=== PATIENT | female | born 1955 | race Caucasian/White ===

== ENCOUNTER 2022-11-06 15:03 | Observation (INO) | payer MEDICARE, BC, SELFPAY ==
[2022-11-06] VITALS (22 sets, daily range): BP systolic 153–180; BP diastolic 61–91; PULSE 51–86; RESP 20–22; TEMP 36.4–37.2; O2SAT 93–96; BMI 56.2
--- NOTE | 2022-11-06 15:33 | CRLHL7_ITS ---
For Patients: As a result of the Cures Act, medical imaging exams and procedure reports are released immediately into your electronic medical record. You may view this report before your referring provider. If you have questions, please contact your health care provider. INDICATION: Shortness of breath. TECHNIQUE: Chest 2 views. COMPARISON: None. FINDINGS: Cardiovascular and mediastinum: Cardiomediastinal silhouette is mildly enlarged Lungs and pleural spaces: Mild bilateral interstitial opacities. No sign of pleural effusion. No pneumothorax. Bones and soft tissues: Unremarkable for age. IMPRESSION: Mild cardiomegaly with interstitial opacities concerning for mild pulmonary edema. Dictated by Hermes Cisneros MD @ 11/06/2022 4:53:30 PM (Electronically Signed)
--- NOTE | 2022-11-06 15:37 | ED_ITS ---
HPI - General Adult General Time Seen by Provider: 15:38 Date Seen: 11/06/22 Chief complaint: Shortness of Breath/Dyspnea Stated complaint: Shortness of breath Time Seen by Provider: 11/06/22 15:09 Source: patient Mode of arrival: ambulatory Limitations: no limitations History of Present Illness HPI narrative: Patient is a 67-year-old female with a history of CHF, hypertension, diabetes presenting to the emergency department for shortness of breath. She states that the past 2 weeks she has been noticing worsening shortness of breath. States she has been taking her medications as directed other than she did miss her Lasix dose this morning but states she took 1 pill at 02:00 today. Patient states usually she is able walk from her bedroom to her bathroom without getting short of breath but states now whenever she does she gets very short of breath. She states it was difficult just walk into triage desk and requested a wheelchair to her room in the department. She was states now whenever she lays flat all within a minute or 2 should because extremity short of breath and needs to sit back up. She states she feels only minimally short of breath at rest. Also notes increased swelling to her lower extremities. Denies fevers, chest pain, headache, vision changes, weakness, numbness, diarrhea, constipation. Related Data Home Medications Medication Instructions Recorded Confirmed allopurinol 100 mg tablet 300 mg PO DAILY 11/06/22 11/06/22 brimonidine 0.2 % eye drops 1 drp ophthalmic (eye-left) Q12H 11/06/22 11/06/22 dorzolamide 2 % eye drops 1 drp ophthalmic (eye-left) BID 11/06/22 11/06/22 fluticasone propionate 50 2 spray intranasal DAILY 11/06/22 11/06/22 mcg/actuation nasal spray,suspension furosemide 40 mg tablet mg PO 11/06/22 latanoprost 0.005 % eye drops 1 drp ophthalmic (eye) QPM 11/06/22 11/06/22 levothyroxine 125 mcg tablet 125 mcg PO DAILY 11/06/22 11/06/22 losartan 100 mg tablet 100 mg PO DAILY 11/06/22 11/06/22 metformin 500 mg tablet,extended 500 mg PO QPM 11/06/22 11/06/22 release 24 hr metolazone 2.5 mg tablet 2.5 mg PO 11/06/22 metoprolol tartrate 100 mg tablet 100 mg PO BID 11/06/22 11/06/22 montelukast 10 mg tablet 10 mg PO QPM 11/06/22 11/06/22 nitroglycerin 0.4 mg sublingual mg sublingual 11/06/22 tablet prednisolone acetate 1 % eye 1 drp ophthalmic (eye-left) BID 11/06/22 11/06/22 drops,suspension simvastatin 40 mg tablet 40 mg PO QPM 11/06/22 11/06/22 timolol maleate 0.5 % eye drops 1 drp ophthalmic (eye-right) QAM 11/06/22 11/06/22 Allergies Allergy/AdvReac Type Severity Reaction Status Date / Time clindamycin Allergy Severe Verified 11/06/22 19:48 NSAIDS (Non-Steroidal Allergy Severe Anaphylaxis Verified 11/06/22 19:47 Anti-Inflamma penicillin V Allergy Severe Hypertensio Verified 11/06/22 19:47 n Review of Systems Status of ROS: Reports: 10 or more systems reviewed and unremarkable except as noted in History and below PFSH [facility] Social History What is your current living situation?: I presently have a place to live Problems where you live: declined to answer Problems where you live details: na In the past 12 months, utilities in danger of being shut off: no In the past 12 mos, have been you worried that your food would run out before you had money to buy more?: sometimes true In the past 12 mos, the food you bought just didn't last and you didn't have money to buy more?: sometimes true Smoking Status: Never smoker How often do you have a drink containing alcohol: never How often do you have six or more drinks on one occasion: Never AUDIT-C Alcohol total score: 0 Non-prescribed substance use: denies use How often does anyone, including family, friends and others, physically hurt you : never How often does anyone, including family, friends and others, insult or talk down to you: fairly often How often does anyone, including family, friends and others, threaten you with harm: never How often does anyone, including family, friends and others, scream or curse at you: never Exam Narrative: Exam Narrative: Const: Well-nourished, Well-developed, in mild distress Eyes: PERRL, no conjunctival injection, and symmetrical lids ENMT: Atraumatic external nose and ears. Moist mucous membranes. Neck: Symmetric, trachea midline, No thyromegaly. CVS: RRR, No murmurs or gallops. Peripheral pulses 2+ and equal in all extremities RESP: Unlabored respiratory effort. Clear to auscultation bilaterally. GI: Nontender/Nondistended, No rebound or guarding. MSK: +3 bilateral lower extremity edema up to the knees. Extremities w/o deformity, Normal Active ROM Skin: Warm, Dry. No rashes or lesions. Neuro: Normal Muscle tone, No focal neurological deficits. Psych: Awake, Alert, & Oriented x3. Appropriate mood and affect. Const: Vital Signs, click to edit/add: Vital Signs - 24 hr 11/06/22 15:16 11/06/22 15:40 11/06/22 15:45 Temperature 98.9 F Pulse Rate 65 65 Pulse Rate [Pulse Oximeter] 67 Respiratory Rate 20 Blood Pressure Blood Pressure [Ri ght Upper Arm] 163/62 H Pulse Oximetry [address] [facility] 11/06/22 16:04 11/06/22 16:07 11/06/22 16:08 Temperature Pulse Rate 64 76 60 Pulse Rate [Pulse Oximeter] Respiratory Rate Blood Pressure 180/68 H Blood Pressure [Ri ght Upper Arm] Pulse Oximetry [address] [facility] [facility] 11/06/22 16:15 11/06/22 16:30 11/06/22 16:45 Temperature Pulse Rate 77 65 60 Pulse Rate [Pulse Oximeter] Respiratory Rate Blood Pressure Blood Pressure [Ri ght Upper Arm] Pulse Oximetry [address] [facility] [facility] 11/06/22 17:00 11/06/22 17:02 11/06/22 17:03 Temperature Pulse Rate 54 L 58 L 67 Pulse Rate [Pulse Oximeter] Respiratory Rate Blood Pressure 153/61 H Blood Pressure [Ri ght Upper Arm] Pulse Oximetry 96 95 96 Oxygen Delivery Ma thod 11/06/22 17:20 11/06/22 17:36 11/06/22 17:45 Temperature Pulse Rate 65 61 75 Pulse Rate [Pulse Oximeter] Respiratory Rate Blood Pressure Blood Pressure [Ri ght Upper Arm] Pulse Oximetry 96 95 96 Oxygen Delivery Me thod 11/06/22 18:00 11/06/22 18:15 Temperature Pulse Rate 58 L 58 L Pulse Rate [Pulse Oximeter] Respiratory Rate Blood Pressure Blood Pressure [Ri ght Upper Arm] Pulse Oximetry 94 95 Oxygen Delivery Me thod Course Vital Signs Vital signs: Initial Vital Signs Temperature 98.9 F 11/06/22 15:16 Temperature Source Temporal Artery Scan 11/06/22 15:16 Pulse Rate 67 11/06/22 15:16 Respiratory Rate 20 11/06/22 15:16 Blood Pressure 163/62 H 11/06/22 15:16 Blood Pressure Mean 95 11/06/22 15:16 Pulse Oximetry 94 11/06/22 15:16 Oxygen Delivery Method Room Air 11/06/22 15:16 Vital Signs Temperature 98.9 F 11/06/22 15:16 Pulse Rate 67 11/06/22 15:16 Respiratory Rate 20 11/06/22 15:16 Blood Pressure 163/62 H 11/06/22 15:16 Pulse Oximetry 94 11/06/22 15:16 Oxygen Delivery Method Room Air 11/06/22 15:16 Temperature 97.5 F L 11/06/22 19:28 Pulse Rate 86 11/06/22 19:37 Respiratory Rate 20 11/06/22 19:52 Blood Pressure 176/91 H 11/06/22 19:37 Pulse Oximetry 96 11/06/22 19:52 Oxygen Delivery Method Room Air 11/06/22 19:52 Medical Decision Making MDM Narrative Medical decision making narrative: Patient is a 67-year-old female presents for shortness breath. She believes her CHF is causing her symptoms. States she has had worsening shortness of breath the past 2 weeks and now she cannot walk more than a few steps without getting short of breath. She has posterior primary care provider and tape since symptoms are continuing to get worse she came to the emergency department ins tead. States she has been taking her medication as directed. She does have lower extremity edema and larger not hear any rales or crackles her lungs there is concern for CHF at this time. CBC, CMP, BNP, urinalysis, chest x-ray, EKG, troponins were ordered. Patient's lab work returned showing a BNP of 2410. Initial troponin was within normal limits. Urinalysis shows no clear signs of UTI. COVID/flu/RSV negative. The sodium was slightly low at 133 potassium is slightly elevated at 5.2. This is likely to be the cause of her shortness of breath. We did do chest x-ray did show some mild pulmonary edema. With all this she most likely is having heart failure causing her symptoms. Dose of Lasix was ordered. Her blood sugar was 475 but is not showing signs of HHS at this time. 12 units of insulin were given. She does have a white count of 15.87. I am unsure why her white cause this side. Could be secondary to elevated blood sugar or stress reaction but infection cannot be clearly rule out this time. Chest x-ray and urinalysis showed no clear signs of infection. At speaking to her again she does states she has got a cortisone shot her left knee yesterday and this could be the cause of her elevated white count. Either way the patient will be admitted to the hospitalist service for CHF exacerbation. She is agreeable to this plan Lab Data Labs: Lab Results 11/06/22 11/06/22 11/06/22 Range/Units 15:25 15:35 15:43 WBC 15.87 H (4.50-11.00) K/uL RBC 3.94 L (4.00-5.20) m/uL Hgb 11.3 L (12.0-16.0) gm/dL Hct 35.9 (33.0-51.0) % MCV 91 (80-100) fL MCH 29 (26-34) pg MCHC 32 (32-36) gm/dL RDW Coeff of Tad 15.2 (11.5-15.5) % Plt Count 254 (140-440) K/uL Neut % (Auto) 89.0 H (42.0-72.0) % Lymph % (Auto) 4.6 L (20-44) % Rankin % (Auto) 5.9 (0.0-11.0) % Eos % (Auto) 0.0 (0.0-7.0) % Baso % (Auto) 0.1 (0.0-3.0) % Neut # (Auto) 14.10 H (1.7-7.0) K/uL Lymph # (Auto) 0.70 L (0.90-2.90) K/uL Rankin # (Auto) 0.90 (0.00-0.90) K/UL Eos # (Auto) 0.00 (0.00-0.50) K/uL Baso # (Auto) 0.00 (0.00-0.30) K/uL Abs Immat Gran (auto) 0.10 (0.00-0.30) K/uL Imm/Tot Granulo (auto) 0.4 % Sodium 133 L (135-149) mmol/L Potassium 5.2 H (3.6-5.1) mmol/L Chloride 102 (96-114) mmol/L Carbon Dioxide 26 (20-32) mmol/L BUN 62 H (7-30) mg/dL Creatinine 1.5 (0.5-1.5) mg/dL Estimated GFR 38 ml/min Glucose 475 H* (60-115) mg/dL Calcium 8.8 (8.4-10.6) mg/dL Total Bilirubin 0.5 (0.1-1.5) mg/dL AST 25 (12-35) U/L ALT 24 (4-35) U/L Alkaline Phosphatase 131 (40-150) U/L Troponin I 0.02 (0.01-0.04) ng/mL NT-Pro-B Natriuret Pep 2410 pg/mL Total Protein 6.9 (6.0-8.3) g/dL Albumin 3.8 (3.3-5.0) g/dL Urine Color (Yellow) Urine Appearance (Clear) Urine pH (5.0-8.5) Ur Specific [place] (1.000-1.030) Urine Protein (Negative) Urine Glucose (UA) (Negative) Urine Ketones (Negative) Urine Blood (Negative) Urine Nitrite (Negative) Urine Bilirubin (Negative) Urine Urobilinogen (0.2-1.0) Ur Leukocyte Esterase (Negative) Urine RBC (0-2) Urine WBC (0-5) Ur Squamous Epith Cells (None-Few) Urine Bacteria (None) SARS-CoV-2 (PCR) Negative SARS-CoV-2 (Negative) Influenza Type A (PCR) Negative PCR FLU A (Negative) Influenza Type B (PCR) Negative PCR FLU B (Negative) RSV (PCR) Negative PCR RSV (Negative) POC Troponin I 0.01 (0.01-0.04) ng/ml 11/06/22 Range/Units 16:00 WBC (4.50-11.00) K/uL RBC (4.00-5.20) m/uL Hgb (12.0-16.0) gm/dL Hct (33.0-51.0) % MCV (80-100) fL MCH (26-34) pg MCHC (32-36) gm/dL RDW Coeff of Tad (11.5-15.5) % Plt Count (140-440) K/uL Neut % (Auto) (42.0-72.0) % Lymph % (Auto) (20-44) % Rankin % (Auto) (0.0-11.0) % Eos % (Auto) (0.0-7.0) % Baso % (Auto) (0.0-3.0) % Neut # (Auto) (1.7-7.0) K/uL Lymph # (Auto) (0.90-2.90) K/uL Rankin # (Auto) (0.00-0.90) K/UL Eos # (Auto) (0.00-0.50) K/uL Baso # (Auto) (0.00-0.30) K/uL Abs Immat Gran (auto) (0.00-0.30) K/uL Imm/Tot Granulo (auto) % Sodium (135-149) mmol/L Potassium (3.6-5.1) mmol/L Chloride (96-114) mmol/L Carbon Dioxide (20-32) mmol/L BUN (7-30) mg/dL Creatinine (0.5-1.5) mg/dL Estimated GFR ml/min Glucose (60-115) mg/dL Calcium (8.4-10.6) mg/dL Total Bilirubin (0.1-1.5) mg/dL AST (12-35) U/L ALT (4-35) U/L Alkaline Phosphatase (40-150) U/L Troponin I (0.01-0.04) ng/mL NT-Pro-B Natriuret Pep pg/mL Total Protein (6.0-8.3) g/dL Albumin (3.3-5.0) g/dL Urine Color Yellow (Yellow) Urine Appearance Clear (Clear) Urine pH 5.0 (5.0-8.5) Ur Specific [place] 1.020 (1.000-1.030) Urine Protein 3+ A (Negative) Urine Glucose (UA) 2+ A (Negative) Urine Ketones Negative (Negative) Urine Blood Trace-intact A (Negative) Urine Nitrite Negative (Negative) Urine Bilirubin Negative (Negative) Urine Urobilinogen 0.2 (0.2-1.0) Ur Leukocyte Esterase Negative (Negative) Urine RBC 0-2 (0-2) Urine WBC 2-5 (0-5) Ur Squamous Epith Cells Few (None-Few) Urine Bacteria Moderate A (None) SARS-CoV-2 (PCR) (Negative) Influenza Type A (PCR) (Negative) Influenza Type B (PCR) (Negative) RSV (PCR) (Negative) POC Troponin I (0.01-0.04) ng/ml Discharge Plan Discharge Clinical Impression: Pulmonary edema with congestive heart failure Patient Disposition: Admitted As Observation Condition: Stable
[2022-11-06 15:42] LABS: Basophils Percent Auto 0.1 % (0.0-3.0); Hematocrit 35.9 % (33.0-51.0); Hemoglobin* 11.3 gm/dL (12.0-16.0); Immature Granulocytes Pct Auto 0.4 %; Lymphocytes Percent Auto 4.6 % (20-44); Mean Corpuscular HGB Conc 32 gm/dL (32-36); Mean Corpuscular Hemoglobin 29 pg (26-34); Mean Corpuscular Volume 91 fL (80-100); Monocytes Percent Auto 5.9 % (0.0-11.0); Platelet Count* 254 K/uL (140-440); RDW Coefficient of Variation % 15.2 % (11.5-15.5); Red Blood Count 3.94 m/uL (4.00-5.20); Slide Review Reflex No; White Blood Count* 15.87 K/uL (4.50-11.00)
[2022-11-06 15:43] LABS: Troponin, Point-of-Care* 0.01 ng/ml (0.01-0.04)
[2022-11-06 15:57] LABS: Albumin* 3.8 g/dL (3.3-5.0); Chloride* 102 mmol/L (96-114)
[2022-11-06 15:58] LABS: Potassium* 5.2 mmol/L (3.6-5.1); Sodium* 133 mmol/L (135-149)
[2022-11-06 16:00] LABS: Creatinine* 1.5 mg/dL (0.5-1.5); Estimated Glomerular Filt Rate 38 ml/min
[2022-11-06 16:01] LABS: Alanine Aminotransferase* 24 U/L (4-35); Alkaline Phosphatase* 131 U/L (40-150); Aspartate Amino Transferase* 25 U/L (12-35); Bilirubin Total* 0.5 mg/dL (0.1-1.5); Blood Urea Nitrogen* 62 mg/dL (7-30); Calcium* 8.8 mg/dL (8.4-10.6); Carbon Dioxide* 26 mmol/L (20-32); Total Protein* 6.9 g/dL (6.0-8.3)
[2022-11-06 16:09] LABS: Glucose* 475 mg/dL (60-115)
[2022-11-06 16:13] LABS: NT Pro B Type NatriureticPept* 2410 pg/mL; Troponin I* 0.02 ng/mL (0.01-0.04)
[2022-11-06 16:19] LABS: Appearance Urine Clear (Clear); Bilirubin Urine Negative (Negative); Blood Urine Trace-intact (Negative); Color Urine Yellow (Yellow); Glucose Urine 2+ (Negative); Ketones Urine Negative (Negative); Leukocyte Esterase Urine Negative (Negative); Nitrite Urine Negative (Negative); Protein Urine 3+ (Negative); Urobilinogen Urine 0.2 (0.2-1.0)
[2022-11-06 16:24] LABS: PCR FLU A Negative PCR FLU A (Negative); PCR FLU B Negative PCR FLU B (Negative); PCR RSV Negative PCR RSV (Negative)
[2022-11-06 16:27] LABS: RBC Urine 0-2 (0-2); Squamous Epithelial Cell Urine Few (None-Few)
[2022-11-06 16:28] LABS: Bacteria Urine Moderate
[2022-11-06] MEDS: FUROSEMIDE 10 MG/ML inj 40 MG IVP (16:31)
[2022-11-06 16:35] LABS: SARS PCR* Negative SARS-CoV-2 (Negative)
[2022-11-06] MEDS: ENOXAPARIN 40 MG/0.4 ML INJ SUBCUT (21:06)
[2022-11-06] MEDS: SODIUM CHLORIDE 0.9 % (FLUSH) 10 ML SYRINGE 5 ML IVF (21:06)
--- NOTE | 2022-11-06 22:03 | P.IMHP_ITS ---
Hospitalist- H&P: HPI History of Present Illness Time Seen by Provider: 20:00 Date Seen: 11/06/22 Chief complaint: Shortness of breath Narrative: Caity Ojeda is a 67 year old woman presents with a 2 week history of increasing dyspnea with exertion, increasing paroxysmal nocturnal dyspnea, increasing bilateral lower extremity edema. Patient describes paroxysmal nocturnal dyspnea for the better part of the last 2 years. She sleeps in a recliner chair subsequently. Last couple of weeks the paroxysmal nocturnal dyspnea has become worse. She is having to sleep almost in the sitting upright position. Additionally she is normally able to walk relatively easily from 1 room to the next in the house. Over the last couple of days even that has become more difficult with her having to stop after a few steps to catch her breath. Has not had syncope or near-syncope. Does have a chronic left chest wall discomfort. Notes that the bilateral lower extremity edema which is chronic for her has become increasingly worse over the last couple of weeks with blisters. Acknowledges that she has been sleeping almost sitting straight up during this time frame. Denies fevers, rigors, diaphoresis. Denies cough. Denies nausea or vomiting. Has chronic intermittent upset stomach. Recently stopped taking her metformin due to diarrhea in association with the same. Review of Systems Status of ROS: Reports: 10 or more systems reviewed and unremarkable except as noted in History and below Narrative: Tries to take her medicines as prescribed. Tries to adhere to low-sodium diet blood sugars have been much more difficult to control lately. Blood sugars 300- 400. Once again, she stopped her metformin recently due to gastrointestinal upset and diarrhea. 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 Has received multiple treatments for the same. States has diabetic retinopathy. Quit her Flonase because she thinks a Flonase contributed to this problem. 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 (ICD-10) Poorly controlled type 2 diabetes mellitus ?E11.65 - Type 2 diabetes mellitus with hyperglycemia (ICD-10) History of sciatica ?Z86.69 - Personal history of other diseases of the nervous system and sense organs (ICD-10) Primary hypothyroidism ?E03.9 - Hypothyroidism, unspecified (ICD-10) Asthma ?J45.909 - Unspecified asthma, uncomplicated (ICD-10) Vitamin D deficiency ?E55.9 - Vitamin D deficiency, unspecified (ICD-10) Rectocele ?N81.6 - Rectocele (ICD-10) Essential hypertension ?I10 - Essential (primary) hypertension (ICD-10) Obstructive sleep apnea ?G47.33 - Obstructive sleep apnea (adult) (pediatric) (ICD-10) Chronic diastolic heart failure ?I50.32 - Chronic diastolic (congestive) heart failure (ICD-10) Morbid obesity with BMI of 50.0-59.9, adult ?E66.01 - Morbid (severe) obesity due to excess calories (ICD-10) ?Z68.43 - Body mass index [BMI] 50.0-59.9, adult (ICD-10) History of nephrolithiasis ?Z87.442 - Personal history of urinary calculi (ICD-10) Lumbar back pain with radiculopathy affecting left lower extremity ?M54.16 - Radiculopathy, lumbar region (ICD-10) Hypertriglyceridemia ?E78.1 - Pure hyperglyceridemia (ICD-10) Osteoarthritis of knees, bilateral ?M17.0 - Bilateral primary osteoarthritis of knee (ICD-10) Chronic kidney disease ?N18.9 - Chronic kidney disease, unspecified (ICD-10) Venous insufficiency of both lower extremities ?I87.2 - Venous insufficiency (chronic) (peripheral) (ICD-10) Diabetic nephropathy associated with type 2 diabetes mellitus ?E11.21 - Type 2 diabetes mellitus with diabetic nephropathy (ICD-10) Surgical History (Updated 11/06/22 @ 22:10 by Iain Soriano MD) Status post total abdominal hysterectomy ?Z90.710 - Acquired absence of both cervix and uterus (ICD-10) Status post thyroidectomy ?E89.0 - Postprocedural hypothyroidism (ICD-10) History of esophagogastroduodenoscopy ?Z98.890 - Other specified postprocedural states (ICD-10) Status post cholecystectomy ?Z90.49 - Acquired absence of other specified parts of digestive tract (ICD- 10) History of intraocular lens implant ?Z96.1 - Presence of intraocular lens (ICD-10) Cataract extraction status ?Z98.49 - Cataract extraction status, unspecified eye (ICD-10) Status post appendectomy ?Z90.49 - Acquired absence of other specified parts of digestive tract (ICD- 10) Status post colonoscopy with polypectomy ?Z98.890 - Other specified postprocedural states (ICD-10) Family History (Updated 11/06/22 @ 22:10 by Iain Soriano MD) Other Diabetes High blood pressure High cholesterol Social History (Updated 11/06/22 @ 22:13 by Iain Soriano MD) Narrative: . Lives alone. Three supportive children. 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 Designates son, Nathan, [phone], secondary contact for power of nursery laborer for health should that be required. Requests that we attempt resuscitation in the event of cardiopulmonary demise, stressing that she does not want to be kept alive as a vegetable should that come to pass. What is your current living situation?: I presently have a place to live Problems where you live: declined to answer Problems where you live details: na In the past 12 months, utilities in danger of being shut off: no In the past 12 mos, have been you worried that your food would run out before you had money to buy more?: sometimes true In the past 12 mos, the food you bought just didn't last and you didn't have money to buy more?: sometimes true Smoking Status: Never smoker How often do you have a drink containing alcohol: never How often do you have six or more drinks on one occasion: Never AUDIT-C Alcohol total score: 0 Non-prescribed substance use: denies use How often does anyone, including family, friends and others, physically hurt you : never How often does anyone, including family, friends and others, insult or talk down to you: fairly often How often does anyone, including family, friends and others, threaten you with harm: never How often does anyone, including family, friends and others, scream or curse at you: never Meds Home Medications and Allergies Home Medications Medication Instructions Recorded Confirmed Type allopurinol 100 mg tablet 300 mg PO DAILY 11/06/22 11/06/22 History brimonidine 0.2 % eye drops 1 drp ophthalmic (eye-left) Q12H 11/06/22 11/06/22 History dorzolamide 2 % eye drops 1 drp ophthalmic (eye-left) BID 11/06/22 11/06/22 History fluticasone propionate 50 2 spray intranasal DAILY 11/06/22 11/06/22 History mcg/actuation nasal spray,suspension furosemide 40 mg tablet mg PO 11/06/22 History latanoprost 0.005 % eye drops 1 drp ophthalmic (eye) QPM 11/06/22 11/06/22 History levothyroxine 125 mcg tablet 125 mcg PO DAILY 11/06/22 11/06/22 History losartan 100 mg tablet 100 mg PO DAILY 11/06/22 11/06/22 History metformin 500 mg tablet,extended 500 mg PO QPM 11/06/22 11/06/22 History release 24 hr metolazone 2.5 mg tablet 2.5 mg PO 11/06/22 History metoprolol tartrate 100 mg tablet 100 mg PO BID 11/06/22 11/06/22 History montelukast 10 mg tablet 10 mg PO QPM 11/06/22 11/06/22 History nitroglycerin 0.4 mg sublingual mg sublingual 11/06/22 History tablet prednisolone acetate 1 % eye 1 drp ophthalmic (eye-left) BID 11/06/22 11/06/22 History drops,suspension simvastatin 40 mg tablet 40 mg PO QPM 11/06/22 11/06/22 History timolol maleate 0.5 % eye drops 1 drp ophthalmic (eye-right) QAM 11/06/22 11/06/22 History Allergies Allergy/AdvReac Type Severity Reaction Status Date / Time clindamycin Allergy Severe Verified 11/06/22 19:48 NSAIDS (Non-Steroidal Allergy Severe Anaphylaxis Verified 11/06/22 19:47 Anti-Inflamma penicillin V Allergy Severe Hypertensio Verified 11/06/22 19:47 n Exam Narrative: Exam Narrative: When I 1st examined her she is in the emergency department sitting upright in a chair with her feet on the floor. She appears comfortable. No acute distress. Vision and hearing are seemingly grossly normal at this juncture. Alert and oriented to self, place, time, situation. Articulate, friendly, cooperative. Somewhat anxious. Mood and affect are con gruent. Morbidly obese. Normal tympanic membranes bilaterally. Midline nasal septum. Mallampati class 4 airway. No icterus or conjunctival injection. Neck is supple. Full neck. In the sitting upright position she has jugular venous distension and hepatojugular reflux all the way up to just below the angle of the jaw. No carotid bruits. Lungs for the most part clear to auscultation. No wheezing, rhonchi, and only fine end inspiratory rales bibasilarly. Chest wall excursions are full. Does have chronic tenderness to percussion over her spine but not the CVA bilaterally. Pitting edema presacrally. Heart tones with regular rhythm, normal S1-S2, distant tones, without obvious murmur, gallop, or rub. Morbid abdominal obesity. Abdomen with active bowel sounds, soft, nontender. Pitting edema pedally, pretibially, up into her thighs, and as specified above in the presacral area as well. Blistering of skin and motta and caps. No obvious infection. Transfers independently with standby assist. No focal motor neurologic deficits. No tremor, asterixis, or rub. Broad-based stance. Const: Vital Signs, click to edit/add: Vital Signs - 24 hr 11/06/22 15:16 11/06/22 15:40 11/06/22 15:45 Temperature 98.9 F Pulse Rate 65 65 Pulse Rate [Pulse Oximeter] 67 Pulse Rate [Right Brachial] Respiratory Rate 20 Blood Pressure Blood Pressure [Le ft Arm] Blood Pressure [Ri ght Upper Arm] 163/62 H Pulse Oximetry 94 95 94 Oxygen Delivery Vt thod Room Air 11/06/22 16:04 11/06/22 16:07 11/06/22 16:08 Temperature Pulse Rate 64 76 60 Pulse Rate [Pulse Oximeter] Pulse Rate [Right Brachial] Respiratory Rate Blood Pressure 180/68 H Blood Pressure [Le ft Arm] Blood Pressure [Ri ght Upper Arm] Pulse Oximetry 93 93 94 Oxygen Delivery Me thod 11/06/22 16:15 11/06/22 16:30 11/06/22 16:45 Temperature Pulse Rate 77 65 60 Pulse Rate [Pulse Oximeter] Pulse Rate [Right Brachial] Respiratory Rate Blood Pressure Blood Pressure [Le ft Arm] Blood Pressure [Ri ght Upper Arm] Pulse Oximetry 93 94 95 Oxygen Delivery Vt thod 11/06/22 17:00 11/06/22 17:02 11/06/22 17:03 Temperature Pulse Rate 54 L 58 L 67 Pulse Rate [Pulse Oximeter] Pulse Rate [Right Brachial] Respiratory Rate Blood Pressure 153/61 H Blood Pressure [Le ft Arm] Blood Pressure [Ri ght Upper Arm] Pulse Oximetry 96 95 96 Oxygen Delivery Vt thod 11/06/22 17:20 11/06/22 17:36 11/06/22 17:45 Temperature Pulse Rate 65 61 75 Pulse Rate [Pulse Oximeter] Pulse Rate [Right Brachial] Respiratory Rate Blood Pressure Blood Pressure [Le ft Arm] Blood Pressure [Ri ght Upper Arm] Pulse Oximetry 96 95 96 [facility] 18:00 11/06/22 18:15 11/06/22 19:28 Temperature 97.5 F L Pulse Rate 58 L 58 L Pulse Rate [Pulse Oximeter] Pulse Rate [Right Brachial] 86 Respiratory Rate 20 Blood Pressure Blood Pressure [Le ft Arm] Blood Pressure [Ri ght Upper Arm] Pulse Oximetry 94 95 95 [facility] 11/06/22 19:37 11/06/22 19:52 11/06/22 21:21 Temperature Pulse Rate 74 Pulse Rate [Pulse Oximeter] Pulse Rate [Right Brachial] 86 Respiratory Rate 20 20 Blood Pressure Blood Pressure [Le ft Arm] 176/91 H Blood Pressure [Ri ght Upper Arm] Pulse Oximetry 96 96 [facility] Room Air Hospitalist - H&P: Result Labs Labs: Short CBC 11/06/22 Range/Units 15:25 WBC 15.87 H (4.50-11.00) K/uL Hgb 11.3 L (12.0-16.0) gm/dL Hct 35.9 (33.0-51.0) % Plt Count 254 (140-440) K/uL BMP 11/06/22 15:25 Sodium 133 L Potassium 5.2 H Chloride 102 Carbon Dioxide 26 BUN 62 H Creatinine 1.5 Glucose 475 H* Calcium 8.8 Cardiac Enzymes 11/06/22 Range/Units 15:25 Troponin I 0.02 (0.01-0.04) ng/mL Liver Function 11/06/22 Range/Units 15:25 Total Bilirubin 0.5 (0.1-1.5) mg/dL AST 25 (12-35) U/L ALT 24 (4-35) U/L Alkaline Phosphatase 131 (40-150) U/L Albumin 3.8 (3.3-5.0) g/dL Urine 11/06/22 Range/Units 16:00 Urine Color Yellow (Yellow) Urine Appearance Clear (Clear) Urine pH 5.0 (5.0-8.5) Ur Specific [place] 1.020 (1.000-1.030) Urine Protein 3+ A (Negative) Urine Glucose (UA) 2+ A (Negative) ECG Attestation: I personally reviewed and interpreted this ECG as follows: ECG interpretation date: 11/06/22 ECG interpretation time: 20:00 Prior ECG tracings: not available for review Interpretation: Sinus rhythm. Sinus arrhythmia. Low-voltage criteria. Imaging Chest x-ray: Attestation: I have reviewed the pertinent imaging results. Radiologist's impression: IMPRESSION: Mild cardiomegaly with interstitial opacities concerning for mild pulmonary edema. Assessment and Plan Assessment and plan (1) Acute on chronic diastolic heart failure: Status: Acute (2) Severe left ventricular hypertrophy: Problem comment: Per last transthoracic echocardiogram 03/10/2021. Status: Acute (3) Chronic diastolic heart failure: Problem comment: Last transthoracic echocardiogram 03/10/2021: Normal LV size, severely increased wall thickness, normal global systolic function, EF 62%. Right ventricle mildly enlarged with normal function. Grade 2 pattern LV diastolic filling. Pulmonary pressure by tricuspid velocity mildly elevated at 19 mmHg plus right atrial pressure. Inferior vena cava dilated with respiratory variation greater than 50%. 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 Alfonzo Wheatley. Avoid nonsteroidal anti-inflammatory medications. Attempt to optimize diabetes mellitus. Would benefit from SGLT2i, cannot afford. Would benefit from GLP1 agonist, cannot afford. Would benefit from weight loss, but seemingly unable to achieve. Status: Acute (6) Poorly controlled type 2 diabetes mellitus: Status: Acute (7) Venous insufficiency of both lower extremities: Status: Acute (8) Morbid obesity with BMI of 50.0-59.9, adult: Problem comment: Could potentially benefit from assessment for possible surgical intervention, given multiple complications in association with the same. Status: Acute (9) Obstructive sleep apnea: Status: Acute Plan 1. Reviewed impression with patient. Answered her questions. 2. Recommended admission to the hospital. She is agreeable. 3. Was administered furosemide 40 mg IV in the emergency department. Having fair urine output from the same. Starting tomorrow morning will increase to 60 mg IV every morning. 4. Monitor electrolytes, renal function, and other labs closely. 5. Daily weight. 6. Sliding scale insulin plus decrease dose of her 70/30 insulin for now. 7. Transthoracic echocardiogram. 8. Foot pumps bilaterally. 9. Continue to have conversations with her in regard to her goals for care and her means to achieve these goals. It seems that she does not care for herself optimally, at least in the past, because she is not able to afford certain interventions. For now she would like us to work on helping her breathe more easily. 10. Consider compression wraps. 11. Continue with other supportive intervention efforts. 12. Physical therapy, occupational therapy, director of social work consult and support. Might the patient benefit from additional in-home services if possible? 13. Patient agreeable to above stated plans and recommendations.
[2022-11-07 03:00] VITALS: BP 157/72; PULSE 55; RESP 20; TEMP 36.4; O2SAT 95
--- NOTE | 2022-11-07 05:56 | PC.NURSE ---
END OF SHIFT NOTE: PT PLEASANT AND COOPERATIVE. PT DENIES CP AND N/V. C/O FEELING SOB WITH ACTIVITY.?AMBULATES INDEPENDENTLY WITH CANE. VSS ON RA; AFEBRILE. PT RATES BLE PAIN 0-6/10 WITH ACTIVITY AND TENDER TO THE TOUCH. ERYTHEMA, SCABS, AND BLISTERING TO SHINS. ULCERS TO BLE ON TOES AND PLANTAR OF LEFT FOOT. 2AM BG CHECK 206. CALL LIGHT WITHIN PT?S REACH.
[2022-11-07] MEDS: LEVOTHYROXINE 125 MCG TABLET PO (06:55)
[2022-11-07] MEDS: FUROSEMIDE 10 MG/ML inj 60 MG IVP (06:55)
[2022-11-07] MEDS: SODIUM CHLORIDE 0.9 % (FLUSH) 10 ML SYRINGE 5 ML IVF ×2 (06:56→08:39)
[2022-11-07 07:04] VITALS: PULSE 48
[2022-11-07 07:04] LABS: Hematocrit 38.8 % (33.0-51.0); Hemoglobin* 12.2 gm/dL (12.0-16.0); Mean Corpuscular HGB Conc 31 gm/dL (32-36); Mean Corpuscular Hemoglobin 29 pg (26-34); Mean Corpuscular Volume 92 fL (80-100); Platelet Count* 268 K/uL (140-440); Red Blood Count 4.24 m/uL (4.00-5.20); White Blood Count* 14.48 K/uL (4.50-11.00)
[2022-11-07 07:20] LABS: Slide Review Reflex No
[2022-11-07 07:45] VITALS: BP 176/78; PULSE 52; RESP 18; RESP 20; TEMP 36.6; O2SAT 94
[2022-11-07] MEDS: ACETAMINOPHEN 325 MG TABLET 650 MG PO ×3 (08:40→17:53)
[2022-11-07] MEDS: METOPROLOL TARTRATE 100 MG TABLET PO (08:40)
[2022-11-07] MEDS: LOSARTAN POTASSIUM 50 MG TABLET 100 MG PO (08:40)
[2022-11-07] MEDS: allopurinoL 100 MG TABLET 300 MG PO (08:40)
[2022-11-07] MEDS: INSULIN PROT/ASP (NOVOLOG 70/30) 100 UNIT/ML 60 UNIT SUBCUT (08:42)
[2022-11-07] MEDS: BRIMONIDINE TARTRATE 0.2% OPHTH 1 DROP EYE-LEFT ×2 (08:51→20:22)
[2022-11-07] MEDS: metOLazone 2.5 MG TABLET PO (08:51)
[2022-11-07] MEDS: prednisoLONE acetate 1 % DROPS 1 DROP EYE-LEFT (08:51)
[2022-11-07] MEDS: timoloL maleate 0.5 % 1 DROP EYE-RIGHT (08:52)
[2022-11-07] MEDS: DORZOLAMIDE HCL 2 % OPHTH DROP 1 DROP EYE-LEFT (08:52)
[2022-11-07 08:56] LABS: Chloride* 103 mmol/L (96-114); Potassium* 4.7 mmol/L (3.6-5.1); Sodium* 137 mmol/L (135-149)
[2022-11-07 08:59] LABS: Blood Urea Nitrogen* 59 mg/dL (7-30); Calcium* 9.3 mg/dL (8.4-10.6); Carbon Dioxide* 29 mmol/L (20-32); Glucose* 261 mg/dL (60-115)
[2022-11-07 09:16] LABS: Creatinine* 1.4 mg/dL (0.5-1.5); Est. Creatinine Clearance* 34.61; Estimated Glomerular Filt Rate 41 ml/min
--- NOTE | 2022-11-07 09:48 | NUTR.NU ---
RDN with MD consult for heart failure. RDN with nutrition screen for diabetic diet and 2 gram sodium diet. Diabetic diet education provided. Discussed basics of carbohydrate counting including sources of carbohydrates, serving sizes, and label reading. Discussed using the plate method for carbohydrate-controlled, balanced meals that include ? plate non-starchy vegetables, ? plate protein, and 3-4 servings of carbohydrates per meal (fruit, whole grains, legumes, milk, yogurt) and 1-2 per snack. Handouts provided to support discussion. Nutrition education provided on a low sodium diet related to congestive heart failure. Verbal and written information provided. Recommend limiting sodium to 2,000 mg per day. Discussed foods recommended and to avoid. Handouts provided from [facility] on heart failure nutrition therapy, sodium content of foods, heart healthy label reading tips, sodium-free flavoring tips and heart healthy cooking and shopping tips. Patient questions were answered. Patient verbalized understanding and notes she has been trying to follow these diets at home. RDN's contact information was provided and patient was encouraged to call with questions. RDN will follow-up PRN.
[2022-11-07 11:45] VITALS: BP 165/78; PULSE 49; RESP 18; TEMP 36.4; O2SAT 93
--- NOTE | 2022-11-07 12:41 | PM.DS1 ---
DS: Providers Provider Date Seen: 11/07/22 Date of admission: 11/06/22 18:53 Primary care physician: Kaila Valdez MD Admitting Clinician: Iain Soriano MD Attending Physician on discharge: Iain Soriano MD Date of Discharge: 11/07/22 DS: Diagnosis Discharge Diagnosis (1) Pulmonary edema with congestive heart failure: Status: Acute (2) Bradycardia: Status: Acute Problem details: Asymptomatic but pulses in the upper 40s lower 50s. Stop metoprolol tartrate 100 b.i.d. start metoprolol succinate 50 mg 2 in the morning and 1 in the evening (3) Obstructive sleep apnea: Status: Acute (4) Poorly controlled type 2 diabetes mellitus: Status: Acute Problem details: Poorly tolerates metformin. On NovoLog 70 30. Likely needs some increase in dosing. SGLT2 inhibitor would be helpful but patient cannot afford it. (5) Diabetic nephropathy associated with type 2 diabetes mellitus: Status: Acute Problem details: Proteinuria, nearly nephrotomy 06/28/2022 when last saw institute scientist, Dr. Alfonzo Wheatley. Avoid nonsteroidal anti-inflammatory medications. Attempt to optimize diabetes mellitus. Would benefit from SGLT2i, cannot afford. Would benefit from GLP1 agonist, cannot afford. Would benefit from weight loss, but seemingly unable to achieve. (6) Morbid obesity with BMI of 50.0-59.9, adult: Status: Acute Problem details: Could potentially benefit from assessment for possible surgical intervention, given multiple complications in association with the same. (7) Venous insufficiency of both lower extremities: Status: Acute Problem details: Discussed elevation and compression. (8) Diabetic foot ulcer: Status: Acute Problem details: Left foot has small 2nd and 3rd toe ulcers and plantar 1st MTP ulcer. Not currently infected. At risk for infection. Patient does not wear socks and shoes are not clean. DS: Summary Hospital Course Hospital Course: 67-year-old female admitted to the hospital with progressive dyspnea and orthopnea over the past 2 weeks. Also noting increased edema. In the emergency room she was thought to be in heart failure exacerbation. Started on intravenous furosemide. Dyspnea improved back to baseline over the 1st day in the hospital. She has significant lower extremity lymphedema. Left foot has small ulcers over the 2nd 3rd toes and a plantar 1st MTP ulcer as well. He is not currently appear to be infected. Patient has some difficulty managing leg compression and elevation and foot care due to obesity and is unable to wear compression hose or socks. Blood sugars have been moderately elevated in the hospital. We discussed diabetes care. She poorly tolerates metformin due to diarrhea. She would benefit from an SGLT2 inhibitor but she tells me she cannot afford this. Revisit blood sugar control in the clinic Status at Discharge Overall status at discharge: patient is back to baseline Time Spent with Patient Time attestation: Total time spent providing and/or coordinating discharge services: 45 minutes Time spent: Greater than 30 minutes Exam Narrative: Exam Narrative: She is alert and appears in no distress. Breathing is unlabored on room air. Oropharynx with small airway. Respirations are clear to auscultation without wheezing rales or rhonchi. Cardiovascular: S1, S2, regular rate and rhythm. Abdomen is soft without tenderness or mass. Extremities with mod edema starting about [address] her legs bilaterally. Mild edema below that and in her feet. Small ulcers on the left 2nd and 3rd toes on the dorsum. 1.5 cm ulcer with granulation tissue on the plantar surface of the 1st MTP. Good capillary refill but diminished pedal pulses Const: Vital Signs, click to edit/add: Vital Signs - 24 hr 11/06/22 15:16 11/06/22 15:40 11/06/22 15:45 Temperature 98.9 F Pulse Rate 65 65 Pulse Rate [Pulse Oximeter] 67 Pulse Rate [Right Brachial] Respiratory Rate 20 Blood Pressure Blood Pressure [Le ft Arm] Blood Pressure [Ri ght Upper Arm] 163/62 H Pulse Oximetry 94 95 94 Oxygen Delivery Me thod Room Air 11/06/22 16:04 11/06/22 16:07 11/06/22 16:08 Temperature Pulse Rate 64 76 60 Pulse Rate [Pulse Oximeter] Pulse Rate [Right Brachial] Respiratory Rate Blood Pressure 180/68 H Blood Pressure [Le ft Arm] Blood Pressure [Ri ght Upper Arm] Pulse Oximetry 93 93 94 Oxygen Delivery Me thod 11/06/22 16:15 11/06/22 16:30 11/06/22 16:45 Temperature Pulse Rate 77 65 60 Pulse Rate [Pulse Oximeter] Pulse Rate [Right Brachial] Respiratory Rate Blood Pressure Blood Pressure [Le ft Arm] Blood Pressure [Ri ght Upper Arm] Pulse Oximetry 93 94 95 [facility] 17:00 11/06/22 17:02 11/06/22 17:03 Temperature Pulse Rate 54 L 58 L 67 Pulse Rate [Pulse Oximeter] Pulse Rate [Right Brachial] Respiratory Rate Blood Pressure 153/61 H Blood Pressure [Le ft Arm] Blood Pressure [Ri ght Upper Arm] Pulse Oximetry 96 95 96 [facility] 11/06/22 17:20 11/06/22 17:36 11/06/22 17:45 Temperature Pulse Rate 65 61 75 Pulse Rate [Pulse Oximeter] Pulse Rate [Right Brachial] Respiratory Rate Blood Pressure Blood Pressure [Le ft Arm] Blood Pressure [Ri ght Upper Arm] Pulse Oximetry 96 95 96 [facility] 11/06/22 18:00 11/06/22 18:15 11/06/22 19:28 Temperature 97.5 F L Pulse Rate 58 L 58 L Pulse Rate [Pulse Oximeter] Pulse Rate [Right Brachial] 86 Respiratory Rate 20 Blood Pressure Blood Pressure [Le ft Arm] Blood Pressure [Ri ght Upper Arm] Pulse Oximetry 94 95 95 Oxygen Delivery [facility] Room Air 11/06/22 19:37 11/06/22 19:52 11/06/22 21:21 Temperature Pulse Rate 74 Pulse Rate [Pulse Oximeter] Pulse Rate [Right Brachial] 86 Respiratory Rate 20 20 Blood Pressure Blood Pressure [Le ft Arm] 176/91 H Blood Pressure [Ri ght Upper Arm] Pulse Oximetry 96 96 Oxygen Delivery [facility] Room Air Room Air 11/06/22 23:00 11/06/22 23:00 11/06/22 23:00 Temperature Pulse Rate 69 Pulse Rate [Pulse Oximeter] Pulse Rate [Right Brachial] 51 L Respiratory Rate 22 22 Blood Pressure Blood Pressure [Le ft Arm] Blood Pressure [Ri ght Upper Arm] Pulse Oximetry 94 [facility] 11/06/22 23:00 11/07/22 03:00 11/07/22 07:04 Temperature 97.7 F 97.5 F L Pulse Rate 48 L Pulse Rate [Pulse Oximeter] 51 L 55 L Pulse Rate [Right Brachial] Respiratory Rate 22 20 Blood Pressure Blood Pressure [Le ft Arm] 154/64 H 157/72 H Blood Pressure [Ri ght Upper Arm] Pulse Oximetry 94 95 Oxygen Delivery [facility] Room Air Room Air 11/07/22 07:45 11/07/22 07:45 11/07/22 07:45 Temperature 97.9 F Pulse Rate Pulse Rate [Pulse Oximeter] 52 L 52 L Pulse Rate [Right Brachial] Respiratory Rate 20 18 18 Blood Pressure Blood Pressure [Le ft Arm] 176/78 H Blood Pressure [Ri ght Upper Arm] Pulse Oximetry 94 94 Oxygen Delivery Me thod Room Air Room Air 11/07/22 11:45 Temperature 97.5 F L Pulse Rate Pulse Rate [Pulse Oximeter] 49 L Pulse Rate [Right Brachial] Respiratory Rate 18 Blood Pressure Blood Pressure [Le ft Arm] 165/78 H Blood Pressure [Ri ght Upper Arm] Pulse Oximetry 93 Oxygen Delivery Me thod Room Air Documenting provider has reviewed patient's vital signs: yes DS: Data Data Completed and Pending Labs on day of discharge: Labs from last 24 hours 11/07/22 11/06/22 11/06/22 06:54 16:00 15:43 WBC 14.48 H RBC 4.24 Hgb 12.2 Hct 38.8 MCV 92 MCH 29 MCHC 31 L RDW Coeff of Tad Plt Count 268 Neut % (Auto) Lymph % (Auto) Gonzales % (Auto) Eos % (Auto) Baso % (Auto) Neut # (Auto) Lymph # (Auto) Gonzales # (Auto) Eos # (Auto) Baso # (Auto) Abs Immat Gran (auto) Imm/Tot Granulo (auto) Sodium 137 Potassium 4.7 Chloride 103 Carbon Dioxide 29 BUN 59 H Creatinine 1.4 Estimated Creat Clear 34.61 Estimated GFR 41 Glucose 261 H Calcium 9.3 Total Bilirubin AST ALT Alkaline Phosphatase Troponin I NT-Pro-B Natriuret Pep Total Protein Albumin Urine Color Yellow Urine Appearance Clear Urine pH 5.0 Ur Specific [place] 1.020 Urine Protein 3+ A Urine Glucose (UA) 2+ A Urine Ketones Negative Urine Blood Trace-intact A Urine Nitrite Negative Urine Bilirubin Negative Urine Urobilinogen 0.2 Ur Leukocyte Esterase Negative Urine RBC 0-2 Urine WBC 2-5 Ur Squamous Epith Cells Few Urine Bacteria Moderate A SARS-CoV-2 (PCR) Influenza Type A (PCR) Influenza Type B (PCR) RSV (PCR) Lab Acknowledgement Test Added POC Troponin I 0.01 11/06/22 11/06/22 15:35 15:25 WBC 15.87 H RBC 3.94 L Hgb 11.3 L Hct 35.9 MCV 91 MCH 29 MCHC 32 RDW Coeff of Tad 15.2 Plt Count 254 Neut % (Auto) 89.0 H Lymph % (Auto) 4.6 L Gonzales % (Auto) 5.9 Eos % (Auto) 0.0 Baso % (Auto) 0.1 Neut # (Auto) 14.10 H Lymph # (Auto) 0.70 L Gonzales # (Auto) 0.90 Eos # (Auto) 0.00 Baso # (Auto) 0.00 Abs Immat Gran (auto) 0.10 Imm/Tot Granulo (auto) 0.4 Sodium 133 L Potassium 5.2 H Chloride 102 Carbon Dioxide 26 BUN 62 H Creatinine 1.5 Estimated Creat Clear Estimated GFR 38 Glucose 475 H* Calcium 8.8 Total Bilirubin 0.5 AST 25 ALT 24 Alkaline Phosphatase 131 Troponin I 0.02 NT-Pro-B Natriuret Pep 2410 Total Protein 6.9 Albumin 3.8 Urine Color Urine Appearance Urine pH Ur Specific [place] Urine Protein Urine Glucose (UA) Urine Ketones Urine Blood Urine Nitrite Urine Bilirubin Urine Urobilinogen Ur Leukocyte Esterase Urine RBC Urine WBC Ur Squamous Epith Cells Urine Bacteria SARS-CoV-2 (PCR) Negative SARS-CoV-2 Influenza Type A (PCR) Negative PCR FLU A Influenza Type B (PCR) Negative PCR FLU B RSV (PCR) Negative PCR RSV Lab Acknowledgement POC Troponin I Preliminary micro results at discharge 11/06/22 Unknown Urine Culture - Preliminary Urine,Clean Catch Culture in Progress Imaging Chest x-ray: Attestation: I have reviewed the pertinent imaging results. (Mild pulmonary edema) Radiologist's impression: INDICATION: Shortness of breath. TECHNIQUE: Chest 2 views. COMPARISON: None. FINDINGS: Cardiovascular and mediastinum: Cardiomediastinal silhouette is mildly enlarged Lungs and pleural spaces: Mild bilateral interstitial opacities. No sign of pleural effusion. No pneumothorax. Bones and soft tissues: Unremarkable for age. IMPRESSION: Mild cardiomegaly with interstitial opacities concerning for mild pulmonary edema. Discharge Plan Discharge Disposition: Home, Self-Care Date of Admission: 11/06/22 18:53 Attending Provider on Discharge: Jose Rebolledo Primary Care Provider: Kaila Valdez Condition: Stable Anticipated Discharge Date/Time: 11/07/22 17:00 Discharge Medications: New metoprolol succinate 50 mg capsule,sprinkle,ER 24hr 50 mg PO BID Qty: 90 0RF Rx Instructions: Take 2 tablets in the morning and 1 tablet at bedtime Continued latanoprost 0.005 % drops 1 drp ophthalmic (eye) QPM metolazone 2.5 mg tablet 2.5 mg PO .WEEKLY allopurinol 100 mg tablet 300 mg PO DAILY simvastatin 40 mg tablet 40 mg PO HS prednisolone acetate 1 % drops,suspension 1 drp ophthalmic (eye-left) BID levothyroxine 125 mcg tablet 125 mcg PO DAILY brimonidine 0.2 % drops 1 drp ophthalmic (eye-left) Q12H nitroglycerin 0.4 mg tablet, sublingual 0.4 mg sublingual Q5M PRN montelukast 10 mg tablet 10 mg PO HS timolol maleate 0.5 % drops 1 drp ophthalmic (eye-right) QAM losartan 100 mg tablet 100 mg PO DAILY fluticasone propionate 50 mcg/actuation spray,suspension 2 spray INTRANASAL DAILY metformin 500 mg tablet extended release 24 hr 500 mg PO QPM dorzolamide 2 % drops 1 drp ophthalmic (eye-left) BID albuterol sulfate 90 mcg/actuation HFA aerosol inhaler 1 - 2 puff INHALATION Q4H PRN ascorbic acid (vitamin C) 500 mg tablet 500 mg PO DAILY vitamin B complex [B Complex-Vitamin B12] Tablet 1 tab PO DAILY cholecalciferol (vitamin D3) 50 mcg (2,000 unit) tablet 150 mcg PO DAILY Humulin 70/30 U-100 Insulin 100 unit/mL (70-30) suspension 66 unit subcut QAM Humulin 70/30 U-100 Insulin 100 unit/mL (70-30) suspension 53 unit subcut HS loratadine [Allerclear] 10 mg tablet 10 mg PO DAILY magnesium 250 mg tablet 250 mg PO DAILY multivitamin [Daily Multi-Vitamin] Tablet 1 tab PO DAILY tramadol 50 mg tablet 50 mg PO Q6H PRN (Reason: pain) Changed furosemide 40 mg tablet 80 mg PO BID Qty: 120 0RF Discontinued metoprolol tartrate 100 mg tablet 100 mg PO BID furosemide 40 mg tablet 40 mg PO DAILY PRN Rx Instructions: WEIGHT GAIN Discharge Orders: Discharge Order (Routine); Ordered 11/07/22 Ordered By: Jose Rebolledo Additional Instructions: I have increased your furosemide dose from 80 mg in the morning and 40 mg in the evening to 80 mg twice a day. See your doctor next week to recheck the effectiveness of this. I have decreased your metoprolol to 50 mg tablets, 2 tablets in the morning and 1 in the evening. See your doctor next week to recheck this. I recommend you see Dr. Miranda for your feet. I recommend you wear support hose and elevate your legs to help with your edema Activity Level: Activity as Tolerated Discharge Diet: Heart Healthy (2 gm sodium, low fat) Follow Up Appointments: SHA MARQUEZ DO [Referring] - Kaila Valdez MD [Primary Care Provider] - (Follow-up next week. Get basic metabolic panel checked next week) Forms: [employer] Info Instructions
[2022-11-07] MEDS: FUROSEMIDE 40 MG TABLET 80 MG PO (12:54)
--- NOTE | 2022-11-07 13:26 | PC.SOCIAL ---
Addendum entered by GENET Lisa 11/07/22 14:59: [facility] care is not able to accept anymore patient's on the [facility]. A referral was made to [employer] @ fax#[phone], and an email referral was sent to the admissions advisor for Home [facility] [place]. Original Note: Spoke with Nancy Gonsalez, pt.'s alternative care [facility] social worker masters @ [phone], who states pt. had [facility] in the past and lost her home care as she switched providers. Nancy and daughter Alanna would like pt. to have skilled nurse again for medication management, diabetes monitoring, and her sores on her feet. Pt. is now homebound as she cares for her grandchild 3 days a week in the [facility]. Nancy states her [facility] will pay for the home care. [facility] has no openings until the middle of November and will not see pt. again due to non-compliance and firing one of their caregivers that came to see pt. Called and faxed a referral to [facility] out of [place] at and phone# [phone].
--- NOTE | 2022-11-07 14:41 | PC.NURSE ---
end of shift. pt has been pleasant, foot pain. po Tylenol was given. toes has dressing on and ulcer on the foot. md did look at it. she is up ab darius. going home after echo. tele is chrissy
[2022-11-07 15:00] VITALS: BP 160/68; PULSE 50; RESP 18; TEMP 36.4; O2SAT 95
--- NOTE | 2022-11-07 15:03 | PC.SOCIAL ---
Pt. was not happy with [employer] meals she has had in the past.A list of area home meal delivery options was given.
[2022-11-07] MEDS: SIMVASTATIN 40 MG TABLET PO (17:54)
[2022-11-07] MEDS: INSULIN PROT/ASP (NOVOLOG 70/30) 100 UNIT/ML 40 UNIT SUBCUT (18:25)
[2022-11-07 20:14] LABS: Albumin* 3.7 g/dL (3.3-5.0); Chloride* 99 mmol/L (96-114); Sodium* 134 mmol/L (135-149)
[2022-11-07 20:17] LABS: Blood Urea Nitrogen* 68 mg/dL (7-30); Carbon Dioxide* 29 mmol/L (20-32); Creatinine* 1.9 mg/dL (0.5-1.5); Estimated Glomerular Filt Rate 28 ml/min
[2022-11-07 20:18] LABS: Calcium* 8.8 mg/dL (8.4-10.6); Glucose* 332 mg/dL (60-115); Phosphorus* 5.2 mg/dL (2.5-4.5)
--- NOTE | 2022-11-07 22:55 | PC.NURSE ---
Discharge Summary: Patient pleasant and cooperative. Afebrile. Denies pain. Up independently in room. Tolerating regular diet with no nausea. Patient discharged home at 2039 with all personal belongings. Discharge instructions including diagnosis, medications and follow up appointment discussed with patient and voiced understanding. SL removed with tip intact.
--- NOTE | 2022-11-08 11:13 | PC.SOCIAL ---
[facility] does not accept pt.'s on waiver services. Also contacted [facility], [facility], [facility], [facility], [facility], and [facility]. Either they do not have the staff to serve the [place] area or they do not take clients on the [facility]. Updated pt.'s [facility] worker Nancy Gonsalez and updated pt. that no home care was found for detention for pt.
== END 2022-11-07 20:40 | disposition home or self-care (01) ==
LOC: ED 17:41 → MEDSURG 21:09
PROVIDERS: Admitting Provider Internal Medicine; Emergency Provider Student in an Organized Health Care Education/Training Program; PCP Family Medicine; Visit Provider Family Medicine
DX: I50.33 Acute on chronic diastolic (congestive) heart failure (principal); R00.1 Bradycardia, unspecified; G47.33 Obstructive sleep apnea (adult) (pediatric); E11.65 Type 2 diabetes mellitus with hyperglycemia; Z79.84 Long term (current) use of oral hypoglycemic drugs; E11.21 Type 2 diabetes mellitus with diabetic nephropathy; N18.9 Chronic kidney disease, unspecified; E11.621 Type 2 diabetes mellitus with foot ulcer; L97.509 Non-pressure chronic ulcer of other part of unspecified foot with unspecified severity; E66.01 Morbid (severe) obesity due to excess calories; Z68.43 Body mass index [BMI] 50.0-59.9, adult; I87.2 Venous insufficiency (chronic) (peripheral)
CPT/HCPCS: 36415; 71046; 80048; 80053; 80069; 81001; 82962; 83880; 84484; 85025; 85027; 87086; 87631; 93005; 93306; 96372; 96374; 96376; 97116; 97163; 97165; 97535; 99283; 99285; G0378; A9270; J1650; J1940

== ENCOUNTER 2022-11-19 08:03 | Outpatient (CLI) | payer MEDICARE, BC, SELFPAY | END 2022-11-19 08:04 | disposition home or self-care (01) | LOC: WOUND 08:04 | PROVIDERS: PCP Family Medicine; Visit Provider Nurse Practitioner Family | DX: E11.621 Type 2 diabetes mellitus with foot ulcer (principal); L97.525 Non-pressure chronic ulcer of other part of left foot with muscle involvement without evidence of necrosis; I87.2 Venous insufficiency (chronic) (peripheral); I89.0 Lymphedema, not elsewhere classified; Z79.4 Long term (current) use of insulin; Z79.84 Long term (current) use of oral hypoglycemic drugs | CPT/HCPCS: 11043; 87070; 87186; 99213 ==

== ENCOUNTER 2022-11-21 13:59 | Outpatient (CLI) | payer MEDICARE, BC, SELFPAY | END 2022-11-21 14:00 | disposition home or self-care (01) | LOC: WOUND 14:00 | PROVIDERS: PCP Family Medicine; Visit Provider Surgery | DX: E11.621 Type 2 diabetes mellitus with foot ulcer (principal); L97.522 Non-pressure chronic ulcer of other part of left foot with fat layer exposed; I87.312 Chronic venous hypertension (idiopathic) with ulcer of left lower extremity; L97.222 Non-pressure chronic ulcer of left calf with fat layer exposed; Z79.4 Long term (current) use of insulin | CPT/HCPCS: 29581 ==

== ENCOUNTER 2022-11-27 14:31 | Outpatient (CLI) | payer MEDICARE, BC, SELFPAY ==
[2022-11-27 17:22] LABS: Basophils Absolute Auto 0.06 K/uL (0.00-0.30); Basophils Percent Auto 0.6 % (0.0-3.0); Eosinophils Absolute Auto 0.18 K/uL (0.00-0.50); Eosinophils Percent Auto 1.7 % (0.0-7.0); Hematocrit 40.5 % (33.0-51.0); Hemoglobin* 12.5 gm/dL (12.0-16.0); Immature Granulocytes Abs Auto 0.05 K/uL (0.00-0.30); Immature Granulocytes Pct Auto 0.5 %; Lymphocytes Percent Auto 11.2 % (20-44); Mean Corpuscular HGB Conc 31 gm/dL (32-36); Mean Corpuscular Hemoglobin 29 pg (26-34); Mean Corpuscular Volume 93 fL (80-100); Monocytes Percent Auto 6.6 % (0.0-11.0); Neutrophils Percent Auto 79.4 % (42.0-72.0); Platelet Count* 264 K/uL (140-440); RDW Coefficient of Variation % 14.7 % (11.5-15.5); Red Blood Count 4.36 m/uL (4.00-5.20); White Blood Count* 10.78 K/uL (4.50-11.00)
[2022-11-27 17:25] LABS: Slide Review Reflex No
[2022-11-27 17:37] LABS: Chloride* 97 mmol/L (96-114); Potassium* 4.4 mmol/L (3.6-5.1); Sodium* 138 mmol/L (135-149)
[2022-11-27 17:39] LABS: Anion Gap 10 mEq/L (7-15); Carbon Dioxide* 31 mmol/L (20-32); Creatinine* 1.8 mg/dL (0.5-1.5); Estimated Glomerular Filt Rate 30 ml/min
[2022-11-27 17:39] LABS: Total Protein Urine 124 mg/dL
[2022-11-27 17:40] LABS: Blood Urea Nitrogen* 84 mg/dL (7-30); Calcium* 9.5 mg/dL (8.4-10.6); Glucose* 251 mg/dL (60-115); Phosphorus* 4.5 mg/dL (2.5-4.5)
[2022-11-27 17:41] LABS: Creatinine Urine 90.4 mg/dL
[2022-11-27 18:24] LABS: Ferritin* 65.2 ng/mL (11.1-264.0)
[2022-11-27 20:36] LABS: Microalbumin Creatinine Ratio 660 mg/g (0-30); Microalbumin Urine 60 mg/dL
== END 2022-11-27 14:32 | disposition home or self-care (01) ==
LOC: WOUND 14:32
PROVIDERS: PCP Family Medicine; Visit Provider Nurse Practitioner Family
DX: E11.621 Type 2 diabetes mellitus with foot ulcer (principal); I87.312 Chronic venous hypertension (idiopathic) with ulcer of left lower extremity; L97.525 Non-pressure chronic ulcer of other part of left foot with muscle involvement without evidence of necrosis; I87.2 Venous insufficiency (chronic) (peripheral); I89.0 Lymphedema, not elsewhere classified; Z79.4 Long term (current) use of insulin; Z79.84 Long term (current) use of oral hypoglycemic drugs; E66.01 Morbid (severe) obesity due to excess calories; Z68.43 Body mass index [BMI] 50.0-59.9, adult; Z13.89 Encounter for screening for other disorder
CPT/HCPCS: 11043; 36415; 80048; 80069; 82043; 82570; 82728; 84156; 85025; 99212

== ENCOUNTER 2022-12-02 10:55 | Emergency (ER) | payer MEDICARE, BC, SELFPAY | END 2022-12-02 11:20 | disposition left against medical advice (07) | PROVIDERS: Emergency Provider Family Medicine; PCP Family Medicine | DX: Z53.21 Procedure and treatment not carried out due to patient leaving prior to being seen by health care provider (principal) ==

== ENCOUNTER 2022-12-03 13:47 | Outpatient (CLI) | payer MEDICARE, BC, SELFPAY | END 2022-12-03 13:48 | disposition home or self-care (01) | LOC: WOUND 13:48 | PROVIDERS: PCP Family Medicine; Visit Provider Nurse Practitioner Family | DX: E11.621 Type 2 diabetes mellitus with foot ulcer (principal); L97.525 Non-pressure chronic ulcer of other part of left foot with muscle involvement without evidence of necrosis; I89.0 Lymphedema, not elsewhere classified; Z79.4 Long term (current) use of insulin; Z79.84 Long term (current) use of oral hypoglycemic drugs | CPT/HCPCS: 11042 ==

== ENCOUNTER 2022-12-05 10:30 | Outpatient (RCR) | payer MEDICARE, BC, SELFPAY ==
[2022-11-29 11:41] VITALS: BP 146/50; PULSE 61; RESP 16; TEMP 36.5; O2SAT 91
[2022-11-29] MEDS: 0.9 % SODIUM CHLORIDE 250 ml IV (12:18)
[2022-11-29] MEDS: SODIUM CHLORIDE 0.9 % (FLUSH) 10 ML SYRINGE IVF (12:19)
[2022-11-30 10:03] VITALS: BP 137/74; PULSE 60; RESP 16; TEMP 36.3; O2SAT 93
[2022-11-30] MEDS: cefTRIAXone 1 GM in 0.9 % SODIUM CHLORIDE Mini-bag 100 ML IVPB (10:41)
--- NOTE | 2022-11-30 10:55 | ONC.NURNOTE ---
Rn Med Surg received a call from Denisse/jose hylton stating that one of our patients was at the front end wheel loader operator and crying. Denisse talked with patient offering her a wheelchair ride to ER, patient asked to come to [facility] and was pushed into our dept. in the XL wheelchair, which was the only one available. Patient then stated that when she went to sit in the chair, she misjudged the distance to the seat, and fell hard into the seat of the chair, and her back was samuel. This is where her pain was coming from. I then roomed the patient and she was able to transfer into the infusion chair. Rn Med Surg then reported the incident to her RN.
[2022-12-01] MEDS: cefTRIAXone 1 GM in 0.9 % SODIUM CHLORIDE Mini-bag 100 ML IVPB (11:35)
[2022-12-01 11:40] VITALS: BP 128/72; PULSE 72; RESP 18; TEMP 36.4; O2SAT 92
--- NOTE | 2022-12-01 14:08 | PC.NURSE ---
pt admit @1140. IV infused w/o difficulty. infusion complete @ 1219. Pt denies s/e of infusion. IV to rt FA flushed with NS and rewrapped.
[2022-12-02 11:00] VITALS: BP 145/62; PULSE 59; RESP 20; TEMP 36.6; O2SAT 97
[2022-12-02] MEDS: cefTRIAXone 1 GM in 0.9 % SODIUM CHLORIDE Mini-bag 100 ML IVPB (11:12)
[2022-12-02] MEDS: SODIUM CHLORIDE 0.9 % (FLUSH) 10 ML SYRINGE IVF (11:13)
[2022-12-03] MEDS: cefTRIAXone 1 GM in 0.9 % SODIUM CHLORIDE Mini-bag 100 ML IVPB (10:29)
[2022-12-03] MEDS: SODIUM CHLORIDE 0.9 % (FLUSH) 10 ML SYRINGE IVF ×2 (10:29→11:06)
[2022-12-03] MEDS: 0.9 % SODIUM CHLORIDE 250 ml IV (10:29)
[2022-12-03 10:30] VITALS: BP 115/66; PULSE 57; RESP 20; TEMP 36.5; O2SAT 96
[2022-12-04 10:35] VITALS: BP 134/50; PULSE 56; RESP 20; TEMP 36.6; O2SAT 94
[2022-12-04] MEDS: SODIUM CHLORIDE 0.9 % (FLUSH) 10 ML SYRINGE IVF (10:40)
[2022-12-04] MEDS: 0.9 % SODIUM CHLORIDE 250 ml IV (10:43)
[2022-12-04] MEDS: cefTRIAXone 1 GM in 0.9 % SODIUM CHLORIDE Mini-bag 100 ML IVPB (10:45)
--- NOTE | 2022-12-04 12:14 | PC.NURSE ---
pt d/c'ed to home via w/c post infusion completed @ 11:42 am.
[2022-12-05 10:33] VITALS: BP 151/58; PULSE 60; RESP 16; TEMP 36.4; O2SAT 94
[2022-12-05] MEDS: SODIUM CHLORIDE 0.9 % (FLUSH) 10 ML SYRINGE IVF (12:30)
[2022-12-05] MEDS: cefTRIAXone 1 GM in 0.9 % SODIUM CHLORIDE Mini-bag 100 ML IVPB (12:36)
== END 2023-05-28 23:59 | disposition home or self-care (01) ==
LOC: CCIC 10:30
PROVIDERS: PCP Family Medicine; Referring Provider Family Medicine; Visit Provider Nurse Practitioner Family
DX: E11.621 Type 2 diabetes mellitus with foot ulcer (principal); L97.529 Non-pressure chronic ulcer of other part of left foot with unspecified severity
CPT/HCPCS: 11042; 96365; 99211; 99212; J0696; J7050

== ENCOUNTER 2022-12-05 11:10 | Outpatient (CLI) | payer MEDICARE, BC, SELFPAY | END 2022-12-05 11:11 | disposition home or self-care (01) | LOC: WOUND 11:11 | PROVIDERS: PCP Family Medicine; Visit Provider Nurse Practitioner Family | DX: E11.621 Type 2 diabetes mellitus with foot ulcer (principal); L97.525 Non-pressure chronic ulcer of other part of left foot with muscle involvement without evidence of necrosis; Z79.4 Long term (current) use of insulin; Z79.84 Long term (current) use of oral hypoglycemic drugs | CPT/HCPCS: 99212 ==

== ENCOUNTER 2022-12-07 17:39 | Emergency (ER) | payer MEDICARE, BC, SELFPAY ==
[2022-12-07 17:50] VITALS: BP 152/97; PULSE 63; RESP 18; TEMP 36.5; O2SAT 93; BMI 52.9
--- NOTE | 2022-12-07 18:28 | CRLHL7_ITS ---
For Patients: As a result of the Century Cures Act, medical imaging exams and procedure reports are released immediately into your electronic medical record. You may view this report before your referring provider. If you have questions, please contact your health care provider. Indication: Orthopnea Technique: Two views of the chest Comparison: Chest radiograph on November 06, 2022 and prior Findings: Slightly decreased appearance of mild interstitial prominence. No focal pulmonary consolidation. No pleural effusion or pneumothorax. Stable cardiomegaly. Normal mediastinal contour. No acute fracture. Cholecystectomy clips. Visualized upper abdomen is otherwise unremarkable. Impression: 1. Slightly decreased appearance of mild pulmonary edema compared to November 06, 2022. No focal pulmonary consolidation. 2. Stable cardiomegaly. Dictated by Osmin Albert MD @ 12/07/2022 7:09:58 PM (Electronically Signed)
--- NOTE | 2022-12-07 18:30 | ED.SOB ---
HPI - SOB/Dyspnea General Chief Complaint: Shortness of Breath/Dyspnea Stated Complaint: Short of breath Time Seen by Provider: 12/07/22 18:04 History of Present Illness HPI Narrative: This 67-year-old female comes in reporting shortness of breath over the past 2 or 3 days. She states that she feels okay when sitting upright or standing but gets short of breath with exertion and with laying flat. She states that she slept upright in a chair last night because of this. She does have a history of asthma and states that she did use albuterol during the day and it seemed to help a bit. She has an oximeter at home and measured readings at 88-90% on room air at rest. She arrives here with normal vital signs and oximetry at 93%. She states that she has head readings in the mid 90s also during this time. She states that she has an occasional cough. She has an infection in her foot and has been getting infusions of antibiotic treatments recently. She does wear compression stockings and has a history of fluid overload. She is taking Lasix 80 mg daily and states that she is not urinating very often despite this medication. She also states that she is restricting fluid and salt. She does not have significant swelling of her hands or feet currently. She is able to speak in complete sentences and is not using accessory muscles for breathing. Related Data Home Medications Medication Instructions Recorded Confirmed allopurinol 100 mg tablet 300 mg PO DAILY 11/06/22 11/29/22 brimonidine 0.2 % eye drops 1 drp ophthalmic (eye-left) Q12H 11/06/22 11/29/22 dorzolamide 2 % eye drops 1 drp ophthalmic (eye-left) BID 11/06/22 11/29/22 fluticasone propionate 50 2 spray intranasal DAILY 11/06/22 11/29/22 mcg/actuation nasal spray,suspension latanoprost 0.005 % eye drops 1 drp ophthalmic (eye) QPM 11/06/22 11/29/22 levothyroxine 125 mcg tablet 125 mcg PO DAILY 11/06/22 11/29/22 losartan 100 mg tablet 100 mg PO DAILY 11/06/22 11/29/22 metolazone 2.5 mg tablet 2.5 mg PO .WEEKLY 11/06/22 11/29/22 montelukast 10 mg tablet 10 mg PO HS 11/06/22 11/29/22 nitroglycerin 0.4 mg sublingual 0.4 mg sublingual Q5M PRN 11/06/22 11/29/22 tablet prednisolone acetate 1 % eye 1 drp ophthalmic (eye-left) BID 11/06/22 11/29/22 drops,suspension timolol maleate 0.5 % eye drops 1 drp ophthalmic (eye-right) QAM 11/06/22 11/29/22 albuterol sulfate 90 mcg/actuation 1 - 2 puff inhalation Q4H PRN 11/07/22 11/29/22 aerosol inhaler ascorbic acid (vitamin C) 500 mg 500 mg PO BID 11/07/22 11/29/22 tablet insulin human U-100 NPH-regulr 56 unit subcut HS 11/07/22 11/29/22 70-30 mix 100 unit/mL subcutaneous susp (Humulin 70/30 U-100 Insulin) insulin human U-100 NPH-regulr 68 unit subcut QA 11/07/22 11/29/22 70-30 mix 100 unit/mL subcutaneous susp (Humulin 70/30 U-100 Insulin) loratadine 10 mg tablet 10 mg PO DAILY 11/07/22 11/29/22 (Allerclear) magnesium 250 mg tablet 250 mg PO DAILY 11/07/22 11/29/22 multivitamin (Daily Multi-Vitamin 1 tab PO DAILY 11/07/22 11/29/22 tablet) tramadol 50 mg tablet 50 mg PO Q6H PRN pain 11/07/22 11/29/22 vitamin B complex (B 1 tab PO DAILY 11/07/22 11/29/22 Complex-Vitamin B12 tablet) amlodipine 10 mg tablet 10 mg PO DAILY 11/29/22 11/29/22 calcium carbonate 600 mg-vitamin 1 tab PO DAILY 11/29/22 11/29/22 D3 5 mcg (200 unit) tablet (Calcium 600 + D(3)) cholecalciferol (vitamin D3) 125 5,000 unit PO DAILY 11/29/22 11/29/22 mcg (5,000 unit) tablet (Vitamin D3) elderberry fruit 200 mg capsule PO DAILY 11/29/22 rosuvastatin 10 mg tablet 10 mg PO QPM 11/29/22 11/29/22 acetaminophen 650 mg tablet 650 mg PO QID PRN 12/05/22 12/05/22 Previous Rx's Medication Instructions Recorded furosemide 40 mg tablet 80 mg (2 x 40 mg) PO BID #120 tabs 11/07/22 metoprolol succinate 50 mg capsule 50 mg PO BID #90 ea 11/07/22 sprinkle, ext. release 24 hr Allergies Allergy/AdvReac Type Severity Reaction Status Date / Time clindamycin Allergy Severe Verified 12/05/22 12:15 NSAIDS (Non-Steroidal Allergy Severe Anaphylaxis Verified 12/05/22 12:15 Anti-Inflamma penicillin V Allergy Severe Hypertensio Verified 12/05/22 12:15 n aspirin AdvReac nausea and Verified 12/05/22 12:15 vomiting Review of Systems Status of ROS: Reports: 10 or more systems reviewed and unremarkable except as noted in History and below Narrative: Constitutional: No fevers, no weight gain or loss. Eyes: No discharge. No vision changes. HENT: No congestion, no sore throat, no ear pain. Cardiovascular: No chest pain, no palpitations. Respiratory: No wheezes. Occasional cough. Shortness of breath with exertion. Orthopnea. Gastrointestinal: No abdominal pain, no vomiting, no diarrhea. Genitourinary: No dysuria, no hematuria. Musculoskeletal: Normal range of motion. Chronic wound in the left foot. Skin: No rashes, no pruritis. Neurological: No dizziness, weakness, sensory change, speech change. Endo/Heme/Allergies: No bruising or bleeding. No polydipsia. Pysch: no suicidality, no anxiety, no insomnia. All other systems reviewed and are negative. 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) Poorly controlled type 2 diabetes mellitus ?E11.65 - Type 2 diabetes mellitus with hyperglycemia (ICD-10) History of sciatica ?Z86.69 - Personal history of other diseases of the nervous system and sense organs (ICD-10) Primary hypothyroidism ?E03.9 - Hypothyroidism, unspecified (ICD-10) Asthma ?J45.909 - Unspecified asthma, uncomplicated (ICD-10) Vitamin D deficiency ?E55.9 - Vitamin D deficiency, unspecified (ICD-10) Rectocele ?N81.6 - Rectocele (ICD-10) Essential hypertension ?I10 - Essential (primary) hypertension (ICD-10) Obstructive sleep apnea ?G47.33 - Obstructive sleep apnea (adult) (pediatric) (ICD-10) Chronic diastolic heart failure ?I50.32 - Chronic diastolic (congestive) heart failure (ICD-10) Morbid obesity with BMI of 50.0-59.9, adult ?E66.01 - Morbid (severe) obesity due to excess calories (ICD-10) ?Z68.43 - Body mass index [BMI] 50.0-59.9, adult (ICD-10) History of nephrolithiasis ?Z87.442 - Personal history of urinary calculi (ICD-10) Lumbar back pain with radiculopathy affecting left lower extremity ?M54.16 - Radiculopathy, lumbar region (ICD-10) Hypertriglyceridemia ?E78.1 - Pure hyperglyceridemia (ICD-10) Osteoarthritis of knees, bilateral ?M17.0 - Bilateral primary osteoarthritis of knee (ICD-10) Chronic kidney disease ?N18.9 - Chronic kidney disease, unspecified (ICD-10) Venous insufficiency of both lower extremities ?I87.2 - Venous insufficiency (chronic) (peripheral) (ICD-10) Diabetic nephropathy associated with type 2 diabetes mellitus ?E11.21 - Type 2 diabetes mellitus with diabetic nephropathy (ICD-10) Surgical History (Updated 11/06/22 @ 22:10 by Iain Soriano MD) Status post total abdominal hysterectomy ?Z90.710 - Acquired absence of both cervix and uterus (ICD-10) Status post thyroidectomy ?E89.0 - Postprocedural hypothyroidism (ICD-10) History of esophagogastroduodenoscopy ?Z98.890 - Other specified postprocedural states (ICD-10) Status post cholecystectomy ?Z90.49 - Acquired absence of other specified parts of digestive tract (ICD-10) History of intraocular lens implant ?Z96.1 - Presence of intraocular lens (ICD-10) Cataract extraction status ?Z98.49 - Cataract extraction status, unspecified eye (ICD-10) Status post appendectomy ?Z90.49 - Acquired absence of other specified parts of digestive tract (ICD-10) Status post colonoscopy with polypectomy ?Z98.890 - Other specified postprocedural states (ICD-10) Family History (Updated 11/06/22 @ 22:10 by Iain Soriano MD) Other Diabetes High blood pressure High cholesterol Social History (Updated 11/06/22 @ 22:13 by Iain Soriano MD) Narrative: . Lives alone. Three supportive children. Designates daughterAlanna, , primary contact for power of attorney at law for health should that be required. Designates son, Nathan, [phone], secondary contact for power of attorney at law for health should that be required. Requests that we attempt resuscitation in the event of cardiopulmonary demise, stressing that she does not want to be kept alive as a vegetable should that come to pass. What is your current living situation?: I presently have a place to live Problems where you live: declined to answer Problems where you live details: na In the past 12 months, utilities in danger of being shut off: no In the past 12 mos, have been you worried that your food would run out before you had money to buy more?: sometimes true In the past 12 mos, the food you bought just didn't last and you didn't have money to buy more?: sometimes true Smoking Status: Never smoker How often do you have a drink containing alcohol: never How often do you have six or more drinks on one occasion: Never AUDIT-C Alcohol total score: 0 Non-prescribed substance use: denies use How often does anyone, including family, friends and others, physically hurt you: never How often does anyone, including family, friends and others, insult or talk down to you: fairly often How often does anyone, including family, friends and others, threaten you with harm: never How often does anyone, including family, friends and others, scream or curse at you: never Exam Narrative: Exam Narrative: Constitutional: Well-developed, well-nourished, no acute distress. Morbidly obese. HEENT: Normocephalic, atraumatic. Neck: Normal range of motion. Nontender. Supple. Heart: Regular. No murmurs. Normal rate. Intact distal pulses. Lungs: Clear to auscultation. No chest discomfort. No wheezes, rhonchi, or rales. Abdomen: Normal bowel sounds. Nontender. No rebound tenderness. Genitalia: Deferred. Back: No midline tenderness. Normal range of motion. Extremities: Normal range of motion. N her left foot is in a walking shoe. She is wearing compression stockings and shows no sign of edema in her feet. Skin: Intact. No rash. Warm. No erythema or pallor. Neurologic: No altered sensation. No weakness. Alert and oriented. Psychiatric: No suicidality. No anxiety or depression. No insomnia. Nursing notes and vitals signs are reviewed. Const: Vital Signs, click to edit/add: Vital Signs - 24 hr 12/07/22 17:50 12/07/22 19:18 Temperature 97.7 F Pulse Rate [Pulse Oximeter] 63 84 Respiratory Rate 18 16 Blood Pressure [Le ft Upper Arm] 152/97 H 148/88 H Pulse Oximetry 93 93 Oxygen Delivery Me thod Room Air Room Air Course Vital Signs Vital signs: Initial Vital Signs Temperature 97.7 F 12/07/22 17:50 Temperature Source Temporal Artery Scan 12/07/22 17:50 Pulse Rate 63 12/07/22 17:50 Respiratory Rate 18 12/07/22 17:50 Blood Pressure 152/97 H 12/07/22 17:50 Blood Pressure Mean 115 H 12/07/22 17:50 Blood Pressure Position Sitting 12/07/22 17:50 Pulse Oximetry 93 12/07/22 17:50 Oxygen Delivery Method Room Air 12/07/22 17:50 Vital Signs Temperature 97.7 F 12/07/22 17:50 Pulse Rate 63 12/07/22 17:50 Respiratory Rate 18 12/07/22 17:50 Blood Pressure 152/97 H 12/07/22 17:50 Pulse Oximetry 93 12/07/22 17:50 Oxygen Delivery Method Room Air 12/07/22 17:50 Temperature 97.7 F 12/07/22 17:50 Pulse Rate 84 12/07/22 19:18 Respiratory Rate 16 12/07/22 19:18 Blood Pressure 148/88 H 12/07/22 19:18 Pulse Oximetry 93 12/07/22 19:18 Oxygen Delivery Method Room Air 12/07/22 19:18 MDM - SOB/Dyspnea MDM Narrative Medical decision making narrative: This patient comes in reporting feeling of shortness of breath when she lays down. She states that it is more prominent when she is laying on her right side and it happens within several minutes. She can lay on her left side for a few hours but then needs to get up. She does have numerous conditions in her past medical history. This includes some venous insufficiency. She also has diabetes and is morbidly obese. She is on 4 different antihypertensive medications. Throughout her stay here she has maintained normal vital signs with oximetry around 93% on room air. Chest x-ray shows no acute findings. Lab results also are essentially reassuring. She does have an elevated BUN at around 60. This is greater than 20-1 ratio when compared with her creatinine. She states that she has been restricting fluids and sodium. Her BNP returns at 1:00 p.m.. She does not have obvious pedal edema or fluid in her hands and upper extremities. 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 She is reassured with these findings and feels okay to return home. She does have arrangements for follow-up appointment with her primary physician after the weekend. I stated that it would be okay for her to take extra Lasix tablets over these few days. But seeing that her BUN is elevated she also could be taking more oral liquids. At the time of discharge the patient appears safe for outpatient management. The treatment plan is reviewed along with written and verbal return precautions. Reasons to return and the importance of close followup were also reviewed. Lab Data Labs: Lab Results 12/07/22 Range/Units 18:56 WBC 12.44 H (4.50-11.00) K/uL RBC 4.35 (4.00-5.20) m/uL Hgb 12.5 (12.0-16.0) gm/dL Hct 40.7 (33.0-51.0) % MCV 94 (80-100) fL MCH 29 (26-34) pg MCHC 31 L (32-36) gm/dL RDW Coeff of Tad 15.2 (11.5-15.5) % Plt Count 257 (140-440) K/uL Neut % (Auto) 80.4 H (42.0-72.0) % Lymph % (Auto) 9.4 L (20-44) % [place] % (Auto) 7.6 (0.0-11.0) % Eos % (Auto) 1.7 (0.0-7.0) % Baso % (Auto) 0.6 (0.0-3.0) % Neut # (Auto) 10.00 H (1.7-7.0) K/uL Lymph # (Auto) 1.20 (0.90-2.90) K/uL [place] # (Auto) 0.90 (0.00-0.90) K/UL Eos # (Auto) 0.20 (0.00-0.50) K/uL Baso # (Auto) 0.10 (0.00-0.30) K/uL Abs Immat Gran (auto) 0.00 (0.00-0.30) K/uL Imm/Tot Granulo (auto) 0.3 % Sodium 139 (135-149) mmol/L Potassium 4.7 (3.6-5.1) mmol/L Chloride 102 (96-114) mmol/L Carbon Dioxide 31 (20-32) mmol/L Anion Gap 6 L (7-15) mEq/L BUN 61 H (7-30) mg/dL Creatinine 1.5 (0.5-1.5) mg/dL Estimated Creat Clear 32.30 Estimated GFR 38 ml/min Glucose 152 H (60-115) mg/dL Calcium 9.7 (8.4-10.6) mg/dL NT-Pro-B Natriuret Pep 1300 pg/mL POC Troponin I 0.01 (0.01-0.04) ng/ml ECG Data Attestation: I personally reviewed and interpreted this ECG as follows: Interpretation: Normal sinus rhythm with occasional premature ventricular complexes. Rate is 66 beats per minute. There are no specific ST or T-wave abnormalities. Discharge Plan Discharge Clinical Impression: Orthopnea Patient Disposition: Home w/ Parent or Adult Condition: Unchanged Additional Instructions: Continue current plans. Okay to take an extra Lasix tablet for better diuresis. Follow up with MD next week as scheduled. Return if worsening. Prescriptions: No Action latanoprost 0.005 % drops 1 drp ophthalmic (eye) QPM metolazone 2.5 mg tablet 2.5 mg PO .WEEKLY allopurinol 100 mg tablet 300 mg PO DAILY prednisolone acetate 1 % drops,suspension 1 drp ophthalmic (eye-left) BID levothyroxine 125 mcg tablet 125 mcg PO DAILY brimonidine 0.2 % drops 1 drp ophthalmic (eye-left) Q12H nitroglycerin 0.4 mg tablet, sublingual 0.4 mg sublingual Q5M PRN montelukast 10 mg tablet 10 mg PO HS timolol maleate 0.5 % drops 1 drp ophthalmic (eye-right) QAM losartan 100 mg tablet 100 mg PO DAILY fluticasone propionate 50 mcg/actuation spray,suspension 2 spray INTRANASAL DAILY dorzolamide 2 % drops 1 drp ophthalmic (eye-left) BID albuterol sulfate 90 mcg/actuation HFA aerosol inhaler 1 - 2 puff INHALATION Q4H PRN ascorbic acid (vitamin C) 500 mg tablet 500 mg PO BID vitamin B complex [B Complex-Vitamin B12] Tablet 1 tab PO DAILY Humulin 70/30 U-100 Insulin 100 unit/mL (70-30) suspension 68 unit subcut QAM Humulin 70/30 U-100 Insulin 100 unit/mL (70-30) suspension 56 unit subcut HS loratadine [Allerclear] 10 mg tablet 10 mg PO DAILY magnesium 250 mg tablet 250 mg PO DAILY multivitamin [Daily Multi-Vitamin] Tablet 1 tab PO DAILY tramadol 50 mg tablet 50 mg PO Q6H PRN (Reason: pain) metoprolol succinate 50 mg capsule,sprinkle,ER 24hr 50 mg PO BID Qty: 90 0RF Rx Instructions: Take 2 tablets in the morning and 1 tablet at bedtime furosemide 40 mg tablet 80 mg PO BID Qty: 120 0RF cholecalciferol (vitamin D3) [Vitamin D3] 125 mcg (5,000 unit) tablet 5,000 unit PO DAILY calcium carbonate-vitamin D3 [Calcium 600 + D(3)] 600 mg-5 mcg (200 unit) tablet 1 tab PO DAILY elderberry fruit 200 mg capsule PO DAILY Rx Instructions: 1 tab orally; amlodipine 10 mg tablet 10 mg PO DAILY rosuvastatin 10 mg tablet 10 mg PO QPM acetaminophen 650 mg tablet 650 mg PO QID PRN Follow Up/Referrals: Kaila Valdez MD [Staff Physician] - Stand Alone Forms: [email or web address] Info Instructions
[2022-12-07 19:02] LABS: Basophils Percent Auto 0.6 % (0.0-3.0); Eosinophils Percent Auto 1.7 % (0.0-7.0); Hematocrit 40.7 % (33.0-51.0); Hemoglobin* 12.5 gm/dL (12.0-16.0); Immature Granulocytes Pct Auto 0.3 %; Lymphocytes Percent Auto 9.4 % (20-44); Mean Corpuscular HGB Conc 31 gm/dL (32-36); Mean Corpuscular Hemoglobin 29 pg (26-34); Mean Corpuscular Volume 94 fL (80-100); Monocytes Percent Auto 7.6 % (0.0-11.0); Neutrophils Percent Auto 80.4 % (42.0-72.0); Platelet Count* 257 K/uL (140-440); RDW Coefficient of Variation % 15.2 % (11.5-15.5); Red Blood Count 4.35 m/uL (4.00-5.20); White Blood Count* 12.44 K/uL (4.50-11.00)
[2022-12-07 19:07] LABS: Slide Review Reflex No
[2022-12-07 19:14] LABS: Chloride* 102 mmol/L (96-114); Potassium* 4.7 mmol/L (3.6-5.1); Sodium* 139 mmol/L (135-149)
[2022-12-07 19:17] LABS: Creatinine* 1.5 mg/dL (0.5-1.5); Estimated Glomerular Filt Rate 38 ml/min
[2022-12-07 19:18] VITALS: BP 148/88; PULSE 84; RESP 16; O2SAT 93
[2022-12-07 19:18] LABS: Anion Gap 6 mEq/L (7-15); Blood Urea Nitrogen* 61 mg/dL (7-30); Calcium* 9.7 mg/dL (8.4-10.6); Carbon Dioxide* 31 mmol/L (20-32); Glucose* 152 mg/dL (60-115)
[2022-12-07 19:19] LABS: Troponin, Point-of-Care* 0.01 ng/ml (0.01-0.04)
[2022-12-07 19:36] LABS: NT Pro B Type NatriureticPept* 1300 pg/mL
== END 2022-12-07 21:06 | disposition home or self-care (01) ==
PROVIDERS: Emergency Provider Emergency Medicine Emergency Medical Services; PCP Family Medicine
DX: R06.01 Orthopnea (principal)
CPT/HCPCS: 36415; 71046; 80048; 83880; 84484; 85025; 93005; 99284

== ENCOUNTER 2022-12-11 08:04 | Outpatient (CLI) | payer MEDICARE, BC, SELFPAY ==
--- NOTE | 2022-12-11 11:00 | CRLHL7_ITS ---
For Patients: As a result of the Century Cures Act, medical imaging exams and procedure reports are released immediately into your electronic medical record. You may view this report before your referring provider. If you have questions, please contact your health care provider. HISTORY: Nonhealing diabetic foot ulcer involving the great toe. TECHNIQUE: Noncontrast MRI of the left forefoot. COMPARISON: No prior. FINDINGS: There is a soft tissue ulcer along the plantar medial aspect of the midfoot, plantar to the first MTP joint region. There is infiltration of the underlying subcutaneous tissues without a fluid collection. Minor reactive bone marrow edema involving the sesamoid bones. There is no effacement of fatty marrow within the sesamoid bones to suggest osteomyelitis. No osteomyelitis of the first metatarsal bone nor phalanges of the great toe. No septic arthritis of the first MTP joint space. No other areas of potential osteomyelitis within the forefoot. There is extensive soft tissue edema. Atrophy of the foot musculature compatible with chronic denervation changes. A focus of susceptibility artifact within the plantar soft tissues may relate to a tiny metallic foreign body. IMPRESSION: 1. Ulcer along the plantar aspect of the first MTP joint space region. Infiltration of the underlying soft tissues without fluid collection. 2. No osteomyelitis or septic arthritis. 3. Soft tissue edema. 4. Atrophy of foot musculature compatible with chronic denervation changes. Dictated by Jon Colvin MD @ 12/12/2022 10:16:21 AM (Electronically Signed)
== END 2022-12-11 08:05 | disposition home or self-care (01) ==
PROVIDERS: PCP Family Medicine; Visit Provider Nurse Practitioner Family
DX: E11.621 Type 2 diabetes mellitus with foot ulcer (principal); I89.0 Lymphedema, not elsewhere classified; Z79.4 Long term (current) use of insulin
CPT/HCPCS: 73718; 99212

== ENCOUNTER 2022-12-21 12:58 | Observation (INO) | payer MEDICARE, BC, SELFPAY ==
[2022-12-21] VITALS (9 sets, daily range): BP systolic 135–175; BP diastolic 63–71; PULSE 53–74; RESP 16–20; TEMP 36.2–36.8; O2SAT 89–98; BMI 55.6; BMI 55.3
--- NOTE | 2022-12-21 15:14 | ED.GENADULT ---
HPI - General Adult General Chief complaint: Skin/Abscess/Foreign Body Stated complaint: Cellutlitis on L leg and toe Time Seen by Provider: 12/21/22 13:59 History of Present Illness HPI narrative: 67-year-old female with a complex presentation. She has type 2 diabetes, with erratic blood sugars in generally poor control, chronic venous is efficiency her lower extremities, chronic low back pain with recent exacerbation triggered when she was sating into a wheelchair couple of weeks ago, heart failure, morbid obesity, chronic kidney disease, chronic diabetic foot ulcers with ongoing foot infection. She reports that she has been having trouble with infections in her left foot for perhaps 5 or 6 months. She thinks it probably started in June but was not actually diagnosed until August. It sounds like she has been off and on antibiotics over that course. Most recently she was on a 7 day course of IV infusion antibiotics from November 29 until the . It sounds like the redness and swelling of her foot did get better on those antibiotics. She does not qualify for home visiting nursing care so she goes to the clinic twice a week (Tuesdays and Fridays) for dressing changes on her feet. It sounds like her infections had been getting better. Her most recent dressing change was Saturday and apparently her foot looks good then. She went to the [facility] clinic today for another dressing change. Her nurse noted that there was a new marked increase in redness and erythema of the foot and redness extending up her leg. Her nurse in her back here to the ER with concern that she has a new/recurrent or worsening infection. Patient notices that she has had some body aches and poor appetite and generalized malaise for the past couple of days. No other fever. No chest pain or shortness of breath. No cough. No abdominal pain. She has also been having a lot of low back pain lately. Because of her recent injury that occurred several weeks ago when she was sitting down into a wheelchair her back pain has been worse than normal. She actually went to the ER at [facility] last week and had an MRI of her back. Unclear with the findings were but it sounds like it was nonsurgical. She was prescribed Robaxin. She has been taking 500 mg p.r.n. and is somewhat helpful. Most recent dose of Robaxin was at about 1:00 a.m. today when she was at the latter clinic. She isn't have any new pain or numbness down her legs. MRI left foot 12/11 IMPRESSION: 1. Ulcer along the plantar aspect of the first MTP joint space region. Infiltration of the underlying soft tissues without fluid collection. 2. No osteomyelitis or septic arthritis. 3. Soft tissue edema. 4. Atrophy of foot musculature compatible with chronic denervation change Culture from her foot ulcer from 11/19 grew E coli and Alcaligenes species Related Data Home Medications Medication Instructions Recorded Confirmed allopurinol 100 mg tablet 300 mg PO DAILY 11/06/22 12/21/22 brimonidine 0.2 % eye drops 1 drp ophthalmic (eye-left) BID 11/06/22 12/21/22 dorzolamide 2 % eye drops 1 drp ophthalmic (eye-left) BID 11/06/22 12/21/22 latanoprost 0.005 % eye drops 1 drp ophthalmic (eye) QPM 11/06/22 12/21/22 levothyroxine 125 mcg tablet 125 mcg PO DAILY 11/06/22 12/21/22 losartan 100 mg tablet 100 mg PO DAILY 11/06/22 12/21/22 metolazone 2.5 mg tablet 2.5 mg PO .WEEKLY 11/06/22 12/21/22 montelukast 10 mg tablet 10 mg PO HS 11/06/22 12/21/22 nitroglycerin 0.4 mg sublingual 0.4 mg sublingual Q5M PRN 11/06/22 12/21/22 tablet prednisolone acetate 1 % eye 1 drp ophthalmic (eye-left) BID 11/06/22 12/21/22 drops,suspension timolol maleate 0.5 % eye drops 1 drp ophthalmic (eye-right) QAM 11/06/22 12/21/22 albuterol sulfate 90 mcg/actuation 1 - 2 puff inhalation Q4H PRN 11/07/22 12/21/22 aerosol inhaler ascorbic acid (vitamin C) 500 mg 500 mg PO BID 11/07/22 12/21/22 tablet insulin human U-100 NPH-regulr 53 unit subcut QPM 11/07/22 12/21/22 70-30 mix 100 unit/mL subcutaneous susp (Humulin 70/30 U-100 Insulin) loratadine 10 mg tablet 10 mg PO HS 11/07/22 12/21/22 (Allerclear) magnesium 250 mg tablet 500 mg PO DAILY 11/07/22 12/21/22 multivitamin (Daily Multi-Vitamin 1 tab PO DAILY 11/07/22 12/21/22 tablet) tramadol 50 mg tablet 50 mg PO Q6H PRN pain 11/07/22 12/21/22 vitamin B complex (B 1 tab PO DAILY 11/07/22 12/21/22 Complex-Vitamin B12 tablet) amlodipine 10 mg tablet 10 mg PO HS 11/29/22 12/21/22 calcium carbonate 600 mg-vitamin 1 tab PO DAILY 11/29/22 12/21/22 D3 5 mcg (200 unit) tablet (Calcium 600 + D(3)) cholecalciferol (vitamin D3) 125 5,000 unit PO DAILY 11/29/22 12/21/22 mcg (5,000 unit) tablet (Vitamin D3) rosuvastatin 10 mg tablet 10 mg PO HS 11/29/22 12/21/22 acetaminophen 650 mg tablet 650 mg PO QID 12/05/22 12/21/22 hydrocortisone 1 % topical ointment 1 applic topical TID PRN 12/21/22 12/21/22 insulin human U-100 NPH-regulr 53 unit subcut QPM 12/21/22 12/21/22 70-30 mix 100 unit/mL subcutaneous susp (Novolin 70/30 U-100 Insulin) insulin human U-100 NPH-regulr 68 unit subcut QAM 12/21/22 12/21/22 70-30 mix 100 unit/mL subcutaneous susp (Novolin 70/30 U-100 Insulin) methocarbamol 500 mg tablet 500 mg PO Q6H PRN muscle spasm 12/21/22 12/21/22 metoprolol tartrate 50 mg tablet 50 mg PO HS 12/21/22 12/21/22 metoprolol tartrate 50 mg tablet 100 mg PO QAM 12/21/22 12/21/22 potassium 99 mg tablet 99 mg PO DAILY 12/21/22 12/21/22 triamcinolone acetonide 0.1 % 1 applic topical TID PRN 12/21/22 12/21/22 topical cream vit C 226 mg-vit E 90 mg-copper 1 cap PO DAILY 12/21/22 12/21/22 0.8 mg-zinc oxide-lutein 5 mg capsule (PreserVision Lutein) vitamin E 268 mg (400 unit) capsule 268 mg PO DAILY 12/21/22 12/21/22 zinc sulfate 66 mg tablet (Zinc-15) 66 mg PO DAILY 12/21/22 12/21/22 Previous Rx's Medication Instructions Recorded furosemide 40 mg tablet 80 mg (2 x 40 mg) PO BID #120 tabs 11/07/22 Allergies Allergy/AdvReac Type Severity Reaction Status Date / Time clindamycin Allergy Severe Verified 12/21/22 15:33 hydromorphone Allergy Severe Stopped Verified 12/21/22 15:33 Breathing morphine Allergy Severe Stopped Verified 12/21/22 15:33 Breathing NSAIDS (Non-Steroidal Allergy Severe Anaphylaxis Verified 12/21/22 15:33 Anti-Inflamma penicillin V Allergy Severe Hypertensio Verified 12/21/22 15:33 n aspirin AdvReac nausea and Verified 12/21/22 15:33 vomiting PFSH PFSH Medical History Diabetic foot ulcer ?E11.621 - Type 2 diabetes mellitus with foot ulcer (ICD-10) ?L97.509 - Non-pressure chronic ulcer of other part of unspecified foot with unspecified severity (ICD-10) History of fracture of left ankle ?Z87.81 - Personal history of (healed) traumatic fracture (ICD-10) Severe left ventricular hypertrophy ?I51.7 - Cardiomegaly (ICD-10) intermediate card tender current use of insulin ?Z79.4 - prison (current) use of insulin (ICD-10) Poorly controlled type 2 diabetes mellitus ?E11.65 - Type 2 diabetes mellitus with hyperglycemia (ICD-10) History of sciatica ?Z86.69 - Personal history of other diseases of the nervous system and sense organs (ICD-10) Primary hypothyroidism ?E03.9 - Hypothyroidism, unspecified (ICD-10) Asthma ?J45.909 - Unspecified asthma, uncomplicated (ICD-10) Vitamin D deficiency ?E55.9 - Vitamin D deficiency, unspecified (ICD-10) Rectocele ?N81.6 - Rectocele (ICD-10) Essential hypertension ?I10 - Essential (primary) hypertension (ICD-10) Obstructive sleep apnea ?G47.33 - Obstructive sleep apnea (adult) (pediatric) (ICD-10) Chronic diastolic heart failure ?I50.32 - Chronic diastolic (congestive) heart failure (ICD-10) Morbid obesity with BMI of 50.0-59.9, adult ?E66.01 - Morbid (severe) obesity due to excess calories (ICD-10) ?Z68.43 - Body mass index [BMI] 50.0-59.9, adult (ICD-10) History of nephrolithiasis ?Z87.442 - Personal history of urinary calculi (ICD-10) Lumbar back pain with radiculopathy affecting left lower extremity ?M54.16 - Radiculopathy, lumbar region (ICD-10) Hypertriglyceridemia ?E78.1 - Pure hyperglyceridemia (ICD-10) Osteoarthritis of knees, bilateral ?M17.0 - Bilateral primary osteoarthritis of knee (ICD-10) Chronic kidney disease ?N18.9 - Chronic kidney disease, unspecified (ICD-10) Venous insufficiency of both lower extremities ?I87.2 - Venous insufficiency (chronic) (peripheral) (ICD-10) Diabetic nephropathy associated with type 2 diabetes mellitus ?E11.21 - Type 2 diabetes mellitus with diabetic nephropathy (ICD-10) Surgical History Status post total abdominal hysterectomy ?Z90.710 - Acquired absence of both cervix and uterus (ICD-10) Status post thyroidectomy ?E89.0 - Postprocedural hypothyroidism (ICD-10) History of esophagogastroduodenoscopy ?Z98.890 - Other specified postprocedural states (ICD-10) Status post cholecystectomy ?Z90.49 - Acquired absence of other specified parts of digestive tract (ICD-10) History of intraocular lens implant ?Z96.1 - Presence of intraocular lens (ICD-10) Cataract extraction status ?Z98.49 - Cataract extraction status, unspecified eye (ICD-10) Status post appendectomy ?Z90.49 - Acquired absence of other specified parts of digestive tract (ICD-10) Status post colonoscopy with polypectomy ?Z98.890 - Other specified postprocedural states (ICD-10) Family History (Updated 11/06/22 @ 22:10 by Iain Soriano MD) Other Diabetes High blood pressure High cholesterol Social History (Updated 12/21/22 @ 19:34 by Jose Rebolledo MD) Narrative: . Lives alone. Three supportive children. Designates daughter, Alanna, , primary contact for power of commercial attorney for health should that be required. Designates son, Nathan, [phone], secondary contact for power of commercial attorney for health should that be required. Requests that we attempt resuscitation in the event of cardiopulmonary demise, stressing that she does not want to be kept alive as a vegetable should that come to pass. She reports worsening mobility problems. It is difficult due to her back pain and radicular symptoms going down her right leg for her to get up and walk around. To a lesser extent her left foot also bothers her with weight-bearing. She does walk with a walker. What is your current living situation?: I presently have a place to live Problems where you live: declined to answer Problems where you live details: na In the past 12 months, utilities in danger of being shut off: no In the past 12 mos, have been you worried that your food would run out before you had money to buy more?: sometimes true In the past 12 mos, the food you bought just didn't last and you didn't have money to buy more?: sometimes true Smoking Status: Never smoker How often do you have a drink containing alcohol: never How often do you have six or more drinks on one occasion: Never AUDIT-C Alcohol total score: 0 Non-prescribed substance use: denies use How often does anyone, including family, friends and others, physically hurt you: never How often does anyone, including family, friends and others, insult or talk down to you: fairly often How often does anyone, including family, friends and others, threaten you with harm: never How often does anyone, including family, friends and others, scream or curse at you: never Exam Narrative: Exam Narrative: Constitutional: Appears well-developed. Alert. Conversant. Non toxic. Heavyset. Uncomfortable and laying on her left side as a position of comfort for her low back. HENT: Head: Atraumatic. Nose: Nose normal. Mouth/Throat: Oral mucosa is clear and moist. no trismus. Pharynx normal. Tonsils symmetric. No tonsillar enlargement, erythema, or exudate. Eyes: Conjunctivae normal. EOM normal. Pupils equal, round, and reactive to light. No scleral icterus. Neck: Normal range of motion. Neck supple. No tracheal deviation present. Cardiovascular: Tachycardic, 105, regular rhythm. No gallop. No friction rub. No murmur heard. Symmetric radial artery pulses Pulmonary/Chest: Effort normal. No stridor. No respiratory distress. No wheezes. No rales. No rhonchi . No tenderness. Abdominal: Soft. Bowel sounds normal. No distension. No mass. No tenderness. No rebound. No guarding. Musculoskeletal: RUE: Normal range of motion. No tenderness. No deformity LUE: Normal range of motion. No tenderness. No deformity RLE: Normal range of motion. 2+ edema. No tenderness. No deformity LLE: Normal range of motion. Tube edema. She has an Amadou wrap around her foot and distal half of her lower leg. Remove this for exam. It has been applying some compression and there is significantly less edema under where the Amadou wrap was than proximal. She has what appear to be chronic but healing scabs on the dorsum of her left foot 3rd digit and 4th digit. These do not appear to be infected. She has a ulcer on the plantar aspect of her 1st MTP joint on the sole of the left foot. This is just less than 1 cm in diameter. The wound edges white. There is no purulent drainage. There is surrounding erythema affecting the 1st MTP joint as well as the medial half of her foot and extending proximally about prison up her left medial motta to the the knee. Concerning for infection. No definite fluctuance or crepitus or gas in the soft tissue. Neurological: Alert and oriented to person, place, and time. Normal strength. CN II-VII intact. No sensory deficit. GCS eye subscore is 4. GCS verbal subscore is 5. GCS motor subscore is 6. Normal coordination Skin: Skin is warm and dry. No rash noted. No pallor. Normal capillary refill. Psychiatric: Normal mood. Normal affect. Const: Vital Signs, click to edit/add: Vital Signs - 24 hr 12/21/22 13:28 12/21/22 15:30 12/21/22 16:38 Temperature 97.1 F L 98.2 F Pulse Rate [Right Pulse Oximeter] 60 65 Respiratory Rate 16 16 Blood Pressure [Ri ght Upper Arm] 146/71 H 135/68 Pulse Oximetry 95 98 95 Oxygen Delivery Me thod Room Air Room Air 12/21/22 18:04 Temperature 98.2 F Pulse Rate [Right Pulse Oximeter] 74 Respiratory Rate 16 Blood Pressure [Ri ght Upper Arm] 138/69 Pulse Oximetry 95 Oxygen Delivery Me thod Room Air Course Vital Signs Vital signs: Initial Vital Signs Temperature 97.1 F L 12/21/22 13:28 Temperature Source Temporal Artery Scan 12/21/22 13:28 Pulse Rate 60 12/21/22 13:28 Pulse Rhythm Regular 12/21/22 13:28 Respiratory Rate 16 12/21/22 13:28 Blood Pressure 146/71 H 12/21/22 13:28 Blood Pressure Mean 96 12/21/22 13:28 Pulse Oximetry 95 12/21/22 13:28 Oxygen Delivery Method Room Air 12/21/22 13:28 Vital Signs Temperature 97.1 F L 12/21/22 13:28 Pulse Rate 60 12/21/22 13:28 Respiratory Rate 16 12/21/22 13:28 Blood Pressure 146/71 H 12/21/22 13:28 Pulse Oximetry 95 12/21/22 13:28 Oxygen Delivery Method Room Air 12/21/22 13:28 Temperature 98.2 F 12/21/22 18:28 Pulse Rate 74 12/21/22 18:28 Respiratory Rate 16 12/21/22 18:28 Blood Pressure 138/69 12/21/22 18:28 Pulse Oximetry 95 12/21/22 18:04 Oxygen Delivery Method Room Air 12/21/22 18:04 Medical Decision Making MDM Narrative Medical decision making narrative: This is a pleasant 67-year-old female with a complex presentation. She has a known history of diabetes with relatively poor control and labile sugars recently. Here in the ER her sugar presentation was actually low at 59. It was supplemented orally and came up to about 100 on recheck. Laboratory workup does not show any evidence for DKA are nonketotic hyperosmolar syndrome. At this point glycemic control is adequate. She also has chronic nonhealing ulcer on the sole of her foot. It sounds like she has some pre-existing neuropathy which may be contributing. She also may have some vascular disease. At this point no sign of any acute foot ischemia. She does have palpable pulses and brisk distal cap refill. This is a chronic ulcer which is not been healing and intermittently infected for the past few months. Cultures from last month grew E coli and Alcaligenes. Recent MRI did not show any osteomyelitis or fluid collection. She has signs of recurrent infection that probably began yesterday and is worse today. With this she has tachycardia, but is not febrile. She has leukocytosis. At this point she is hemodynamically stable. No evidence for septic shock. Given her medical complexity and the recurrence of these infections I do think she needs to be admitted for IV antibiotics pending further evaluation. Discussed with our hospitalist, Dr. Rebolledo who came to the ER to evaluate her and graciously agrees to admit. Lab Data Labs: Lab Results 12/21/22 12/21/22 Range/Units 14:57 15:15 WBC 15.46 H (4.50-11.00) K/uL RBC 4.63 (4.00-5.20) m/uL Hgb 13.3 (12.0-16.0) gm/dL Hct 42.9 (33.0-51.0) % MCV 93 (80-100) fL MCH 29 (26-34) pg MCHC 31 L (32-36) gm/dL RDW Coeff of Tad 15.3 (11.5-15.5) % Plt Count 280 (140-440) K/uL Neut % (Auto) 81.4 H (42.0-72.0) % Lymph % (Auto) 8.9 L (20-44) % Ralls % (Auto) 6.7 (0.0-11.0) % Eos % (Auto) 1.2 (0.0-7.0) % Baso % (Auto) 0.4 (0.0-3.0) % Neut # (Auto) 12.60 H (1.7-7.0) K/uL Lymph # (Auto) 1.40 (0.90-2.90) K/uL Ralls # (Auto) 1.00 H (0.00-0.90) K/UL Eos # (Auto) 0.20 (0.00-0.50) K/uL Baso # (Auto) 0.10 (0.00-0.30) K/uL Abs Immat Gran (auto) 0.20 (0.00-0.30) K/uL Imm/Tot Granulo (auto) 1.4 % Sodium 140 (135-149) mmol/L Potassium 4.3 (3.6-5.1) mmol/L Chloride 103 (96-114) mmol/L Carbon Dioxide 31 (20-32) mmol/L Anion Gap 6 L (7-15) mEq/L BUN 61 H (7-30) mg/dL Creatinine 1.3 (0.5-1.5) mg/dL Estimated Creat Clear 35.77 Estimated GFR 45 ml/min Glucose 109 (60-115) mg/dL Lactate 1.6 (0.5-1.9) mmol/L Calcium 9.5 (8.4-10.6) mg/dL Urine Color Yellow (Yellow) Urine Appearance Clear (Clear) Urine pH 5.5 (5.0-8.5) Ur Specific Valders 1.020 (1.000-1.030) Urine Protein 3+ A (Negative) Urine Glucose (UA) Negative (Negative) Urine Ketones Negative (Negative) Urine Blood Negative (Negative) Urine Nitrite Negative (Negative) Urine Bilirubin Negative (Negative) Urine Urobilinogen 0.2 (0.2-1.0) Ur Leukocyte Esterase Negative (Negative) Urine RBC 0-2 (0-2) Urine WBC 0-2 (0-5) Ur Squamous Epith Cells Few (None-Few) Urine Bacteria Few A (None) Discharge Plan Discharge Clinical Impression: Cellulitis of left lower leg, Diabetic foot ulcer Patient Disposition: Admitted As Observation
[2022-12-21 15:24] LABS: Lactate* 1.6 mmol/L (0.5-1.9)
[2022-12-21 15:29] LABS: Appearance Urine Clear (Clear); Bilirubin Urine Negative (Negative); Blood Urine Negative (Negative); Color Urine Yellow (Yellow); Glucose Urine Negative (Negative); Ketones Urine Negative (Negative); Leukocyte Esterase Urine Negative (Negative); Nitrite Urine Negative (Negative); Protein Urine 3+ (Negative); Urobilinogen Urine 0.2 (0.2-1.0); pH Urine 5.5 (5.0-8.5)
[2022-12-21] MEDS: ONDANSETRON 2 MG/ML inj 4 MG IVP (15:29)
--- NOTE | 2022-12-21 15:29 | ED.NURSE ---
pt. took own dose of 500mg methocarbamol. ok'd with .
[2022-12-21 15:31] LABS: Basophils Percent Auto 0.4 % (0.0-3.0); Eosinophils Percent Auto 1.2 % (0.0-7.0); Hematocrit 42.9 % (33.0-51.0); Hemoglobin* 13.3 gm/dL (12.0-16.0); Immature Granulocytes Pct Auto 1.4 %; Lymphocytes Percent Auto 8.9 % (20-44); Mean Corpuscular HGB Conc 31 gm/dL (32-36); Mean Corpuscular Hemoglobin 29 pg (26-34); Mean Corpuscular Volume 93 fL (80-100); Monocytes Percent Auto 6.7 % (0.0-11.0); Neutrophils Percent Auto 81.4 % (42.0-72.0); Platelet Count* 280 K/uL (140-440); RDW Coefficient of Variation % 15.3 % (11.5-15.5); Red Blood Count 4.63 m/uL (4.00-5.20); White Blood Count* 15.46 K/uL (4.50-11.00)
[2022-12-21 15:32] LABS: Slide Review Reflex No
[2022-12-21 15:39] LABS: Chloride* 103 mmol/L (96-114); Potassium* 4.3 mmol/L (3.6-5.1); Sodium* 140 mmol/L (135-149)
[2022-12-21 15:41] LABS: Creatinine* 1.3 mg/dL (0.5-1.5); Est. Creatinine Clearance* 35.77; Estimated Glomerular Filt Rate 45 ml/min
[2022-12-21 15:42] LABS: Anion Gap 6 mEq/L (7-15); Blood Urea Nitrogen* 61 mg/dL (7-30); Calcium* 9.5 mg/dL (8.4-10.6); Carbon Dioxide* 31 mmol/L (20-32); Glucose* 109 mg/dL (60-115)
[2022-12-21 15:45] LABS: Bacteria Urine Few; RBC Urine 0-2 (0-2); Squamous Epithelial Cell Urine Few (None-Few); WBC Urine 0-2 (0-5)
--- NOTE | 2022-12-21 18:32 | ED.NURSE ---
area on left lower leg, placed 4x4's and wrapped lightly with coban. pt. tolerated well.
--- NOTE | 2022-12-21 19:21 | P.IMHP_ITS ---
Hospitalist- H&P: HPI History of Present Illness Date Seen: 12/21/22 Chief complaint: Cellutlitis on L leg and toe Narrative: Caity Ojeda is a 67 year old female with diabetes, heart failure, sciatica, obesity who presents with increasing left foot pain associated with a chronic ulcer on the plantar surface of her left 1st MTP joint. This ulcer has been under treatment [facility] the [facility]. She received 7 days of intravenous ceftriaxone in the last week of November for a suspected infection. She seemed to be doing fairly well after that. She was seen in clinic today when there was concern about increasing redness in that foot and leg. She notes that the foot is hurting more recently. She was referred to the emergency department. She is not aware of having a fever. December 11 she had a MRI of that foot showing no fluid collection and no oste omyelitis. She was hospitalized here a month and half ago with a heart failure exacerbation. Heart failure with preserved ejection fraction. She reports that is much better than it was when she was here a month and half ago. She reports she is having some control problems with her diabetes. Attempts to modify her diabetic regimen and from insulin alone are difficult. She does not tolerate metformin due to diarrhea and she cannot afford GLP 1 agonists and SGLT 2 antagonists. She was supposed to see Dr. Miranda this week but the appointment was canceled. The problem that is bothering her the most right now is her low back. She had an MRI of her spine on December 14 showing at the L3-4 level right foraminal disc extrusion causing mild mass effect on the right L3 dorsal root ganglion. At L4-5 a small left paracentral disc extrusion results in mild mass effect on the left L5 nerve root. There is mild central canal stenosis at this level. Other levels of degenerative change without high-grade foraminal or central canal stenosis. Her back pain is quite disabling for her now She reports no other symptoms of illness. She had a cough last week that has largely resolved. She has not been short of breath. No cold symptoms. No chest pain. No abdominal pain, nausea, vomiting. She has had diarrhea associated with metformin but it went away when her metformin was stopped. No urinary problems. 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 (ICD-10) Poorly controlled type 2 diabetes mellitus ?E11.65 - Type 2 diabetes mellitus with hyperglycemia (ICD-10) History of sciatica ?Z86.69 - Personal history of other diseases of the nervous system and sense organs (ICD-10) Primary hypothyroidism ?E03.9 - Hypothyroidism, unspecified (ICD-10) Asthma ?J45.909 - Unspecified asthma, uncomplicated (ICD-10) Vitamin D deficiency ?E55.9 - Vitamin D deficiency, unspecified (ICD-10) Rectocele ?N81.6 - Rectocele (ICD-10) Essential hypertension ?I10 - Essential (primary) hypertension (ICD-10) Obstructive sleep apnea ?G47.33 - Obstructive sleep apnea (adult) (pediatric) (ICD-10) Chronic diastolic heart failure ?I50.32 - Chronic diastolic (congestive) heart failure (ICD-10) Morbid obesity with BMI of 50.0-59.9, adult ?E66.01 - Morbid (severe) obesity due to excess calories (ICD-10) ?Z68.43 - Body mass index [BMI] 50.0-59.9, adult (ICD-10) History of nephrolithiasis ?Z87.442 - Personal history of urinary calculi (ICD-10) Lumbar back pain with radiculopathy affecting left lower extremity ?M54.16 - Radiculopathy, lumbar region (ICD-10) Hypertriglyceridemia ?E78.1 - Pure hyperglyceridemia (ICD-10) Osteoarthritis of knees, bilateral ?M17.0 - Bilateral primary osteoarthritis of knee (ICD-10) Chronic kidney disease ?N18.9 - Chronic kidney disease, unspecified (ICD-10) Venous insufficiency of both lower extremities ?I87.2 - Venous insufficiency (chronic) (peripheral) (ICD-10) Diabetic nephropathy associated with type 2 diabetes mellitus ?E11.21 - Type 2 diabetes mellitus with diabetic nephropathy (ICD-10) Surgical History Status post total abdominal hysterectomy ?Z90.710 - Acquired absence of both cervix and uterus (ICD-10) Status post thyroidectomy ?E89.0 - Postprocedural hypothyroidism (ICD-10) History of esophagogastroduodenoscopy ?Z98.890 - Other specified postprocedural states (ICD-10) Status post cholecystectomy ?Z90.49 - Acquired absence of other specified parts of digestive tract (ICD- 10) History of intraocular lens implant ?Z96.1 - Presence of intraocular lens (ICD-10) Cataract extraction status ?Z98.49 - Cataract extraction status, unspecified eye (ICD-10) Status post appendectomy ?Z90.49 - Acquired absence of other specified parts of digestive tract (ICD- 10) Status post colonoscopy with polypectomy ?Z98.890 - Other specified postprocedural states (ICD-10) Family History (Updated 11/06/22 @ 22:10 by Iain Soriano MD) Other Diabetes High blood pressure High cholesterol Social History (Updated 12/21/22 @ 19:34 by Jose Rebolledo MD) Narrative: . Lives alone. Three supportive children. Designates daughter, Alanna, , primary contact for power of commercial litigation attorney for health should that be required. Designates son, Nathan, [phone], secondary contact for power of commercial litigation attorney for health should that be required. Requests that we attempt resuscitation in the event of cardiopulmonary demise, stressing that she does not want to be kept alive as a vegetable should that come to pass. She reports worsening mobility problems. It is difficult due to her back pain and radicular symptoms going down her right leg for her to get up and walk around. To a lesser extent her left foot also bothers her with weight-bearing. She does walk with a walker. What is your current living situation?: I presently have a place to live Problems where you live: declined to answer Problems where you live details: na In the past 12 months, utilities in danger of being shut off: no In the past 12 mos, have been you worried that your food would run out before you had money to buy more?: sometimes true In the past 12 mos, the food you bought just didn't last and you didn't have money to buy more?: sometimes true Smoking Status: Never smoker How often do you have a drink containing alcohol: never How often do you have six or more drinks on one occasion: Never AUDIT-C Alcohol total score: 0 Non-prescribed substance use: denies use How often does anyone, including family, friends and others, physically hurt you : never How often does anyone, including family, friends and others, insult or talk down to you: fairly often How often does anyone, including family, friends and others, threaten you with harm: never How often does anyone, including family, friends and others, scream or curse at you: never Meds Home Medications and Allergies Home Medications Medication Instructions Recorded Confirmed Type allopurinol 100 mg tablet 300 mg PO DAILY 11/06/22 12/21/22 History brimonidine 0.2 % eye drops 1 drp ophthalmic (eye-left) BID 11/06/22 12/21/22 History dorzolamide 2 % eye drops 1 drp ophthalmic (eye-left) BID 11/06/22 12/21/22 History latanoprost 0.005 % eye drops 1 drp ophthalmic (eye) QPM 11/06/22 12/21/22 History levothyroxine 125 mcg tablet 125 mcg PO DAILY 11/06/22 12/21/22 History losartan 100 mg tablet 100 mg PO DAILY 11/06/22 12/21/22 History metolazone 2.5 mg tablet 2.5 mg PO .WEEKLY 11/06/22 12/21/22 History montelukast 10 mg tablet 10 mg PO HS 11/06/22 12/21/22 History nitroglycerin 0.4 mg sublingual 0.4 mg sublingual Q5M PRN 11/06/22 12/21/22 History tablet prednisolone acetate 1 % eye 1 drp ophthalmic (eye-left) BID 11/06/22 12/21/22 History drops,suspension timolol maleate 0.5 % eye drops 1 drp ophthalmic (eye-right) QAM 11/06/22 12/21/22 History albuterol sulfate 90 mcg/actuation 1 - 2 puff inhalation Q4H PRN 11/07/22 12/21/22 History aerosol inhaler ascorbic acid (vitamin C) 500 mg 500 mg PO BID 11/07/22 12/21/22 History tablet insulin human U-100 NPH-regulr 53 unit subcut QPM 11/07/22 12/21/22 History 70-30 mix 100 unit/mL subcutaneous susp (Humulin 70/30 U-100 Insulin) loratadine 10 mg tablet 10 mg PO HS 11/07/22 12/21/22 History (Allerclear) magnesium 250 mg tablet 500 mg PO DAILY 11/07/22 12/21/22 History multivitamin (Daily Multi-Vitamin 1 tab PO DAILY 11/07/22 12/21/22 History tablet) tramadol 50 mg tablet 50 mg PO Q6H PRN pain 11/07/22 12/21/22 History vitamin B complex (B 1 tab PO DAILY 11/07/22 12/21/22 History Complex-Vitamin B12 tablet) amlodipine 10 mg tablet 10 mg PO HS 11/29/22 12/21/22 History calcium carbonate 600 mg-vitamin 1 tab PO DAILY 11/29/22 12/21/22 History D3 5 mcg (200 unit) tablet (Calcium 600 + D(3)) cholecalciferol (vitamin D3) 125 5,000 unit PO DAILY 11/29/22 12/21/22 History mcg (5,000 unit) tablet (Vitamin D3) rosuvastatin 10 mg tablet 10 mg PO HS 11/29/22 12/21/22 History acetaminophen 650 mg tablet 650 mg PO QID 12/05/22 12/21/22 History hydrocortisone 1 % topical ointment 1 applic topical TID PRN 12/21/22 12/21/22 History insulin human U-100 NPH-regulr 53 unit subcut QPM 12/21/22 12/21/22 History 70-30 mix 100 unit/mL subcutaneous susp (Novolin 70/30 U-100 Insulin) insulin human U-100 NPH-regulr 68 unit subcut QAM 12/21/22 12/21/22 History 70-30 mix 100 unit/mL subcutaneous susp (Novolin 70/30 U-100 Insulin) methocarbamol 500 mg tablet 500 mg PO Q6H PRN muscle spasm 12/21/22 12/21/22 History metoprolol tartrate 50 mg tablet 50 mg PO HS 12/21/22 12/21/22 History metoprolol tartrate 50 mg tablet 100 mg PO QAM 12/21/22 12/21/22 History potassium 99 mg tablet 99 mg PO DAILY 12/21/22 12/21/22 History triamcinolone acetonide 0.1 % 1 applic topical TID PRN 12/21/22 12/21/22 History topical cream vit C 226 mg-vit E 90 mg-copper 1 cap PO DAILY 12/21/22 12/21/22 History 0.8 mg-zinc oxide-lutein 5 mg capsule (PreserVision Lutein) vitamin E 268 mg (400 unit) capsule 268 mg PO DAILY 12/21/22 12/21/22 History zinc sulfate 66 mg tablet (Zinc-15) 66 mg PO DAILY 12/21/22 12/21/22 History Allergies Allergy/AdvReac Type Severity Reaction Status Date / Time clindamycin Allergy Severe Verified 12/21/22 15:33 hydromorphone Allergy Severe Stopped Verified 12/21/22 15:33 Breathing morphine Allergy Severe Stopped Verified 12/21/22 15:33 Breathing NSAIDS (Non-Steroidal Allergy Severe Anaphylaxis Verified 12/21/22 15:33 Anti-Inflamma penicillin V Allergy Severe Hypertensio Verified 12/21/22 15:33 n aspirin AdvReac nausea and Verified 12/21/22 15:33 vomiting Exam Narrative: Exam Narrative: She is alert and appears in no distress. She gives her own history with excellent detail of past medical history and recent events. Head is without trauma. Oropharynx is normal. Neck is supple without mass or adenopathy. Respirations are clear to auscultation. No wheezing rales or rhonchi. Cardiovascular: S1, S2, regular rate and rhythm. Abdomen: Bowel sounds active. Abdomen is soft without tenderness or mass. External genitalia normal. No obvious groin rash or cellulitis under her pannus. Right lower extremity is notable for mild skin changes and mild edema. She has intact pedal pulses and diminished but present sensation to soft touch. Left lower extremity is warm to touch. She has mild edema above the wrap on her ankle. Intact pedal pu lses and intact sensation though diminished sensation to soft touch. Mild erythema over her foot on the medial side extending from the ulcer on the plantar surface of her 1st MTP. There is is purulent fluid coming from the ulcer. Palpation here is not tender and there is no obvious fluctuance. Mild venous stasis skin changes without marked erythema or or open wounds on her calf. Const: Vital Signs, click to edit/add: Vital Signs - 24 hr 12/21/22 13:28 12/21/22 15:30 12/21/22 16:38 Temperature 97.1 F L 98.2 F Pulse Rate [Right Pulse Oximeter] 60 65 Respiratory Rate 16 16 Blood Pressure [Ri ght Upper Arm] 146/71 H 135/68 Pulse Oximetry 95 98 95 Oxygen Delivery Me thod Room Air Room Air 12/21/22 18:04 12/21/22 18:28 Temperature 98.2 F 98.2 F Pulse Rate [Right Pulse Oximeter] 74 74 Respiratory Rate 16 16 Blood Pressure [Ri ght Upper Arm] 138/69 138/69 Pulse Oximetry 95 Oxygen Delivery Me thod Room Air Documenting provider has reviewed patient's vital signs: yes Hospitalist - H&P: Result Labs Labs: Short CBC 12/21/22 Range/Units 15:15 WBC 15.46 H (4.50-11.00) K/uL Hgb 13.3 (12.0-16.0) gm/dL Hct 42.9 (33.0-51.0) % Plt Count 280 (140-440) K/uL BMP 12/21/22 15:15 Sodium 140 Potassium 4.3 Chloride 103 Carbon Dioxide 31 BUN 61 H Creatinine 1.3 Glucose 109 Calcium 9.5 Urine 12/21/22 Range/Units 14:57 Urine Color Yellow (Yellow) Urine Appearance Clear (Clear) Urine pH 5.5 (5.0-8.5) Ur Specific [place] 1.020 (1.000-1.030) Urine Protein 3+ A (Negative) Urine Glucose (UA) Negative (Negative) Assessment and Plan Assessment and plan (1) Diabetic foot ulcer: Problem comment: Left foot has small 2nd and 3rd toe ulcers and plantar 1st MTP ulcer. Not currently infected. At risk for infection. Patient does not wear socks and shoes are not clean. Status: Acute (2) Venous insufficiency of both lower extremities: Problem comment: Discussed elevation and compression. Status: Acute (3) Diabetic nephropathy associated with type 2 diabetes mellitus: Problem comment: Proteinuria, nearly nephrotomy 06/28/2022 when last saw hand umbrella tipper, Dr. Alfonzo Wheatley. Avoid nonsteroidal anti-inflammatory medications. Attempt to optimize diabetes mellitus. Would benefit from SGLT2i, cannot afford. Would benefit from GLP1 agonist, cannot afford. Would benefit from weight loss, but seemingly unable to achieve. Status: Acute (4) Chronic diastolic heart failure: Problem comment: Last transthoracic echocardiogram 03/10/2021: Normal LV size, severely increased wall thickness, normal global systolic function, EF 62%. Right ventricle mildly enlarged with normal function. Grade 2 pattern LV diastolic filling. Pulmonary pressure by tricuspid velocity mildly elevated at 19 mmHg plus right atrial pressure. Inferior vena cava dilated with respiratory variation greater than 50%. Reduce furosemide to 80 mg once a day at this time and follow electrolytes. Her volume status appears to be about right or mildly dry at this time. Status: Acute (5) Poorly controlled type 2 diabetes mellitus: Problem comment: Poorly tolerates metformin. On NovoLog 70 30. Likely needs some increase in dosing. SGLT2 inhibitor would be helpful but patient cannot afford it. Status: Acute (6) Obstructive sleep apnea: Status: Acute Plan 67-year-old female with infection in her left foot associated with a draining ulcer on the plantar surface of the 1st MTP. MRI obtained 10 days ago showed no fluid collection. Will initiate empiric antibiotics with vancomycin and imipenem. Culture the wound. Further treatment based on her clinical course. Unclear whether she needs surgical debridement at this point. Continue to monitor and manage her other chronic medical problems. Total time spent today is 85 minutes, 50 minutes in coordination of care and discussing with patient other providers ongoing evaluation management of diabetic foot ulcer.
[2022-12-21] MEDS: TRAMADOL HCL 50 MG TABLET PO (20:19)
[2022-12-21] MEDS: ASCORBIC ACID 500 MG TABLET PO (20:55)
[2022-12-21] MEDS: AMLODIPINE 10 MG TABLET PO (20:55)
[2022-12-21] MEDS: ENOXAPARIN 40 MG/0.4 ML INJ SUBCUT (20:55)
[2022-12-21] MEDS: ACETAMINOPHEN 325 MG TABLET 650 MG PO (20:55)
[2022-12-21] MEDS: METOPROLOL TARTRATE 50 MG TABLET PO (20:56)
[2022-12-21] MEDS: MONTELUKAST 10 MG TABLET PO (20:56)
[2022-12-21] MEDS: ROSUVASTATIN CALCIUM 10 MG TABLET PO (20:56)
[2022-12-21] MEDS: BRIMONIDINE TARTRATE 0.2% OPHTH 1 DROP EYE-LEFT (21:01)
[2022-12-21] MEDS: DORZOLAMIDE HCL 2 % OPHTH DROP 1 DROP EYE-LEFT (21:01)
[2022-12-21] MEDS: LORATADINE 10 MG TABLET PO (21:01)
[2022-12-21] MEDS: prednisoLONE acetate 1 % DROPS 1 DROP EYE-LEFT (21:01)
[2022-12-21] MEDS: INSULIN PROT/ASP (NOVOLOG 70/30) 100 UNIT/ML 56 UNIT SUBCUT (21:46)
[2022-12-22 03:00] VITALS: RESP 20
[2022-12-22] MEDS: TRAMADOL HCL 50 MG TABLET PO ×2 (03:00→20:24)
[2022-12-22 03:50] LABS: SARS PCR* Negative SARS-CoV-2 (Negative)
--- NOTE | 2022-12-22 05:52 | PC.NURSE ---
Patient admitted to unit at 1845 with diagnosis of left foot cellulitus. Pain reported to low back and left great toe, states it is a throbbing pain. PRN tramadol effective for pain management, utilizing an ice pack to low back and legs. Wound to bottom of left foot cleansed and covered with gauze. Transfers independently, up ad darius in room. Lung sounds clear.
[2022-12-22 07:42] LABS: Basophils Percent Auto 0.6 % (0.0-3.0); Eosinophils Percent Auto 1.8 % (0.0-7.0); Hemoglobin* 13.5 gm/dL (12.0-16.0); Immature Granulocytes Pct Auto 1.3 %; Lymphocytes Percent Auto 9.7 % (20-44); Mean Corpuscular HGB Conc 30 gm/dL (32-36); Mean Corpuscular Hemoglobin 28 pg (26-34); Mean Corpuscular Volume 95 fL (80-100); Monocytes Percent Auto 8.4 % (0.0-11.0); Neutrophils Percent Auto 78.2 % (42.0-72.0); Platelet Count* 248 K/uL (140-440); RDW Coefficient of Variation % 15.4 % (11.5-15.5); Red Blood Count 4.76 m/uL (4.00-5.20); White Blood Count* 13.47 K/uL (4.50-11.00)
[2022-12-22 07:45] LABS: Slide Review Reflex No
[2022-12-22 07:55] VITALS: BP 166/70; PULSE 71; RESP 18; TEMP 36.6; O2SAT 93
[2022-12-22 07:57] LABS: Chloride* 103 mmol/L (96-114)
[2022-12-22 07:58] LABS: Potassium* 4.6 mmol/L (3.6-5.1); Sodium* 139 mmol/L (135-149)
[2022-12-22 08:00] LABS: Creatinine* 1.3 mg/dL (0.5-1.5); Est. Creatinine Clearance* 37.27; Estimated Glomerular Filt Rate 45 ml/min
[2022-12-22 08:01] LABS: Anion Gap 7 mEq/L (7-15); Blood Urea Nitrogen* 57 mg/dL (7-30); Carbon Dioxide* 29 mmol/L (20-32); Glucose* 83 mg/dL (60-115)
[2022-12-22 08:02] LABS: Calcium* 9.1 mg/dL (8.4-10.6)
[2022-12-22 08:04] LABS: C Reactive Protein* 1.3 mg/dL (0.5-1.0)
[2022-12-22] MEDS: DORZOLAMIDE HCL 2 % OPHTH DROP 1 DROP EYE-LEFT ×2 (08:49→20:26)
[2022-12-22] MEDS: prednisoLONE acetate 1 % DROPS 1 DROP EYE-LEFT ×2 (08:49→20:26)
[2022-12-22] MEDS: BRIMONIDINE TARTRATE 0.2% OPHTH 1 DROP EYE-LEFT ×2 (08:49→20:26)
[2022-12-22] MEDS: ASCORBIC ACID 500 MG TABLET PO ×2 (08:50→20:24)
[2022-12-22] MEDS: LOSARTAN POTASSIUM 50 MG TABLET 100 MG PO (08:50)
[2022-12-22] MEDS: FUROSEMIDE 40 MG TABLET 80 MG PO (08:50)
[2022-12-22] MEDS: METOPROLOL TARTRATE 50 MG TABLET 100 MG PO (08:50)
[2022-12-22] MEDS: allopurinoL 100 MG TABLET 300 MG PO (08:51)
[2022-12-22] MEDS: LEVOTHYROXINE 125 MCG TABLET PO (08:51)
[2022-12-22] MEDS: ACETAMINOPHEN 325 MG TABLET 650 MG PO ×4 (08:51→20:25)
[2022-12-22] MEDS: MULTIVITAMIN/MINERALS 1 TABLET 1 TAB PO (08:51)
[2022-12-22] MEDS: SODIUM CHLORIDE 0.9 % (FLUSH) 10 ML SYRINGE 5 ML IVF ×2 (08:52→20:27)
[2022-12-22] MEDS: INSULIN PROT/ASP (NOVOLOG 70/30) 100 UNIT/ML 68 UNIT SUBCUT (08:53)
[2022-12-22 12:18] VITALS: BP 148/70; PULSE 67; RESP 18; TEMP 36.8; O2SAT 93
[2022-12-22] MEDS: VITAMIN E 400 UNIT CAPSULE PO (13:58)
[2022-12-22] MEDS: OCUVITE TABLET 1 TAB PO (13:58)
[2022-12-22] MEDS: MAGNESIUM OXIDE 400 MG TABLET 500 MG PO (13:58)
[2022-12-22] MEDS: LIDOCAINE 5% PATCH 1 PATCH TRANSDERMA (14:00)
[2022-12-22 16:16] VITALS: BP 151/80; PULSE 70; RESP 18; TEMP 36.9; O2SAT 91
--- NOTE | 2022-12-22 17:12 | P.IMPN_ITS ---
Progress Note: A&P Assessment and plan (1) Cellulitis of left lower leg: Problem details: Fairly unremarkable at this time, but will continue IV antibiotics for persistent leukocytosis and diabetic foot ulcer possibly infected Status: Acute (2) Diabetic foot ulcer: Problem details: Left foot has small 2nd and 3rd toe ulcers and right plantar 1st MTP ulcer. Unclear if right plantar ulcer is infected as it had drainage yesterday. Continue IV antibiotics and consider MRI Saturday. Status: Acute (3) Sciatica of right side: Problem details: Continue PT and OT. Start lidocaine patch. Consider TENS unit. Encouraged patient to keep appointment on January [address] Gibson as she may benefit from SI joint injection. Status: Acute (4) Morbid obesity with BMI of 50.0-59.9, adult: Problem details: Could potentially benefit from assessment for possible surgical intervention, given multiple complications in association with the same. Status: Chronic (5) Venous insufficiency of both lower extremities: Problem details: Discussed elevation and compression. Status: Acute (6) Diabetic nephropathy associated with type 2 diabetes mellitus: Problem details: Proteinuria, nearly nephrotomy 06/28/2022 when last saw composer teaching artist, Dr. Alfonzo Wheatley. Avoid nonsteroidal anti-inflammatory medications. Attempt to optimize diabetes mellitus. Would benefit from SGLT2i, cannot afford. Would benefit from GLP1 agonist, cannot afford. Would benefit from weight loss, but seemingly unable to achieve. Status: Chronic (7) Poorly controlled type 2 diabetes mellitus: Problem details: Poorly tolerates metformin. On NovoLog 70 30. Fair control for inpatient. Continue current regimen. SGLT2 inhibitor would be helpful but patient cannot afford it. Status: Chronic Subjective Time Seen by Provider: 09:13 Date Seen: 12/22/22 Interval history: Caity complains of right upper leg spasm that goes up into her right buttock and low back. This is been going on for several weeks. She sees Dr. Gibson in the pain clinic and has an appointment with him for this on January 10. She has no pain in her lower legs. Exam Narrative: Exam Narrative: General: No acute distress. Awake, alert, oriented. No pallor. No jaundice. Morbidly obese. Cardiovascular: Regular rate and rhythm. No murmurs, gallops, or rubs. Respiratory: Clear to auscultation bilaterally. No wheezes or crackles. Back: Point tender to palpation over the right SI joint. Abdomen: Bowel sounds present. Soft, nondistended, nontender. Extremities: Straight leg raise is positive bilaterally at 85?. No calor of lower extremities today. Bilateral trace ankle pitting edema. She has a wrap over her right lower extremity which I removed and found no rash or erythema underneath. There is a small ulcer on the plantar surface of her 1st MTP without drainage today. Palpation is non tender and there is no fluctuance. No erythema or induration around this area. Left lower extremity has mild blanchable erythema over the left motta without tenderness or induration. Const: Vital Signs, click to edit/add: Vital Signs - 24 hr 12/21/22 18:04 12/21/22 18:28 12/21/22 19:00 Temperature 98.2 F 98.2 F 97.8 F Pulse Rate [Pulse Oximeter] 63 Pulse Rate [Right Pulse Oximeter] 74 74 Respiratory Rate 16 16 20 Blood Pressure [Ri ght Arm] 175/68 H Blood Pressure [Ri ght Upper Arm] 138/69 138/69 Pulse Oximetry 95 89 Oxygen Delivery Wa thod Room Air Room Air 12/21/22 19:06 12/21/22 19:06 12/21/22 23:00 Temperature 97.8 F 97.8 F Pulse Rate [Pulse Oximeter] 63 53 L Pulse Rate [Right Pulse Oximeter] Respiratory Rate 20 20 18 Blood Pressure [Ri ght Arm] 175/68 H 147/63 H Blood Pressure [Ri ght Upper Arm] Pulse Oximetry 89 89 94 Oxygen Delivery Wa thod Room Air Room Air Room Air 12/21/22 23:30 12/22/22 03:00 12/22/22 07:55 Temperature 97.9 F Pulse Rate [Pulse Oximeter] 71 Pulse Rate [Right Pulse Oximeter] Respiratory Rate 18 20 18 Blood Pressure [Ri ght Arm] 166/70 H Blood Pressure [Ri ght Upper Arm] Pulse Oximetry 93 Oxygen Delivery Wa thod Room Air 12/22/22 12:18 12/22/22 16:16 Temperature 98.3 F 98.5 F Pulse Rate [Pulse Oximeter] 67 70 Pulse Rate [Right Pulse Oximeter] Respiratory Rate 18 18 Blood Pressure [Ri ght Arm] 148/70 H 151/80 H Blood Pressure [Ri ght Upper Arm] Pulse Oximetry 93 91 Oxygen Delivery Wa thod Room Air Room Air Labs Labs: Laboratory Results - last 24 hr 12/21/22 12/22/22 02:45 06:00 WBC 13.47 H RBC 4.76 Hgb 13.5 Hct 45.0 MCV 95 MCH 28 MCHC 30 L RDW Coeff of Tad 15.4 Plt Count 248 Neut % (Auto) 78.2 H Lymph % (Auto) 9.7 L [place] % (Auto) 8.4 Eos % (Auto) 1.8 Baso % (Auto) 0.6 Neut # (Auto) 10.50 H Lymph # (Auto) 1.30 [place] # (Auto) 1.10 H Eos # (Auto) 0.20 Baso # (Auto) 0.10 Abs Immat Gran (auto) 0.20 Imm/Tot Granulo (auto) 1.3 Sodium 139 Potassium 4.6 Chloride 103 Carbon Dioxide 29 Anion Gap 7 BUN 57 H Creatinine 1.3 Estimated Creat Clear 37.27 Estimated GFR 45 Glucose 83 Calcium 9.1 C-Reactive Protein 1.3 H SARS-CoV-2 (PCR) Negative SARS-CoV-2
[2022-12-22 19:00] VITALS: BP 137/77; PULSE 50; RESP 20; TEMP 36.5; O2SAT 92
[2022-12-22] MEDS: AMLODIPINE 10 MG TABLET PO (20:23)
[2022-12-22] MEDS: METOPROLOL TARTRATE 50 MG TABLET PO (20:24)
[2022-12-22] MEDS: ROSUVASTATIN CALCIUM 10 MG TABLET PO (20:25)
[2022-12-22] MEDS: ENOXAPARIN 40 MG/0.4 ML INJ SUBCUT (20:25)
[2022-12-22] MEDS: MONTELUKAST 10 MG TABLET PO (20:25)
[2022-12-22] MEDS: LORATADINE 10 MG TABLET PO (20:25)
[2022-12-22] MEDS: LATANOPROST 0.005% OPHTH 1 DROP EYE-BOTH (20:26)
[2022-12-22] MEDS: INSULIN PROT/ASP (NOVOLOG 70/30) 100 UNIT/ML 20 UNIT SUBCUT (21:20)
[2022-12-22 23:30] VITALS: RESP 18
[2022-12-23 03:00] VITALS: BP 139/72; PULSE 71; RESP 16; TEMP 36.5; O2SAT 93
[2022-12-23] MEDS: TRAMADOL HCL 50 MG TABLET PO ×2 (03:40→11:38)
--- NOTE | 2022-12-23 05:39 | PC.NURSE ---
End of shift [id number] and oriented x 4. Pain reported to low back, pain well managed with prn tramadol, ice and rest. Lidocaine patch removed, patient reports patch is effective in reducing pain level. Up independently in room with 4 prong cane. Denies any shortness of breath or chest pain. Blood glucose at 2100 180, automotive service writer update Dr. Rebolledo of previous night drop in blood glucose and patients report that she chronically is woken around 3am with hypoglycemia. MD adjusted insulin doses, patient updated. No report of feeling symptoms of hypoglycemia.
[2022-12-23 07:00] VITALS: BP 148/57; PULSE 71; RESP 18; TEMP 36.6; O2SAT 95
[2022-12-23 07:17] LABS: Basophils Percent Auto 0.4 % (0.0-3.0); Eosinophils Percent Auto 2.3 % (0.0-7.0); Hemoglobin* 12.7 gm/dL (12.0-16.0); Immature Granulocytes Pct Auto 0.7 %; Lymphocytes Percent Auto 11.7 % (20-44); Mean Corpuscular HGB Conc 30 gm/dL (32-36); Mean Corpuscular Hemoglobin 28 pg (26-34); Mean Corpuscular Volume 94 fL (80-100); Neutrophils Percent Auto 76.9 % (42.0-72.0); Platelet Count* 235 K/uL (140-440); RDW Coefficient of Variation % 15.2 % (11.5-15.5); Red Blood Count 4.49 m/uL (4.00-5.20); White Blood Count* 11.96 K/uL (4.50-11.00)
[2022-12-23 07:20] LABS: Slide Review Reflex No
[2022-12-23 07:43] LABS: Chloride* 104 mmol/L (96-114); Potassium* 4.7 mmol/L (3.6-5.1); Sodium* 138 mmol/L (135-149)
[2022-12-23 07:45] LABS: Creatinine* 1.4 mg/dL (0.5-1.5); Est. Creatinine Clearance* 34.61; Estimated Glomerular Filt Rate 41 ml/min
[2022-12-23 07:46] LABS: Anion Gap 5 mEq/L (7-15); Blood Urea Nitrogen* 55 mg/dL (7-30); Carbon Dioxide* 29 mmol/L (20-32)
[2022-12-23 07:47] LABS: Calcium* 9.2 mg/dL (8.4-10.6); Glucose* 80 mg/dL (60-115)
[2022-12-23 07:49] LABS: C Reactive Protein* 1.7 mg/dL (0.5-1.0)
[2022-12-23] MEDS: allopurinoL 100 MG TABLET 300 MG PO (08:45)
[2022-12-23] MEDS: OCUVITE TABLET 1 TAB PO (08:45)
[2022-12-23] MEDS: FUROSEMIDE 40 MG TABLET 80 MG PO (08:45)
[2022-12-23] MEDS: MULTIVITAMIN/MINERALS 1 TABLET 1 TAB PO (08:45)
[2022-12-23] MEDS: ASCORBIC ACID 500 MG TABLET PO ×2 (08:46→20:31)
[2022-12-23] MEDS: VITAMIN E 400 UNIT CAPSULE PO (08:46)
[2022-12-23] MEDS: LOSARTAN POTASSIUM 50 MG TABLET 100 MG PO (08:46)
[2022-12-23] MEDS: ACETAMINOPHEN 325 MG TABLET 650 MG PO ×4 (08:46→20:32)
[2022-12-23] MEDS: LEVOTHYROXINE 125 MCG TABLET PO (08:46)
[2022-12-23] MEDS: SODIUM CHLORIDE 0.9 % (FLUSH) 10 ML SYRINGE 5 ML IVF ×2 (08:47→20:39)
[2022-12-23] MEDS: DORZOLAMIDE HCL 2 % OPHTH DROP 1 DROP EYE-LEFT ×2 (08:47→20:32)
[2022-12-23] MEDS: prednisoLONE acetate 1 % DROPS 1 DROP EYE-LEFT ×2 (08:47→21:16)
[2022-12-23] MEDS: INSULIN PROT/ASP (NOVOLOG 70/30) 100 UNIT/ML 50 UNIT SUBCUT (08:47)
[2022-12-23] MEDS: timoloL maleate 0.5 % 1 DROP EYE-RIGHT (08:47)
[2022-12-23] MEDS: BRIMONIDINE TARTRATE 0.2% OPHTH 1 DROP EYE-LEFT ×2 (08:47→20:30)
[2022-12-23] MEDS: METOPROLOL TARTRATE 50 MG TABLET 100 MG PO (08:53)
[2022-12-23] MEDS: LIDOCAINE 5% PATCH 1 PATCH TRANSDERMA (08:58)
[2022-12-23] MEDS: MAGNESIUM OXIDE 400 MG TABLET PO (08:58)
[2022-12-23 11:00] VITALS: BP 170/68; PULSE 63; RESP 18; TEMP 36.7; O2SAT 95
--- NOTE | 2022-12-23 14:15 | PC.NURSE ---
End of Shift: Patient pleasant and cooperative. Afebrile. Rating chronic pain in back /, PRN Ultram given x1 and ice/Lidoderm patch to right low back. Up to chair and bathroom with SBA. Tolerating regular diet with no nausea. MD aware of increase in weight, no new orders at this time.
--- NOTE | 2022-12-23 14:32 | P.IMPN_ITS ---
Progress Note: A&P Assessment and plan (1) Cellulitis of left lower leg: Problem details: Fairly unremarkable at this time, but will continue IV antibiotics for persistent leukocytosis and diabetic foot ulcer possibly infected Status: Acute (2) Diabetic foot ulcer: Problem details: Left foot has small 2nd and 3rd toe ulcers and left plantar 1st MTP ulcer. Unclear if left plantar ulcer is infected as it had drainage on admission. Continue IV antibiotics and obtain an MRI tomorrow. Status: Acute (3) Sciatica of right side: Problem details: Improving. Continue PT and OT. Start lidocaine patch. Consider TENS unit. Encouraged patient to keep appointment on January [address] Gibson as she may benefit from SI joint injection. Status: Acute (4) Morbid obesity with BMI of 50.0-59.9, adult: Problem details: Could potentially benefit from assessment for possible surgical intervention, given multiple complications in association with the same. Status: Chronic (5) Venous insufficiency of both lower extremities: Problem details: Discussed elevation and compression. Status: Acute (6) Diabetic nephropathy associated with type 2 diabetes mellitus: Problem details: Proteinuria, nearly nephrotomy 06/28/2022 when last saw plastic dolls mold filler, Dr. Alfonzo Wheatley. Avoid nonsteroidal anti-inflammatory medications. Attempt to optimize diabetes mellitus. Would benefit from SGLT2i, cannot afford. Would benefit from GLP1 agonist, cannot afford. Would benefit from weight loss, but seemingly unable to achieve. Status: Chronic (7) Poorly controlled type 2 diabetes mellitus: Problem details: Poorly tolerates metformin. On NovoLog 70 30. Fair control for inpatient. Continue current regimen. SGLT2 inhibitor would be helpful but patient cannot afford it. Status: Chronic Plan No symptoms of volume overload. Weight may be erroroneous. Follow. Subjective Time Seen by Provider: 11:20 Date Seen: 12/23/22 Interval history: Caity was concerned about weight gain today. She is up 5 lbs. She has been watching salt, but increased her oral fluid intake. She notes less pain in the right low back, but the same amount of spasming. We discussed caring for her 1-year-old grandchild at home. She notes that she is never alone when caring for her 1-year-old grandchild, but there is always another adult in the house in case the child needs to be picked up. Exam Narrative: Exam Narrative: General: No acute distress. Awake, alert, oriented. No pallor. No jaundice. Morbidly obese. Cardiovascular: Regular rate and rhythm. No murmurs, gallops, or rubs. Respiratory: Clear to auscultation bilaterally. No wheezes or crackles. Back: Point tender to palpation over the right SI joint, about 50% less pain than yesterday. Abdomen: Bowel sounds present. Soft, nondistended, nontender. Extremities: Bilateral trace ankle pitting edema, similar to yesterday. There is a small ulcer on the plantar surface of her left 1st MTP without drainage today. Palpation is non tender and there is no fluctuance. No erythema or induration around this area. Left lower extremity has mild blanchable erythema over the left motta without tenderness or induration, essentially unchanged from yesterday. Const: Vital Signs, click to edit/add: Vital Signs - 24 hr 12/22/22 16:16 12/22/22 19:00 12/22/22 23:30 Temperature 98.5 F 97.7 F Pulse Rate [Pulse Oximeter] 70 50 L Respiratory Rate 18 20 18 Blood Pressure [Ri ght Arm] 151/80 H 137/77 Pulse Oximetry 91 92 Oxygen Delivery Me thod Room Air Room Air 12/23/22 03:00 12/23/22 07:00 12/23/22 07:00 Temperature 97.7 F 97.8 F Pulse Rate [Pulse Oximeter] 71 71 71 Respiratory Rate 16 18 18 Blood Pressure [Ri ght Arm] 139/72 148/57 H Pulse Oximetry 93 95 Oxygen Delivery Md thod Room Air Room Air 12/23/22 11:00 Temperature 98.0 F Pulse Rate [Pulse Oximeter] 63 Respiratory Rate 18 Blood Pressure [Ri ght Arm] 170/68 H Pulse Oximetry 95 Oxygen Delivery Md thod Room Air Labs Labs: Laboratory Results - last 24 hr 12/23/22 06:00 WBC 11.96 H RBC 4.49 Hgb 12.7 Hct 42.0 MCV 94 MCH 28 MCHC 30 L RDW Coeff of Tad 15.2 Plt Count 235 Neut % (Auto) 76.9 H Lymph % (Auto) 11.7 L [place] % (Auto) 8.0 Eos % (Auto) 2.3 Baso % (Auto) 0.4 Neut # (Auto) 9.20 H Lymph # (Auto) 1.40 [place] # (Auto) 1.00 H Eos # (Auto) 0.30 Baso # (Auto) 0.00 Abs Immat Gran (auto) 0.10 Imm/Tot Granulo (auto) 0.7 Sodium 138 Potassium 4.7 Chloride 104 Carbon Dioxide 29 Anion Gap 5 L BUN 55 H Creatinine 1.4 Estimated Creat Clear 34.61 Estimated GFR 41 Glucose 80 Calcium 9.2 C-Reactive Protein 1.7 H
[2022-12-23 15:35] VITALS: BP 175/70; PULSE 55; RESP 18; TEMP 36.4; O2SAT 95
[2022-12-23] MEDS: INSULIN PROT/ASP (NOVOLOG 70/30) 100 UNIT/ML 40 UNIT SUBCUT (18:10)
[2022-12-23 19:10] VITALS: BP 176/73; PULSE 55; RESP 18; TEMP 36.6; O2SAT 94
[2022-12-23] MEDS: AMLODIPINE 10 MG TABLET PO (20:31)
[2022-12-23] MEDS: MONTELUKAST 10 MG TABLET PO (20:32)
[2022-12-23] MEDS: ROSUVASTATIN CALCIUM 10 MG TABLET PO (20:32)
[2022-12-23] MEDS: LORATADINE 10 MG TABLET PO (20:33)
[2022-12-23] MEDS: METOPROLOL TARTRATE 50 MG TABLET PO (20:37)
[2022-12-23] MEDS: ENOXAPARIN 40 MG/0.4 ML INJ SUBCUT (20:37)
[2022-12-23] MEDS: LATANOPROST 0.005% OPHTH 1 DROP EYE-BOTH (21:15)
--- NOTE | 2022-12-23 23:21 | PC.NURSE ---
Shift [id number]- Patient up independently. She is eating, drinking and voiding without issue. Wound care provided. She has some itching to arm near IV during IV antibiotic infusion, assessed for infiltration. Ultimately, no infiltration found- IV patent- antibiotic infusion is completed. Ice to back for pain, independently changes position for comfort.
[2022-12-23 23:30] VITALS: RESP 18
[2022-12-24 03:00] VITALS: RESP 17
[2022-12-24] MEDS: TRAMADOL HCL 50 MG TABLET PO ×2 (03:40→11:39)
[2022-12-24] MEDS: SODIUM CHLORIDE NASAL SPRAY 1 SPRAY NOSTRIL-B (04:51)
--- NOTE | 2022-12-24 05:41 | PC.NURSE ---
End of shift [id number]:Alert and oriented x 4. Pain reported to right lower back, PRN tramadol and ice pack effective for pain. Reporting dry nares, prn saline spray utilized. At 0500 patient reporting feelings like her blood sugar was low, BG 66. Patient given milk, crackers and peanut butter. Recheck of glucose 30 minutes later was 63. Patient declined a snack or fast acting sugar as she feels her BG is coming up and she's worried about over correcting. [employer] placed yogurt at bedside and patient instructed to place call light on and eat snack if she feels hypoglycemic symptoms again.
[2022-12-24 06:58] LABS: Basophils Percent Auto 0.4 % (0.0-3.0); Eosinophils Percent Auto 1.8 % (0.0-7.0); Hematocrit 41.3 % (33.0-51.0); Hemoglobin* 12.5 gm/dL (12.0-16.0); Immature Granulocytes Pct Auto 0.5 %; Lymphocytes Percent Auto 8.8 % (20-44); Mean Corpuscular HGB Conc 30 gm/dL (32-36); Mean Corpuscular Hemoglobin 28 pg (26-34); Mean Corpuscular Volume 93 fL (80-100); Monocytes Percent Auto 8.5 % (0.0-11.0); Platelet Count* 233 K/uL (140-440); RDW Coefficient of Variation % 15.4 % (11.5-15.5); Red Blood Count 4.43 m/uL (4.00-5.20); White Blood Count* 13.96 K/uL (4.50-11.00)
[2022-12-24 07:08] LABS: Slide Review Reflex No
[2022-12-24 07:13] LABS: Chloride* 105 mmol/L (96-114); Sodium* 140 mmol/L (135-149)
[2022-12-24 07:14] LABS: Potassium* 4.8 mmol/L (3.6-5.1)
[2022-12-24 07:16] LABS: Creatinine* 1.3 mg/dL (0.5-1.5); Est. Creatinine Clearance* 37.27; Estimated Glomerular Filt Rate 45 ml/min
[2022-12-24 07:17] LABS: Anion Gap 6 mEq/L (7-15); Blood Urea Nitrogen* 50 mg/dL (7-30); Calcium* 9.6 mg/dL (8.4-10.6); Carbon Dioxide* 29 mmol/L (20-32); Glucose* 97 mg/dL (60-115)
[2022-12-24 07:20] LABS: C Reactive Protein* 1.9 mg/dL (0.5-1.0)
[2022-12-24] MEDS: FUROSEMIDE 40 MG TABLET 80 MG PO (07:51)
[2022-12-24] MEDS: LEVOTHYROXINE 125 MCG TABLET PO (07:51)
[2022-12-24 07:53] VITALS: BP 147/83; PULSE 70; RESP 16; TEMP 36.6; O2SAT 93
[2022-12-24] MEDS: BRIMONIDINE TARTRATE 0.2% OPHTH 1 DROP EYE-LEFT (08:52)
[2022-12-24] MEDS: timoloL maleate 0.5 % 1 DROP EYE-RIGHT (08:52)
[2022-12-24] MEDS: prednisoLONE acetate 1 % DROPS 1 DROP EYE-LEFT (08:52)
[2022-12-24] MEDS: DORZOLAMIDE HCL 2 % OPHTH DROP 1 DROP EYE-LEFT (08:52)
[2022-12-24] MEDS: OCUVITE TABLET 1 TAB PO (08:53)
[2022-12-24] MEDS: ACETAMINOPHEN 325 MG TABLET 650 MG PO ×2 (08:54→13:20)
[2022-12-24] MEDS: allopurinoL 100 MG TABLET 300 MG PO (08:54)
[2022-12-24] MEDS: METOPROLOL TARTRATE 50 MG TABLET 100 MG PO (08:54)
[2022-12-24] MEDS: ASCORBIC ACID 500 MG TABLET PO (08:56)
[2022-12-24] MEDS: MAGNESIUM OXIDE 400 MG TABLET PO (08:56)
[2022-12-24] MEDS: SODIUM CHLORIDE 0.9 % (FLUSH) 10 ML SYRINGE 5 ML IVF (08:57)
[2022-12-24] MEDS: MULTIVITAMIN/MINERALS 1 TABLET 1 TAB PO (08:57)
[2022-12-24] MEDS: INSULIN PROT/ASP (NOVOLOG 70/30) 100 UNIT/ML 50 UNIT SUBCUT (08:58)
[2022-12-24] MEDS: VITAMIN E 400 UNIT CAPSULE PO (09:01)
[2022-12-24] MEDS: LOSARTAN POTASSIUM 50 MG TABLET 100 MG PO (09:01)
[2022-12-24] MEDS: LIDOCAINE 5% PATCH 1 PATCH TRANSDERMA (10:11)
[2022-12-24 11:45] VITALS: BP 148/54; PULSE 58; RESP 18; TEMP 36.4; O2SAT 92
[2022-12-24 13:43] VITALS: BMI 56.2
--- NOTE | 2022-12-24 13:48 | PC.SOCIAL ---
Met with pt to discuss discharge plans. Discussed therapy recommendation of PT/OT home care. Pt informs that her primary care provider completed a referral for home care and her initial visit is this with a nurse, Lety. Pt does not recall what agency is seeing her or what services are in place. Pt requests that this worker call her daughter, Alanna, to discuss as pt states that daughter set this up. Phone call to Pt's daughter, Alanna, to confirm home care. Alanna informs that pt has home care through [facility] and services start this . This worker will follow up with [facility] to confirm that Pt and Ot are ordered. Phone call to [facility] at [phone]. Confirmed that pt is set up for home care and will be receiving Nursing, PT, OT, and home health aide. Initial appointment is set for this . [facility] does not need anything further from [facility]. Provided information to MD and pt in pt's room. Pt has no other needs. Pt's son will transport upon discharge. Social work will follow up as needed.
--- NOTE | 2022-12-24 14:49 | CRLHL7_ITS ---
For Patients: As a result of the Century Cures Act, medical imaging exams and procedure reports are released immediately into your electronic medical record. You may view this report before your referring provider. If you have questions, please contact your health care provider. Indication: Diabetic ulcer on the plantar surface of the 1st metatarsophalangeal joint. Technique: Three plane localizer images,, sagittal T1, sagittal STIR, long axis T1, long axis STIR, coronal T1, coronal STIR. Comparison: MRI 12/11/2022. Findings: There is a soft tissue defect underlying the plantar surface the great toe metatarsophalangeal joint with associated T1 hypointensity and STIR hyperintensity, which is slightly increased in size compared to recent MRI from 12/11/2022. For example, proximal-distal extent of this region measures 2.9 cm on today`s study, previously 2.4 cm. There is no underlying T1 marrow replacement of the adjacent hallux tibial or fibular sesamoids, metatarsal head or proximal phalanx to suggest abscess. There is no significant joint effusion to suggest septic arthritis. No large tendon sheath effusion. There is mild subchondral marrow edema at the 5th tarsometatarsal joint, likely degenerative. No acute fracture is seen. No osseous erosion is identified. Regional tendons are intact. There is diffuse intrinsic foot musculature atrophy in keeping with denervation change. Susceptibility artifact is seen along the plantar surface of the 3rd metatarsal head. Extensive soft tissue edema is noted circumferentially about the forefoot. Impression: 1. No evidence of osteomyelitis. 2. Plantar ulcer along the great toe metatarsophalangeal joint with diffuse soft tissue edema about the forefoot. No localized fluid collection to suggest abscess. No joint effusion. Dictated by Patt Cordero MD @ 12/24/2022 10:30:00 AM (Electronically Signed)
--- NOTE | 2022-12-24 15:58 | P.DS_ITS ---
DS: Providers Provider Time Seen by Provider: 11:33 Date Seen: 12/24/22 Date of admission: 12/21/22 18:04 Primary care physician: Shirley Fleming DO Admitting Clinician: Jose Rebolledo MD Consults: 12/21/22 18:32 Consult to Occupational Therapy [CONS] Routine Comment: Reason(s) for OT Consult:: Evaluate and Treat Any Restrictions?:: No Restrictions Consult to Physical Therapy [CONS] Routine Comment: Reason(s) for PT Consult:: Evaluate and Treat Any Restrictions?:: No Restrictions Consult to Injection Moulding Machine Operator [CONS] Routine Comment: Reason for Consult:: Discharge Planning Needs 12/21/22 22:30 Consult to Occupational Therapy [CONS] Routine Comment: Reason(s) for OT Consult:: Difficulty Managing ADLs Any Restrictions?:: No Restrictions Attending Physician on discharge: Bonnie Oliver MD DS: Diagnosis Discharge Diagnosis (1) Sciatica of right side: Status: Acute Problem details: Improving. Continue PT and OT. Start lidocaine patch. Consider TENS unit. Encouraged patient to keep appointment on January [address] Gibson as she may benefit from SI joint injection. (2) Cellulitis of left lower leg: Status: Acute Problem details: Fairly unremarkable at this time, overall pain and ambulation have improved. MRI of left foot shows no osteomyelitis or abscess. Discharge home on oral antibiotics. (3) Diabetic foot ulcer: Status: Acute Problem details: Left foot has small 2nd and 3rd toe ulcers and left plantar 1st MTP ulcer. Unclear if left plantar ulcer is infected as it had drainage on admission. MRI okay, discharge home on oral antibiotics. (4) Morbid obesity with BMI of 50.0-59.9, adult: Status: Chronic Problem details: Could potentially benefit from assessment for possible surgical intervention, given multiple complications in association with the same. (5) Venous insufficiency of both lower extremities: Status: Acute Problem details: Discussed elevation and compression. (6) Diabetic nephropathy associated with type 2 diabetes mellitus: Status: Chronic Problem details: Proteinuria, nearly nephrotomy 06/28/2022 when last saw wooden tank erector, Dr. Alfonzo Wheatley. Avoid nonsteroidal anti-inflammatory medications. Attempt to optimize diabetes mellitus. Would benefit from SGLT2i, cannot afford. Would benefit from GLP1 agonist, cannot afford. Would benefit from weight loss, but seemingly unable to achieve. (7) Chronic diastolic heart failure: Status: Chronic Problem details: Last transthoracic echocardiogram 03/10/2021: Normal LV size, severely increased wall thickness, normal global systolic function, EF 62%. Right ventricle mildly enlarged with normal function. Grade 2 pattern LV diastolic filling. Pulmonary pressure by tricuspid velocity mildly elevated at 19 mmHg plus right atrial pressure. Inferior vena cava dilated with respiratory variation greater than 50%. Reduce furosemide to 80 mg once a day at this time and follow electrolytes. Her volume status appears to be about right or mildly dry at this time. (8) Poorly controlled type 2 diabetes mellitus: Status: Chronic Problem details: Poorly tolerates metformin. On NovoLog 70 30. Fair control for inpatient. Continue current regimen. SGLT2 inhibitor would be helpful but patient cannot afford it. DS: Summary Hospital Course Hospital Course: 67-year-old female with history of diabetes, heart failure, sciatica and obesity who had worsening left foot pain with the chronic plantar surface ulcer that his untreated through the wound care clinic over the last month. She was set up to see Dr. Tirso cee as an outpatient, but his office called to cancel the appointment and it is unclear when this can be rescheduled. She has an outpatient appointment with Dr. Gibson at the beginning of January for right sciatica. She has been dealing with increased pain and right thigh spasms. She denies fever or chills. She had a MRI of her foot on December 11 that showed no fluid collection or osteomyelitis. She was admitted on IV antibiotics for concern of possible cellulitis or infection of the left foot. She was started on lidocaine patches and physical therapy for sciatica and responded well to these. Today she had an MRI of her foot which again showed no fluid collection, no abscess, no osteomyelitis. She has transitioned over to oral antibiotics and is discharged home in improved condition. She already has home health set up with nursing, PT and OT. This will start this . She has an appointment with her primary care provider tomorrow. Time Spent with Patient Time attestation: Total time spent providing and/or coordinating discharge services: Exam Narrative: Exam Narrative: General: No acute distress. Awake, alert, oriented. No pallor. No jaundice. Morbidly obese. Cardiovascular: Regular rate and rhythm. No murmurs, gallops, or rubs. Respiratory: Clear to auscultation bilaterally. No wheezes or crackles. Back: Point tender to palpation over the right SI joint, continues to improve. Abdomen: Bowel sounds present. Soft, nondistended, nontender. Extremities: Bilateral trace ankle pitting edema, similar to yesterday. There is a small ulcer on the plantar surface of her left 1st MTP without drainage today. Palpation is non tender and there is no fluctuance. No erythema or induration around this area. Left lower extremity has mild blanchable erythema over the left motta without tenderness or induration, essentially unchanged from yesterday. Const: Vital Signs, click to edit/add: Vital Signs - 24 hr 12/23/22 19:10 12/23/22 23:30 12/24/22 03:00 Temperature 97.9 F Pulse Rate [Pulse Oximeter] 55 L Respiratory Rate 18 18 17 Blood Pressure [Le ft Arm] Blood Pressure [Ri ght Arm] 176/73 H Pulse Oximetry 94 Oxygen Delivery Me thod Room Air 12/24/22 07:53 12/24/22 07:53 12/24/22 11:45 Temperature 98 F 97.6 F Pulse Rate [Pulse Oximeter] 70 70 58 L Respiratory Rate 16 16 18 Blood Pressure [Le ft Arm] 147/83 H 148/54 H Blood Pressure [Ri ght Arm] Pulse Oximetry 93 92 Oxygen Delivery Me thod Room Air Room Air DS: Data Data Completed and Pending Completed studies during hospitalization: Ordering Physician: Bonnie Oliver M.D. Date of Service: 12/24/22 Procedure(s): MR perez LT wo con Accession Number(s): [id number] cc: Bonnie Oliver M.D.; Shirley Fleming D.O.~ For Patients: As a result of the 21st Century Cures Act, medical imaging exams and procedure reports are released immediately into your electronic medical record. You may view this report before your referring provider. If you have questions, please contact your health care provider. Indication: Diabetic ulcer on the plantar surface of the 1st metatarsophalangeal joint. Technique: Three plane localizer images,, sagittal T1, sagittal STIR, long axis T1, long axis STIR, coronal T1, coronal STIR. Comparison: MRI 12/11/2022. Findings: There is a soft tissue defect underlying the plantar surface the great toe metatarsophalangeal joint with associated T1 hypointensity and STIR hyperintensity, which is slightly increased in size compared to recent MRI from 12/11/2022. For example, proximal-distal extent of this region measures 2.9 cm on today`s study, previously 2.4 cm. There is no underlying T1 marrow replacement of the adjacent hallux tibial or fibular sesamoids, metatarsal head or proximal phalanx to suggest abscess. There is no significant joint effusion to suggest septic arthritis. No large tendon sheath effusion. There is mild subchondral marrow edema at the 5th tarsometatarsal joint, likely degenerative. No acute fracture is seen. No osseous erosion is identified. Regional tendons are intact. There is diffuse intrinsic foot musculature atrophy in keeping with denervation change. Susceptibility artifact is seen along the plantar surface of the 3rd metatarsal head. Extensive soft tissue edema is noted circumferentially about the forefoot. Impression: 1. No evidence of osteomyelitis. 2. Plantar ulcer along the great toe metatarsophalangeal joint with diffuse soft tissue edema about the forefoot. No localized fluid collection to suggest abscess. No joint effusion. Dictated by Patt Cordero MD @ 12/24/2022 10:30:00 AM (Electronically Signed) Labs on day of discharge: Labs from last 24 hours 12/24/22 06:43 WBC 13.96 H RBC 4.43 Hgb 12.5 Hct 41.3 MCV 93 MCH 28 MCHC 30 L RDW Coeff of Tad 15.4 Plt Count 233 Neut % (Auto) 80.0 H Lymph % (Auto) 8.8 L [place] % (Auto) 8.5 Eos % (Auto) 1.8 Baso % (Auto) 0.4 Neut # (Auto) 11.20 H Lymph # (Auto) 1.20 [place] # (Auto) 1.20 H Eos # (Auto) 0.30 Baso # (Auto) 0.10 Abs Immat Gran (auto) 0.10 Imm/Tot Granulo (auto) 0.5 Sodium 140 Potassium 4.8 Chloride 105 Carbon Dioxide 29 Anion Gap 6 L BUN 50 H Creatinine 1.3 Estimated Creat Clear 37.27 Estimated GFR 45 Glucose 97 Calcium 9.6 C-Reactive Protein 1.9 H Preliminary micro results at discharge 12/21/22 15:22 Blood Culture - Preliminary Blood NO GROWTH AFTER 72 HOURS 12/21/22 15:15 Blood Culture - Preliminary Blood NO GROWTH AFTER 72 HOURS 12/21/22 18:27 Wound Culture - Preliminary Foot Left Gram positive cocci in cluster Gram negative carmenza Ordering Physician: Bonnie Oliver M.D. Date of Service: 12/24/22 Procedure(s): foot LT wo con Accession Number(s): [id number] cc: Bonnie Oliver M.D.; Shirley Fleming D.O.~ For Patients: As a result of the Cures Act, medical imaging exams and procedure reports are released immediately into your electronic medical record. You may view this report before your referring provider. If you have questions, please contact your health care provider. Indication: Diabetic ulcer on the plantar surface of the 1st metatarsophalangeal joint. Technique: Three plane localizer images,, sagittal T1, sagittal STIR, long axis T1, long axis STIR, coronal T1, coronal STIR. Comparison: MRI 12/11/2022. Findings: There is a soft tissue defect underlying the plantar surface the great toe metatarsophalangeal joint with associated T1 hypointensity and STIR hyperintensity, which is slightly increased in size compared to recent MRI from 12/11/2022. For example, proximal-distal extent of this region measures 2.9 cm on today`s study, previously 2.4 cm. There is no underlying T1 marrow replacement of the adjacent hallux tibial or fibular sesamoids, metatarsal head or proximal phalanx to suggest abscess. There is no significant joint effusion to suggest septic arthritis. No large tendon sheath effusion. There is mild subchondral marrow edema at the 5th tarsometatarsal joint, likely degenerative. No acute fracture is seen. No osseous erosion is identified. Regional tendons are intact. There is diffuse intrinsic foot musculature atrophy in keeping with denervation change. Susceptibility artifact is seen along the plantar surface of the 3rd metatarsal head. Extensive soft tissue edema is noted circumferentially about the forefoot. Impression: 1. No evidence of osteomyelitis. 2. Plantar ulcer along the great toe metatarsophalangeal joint with diffuse soft tissue edema about the forefoot. No localized fluid collection to suggest abscess. No joint effusion. Dictated by Patt Cordero MD @ 12/24/2022 10:30:00 AM (Electronically Signed) Discharge Plan Discharge Disposition: Home, Self-Care Date of Admission: 12/21/22 18:04 Attending Provider on Discharge: Bonnie Oliver Primary Care Provider: Shirley Fleming Condition: Improved Anticipated Discharge Date/Time: 12/24/22 16:04 Discharge Medications: New lidocaine 5 % Adhesive Patch,Medicated 1 patch transdermal DAILY Qty: 10 0RF doxycycline monohydrate 100 mg capsule 100 mg PO BID 5 Days Qty: 10 0RF Continued latanoprost 0.005 % drops 1 drp ophthalmic (eye) QPM Rx Instructions: BOTH EYES metolazone 2.5 mg tablet 2.5 mg PO .WEEKLY Rx Instructions: THURSDAYS allopurinol 100 mg tablet 300 mg PO DAILY prednisolone acetate 1 % drops,suspension 1 drp ophthalmic (eye-left) BID levothyroxine 125 mcg tablet 125 mcg PO DAILY brimonidine 0.2 % drops 1 drp ophthalmic (eye-left) BID nitroglycerin 0.4 mg tablet, sublingual 0.4 mg sublingual Q5M PRN montelukast 10 mg tablet 10 mg PO HS timolol maleate 0.5 % drops 1 drp ophthalmic (eye-right) QAM losartan 100 mg tablet 100 mg PO DAILY dorzolamide 2 % drops 1 drp ophthalmic (eye-left) BID albuterol sulfate 90 mcg/actuation HFA aerosol inhaler 1 - 2 puff INHALATION Q4H PRN ascorbic acid (vitamin C) 500 mg tablet 500 mg PO BID vitamin B complex [B Complex-Vitamin B12] Tablet 1 tab PO DAILY Humulin 70/30 U-100 Insulin 100 unit/mL (70-30) suspension 53 unit subcut QPM loratadine [Allerclear] 10 mg tablet 10 mg PO HS magnesium 250 mg tablet 500 mg PO DAILY multivitamin [Daily Multi-Vitamin] Tablet 1 tab PO DAILY tramadol 50 mg tablet 50 mg PO Q6H PRN (Reason: pain) furosemide 40 mg tablet 80 mg PO BID Qty: 120 0RF cholecalciferol (vitamin D3) [Vitamin D3] 125 mcg (5,000 unit) tablet 5,000 unit PO DAILY calcium carbonate-vitamin D3 [Calcium 600 + D(3)] 600 mg-5 mcg (200 unit) tablet 1 tab PO DAILY amlodipine 10 mg tablet 10 mg PO HS rosuvastatin 10 mg tablet 10 mg PO HS acetaminophen 650 mg tablet 650 mg PO QID Novolin 70/30 U-100 Insulin 100 unit/mL (70-30) suspension 68 unit subcut QAM hydrocortisone 1 % ointment 1 applic topical TID PRN methocarbamol 500 mg tablet 500 mg PO Q6H PRN (Reason: muscle spasm) triamcinolone acetonide 0.1 % cream 1 applic topical TID PRN metoprolol tartrate 50 mg tablet 100 mg PO QAM metoprolol tartrate 50 mg tablet 50 mg PO HS PreserVision Lutein 226-90-0.8-5 mg capsule 1 cap PO DAILY potassium 99 mg tablet 99 mg PO DAILY vitamin E 268 mg (400 unit) capsule 268 mg PO DAILY Zinc-15 66 mg tablet 66 mg PO DAILY Discharge Orders: Discharge Order (Routine); Ordered 12/24/22 Ordered By: Bonnie Oliver Patient Education: Sciatica (DC) Activity Level: Activity as Tolerated and Other Activity Detail: No lifting more than 15lbs until seen by Dr. Gibson in early Oct Discharge Diet: Diabetic Follow Up Appointments: Shirley Fleming DO [Primary Care Provider] - (tomorrow 12/25 as previously scheduled) Forms: [facility] Info Instructions
[2022-12-24 16:14] VITALS: BP 187/85; PULSE 59; RESP 20; TEMP 36.6; O2SAT 92
[2022-12-24 16:38] VITALS: PULSE 59; RESP 20
--- NOTE | 2022-12-24 18:45 | PC.NURSE ---
Discharge: Patient pleasant and cooperative. Patient hypertensive but stable, lungs clear, BS WNL, IV removed, catheter intact. Patient independent. Patient rated pain at most 8/10, tyelnol given twice and tramadol given once. Foot dressing cleansed and changed, no drainage. Patient tolerating regular diet, urinating, and had 1 BM. Patient blood sugars 99, 143, 174. Patient signed belongings sheet and discharge form signed. Patient had no further questions regarding discharge. Patient left the floor to home by wheelchair at 1804.
== END 2022-12-24 18:04 | disposition home or self-care (01) ==
LOC: ED 15:11 → MEDSURG 18:05
PROVIDERS: Admitting Provider Family Medicine; Emergency Provider Emergency Medicine; PCP Family Medicine; Visit Provider Family Medicine
DX: E11.621 Type 2 diabetes mellitus with foot ulcer (principal); L97.529 Non-pressure chronic ulcer of other part of left foot with unspecified severity; I87.2 Venous insufficiency (chronic) (peripheral); E11.21 Type 2 diabetes mellitus with diabetic nephropathy; I50.32 Chronic diastolic (congestive) heart failure; E11.65 Type 2 diabetes mellitus with hyperglycemia; G47.33 Obstructive sleep apnea (adult) (pediatric); L03.116 Cellulitis of left lower limb; M54.31 Sciatica, right side; E66.01 Morbid (severe) obesity due to excess calories; Z68.43 Body mass index [BMI] 50.0-59.9, adult
CPT/HCPCS: 36415; 73718; 80048; 81001; 82962; 83605; 85025; 86140; 87040; 87070; 87086; 87186; 87635; 94761; 97116; 97162; 97166; 97530; 97535; 99284; A9153; A9270; G0378; J0743; J1650; J2405; J3370; J7050; J7120

== ENCOUNTER 2022-12-31 11:23 | Outpatient (CLI) | payer MEDICARE, BC, SELFPAY | END 2022-12-31 11:24 | disposition home or self-care (01) | LOC: WOUND 11:23 | PROVIDERS: PCP Family Medicine; Visit Provider Nurse Practitioner Family | DX: E11.621 Type 2 diabetes mellitus with foot ulcer (principal); L97.525 Non-pressure chronic ulcer of other part of left foot with muscle involvement without evidence of necrosis; I89.0 Lymphedema, not elsewhere classified; Z79.4 Long term (current) use of insulin; Z79.84 Long term (current) use of oral hypoglycemic drugs | CPT/HCPCS: 11042 ==

== ENCOUNTER 2023-01-07 11:06 | Outpatient (CLI) | payer MEDICARE, BC, SELFPAY | END 2023-01-07 11:07 | disposition home or self-care (01) | LOC: WOUND 11:06 | PROVIDERS: PCP Family Medicine; Visit Provider Nurse Practitioner Family | DX: E11.621 Type 2 diabetes mellitus with foot ulcer (principal); L97.525 Non-pressure chronic ulcer of other part of left foot with muscle involvement without evidence of necrosis; I89.0 Lymphedema, not elsewhere classified; Z79.4 Long term (current) use of insulin; Z79.84 Long term (current) use of oral hypoglycemic drugs | CPT/HCPCS: 11042 ==

== ENCOUNTER 2023-02-02 19:41 | Inpatient (IN) | payer MEDICARE, BC, SELFPAY ==
[2023-02-02] VITALS (8 sets, daily range): BP systolic 141–172; BP diastolic 61–79; PULSE 60–64; RESP 18–22; TEMP 36.1–36.9; O2SAT 85–97; BMI 56.1
--- NOTE | 2023-02-02 20:10 | ED.GENADULT ---
HPI - General Adult General Chief complaint: Shortness of Breath/Dyspnea Stated complaint: Chest pain, shortness of breath Time Seen by Provider: 02/02/23 20:10 History of Present Illness HPI narrative: pt complaint of short of breath when walking up stairs. Also complaint of chest pain, rated 6/10, radiates to left chest under breast. SOB started Dec 24, 2022 . CP started throughout the day, 9am? 68-year-old woman presenting to the emergency department with concern of shortness of breath. Particularly exertional it has been increasing over the last weeks. She does have a history of reactive airway or asthma and does use her inhalers. She complains of particular going up flight of stairs at her son's home where she is for days a week. When she gets the top of the stairs takes for 7 minute she says to recover. She has also got some chest discomfort on the left chest has been going on over the course of the day. Was admitted yet in December with a cellulitis. She feels like she has been short of breath since that time. Underlying history of diabetes and managed with insulin singular as well as sleep apnea, and today is obesity, loss diabetic foot ulcer. Nebulizer he primarily diastolic heart failure but has left ventricular hypertrophy. No fevers but she says she has felt chilled when asked. UA she says she has taken off her compression stockings as the Tubigrip just hurts. She has had home health. She says they just signed off on her recently. She does have a nebulizer but she says is old she does not use it because she is out of her nebulization medicine. It is not clear to me that she is asked for refill. She says she gets a for hypoxic into the upper 80s when she gets up. Otherwise mentions 90s as well. She denies any medication changes. Does herself to be increasingly orthopneic, mentions 3 pillows; frankly just does not want to lie down. She has refused to get into the bed here today and legs remain down. Son says he does not want to throw anyone under the bus but it says that she has noted here to her sodium restrictions but she maintains that she has limited to 1500 today. Also assuming that she will be spending the night. Related Data Home Medications Medication Instructions Recorded Confirmed brimonidine 0.2 % eye drops 1 drp ophthalmic (eye-left) BID 11/06/22 02/03/23 dorzolamide 2 % eye drops 1 drp ophthalmic (eye-left) BID 11/06/22 02/03/23 latanoprost 0.005 % eye drops 1 drp ophthalmic (eye) QPM 11/06/22 02/03/23 levothyroxine 125 mcg tablet 125 mcg PO DAILY 11/06/22 02/03/23 losartan 100 mg tablet 100 mg PO DAILY 11/06/22 02/03/23 metolazone 2.5 mg tablet 2.5 mg PO .WEEKLY 11/06/22 02/03/23 montelukast 10 mg tablet 10 mg PO HS 11/06/22 02/03/23 nitroglycerin 0.4 mg sublingual 0.4 mg sublingual Q5M PRN 11/06/22 02/03/23 tablet prednisolone acetate 1 % eye 1 drp ophthalmic (eye-left) BID 11/06/22 02/03/23 drops,suspension timolol maleate 0.5 % eye drops 1 drp ophthalmic (eye-right) QAM 11/06/22 02/03/23 albuterol sulfate 90 mcg/actuation 1 - 2 puff inhalation Q4H PRN 11/07/22 02/03/23 aerosol inhaler ascorbic acid (vitamin C) 500 mg 500 mg PO BID 11/07/22 02/03/23 tablet insulin human U-100 NPH-regulr 53 unit subcut QPM 11/07/22 02/03/23 70-30 mix 100 unit/mL subcutaneous susp (Humulin 70/30 U-100 Insulin) loratadine 10 mg tablet 10 mg PO HS 11/07/22 02/03/23 (Allerclear) magnesium 250 mg tablet 500 mg PO DAILY 11/07/22 02/03/23 multivitamin (Daily Multi-Vitamin 1 tab PO DAILY 11/07/22 02/03/23 tablet) vitamin B complex (B 1 tab PO DAILY 11/07/22 02/03/23 Complex-Vitamin B12 tablet) amlodipine 10 mg tablet 10 mg PO HS 11/29/22 02/03/23 calcium carbonate 600 mg-vitamin 1 tab PO DAILY 11/29/22 02/03/23 D3 5 mcg (200 unit) tablet (Calcium 600 + D(3)) cholecalciferol (vitamin D3) 125 5,000 unit PO DAILY 11/29/22 02/03/23 mcg (5,000 unit) tablet (Vitamin D3) rosuvastatin 10 mg tablet 10 mg PO HS 11/29/22 02/03/23 acetaminophen 650 mg tablet 650 mg PO QID 12/05/22 02/03/23 insulin human U-100 NPH-regulr 68 unit subcut QAM 12/21/22 02/03/23 70-30 mix 100 unit/mL subcutaneous susp (Novolin 70/30 U-100 Insulin) metoprolol tartrate 50 mg tablet 50 mg PO HS 12/21/22 02/03/23 metoprolol tartrate 50 mg tablet 100 mg PO QAM 12/21/22 02/03/23 vit C 226 mg-vit E 90 mg-copper 1 cap PO DAILY 12/21/22 02/03/23 0.8 mg-zinc oxide-lutein 5 mg capsule (PreserVision Lutein) vitamin E 268 mg (400 unit) capsule 268 mg PO DAILY 12/21/22 02/03/23 zinc sulfate 66 mg tablet (Zinc-15) 66 mg PO DAILY 12/21/22 02/03/23 Previous Rx's Medication Instructions Recorded furosemide 40 mg tablet 80 mg (2 x 40 mg) PO BID #120 tabs 11/07/22 allopurinol 300 mg tablet 150 mg (1/2 x 300 mg) PO DAILY #30 02/06/23 tabs nystatin 100,000 unit/gram topical 1 applic topical TID #45 grams 02/06/23 cream Allergies Allergy/AdvReac Type Severity Reaction Status Date / Time clindamycin Allergy Severe Verified 12/21/22 15:33 hydromorphone Allergy Severe Stopped Verified 12/21/22 15:33 Breathing morphine Allergy Severe Stopped Verified 12/21/22 15:33 Breathing NSAIDS (Non-Steroidal Allergy Severe Anaphylaxis Verified 12/21/22 15:33 Anti-Inflamma penicillin V Allergy Severe Hypertensio Verified 12/21/22 15:33 n aspirin AdvReac nausea and Verified 12/21/22 15:33 vomiting Review of Systems Status of ROS: Reports: 6 or more systems reviewed and unremarkable except as noted in History and below [facility] Medical History Cellulitis of left lower leg ?L03.116 - Cellulitis of left lower limb (ICD-10) Acute on chronic diastolic heart failure ?I50.33 - Acute on chronic diastolic (congestive) heart failure (ICD-10) Acute kidney injury superimposed on chronic kidney disease ?N17.9 - Acute kidney failure, unspecified (ICD-10) ?N18.9 - Chronic kidney disease, unspecified (ICD-10) Pulmonary edema with congestive heart failure ?I50.1 - Left ventricular failure, unspecified (ICD-10) Diabetic foot ulcer ?E11.621 - Type 2 diabetes mellitus with foot ulcer (ICD-10) ?L97.509 - Non-pressure chronic ulcer of other part of unspecified foot with unspecified severity (ICD-10) History of fracture of left ankle ?Z87.81 - Personal history of (healed) traumatic fracture (ICD-10) Severe left ventricular hypertrophy ?I51.7 - Cardiomegaly (ICD-10) 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 - 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 (ICD-10) Poorly controlled type 2 diabetes mellitus ?E11.65 - Type 2 diabetes mellitus with hyperglycemia (ICD-10) History of sciatica ?Z86.69 - Personal history of other diseases of the nervous system and sense organs (ICD-10) Primary hypothyroidism ?E03.9 - Hypothyroidism, unspecified (ICD-10) Asthma ?J45.909 - Unspecified asthma, uncomplicated (ICD-10) Vitamin D deficiency ?E55.9 - Vitamin D deficiency, unspecified (ICD-10) Rectocele ?N81.6 - Rectocele (ICD-10) Essential hypertension ?I10 - Essential (primary) hypertension (ICD-10) Obstructive sleep apnea ?G47.33 - Obstructive sleep apnea (adult) (pediatric) (ICD-10) Chronic diastolic heart failure ?I50.32 - Chronic diastolic (congestive) heart failure (ICD-10) Morbid obesity with BMI of 50.0-59.9, adult ?E66.01 - Morbid (severe) obesity due to excess calories (ICD-10) ?Z68.43 - Body mass index [BMI] 50.0-59.9, adult (ICD-10) History of nephrolithiasis ?Z87.442 - Personal history of urinary calculi (ICD-10) Lumbar back pain with radiculopathy affecting left lower extremity ?M54.16 - Radiculopathy, lumbar region (ICD-10) Hypertriglyceridemia ?E78.1 - Pure hyperglyceridemia (ICD-10) Osteoarthritis of knees, bilateral ?M17.0 - Bilateral primary osteoarthritis of knee (ICD-10) Chronic kidney disease ?N18.9 - Chronic kidney disease, unspecified (ICD-10) Venous insufficiency of both lower extremities ?I87.2 - Venous insufficiency (chronic) (peripheral) (ICD-10) Diabetic nephropathy associated with type 2 diabetes mellitus ?E11.21 - Type 2 diabetes mellitus with diabetic nephropathy (ICD-10) Surgical History Status post total abdominal hysterectomy ?Z90.710 - Acquired absence of both cervix and uterus (ICD-10) Status post thyroidectomy ?E89.0 - Postprocedural hypothyroidism (ICD-10) History of esophagogastroduodenoscopy ?Z98.890 - Other specified postprocedural states (ICD-10) Status post cholecystectomy ?Z90.49 - Acquired absence of other specified parts of digestive tract (ICD-10) History of intraocular lens implant ?Z96.1 - Presence of intraocular lens (ICD-10) Cataract extraction status ?Z98.49 - Cataract extraction status, unspecified eye (ICD-10) Status post appendectomy ?Z90.49 - Acquired absence of other specified parts of digestive tract (ICD-10) Status post colonoscopy with polypectomy ?Z98.890 - Other specified postprocedural states (ICD-10) Family History Other Diabetes High blood pressure High cholesterol Social History Narrative: . Lives alone. Three supportive children. Designates daughter, Alanna, , primary contact for power of immigration attorney for health should that be required. Designates son, Nathan, [phone], secondary contact for power of immigration attorney for health should that be required. Requests that we attempt resuscitation in the event of cardiopulmonary demise, stressing that she does not want to be kept alive as a vegetable should that come to pass. She reports worsening mobility problems. It is difficult due to her back pain and radicular symptoms going down her right leg for her to get up and walk around. To a lesser extent her left foot also bothers her with weight-bearing. She does walk with a walker. What is your current living situation?: I presently have a place to live Problems where you live: mold Problems where you live details: mold In the past 12 months, utilities in danger of being shut off: no In past 12 months, lack of transportation kept you from medical appts, meetings, work, or getting things needed for daily living: no In the past 12 mos, have been you worried that your food would run out before you had money to buy more?: sometimes true In the past 12 mos, the food you bought just didn't last and you didn't have money to buy more?: sometimes true Highest level of school completed/degree received: Associate degree: academic program Smoking Status: Never smoker How often do you have a drink containing alcohol: never How often do you have six or more drinks on one occasion: Never AUDIT-C Alcohol total score: 0 Non-prescribed substance use: denies use Caffeine: Yes How often does anyone, including family, friends and others, physically hurt you: never How often does anyone, including family, friends and others, insult or talk down to you: fairly often How often does anyone, including family, friends and others, threaten you with harm: never How often does anyone, including family, friends and others, scream or curse at you: never service: No Exam Narrative: Exam Narrative: Pleasant. NAD. Morbidly obese seated in wheelchair. Breathing easily. Oropharynx is dry. She says she is congested. Does not sound congested nasopharynx at this time. Is 90% pulse ox on room air on initial set of vitals. Comparing prior usually is in the mid 90s Lungs with breath sounds throughout slightly diminished along the entire right side relative the left. I do not hear any wheeze. Abdomen is quite obese and soft. Heart is very distant. Hard to hear heart sounds. Palpates regularly. She is well-perfused peripherally the on the upper extremities. Lower extremities with marked edema. 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 There is some erythema or but really seems more chronic and not inflamed. the left lower tubi toll collector supervisor have cut in deeply into this super malleolar area. She has a noninflamed 1 cm ulcer under the left great toe. Const: Vital Signs, click to edit/add: Vital Signs - 24 hr 02/02/23 19:51 02/02/23 22:09 02/02/23 22:09 Temperature 97.0 F L 98.5 F Pulse Rate 61 Pulse Rate [Right Pulse Oximeter] 64 64 Respiratory Rate 20 18 Blood Pressure 164/61 H Blood Pressure [Le ft Upper Arm] 159/79 H 164/61 H Pulse Oximetry 90 88 85 L Oxygen Delivery Me thod Room Air Room Air 02/02/23 22:10 02/02/23 22:15 Temperature Pulse Rate 63 61 Pulse Rate [Right Pulse Oximeter] Respiratory Rate Blood Pressure Blood Pressure [Le ft Upper Arm] Pulse Oximetry 86 L 93 Oxygen Delivery Me thod Documenting provider has reviewed patient's vital signs: yes Course Vital Signs Vital signs: Initial Vital Signs Temperature 97.0 F L 02/02/23 19:51 Temperature Source Temporal Artery Scan 02/02/23 19:51 Pulse Rate 64 02/02/23 19:51 Pulse Rhythm Regular 02/02/23 19:51 Respiratory Rate 20 02/02/23 19:51 Blood Pressure 159/79 H 02/02/23 19:51 Blood Pressure Mean 105 02/02/23 19:51 Blood Pressure Position Sitting 02/02/23 19:51 Pulse Oximetry 90 02/02/23 19:51 Oxygen Delivery Method Room Air 02/02/23 19:51 Vital Signs Temperature 97.0 F L 02/02/23 19:51 Pulse Rate 64 02/02/23 19:51 Respiratory Rate 20 02/02/23 19:51 Blood Pressure 159/79 H 02/02/23 19:51 Pulse Oximetry 90 02/02/23 19:51 Oxygen Delivery Method Room Air 02/02/23 19:51 Temperature 97.5 F L 02/06/23 11:00 Pulse Rate 63 02/06/23 11:00 Respiratory Rate 20 02/06/23 11:00 Blood Pressure 111/86 02/06/23 11:00 Pulse Oximetry 89 02/06/23 11:00 Oxygen Delivery Method Room Air 02/06/23 11:00 Oxygen Flow Rate 0 02/06/23 03:00 Medical Decision Making MDM Narrative Medical decision making narrative: Differential includes pulmonary embolus, pneumonia, exacerbation of heart failure though I do not hear fluid in the lungs per se. I think obesity is certainly contributing. I do not have any regular weight is to know about fluid overload or frankly increasing obesity contributing. Complicated with sleep apnea and she claims sinus difficulties as well. She has a headache she says since she got injection in her right eye. Do not see inflammatory changes in extraocular movements are full. Anemia? Electrolyte abnormality? EKG reviewed by me looks similar to prior with normal sinus generally lower voltage this might be related to habitus. Incomplete right bundle. Rate of 61. Labs and x-ray imaging of chest are pending. One-view chest reviewed by me I do appreciate marked cardiomegaly. There looks to be some interstitial edema. Possible infiltrate in the right lower lung when I compare to prior two-view chest x-ray. Creatinine is elevated from prior now 1.7 so is BUN. Pre renal? ProBNP of 1440; was 1300 prior White count is 14.8 Oxygenating 86-87% on room air. Placed on little nasal cannula oxygen. I think we have to presume that there is potential pneumonia. Given obesity and challenges with mobility and leg elevation needed to deal with edema, respiratory failure in the setting of a pneumonia and acute kidney injury I think would be best to admit for fluid management and oxygen support among other cares. Discussed with hospitalist for admission and initiating Rocephin and azithromycin. Medical Records Medical records reviewed: Yes I reviewed the patient's medical records Lab Data Lab results reviewed: Yes I reviewed the patient's lab results Labs: Lab Results 02/02/23 02/02/23 02/02/23 Range/Units 20:29 20:55 20:55 WBC 14.76 H (4.50-11.00) K/uL RBC 4.33 (4.00-5.20) m/uL Hgb 12.1 (12.0-16.0) gm/dL Hct 40.6 (33.0-51.0) % MCV 94 (80-100) fL MCH 28 (26-34) pg MCHC 30 L (32-36) gm/dL RDW Coeff of Tad 16.5 H (11.5-15.5) % Plt Count 279 (140-440) K/uL Neut % (Auto) 84.9 H (42.0-72.0) % Lymph % (Auto) 6.6 L (20-44) % [place] % (Auto) 6.4 (0.0-11.0) % Eos % (Auto) 1.2 (0.0-7.0) % Baso % (Auto) 0.2 (0.0-3.0) % Neut # (Auto) 12.50 H (1.7-7.0) K/uL Lymph # (Auto) 1.00 (0.90-2.90) K/uL [place] # (Auto) 0.90 (0.00-0.90) K/UL Eos # (Auto) 0.20 (0.00-0.50) K/uL Baso # (Auto) 0.00 (0.00-0.30) K/uL Abs Immat Gran (auto) 0.10 (0.00-0.30) K/uL Imm/Tot Granulo (auto) 0.7 % D-Dimer Quant (PE/DVT) 0.42 (0.00-0.50) ug/ml Sodium 141 (135-149) mmol/L Potassium 4.7 (3.6-5.1) mmol/L Chloride 107 (96-114) mmol/L Carbon Dioxide 25 (20-32) mmol/L Anion Gap 9 (7-15) mEq/L BUN 85 H (7-30) mg/dL Creatinine 1.7 H (0.5-1.5) mg/dL Estimated GFR 32 ml/min Glucose 226 H (60-115) mg/dL Calcium 9.6 (8.4-10.6) mg/dL Magnesium 3.0 H (1.5-2.6) mg/dL Troponin I < 0.01 L (0.01-0.04) ng/mL C-Reactive Protein 2.8 H 2.7 H (0.5-1.0) mg/dL NT-Pro-B Natriuret Pep 1540 pg/mL Procalcitonin 0.06 (<0.50) ng/mL TSH 1.320 (0.270-4.20) uIU/mL SARS-CoV-2 (PCR) (Negative) Influenza Type A (PCR) (Negative) Influenza Type B (PCR) (Negative) RSV (PCR) (Negative) POC Troponin I 0.01 (0.01-0.04) ng/ml 02/02/23 Range/Units 21:00 WBC (4.50-11.00) K/uL RBC (4.00-5.20) m/uL Hgb (12.0-16.0) gm/dL Hct (33.0-51.0) % MCV (80-100) fL MCH (26-34) pg MCHC (32-36) gm/dL RDW Coeff of Tad (11.5-15.5) % Plt Count (140-440) K/uL Neut % (Auto) (42.0-72.0) % Lymph % (Auto) (20-44) % [place] % (Auto) (0.0-11.0) % Eos % (Auto) (0.0-7.0) % Baso % (Auto) (0.0-3.0) % Neut # (Auto) (1.7-7.0) K/uL Lymph # (Auto) (0.90-2.90) K/uL [place] # (Auto) (0.00-0.90) K/UL Eos # (Auto) (0.00-0.50) K/uL Baso # (Auto) (0.00-0.30) K/uL Abs Immat Gran (auto) (0.00-0.30) K/uL Imm/Tot Granulo (auto) % D-Dimer Quant (PE/DVT) (0.00-0.50) ug/ml Sodium (135-149) mmol/L Potassium (3.6-5.1) mmol/L Chloride (96-114) mmol/L Carbon Dioxide (20-32) mmol/L Anion Gap (7-15) mEq/L BUN (7-30) mg/dL Creatinine (0.5-1.5) mg/dL Estimated GFR ml/min Glucose (60-115) mg/dL Calcium (8.4-10.6) mg/dL Magnesium (1.5-2.6) mg/dL Troponin I (0.01-0.04) ng/mL C-Reactive Protein (0.5-1.0) mg/dL NT-Pro-B Natriuret Pep pg/mL Procalcitonin (<0.50) ng/mL TSH (0.270-4.20) uIU/mL SARS-CoV-2 (PCR) Negative SARS-CoV-2 (Negative) Influenza Type A (PCR) Negative PCR FLU A (Negative) Influenza Type B (PCR) Negative PCR FLU B (Negative) RSV (PCR) Negative PCR RSV (Negative) POC Troponin I (0.01-0.04) ng/ml Discharge Plan Discharge Clinical Impression: Respiratory failure, Edema, peripheral, Pneumonia Patient Disposition: Admitted As Observation Condition: Improved Activity Level: No Restrictions Discharge Diet: Diabetic and Heart Healthy (2 gm sodium, low fat)
--- NOTE | 2023-02-02 20:28 | CRLHL7_ITS ---
For Patients: As a result of the Cures Act, medical imaging exams and procedure reports are released immediately into your electronic medical record. You may view this report before your referring provider. If you have questions, please contact your health care provider. INDICATION: dyspnea, increasing TECHNIQUE: Chest radiograph 1 view COMPARISON: 12/07/2022, 11/06/2022 FINDINGS: The sensitivity and specificity of the exam are severely limited by the patient`s body habitus. Mediastinum: The mediastinum is normal in appearance. Moderate to severe cardiomegaly is noted. Lung: Moderate diffuse reticular and ground-glass opacities are present in both lungs which may be due to interstitial edema. Patchy airspace opacities present within the right lung base. No sign of pleural effusion seen. No pneumothorax is identified. Bone and Soft tissue: Unremarkable for age. IMPRESSIONS: 1. Moderate diffuse reticular and ground-glass opacities are present in both lungs which may be due to interstitial edema. 2. Moderate to severe cardiomegaly is noted. 3. Patchy airspace opacities present within the right lung base. These findings can be seen with atelectasis and/or pneumonia. Dictated by Steve Plunkett MD @ 02/02/2023 9:40:24 PM Dictated by: Steve Plunkett MD @ 02/02/2023 21:40:34 (Electronically Signed)
[2023-02-02 21:03] LABS: Basophils Percent Auto 0.2 % (0.0-3.0); Eosinophils Percent Auto 1.2 % (0.0-7.0); Hematocrit 40.6 % (33.0-51.0); Hemoglobin* 12.1 gm/dL (12.0-16.0); Immature Granulocytes Pct Auto 0.7 %; Lymphocytes Percent Auto 6.6 % (20-44); Mean Corpuscular HGB Conc 30 gm/dL (32-36); Mean Corpuscular Hemoglobin 28 pg (26-34); Mean Corpuscular Volume 94 fL (80-100); Monocytes Percent Auto 6.4 % (0.0-11.0); Neutrophils Percent Auto 84.9 % (42.0-72.0); Platelet Count* 279 K/uL (140-440); RDW Coefficient of Variation % 16.5 % (11.5-15.5); Red Blood Count 4.33 m/uL (4.00-5.20); White Blood Count* 14.76 K/uL (4.50-11.00)
[2023-02-02 21:05] LABS: Slide Review Reflex No
[2023-02-02 21:17] LABS: Troponin, Point-of-Care* 0.01 ng/ml (0.01-0.04)
[2023-02-02 21:32] LABS: Chloride* 107 mmol/L (96-114); Potassium* 4.7 mmol/L (3.6-5.1); Sodium* 141 mmol/L (135-149)
[2023-02-02 21:35] LABS: Creatinine* 1.7 mg/dL (0.5-1.5); Estimated Glomerular Filt Rate 32 ml/min
[2023-02-02 21:36] LABS: Anion Gap 9 mEq/L (7-15); Blood Urea Nitrogen* 85 mg/dL (7-30); Calcium* 9.6 mg/dL (8.4-10.6); Carbon Dioxide* 25 mmol/L (20-32); Glucose* 226 mg/dL (60-115)
[2023-02-02 21:37] LABS: D Dimer Quantitative* 0.42 ug/ml (0.00-0.50)
[2023-02-02 21:39] LABS: C Reactive Protein* 2.8 mg/dL (0.5-1.0)
[2023-02-02 21:48] LABS: NT Pro B Type NatriureticPept* 1540 pg/mL; Troponin I* < 0.01 ng/mL (0.01-0.04)
[2023-02-02 22:08] LABS: PCR FLU A Negative PCR FLU A (Negative); PCR FLU B Negative PCR FLU B (Negative); PCR RSV Negative PCR RSV (Negative)
[2023-02-02 22:31] LABS: SARS PCR* Negative SARS-CoV-2 (Negative)
[2023-02-02] MEDS: 0.9 % SODIUM CHLORIDE 500 ML 500 ML IV (22:49)
[2023-02-02] MEDS: cefTRIAXone 1 GM in 0.9 % SODIUM CHLORIDE Mini-bag 100 ML IVPB (22:49)
--- NOTE | 2023-02-02 23:59 | P.IMHP_ITS ---
Hospitalist- H&P: HPI History of Present Illness Time Seen by Provider: 11:15 Date Seen: 02/03/23 Chief complaint: Chest pain, shortness of breath Narrative: Caity Ojeda is a 68 year old female with DM 1.5, diabetic foot ulcer and diastolic HF who is known to me from a previous admission and presented through the emergency department for worsening dyspnea. She has been in an out of the hospital over the last few months for acute kidney injury and diabetic foot ulcer along with lower extremity cellulitis. Her most recent admission was about a month ago. She tells me that on 01/07/2023 she got a pneumonia vaccination and has not felt well since then. She complains of intermittent chills and shortness of breath. She has been fatigued and has trouble going up a flight of stairs because she gets so winded. She complains of feeling very thirsty and having low appetite. Her chronic back pain is a 7/10 which is where he usually is. She denies cough, sore throat, fever, although notes that she takes acetaminophen regularly for her back pain and that may have masked the fever. [facility], but was unable to make it last week due to feeling poorly. She has not been able to reach down to her foot to change the dressings. She complains of left chest wall pain that hurts when she touches it and worsening yeasty rash in her skin folds. Review of Systems Status of ROS: Reports: 10 or more systems reviewed and unremarkable except as noted in History and below Const: Reports: chills, fatigue, malaise and change in sleep pattern; Denies: fever Eyes: Denies: change in vision or blurry vision ENMT: Reports: dry mouth; Denies: throat pain, neck pain, difficulty swallowing or nasal congestion Cardio: Reports: chest pain (left chest and back), swelling of feet/ankles, shortness of breath with exertion and shortness of breath when lying down; Denies: palpitations or bluish discoloration of hands/feet Resp: Reports: shortness of breath; Denies: cough, wheezing, stridor, pain on inspiration, change in phlegm color, coughing up blood or chest congestion GI: Reports: constipation; Denies: abdominal pain, nausea, vomiting, diarrhea or difficulty swallowing : Denies: painful urination, urinary frequency or urinary urgency Musculo: Reports: back pain (chronic); Denies: neck pain Integ/Breast: Reports: redness (left lower leg and foot) Neuro: Denies: headache Psych: Denies: anxiety Endo: Reports: excessive thirst and fatigue; Denies: excessive urination Allergy/Immuno: Denies: wheezing [facility] Medical History (Updated 02/03/23 @ 01:14 by Bonnie Oliver MD) Acute on chronic diastolic heart failure ?I50.33 - Acute on chronic diastolic (congestive) heart failure (ICD-10) Acute kidney injury superimposed on chronic kidney disease ?N17.9 - Acute kidney failure, unspecified (ICD-10) ?N18.9 - Chronic kidney disease, unspecified (ICD-10) Pulmonary edema with congestive heart failure ?I50.1 - Left ventricular failure, unspecified (ICD-10) Diabetic foot ulcer ?E11.621 - Type 2 diabetes mellitus with foot ulcer (ICD-10) ?L97.509 - Non-pressure chronic ulcer of other part of unspecified foot with unspecified severity (ICD-10) History of fracture of left ankle ?Z87.81 - Personal history of (healed) traumatic fracture (ICD-10) Severe left ventricular hypertrophy ?I51.7 - Cardiomegaly (ICD-10) custodial current use of insulin ?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 (ICD-10) Poorly controlled type 2 diabetes mellitus ?E11.65 - Type 2 diabetes mellitus with hyperglycemia (ICD-10) History of sciatica ?Z86.69 - Personal history of other diseases of the nervous system and sense organs (ICD-10) Primary hypothyroidism ?E03.9 - Hypothyroidism, unspecified (ICD-10) Asthma ?J45.909 - Unspecified asthma, uncomplicated (ICD-10) Vitamin D deficiency ?E55.9 - Vitamin D deficiency, unspecified (ICD-10) Rectocele ?N81.6 - Rectocele (ICD-10) Essential hypertension ?I10 - Essential (primary) hypertension (ICD-10) Obstructive sleep apnea ?G47.33 - Obstructive sleep apnea (adult) (pediatric) (ICD-10) Chronic diastolic heart failure ?I50.32 - Chronic diastolic (congestive) heart failure (ICD-10) Morbid obesity with BMI of 50.0-59.9, adult ?E66.01 - Morbid (severe) obesity due to excess calories (ICD-10) ?Z68.43 - Body mass index [BMI] 50.0-59.9, adult (ICD-10) History of nephrolithiasis ?Z87.442 - Personal history of urinary calculi (ICD-10) Lumbar back pain with radiculopathy affecting left lower extremity ?M54.16 - Radiculopathy, lumbar region (ICD-10) Hypertriglyceridemia ?E78.1 - Pure hyperglyceridemia (ICD-10) Osteoarthritis of knees, bilateral ?M17.0 - Bilateral primary osteoarthritis of knee (ICD-10) Chronic kidney disease ?N18.9 - Chronic kidney disease, unspecified (ICD-10) Venous insufficiency of both lower extremities ?I87.2 - Venous insufficiency (chronic) (peripheral) (ICD-10) Diabetic nephropathy associated with type 2 diabetes mellitus ?E11.21 - Type 2 diabetes mellitus with diabetic nephropathy (ICD-10) Surgical History Status post total abdominal hysterectomy ?Z90.710 - Acquired absence of both cervix and uterus (ICD-10) Status post thyroidectomy ?E89.0 - Postprocedural hypothyroidism (ICD-10) History of esophagogastroduodenoscopy ?Z98.890 - Other specified postprocedural states (ICD-10) Status post cholecystectomy ?Z90.49 - Acquired absence of other specified parts of digestive tract (ICD- 10) History of intraocular lens implant ?Z96.1 - Presence of intraocular lens (ICD-10) Cataract extraction status ?Z98.49 - Cataract extraction status, unspecified eye (ICD-10) Status post appendectomy ?Z90.49 - Acquired absence of other specified parts of digestive tract (ICD- 10) Status post colonoscopy with polypectomy ?Z98.890 - Other specified postprocedural states (ICD-10) Family History Other Diabetes High blood pressure High cholesterol Social History Narrative: . Lives alone. Three supportive children. Designates daughterAlanna, , primary contact for power of attorney lawyer for health should that be required. Designates son, Nathan, [phone], secondary contact for power of attorney lawyer for health should that be required. Requests that we attempt resuscitation in the event of cardiopulmonary demise, stressing that she does not want to be kept alive as a vegetable should that come to pass. She reports worsening mobility problems. It is difficult due to her back pain and radicular symptoms going down her right leg for her to get up and walk around. To a lesser extent her left foot also bothers her with weight-bearing. She does walk with a walker. What is your current living situation?: I presently have a place to live Problems where you live: mold Problems where you live details: mold In the past 12 months, utilities in danger of being shut off: no In past 12 months, lack of transportation kept you from medical appts, meetings, work, or getting things needed for daily living: no In the past 12 mos, have been you worried that your food would run out before you had money to buy more?: sometimes true In the past 12 mos, the food you bought just didn't last and you didn't have money to buy more?: sometimes true Highest level of school completed/degree received: Associate degree: academic program Smoking Status: Never smoker How often do you have a drink containing alcohol: never How often do you have six or more drinks on one occasion: Never AUDIT-C Alcohol total score: 0 Non-prescribed substance use: denies use Caffeine: Yes How often does anyone, including family, friends and others, physically hurt you : never How often does anyone, including family, friends and others, insult or talk down to you: fairly often How often does anyone, including family, friends and others, threaten you with harm: never How often does anyone, including family, friends and others, scream or curse at you: never service: No Meds Home Medications and Allergies Home Medications Medication Instructions Recorded Confirmed Type allopurinol 100 mg tablet 300 mg PO DAILY 11/06/22 02/03/23 History brimonidine 0.2 % eye drops 1 drp ophthalmic (eye-left) BID 11/06/22 02/03/23 History dorzolamide 2 % eye drops 1 drp ophthalmic (eye-left) BID 11/06/22 02/03/23 History latanoprost 0.005 % eye drops 1 drp ophthalmic (eye) QPM 11/06/22 02/03/23 History levothyroxine 125 mcg tablet 125 mcg PO DAILY 11/06/22 02/03/23 History losartan 100 mg tablet 100 mg PO DAILY 11/06/22 02/03/23 History metolazone 2.5 mg tablet 2.5 mg PO .WEEKLY 11/06/22 02/03/23 History montelukast 10 mg tablet 10 mg PO HS 11/06/22 02/03/23 History nitroglycerin 0.4 mg sublingual 0.4 mg sublingual Q5M PRN 11/06/22 02/03/23 History tablet prednisolone acetate 1 % eye 1 drp ophthalmic (eye-left) BID 11/06/22 02/03/23 History drops,suspension timolol maleate 0.5 % eye drops 1 drp ophthalmic (eye-right) QAM 11/06/22 02/03/23 History albuterol sulfate 90 mcg/actuation 1 - 2 puff inhalation Q4H PRN 11/07/22 02/03/23 History aerosol inhaler ascorbic acid (vitamin C) 500 mg 500 mg PO BID 11/07/22 02/03/23 History tablet insulin human U-100 NPH-regulr 53 unit subcut QPM 11/07/22 02/03/23 History 70-30 mix 100 unit/mL subcutaneous susp (Humulin 70/30 U-100 Insulin) loratadine 10 mg tablet 10 mg PO HS 11/07/22 02/03/23 History (Allerclear) magnesium 250 mg tablet 500 mg PO DAILY 11/07/22 02/03/23 History multivitamin (Daily Multi-Vitamin 1 tab PO DAILY 11/07/22 02/03/23 History tablet) tramadol 50 mg tablet 50 mg PO Q6H PRN pain 11/07/22 02/03/23 History vitamin B complex (B 1 tab PO DAILY 11/07/22 02/03/23 History Complex-Vitamin B12 tablet) amlodipine 10 mg tablet 10 mg PO HS 11/29/22 02/03/23 History calcium carbonate 600 mg-vitamin 1 tab PO DAILY 11/29/22 02/03/23 History D3 5 mcg (200 unit) tablet (Calcium 600 + D(3)) cholecalciferol (vitamin D3) 125 5,000 unit PO DAILY 11/29/22 02/03/23 History mcg (5,000 unit) tablet (Vitamin D3) rosuvastatin 10 mg tablet 10 mg PO HS 11/29/22 02/03/23 History acetaminophen 650 mg tablet 650 mg PO QID 12/05/22 02/03/23 History hydrocortisone 1 % topical ointment 1 applic topical TID PRN 12/21/22 02/03/23 History insulin human U-100 NPH-regulr 68 unit subcut QAM 12/21/22 02/03/23 History 70-30 mix 100 unit/mL subcutaneous susp (Novolin 70/30 U-100 Insulin) methocarbamol 500 mg tablet 500 mg PO Q6H PRN muscle spasm 12/21/22 02/03/23 History metoprolol tartrate 50 mg tablet 50 mg PO HS 12/21/22 02/03/23 History metoprolol tartrate 50 mg tablet 100 mg PO QAM 12/21/22 02/03/23 History potassium 99 mg tablet 99 mg PO DAILY 12/21/22 02/03/23 History triamcinolone acetonide 0.1 % 1 applic topical TID PRN 12/21/22 02/03/23 History topical cream vit C 226 mg-vit E 90 mg-copper 1 cap PO DAILY 12/21/22 02/03/23 History 0.8 mg-zinc oxide-lutein 5 mg capsule (PreserVision Lutein) vitamin E 268 mg (400 unit) capsule 268 mg PO DAILY 12/21/22 02/03/23 History zinc sulfate 66 mg tablet (Zinc-15) 66 mg PO DAILY 12/21/22 02/03/23 History Allergies Allergy/AdvReac Type Severity Reaction Status Date / Time clindamycin Allergy Severe Verified 12/21/22 15:33 hydromorphone Allergy Severe Stopped Verified 12/21/22 15:33 Breathing morphine Allergy Severe Stopped Verified 12/21/22 15:33 Breathing NSAIDS (Non-Steroidal Allergy Severe Anaphylaxis Verified 12/21/22 15:33 Anti-Inflamma penicillin V Allergy Severe Hypertensio Verified 12/21/22 15:33 n aspirin AdvReac nausea and Verified 12/21/22 15:33 vomiting Exam Narrative: Exam Narrative: General: No acute distress. Awake alert oriented x3. Very talkative. Talks without any difficulty or apparent shortness breath. HEENT: Normocephalic atraumatic, pupils equally round and reactive to light and accommodation. Oropharynx clear. Mucous membranes are very dry. No cervical lymphadenopathy, thyromegaly or carotid bruits. No JVD. Cardiovascular: Regular rate and rhythm. No murmurs, gallops, or rubs. Chest: No increased work of breathing. Clear to auscultation bilaterally. No crackles or wheezes. Abdomen: Bowel sounds present. Soft, nondistended, nontender. No hepatosplenomegaly or masses. Extremities: 1+ pitting edema in the right lower extremity. Two to 3+ pitting edema of the left lower extremity. Diabetic foot ulcer on the plantar surface of her left 1st MTP without drainage today. Large circumferential callus is present around the ulcer. Palpation is non tender and there is no fluctuance. No erythema or induration around this area. Left lower extremity has mild blanchable erythema over the left motta without tenderness or induration, essentially unchanged from a month ago. Skin: Bright red yeasty rash in the left breast skin fold which is tender to palpation and reproduces her chest wall pain. Mildly erythematous yeasty rash in the skin folds of her pannus. No jaundice, no pallor. Neuro: Grossly intact. No focal deficits. Const: Vital Signs, click to edit/add: Vital Signs - 24 hr 02/02/23 19:51 02/02/23 22:09 02/02/23 22:09 Temperature 97.0 F L 98.5 F Pulse Rate 61 Pulse Rate [Right Pulse Oximeter] 64 64 Respiratory Rate 20 18 Blood Pressure 164/61 H Blood Pressure [Le ft Upper Arm] 159/79 H 164/61 H Pulse Oximetry 90 88 85 L Oxygen Delivery Me thod Room Air Room Air 02/02/23 22:10 02/02/23 22:15 02/02/23 22:31 Temperature Pulse Rate 63 61 60 Pulse Rate [Right Pulse Oximeter] Respiratory Rate Blood Pressure Blood Pressure [Le ft Upper Arm] Pulse Oximetry 86 L 93 97 Oxygen Delivery Me thod 02/02/23 22:45 02/02/23 22:48 Temperature Pulse Rate 63 61 Pulse Rate [Right Pulse Oximeter] Respiratory Rate Blood Pressure 141/71 H Blood Pressure [Le ft Upper Arm] Pulse Oximetry 96 94 Oxygen Delivery Co thod Hospitalist - H&P: Result Labs Labs: Short CBC 02/02/23 Range/Units 20:55 WBC 14.76 H (4.50-11.00) K/uL Hgb 12.1 (12.0-16.0) gm/dL Hct 40.6 (33.0-51.0) % Plt Count 279 (140-440) K/uL BMP 02/02/23 20:55 Sodium 141 Potassium 4.7 Chloride 107 Carbon Dioxide 25 BUN 85 H Creatinine 1.7 H Glucose 226 H Calcium 9.6 Cardiac Enzymes 02/02/23 Range/Units 20:55 Troponin I < 0.01 L (0.01-0.04) ng/mL EKG: Normal sinus rhythm, 61 beats per minute, left axis deviation, low-voltage QRS, incomplete right bundle-branch block, cannot rule out anterior infarct, age undetermined. Ordering Physician: Cornell Bonner M.D. Date of Service: 02/02/23 Procedure(s): XR chest 1V portable Accession Number(s): [id number] cc: Cornell Bonner M.D.; Shirley Fleming D.O.~ For Patients: As a result of the Century Cures Act, medical imaging exams and procedure reports are released immediately into your electronic medical record. You may view this report before your referring provider. If you have questions, please contact your health care provider. INDICATION: dyspnea, increasing TECHNIQUE: Chest radiograph 1 view COMPARISON: 12/07/2022, 11/06/2022 FINDINGS: The sensitivity and specificity of the exam are severely limited by the patient`s body habitus. Mediastinum: The mediastinum is normal in appearance. Moderate to severe cardiomegaly is noted. Lung: Moderate diffuse reticular and ground-glass opacities are present in both lungs which may be due to interstitial edema. Patchy airspace opacities present within the right lung base. No sign of pleural effusion seen. No pneumothorax is identified. Bone and Soft tissue: Unremarkable for age. IMPRESSIONS: 1. Moderate diffuse reticular and ground-glass opacities are present in both lungs which may be due to interstitial edema. 2. Moderate to severe cardiomegaly is noted. 3. Patchy airspace opacities present within the right lung base. These findings can be seen with atelectasis and/or pneumonia. Dictated by Steve Plunkett MD @ 02/02/2023 9:40:24 PM Dictated by: Steve Plunkett MD @ 02/02/2023 21:40:34 (Electronically Signed) Assessment and Plan Assessment and plan (1) Respiratory failure: Problem comment: Acute hypoxemic respiratory failure Status: Acute (2) Pneumonia: Problem comment: Community-acquired Status: Acute (3) Acute kidney injury: Problem comment: Creatinine 1.7 today, baseline is 1.3-1.5 Status: Acute (4) Diabetic foot ulcer: Problem comment: Left plantar 1st MTP ulcer Status: Chronic (5) Obstructive sleep apnea: Status: Chronic (6) Morbid obesity with BMI of 50.0-59.9, adult: Problem comment: Could potentially benefit from assessment for possible surgical intervention, given multiple complications in association with the same. Status: Chronic (7) Venous insufficiency of both lower extremities: Problem comment: Discussed elevation and compression. Status: Chronic (8) Poorly controlled type 2 diabetes mellitus: Problem comment: Continue NovoLog 70 30. Adding an insulin sliding scale for while she is here. Status: Chronic (9) Chronic diastolic heart failure: Problem comment: 11/06/2022 echocardiogram: Normal left ventricular size, moderately increased wall thickness, normal global systolic function, calculated EF of 64%. Right ventricular cavity size is normal, global systolic RV function is normal. Mildly enlarged left atrium. Mitral valve is sclerotic, trace mitral regurgitation. Grade 2 pattern of LV diastolic filling. The inferior vena cava is dilated, respiratory size variation is less than 50%. Compared to prior exam report of 03/10/2021, there has been no significant change. Reduce furosemide to 80 mg once a day at this time and follow electrolytes. Her volume status appears to be about right or mildly dry at this time. Status: Chronic (10) Intertrigo: Status: Acute Plan This is a 68-year-old female with a history of chronic diastolic heart failure who discharged from here about a month ago. She has been feeling poorly since getting a pneumonia vaccination a couple weeks ago. From the history she provides, her clinical appearance, and the chest x-ray, I believe she has a right lower lobe pneumonia which is likely community acquired. I agree with treating with ceftriaxone and azithromycin that was started in the emergency department. It is difficult to tell whether this patient is hypovolemic or hypervolemic. She has acute kidney injury along with a markedly elevated BUN. These are higher than they have been on previous admissions. I believe her diuretic was cut down the last time she was here and it appears that her primary care provider had increased that again and added metolazone. Additionally the patient appears clinically very dry and is very thirsty. She does have ground- glass appearance in her lungs on chest x-ray and lower extremity edema, although the lower extremity edema is chronic and likely mostly due to lymphedema. Therefore I suspect that she is actually quite hypovolemic and that her dyspnea is secondary to pneumonia, not volume overload. She got 500 mL fluid bolus in the emergency department. I will hold her diuretics at this time and monitor daily weights along with I's and O's. Recheck labs in the morning. She just had an echocardiogram in November and does not need this repeated at this time. I have asked the nurses to wrap her legs with Amadou bandages and to elevate both legs if possible. I have written for dressings for the diabetic foot ulcer and consulted [facility]. Start nystatin cream for intertrigo.
[2023-02-03] VITALS (9 sets, daily range): BP systolic 139–171; BP diastolic 59–93; PULSE 53–60; RESP 18–22; TEMP 36.4–36.7; O2SAT 89–94
[2023-02-03] MEDS: ENOXAPARIN 30 MG/0.3ML INJ SUBCUT ×2 (00:47→21:07)
[2023-02-03] MEDS: AZITHROMYCIN 500 MG in 0.9 % SODIUM CHLORIDE 250 ml 250 ML 255 MG IVPB (01:07)
[2023-02-03] MEDS: LEVOTHYROXINE 125 MCG TABLET PO (06:03)
[2023-02-03] MEDS: TRAMADOL HCL 50 MG TABLET PO (06:03)
--- NOTE | 2023-02-03 06:34 | PC.NURSE ---
End of shift: Pt arrived to the floor around midnight. A&O. Arrived to the floor on 2 L O2. While sleeping bumped O2 up to 2.5 L to, maintain saturations. Since 0400 pt on 1L of O2 and maintaining sats well. SBA w/ cane. reported 8/10 back pain. PRN tramadol given. Pt inc of stool and urine x1. Using call light appropriately. Appeared to be resting comfortably throughout shift.
[2023-02-03] MEDS: INSULIN PROT/ASP (NOVOLOG 70/30) 100 UNIT/ML 68 UNIT SUBCUT (09:00)
[2023-02-03] MEDS: ACETAMINOPHEN 325 MG TABLET PO ×3 (09:01→23:03)
[2023-02-03] MEDS: METOPROLOL TARTRATE 50 MG TABLET 100 MG PO (09:01)
[2023-02-03] MEDS: allopurinoL 300 MG TABLET 150 MG PO (09:02)
[2023-02-03] MEDS: AZITHROMYCIN 250 MG TABLET PO (09:02)
[2023-02-03] MEDS: MAGNESIUM OXIDE 400 MG TABLET PO (09:03)
[2023-02-03] MEDS: LOSARTAN POTASSIUM 50 MG TABLET 100 MG PO (09:03)
[2023-02-03] MEDS: ASCORBIC ACID 500 MG TABLET PO ×2 (09:03→21:09)
[2023-02-03] MEDS: MULTIVITAMIN/MINERALS 1 TABLET 1 TAB PO (09:03)
[2023-02-03] MEDS: timoloL maleate 0.5 % 1 DROP EYE-RIGHT (10:29)
[2023-02-03] MEDS: DORZOLAMIDE HCL 2 % OPHTH DROP 1 DROP EYE-LEFT ×2 (10:29→21:08)
[2023-02-03] MEDS: prednisoLONE acetate 1 % DROPS 1 DROP EYE-LEFT ×2 (10:30→21:08)
[2023-02-03] MEDS: LIDOCAINE 5% PATCH 1 PATCH TRANSDERMA (10:31)
[2023-02-03] MEDS: BRIMONIDINE TARTRATE 0.2% OPHTH 1 DROP EYE-LEFT ×2 (10:31→21:08)
--- NOTE | 2023-02-03 10:34 | PM.IMPN1 ---
Progress Note: A&P Assessment and plan (1) Respiratory failure: Problem details: Acute hypoxemic respiratory failure R lung base - CAP on azithromycin and rocephin oxygen demand decreasing. 1v CXR in the ED at admission 1. Moderate diffuse reticular and ground-glass opacities are present in both lungs which may be due to interstitial edema. 2. Moderate to severe cardiomegaly is noted. 3. Patchy airspace opacities present within the right lung base. These findings can be seen with atelectasis and/or pneumonia. Status: Acute (2) Pneumonia: Problem details: Community-acquired Status: Acute (3) Acute kidney injury: Problem details: 1.6 down from 1.7 1.3 baseline Status: Acute (4) Diabetic foot ulcer: Problem details: Left plantar 1st MTP ulcer Status: Chronic (5) Obstructive sleep apnea: Status: Chronic (6) Morbid obesity with BMI of 50.0-59.9, adult: Problem details: Could potentially benefit from assessment for possible surgical intervention, given multiple complications in association with the same. Status: Chronic (7) Venous insufficiency of both lower extremities: Problem details: Discussed elevation and compression. Status: Chronic (8) Poorly controlled type 2 diabetes mellitus: Problem details: Continue NovoLog 70 30. Adding an insulin sliding scale for while she is here. Status: Chronic (9) Chronic diastolic heart failure: Problem details: 11/06/2022 echocardiogram: Normal left ventricular size, moderately increased wall thickness, normal global systolic function, calculated EF of 64%. Right ventricular cavity size is normal, global systolic RV function is normal. Mildly enlarged left atrium. Mitral valve is sclerotic, trace mitral regurgitation. Grade 2 pattern of LV diastolic filling. The inferior vena cava is dilated, respiratory size variation is less than 50%. Compared to prior exam report of 03/10/2021, there has been no significant change. Reduce furosemide to 80 mg once a day at this time and follow electrolytes. Her volume status appears to be about right or mildly dry at this time. Status: Chronic (10) Intertrigo: Status: Acute Subjective Date Seen: 02/03/23 Interval history: Daily Progress Note - Hospital Medicine Day #:2 CC: RLL pneumonia, diabetes OVERNIGHT UPDATES FROM STAFF & MED, LAB, IMAGING UPDATES improved strength, cognition and energy this morning. oxygen demand is less. more comfortable. Afebrile Blood pressure 171/64, 139/59 Pulse rate 60s Respiratory rate 20 Pulse ox low 90s Weight is 153.4 kilos, admission weight is 153.0 Mild leukocytosis noted at 14.7 at admission and today is 11.16. Creatinine at admission was 1.7, down to 1.6 this morning., baseline appears to be 1.3 Venous blood gas normal this morning Electrolytes last night at admission were normal CRP 2.8, up trending to 3.5 BNP 1500. In December that it was 1300 Negative COVID, flu, RSV No blood cultures drawn at admission Troponin negative x2 No blood cultures drawn at admission Troponin negative Chest x-ray on admission, one view IMPRESSIONS: 1. Moderate diffuse reticular and ground-glass opacities are present in both lungs which may be due to interstitial edema. 2. Moderate to severe cardiomegaly is noted. 3. Patchy airspace opacities present within the right lung base. These findings can be seen with atelectasis and/or pneumonia. Echo done November of 2022 Normal left ventricular size. Moderately increased wall thickness. Normal global function. EF 64%. Global systolic RV function is normal. Grade 2 pattern of LV diastolic filling Objective: alert. NAD. Vitals: see above Lungs: crackles scattered in both lungs. Cardiac: S1S2. Disposition/Potential discharge - Likely to return to previous living situation. Today I spent 50minutes seeing the patient, reviewing Expanse and EPIC notes/diagnostics, discussing the care plan with our care time that includes social work, PT/OT, pharmacy, RT, detention and documenting my impressions and plan in the medical record. . Exam Const: Vital Signs, click to edit/add: Vital Signs - 24 hr 02/02/23 19:51 02/02/23 22:09 02/02/23 22:09 Temperature 97.0 F L 98.5 F Pulse Rate 61 Pulse Rate [Pulse Oximeter] Pulse Rate [Right Pulse Oximeter] 64 64 Respiratory Rate 20 18 Blood Pressure 164/61 H Blood Pressure [Le ft Upper Arm] 159/79 H 164/61 H Blood Pressure [Ri ght Arm] Pulse Oximetry 90 88 85 L Oxygen Delivery Me thod Room Air Room Air Oxygen Flow Rate 02/02/23 22:10 02/02/23 22:15 02/02/23 22:31 Temperature Pulse Rate 63 61 60 Pulse Rate [Pulse Oximeter] Pulse Rate [Right Pulse Oximeter] Respiratory Rate Blood Pressure Blood Pressure [Le ft Upper Arm] Blood Pressure [Ri ght Arm] Pulse Oximetry 86 L 93 97 Oxygen Delivery Me thod Oxygen Flow Rate 02/02/23 22:45 02/02/23 22:48 02/02/23 23:47 Temperature Pulse Rate 63 61 Pulse Rate [Pulse Oximeter] 61 Pulse Rate [Right Pulse Oximeter] Respiratory Rate 22 Blood Pressure 141/71 H Blood Pressure [Le ft Upper Arm] Blood Pressure [Ri ght Arm] 172/77 H Pulse Oximetry 96 94 94 Oxygen Delivery Me thod Nasal Cannula Oxygen Flow Rate 2 02/02/23 23:47 02/03/23 03:00 02/03/23 04:00 Temperature 98.1 F Pulse Rate Pulse Rate [Pulse Oximeter] 60 Pulse Rate [Right Pulse Oximeter] Respiratory Rate 22 20 Blood Pressure Blood Pressure [Le ft Upper Arm] Blood Pressure [Ri ght Arm] 139/59 L Pulse Oximetry 94 92 91 Oxygen Delivery Me thod Nasal Cannula Nasal Cannula Nasal Cannula Oxygen Flow Rate 2 2.5 1 02/03/23 08:57 02/03/23 08:57 Temperature 98.1 F Pulse Rate Pulse Rate [Pulse Oximeter] 60 Pulse Rate [Right Pulse Oximeter] Respiratory Rate 20 Blood Pressure Blood Pressure [Le ft Upper Arm] Blood Pressure [Ri ght Arm] 171/64 H Pulse Oximetry 92 92 Oxygen Delivery Me thod Nasal Cannula Nasal Cannula Oxygen Flow Rate 1 1 Labs Labs: Laboratory Results - last 24 hr 02/02/23 02/02/23 02/02/23 20:29 20:55 21:00 WBC 14.76 H RBC 4.33 Hgb 12.1 Hct 40.6 MCV 94 MCH 28 MCHC 30 L RDW Coeff of Tad 16.5 H Plt Count 279 Neut % (Auto) 84.9 H Lymph % (Auto) 6.6 L [place] % (Auto) 6.4 Eos % (Auto) 1.2 Baso % (Auto) 0.2 Neut # (Auto) 12.50 H Lymph # (Auto) 1.00 [place] # (Auto) 0.90 Eos # (Auto) 0.20 Baso # (Auto) 0.00 Abs Immat Gran (auto) 0.10 Imm/Tot Granulo (auto) 0.7 D-Dimer Quant (PE/DVT) 0.42 Sodium 141 Potassium 4.7 Chloride 107 Carbon Dioxide 25 Anion Gap 9 BUN 85 H Creatinine 1.7 H Estimated GFR 32 Glucose 226 H Calcium 9.6 Magnesium 3.0 H Troponin I < 0.01 L C-Reactive Protein 2.8 H NT-Pro-B Natriuret Pep 1540 TSH 1.320 SARS-CoV-2 (PCR) Negative SARS-CoV-2 Influenza Type A (PCR) Negative PCR FLU A Influenza Type B (PCR) Negative PCR FLU B RSV (PCR) Negative PCR RSV POC Troponin I 0.01
[2023-02-03] MEDS: SODIUM CHLORIDE 0.9 % (FLUSH) 10 ML SYRINGE 5 ML IVF ×2 (10:35→21:07)
[2023-02-03] MEDS: VITAMIN E 400 UNIT CAPSULE PO (10:36)
[2023-02-03 10:57] LABS: HCO3 VBG 28 mmol/L (21-28); Ionized Calcium* 1.15 mmol/L (1.11-1.30); PCO2 VBG 45 mmHG (40-50); PO2 VBG 35.8 mmHG (25-47); pH VBG 7.393 (7.32-7.43)
[2023-02-03 11:00] LABS: Basophils Percent Auto 0.4 % (0.0-3.0); Eosinophils Percent Auto 1.9 % (0.0-7.0); Hematocrit 37.4 % (33.0-51.0); Hemoglobin* 11.2 gm/dL (12.0-16.0); Immature Granulocytes Pct Auto 0.4 %; Lymphocytes Percent Auto 8.6 % (20-44); Mean Corpuscular HGB Conc 30 gm/dL (32-36); Mean Corpuscular Hemoglobin 29 pg (26-34); Mean Corpuscular Volume 95 fL (80-100); Monocytes Percent Auto 7.3 % (0.0-11.0); Neutrophils Percent Auto 81.4 % (42.0-72.0); Platelet Count* 256 K/uL (140-440); RDW Coefficient of Variation % 16.6 % (11.5-15.5); Red Blood Count 3.93 m/uL (4.00-5.20); White Blood Count* 11.16 K/uL (4.50-11.00)
[2023-02-03 11:11] LABS: Slide Review Reflex No
[2023-02-03 11:19] LABS: Albumin* 3.7 g/dL (3.3-5.0); Chloride* 105 mmol/L (96-114); Potassium* 4.1 mmol/L (3.6-5.1); Sodium* 140 mmol/L (135-149)
[2023-02-03 11:21] LABS: Creatinine* 1.6 mg/dL (0.5-1.5); Est. Creatinine Clearance* 29.86; Estimated Glomerular Filt Rate 35 ml/min
[2023-02-03 11:22] LABS: Anion Gap 8 mEq/L (7-15); Blood Urea Nitrogen* 76 mg/dL (7-30); Carbon Dioxide* 27 mmol/L (20-32); Glucose* 255 mg/dL (60-115); Phosphorus* 4.3 mg/dL (2.5-4.5)
[2023-02-03 11:23] LABS: Calcium* 8.8 mg/dL (8.4-10.6); Magnesium* 2.7 mg/dL (1.5-2.6)
[2023-02-03 11:25] LABS: C Reactive Protein* 3.5 mg/dL (0.5-1.0)
[2023-02-03 11:26] LABS: C Reactive Protein* 2.7 mg/dL (0.5-1.0)
[2023-02-03 11:37] LABS: Troponin I* < 0.01 ng/mL (0.01-0.04)
[2023-02-03 11:39] LABS: Procalcitonin* 0.06 ng/mL (<0.50)
[2023-02-03 11:40] LABS: Procalcitonin* 0.06 ng/mL (<0.50)
--- NOTE | 2023-02-03 13:19 | RESP.RT ---
Patient sitting up in chair, Nasal Cannula @1 Lpm, SaO2 94%, Oxygen flow meter to off, SaO2 91%, patient complaint of no SOB. Uses IS to 1250 keo with great slow effort to float in middle, Aerobika used with good chest shake, had patient feel chest shake to understand use of Aerobika, she does and verbally states so. Good loose moist nonproductive cough with IS and Aerobika.
[2023-02-03] MEDS: NYSTATIN CREAM 30 GM 1 APPLIC TOPICAL ×2 (14:05→21:08)
[2023-02-03] MEDS: LATANOPROST 0.005% OPHTH 1 DROP EYE-BOTH (17:59)
[2023-02-03] MEDS: INSULIN PROT/ASP (NOVOLOG 70/30) 100 UNIT/ML 53 UNIT SUBCUT (17:59)
--- NOTE | 2023-02-03 19:28 | PC.NURSE ---
End of Shift: Pt handed off at 1500 from LISA Valladares. Pt remained AO, pleasant and cooperative throughout shift. Reported chronic pain in back rating it a 6/10. Lidocaine patch in place, skin intact. Tolerating regular diet well. Blood sugar reading was 160, insulin administered per order and protocol. Saline locked.
[2023-02-03] MEDS: LORATADINE 10 MG TABLET PO (21:09)
[2023-02-03] MEDS: AMLODIPINE 10 MG TABLET PO (21:09)
[2023-02-03] MEDS: MONTELUKAST 10 MG TABLET PO (21:10)
[2023-02-03] MEDS: METOPROLOL TARTRATE 50 MG TABLET 25 MG PO (21:10)
[2023-02-04] VITALS (9 sets, daily range): BP systolic 129–168; BP diastolic 51–76; PULSE 52–64; RESP 18–20; TEMP 36.3–36.6; O2SAT 90–98; BMI 57.6
[2023-02-04] MEDS: LEVOTHYROXINE 125 MCG TABLET PO (05:39)
--- NOTE | 2023-02-04 06:31 | PC.NURSE ---
End of shift [id number]:?A&O. on 1.5-1?L O2 to maintain sats. LS diminished. Reports SOB w/ exertion. Heart rate in low 50s. MD updated before evening meds were given. See orders. Reporting 7/10 back pain. PRN Tylenol given per pt request. Sleeping on reassessment. Up at darius. Appeared to be resting comfortable throughout shift.
[2023-02-04 06:59] LABS: Hematocrit 39.4 % (33.0-51.0); Hemoglobin* 11.6 gm/dL (12.0-16.0); Mean Corpuscular HGB Conc 29 gm/dL (32-36); Mean Corpuscular Hemoglobin 28 pg (26-34); Mean Corpuscular Volume 95 fL (80-100); Platelet Count* 266 K/uL (140-440); Red Blood Count 4.14 m/uL (4.00-5.20); White Blood Count* 10.09 K/uL (4.50-11.00)
[2023-02-04 07:05] LABS: Albumin* 3.9 g/dL (3.3-5.0); Chloride* 105 mmol/L (96-114)
[2023-02-04 07:06] LABS: Potassium* 4.9 mmol/L (3.6-5.1); Sodium* 138 mmol/L (135-149)
[2023-02-04 07:08] LABS: Alkaline Phosphatase* 120 U/L (40-150); Anion Gap 5 mEq/L (7-15); Aspartate Amino Transferase* 22 U/L (12-35); Bilirubin Total* 0.6 mg/dL (0.1-1.5); Carbon Dioxide* 28 mmol/L (20-32); Est. Creatinine Clearance* 23.89; Estimated Glomerular Filt Rate 27 ml/min; Total Protein* 7.3 g/dL (6.0-8.3)
[2023-02-04 07:09] LABS: Alanine Aminotransferase* 23 U/L (4-35); Blood Urea Nitrogen* 84 mg/dL (7-30); Calcium* 8.7 mg/dL (8.4-10.6); Glucose* 122 mg/dL (60-115)
[2023-02-04 07:10] LABS: Slide Review Reflex No
[2023-02-04 07:11] LABS: C Reactive Protein* 3.5 mg/dL (0.5-1.0)
[2023-02-04 07:26] LABS: Procalcitonin* 0.07 ng/mL (<0.50)
--- NOTE | 2023-02-04 08:00 | CRLHL7_ITS ---
For Patients: As a result of the Century Cures Act, medical imaging exams and procedure reports are released immediately into your electronic medical record. You may view this report before your referring provider. If you have questions, please contact your health care provider. INDICATION: follow up pneumonia TECHNIQUE: Chest 2 views COMPARISON: 02/02/2023, 12/07/2022 FINDINGS: Cardiovascular and mediastinum: Cardiac silhouette is enlarged. Slight tortuosity of the descending thoracic aorta. Lungs and pleural spaces: Low lung volumes. No pleural effusion. Fullness of the pulmonary vascularity with no significant change. Bones and soft tissues: Discogenic spurring. IMPRESSION: Chronic vascular congestion without infiltrate. Dictated by Cornell Ratliff MD @ 02/04/2023 8:46:47 AM (Electronically Signed)
[2023-02-04] MEDS: timoloL maleate 0.5 % 1 DROP EYE-RIGHT (08:29)
[2023-02-04] MEDS: BRIMONIDINE TARTRATE 0.2% OPHTH 1 DROP EYE-LEFT ×2 (08:29→20:54)
[2023-02-04] MEDS: DORZOLAMIDE HCL 2 % OPHTH DROP 1 DROP EYE-LEFT ×2 (08:29→20:53)
[2023-02-04] MEDS: prednisoLONE acetate 1 % DROPS 1 DROP EYE-LEFT ×2 (08:29→20:56)
[2023-02-04] MEDS: LIDOCAINE 5% PATCH 1 PATCH TRANSDERMA (08:29)
[2023-02-04] MEDS: NYSTATIN CREAM 30 GM 1 APPLIC TOPICAL ×3 (08:30→20:55)
[2023-02-04] MEDS: allopurinoL 300 MG TABLET 150 MG PO (08:32)
[2023-02-04] MEDS: LOSARTAN POTASSIUM 50 MG TABLET 100 MG PO (08:33)
[2023-02-04] MEDS: VITAMIN E 400 UNIT CAPSULE PO (08:33)
[2023-02-04] MEDS: MAGNESIUM OXIDE 400 MG TABLET PO (08:33)
[2023-02-04] MEDS: ASCORBIC ACID 500 MG TABLET PO ×2 (08:34→20:46)
[2023-02-04] MEDS: MULTIVITAMIN/MINERALS 1 TABLET 1 TAB PO (08:34)
[2023-02-04] MEDS: AZITHROMYCIN 250 MG TABLET PO (08:34)
[2023-02-04] MEDS: METOPROLOL TARTRATE 50 MG TABLET PO (08:35)
[2023-02-04] MEDS: INSULIN PROT/ASP (NOVOLOG 70/30) 100 UNIT/ML 68 UNIT SUBCUT (08:38)
[2023-02-04] MEDS: SODIUM CHLORIDE 0.9 % (FLUSH) 10 ML SYRINGE 5 ML IVF ×2 (08:45→20:56)
--- NOTE | 2023-02-04 10:45 | PM.IMPN1 ---
Progress Note: A&P Assessment and plan (1) Respiratory failure: Problem details: Acute hypoxemic respiratory failure R lung base - CAP - less convincing on 02/04 xray on azithromycin and rocephin oxygen demand decreasing - nearly at room by noon on 02/04 reinstate diuresis on 02/04. Status: Acute (2) Pneumonia: Problem details: Community-acquired Status: Acute (3) Acute kidney injury: Problem details: 2.0 on 02/04. will get diuresis restarted. 1.3 baseline Status: Acute (4) Diabetic foot ulcer: Problem details: Left plantar 1st MTP ulcer Status: Chronic (5) Obstructive sleep apnea: Problem details: will not wear CPAP Status: Chronic (6) Morbid obesity with BMI of 50.0-59.9, adult: Problem details: Could potentially benefit from assessment for possible surgical intervention, given multiple complications in association with the same. Status: Chronic (7) Venous insufficiency of both lower extremities: Problem details: Discussed elevation and compression. Status: Chronic (8) Poorly controlled type 2 diabetes mellitus: Problem details: Continue NovoLog 70 30. Adding an insulin sliding scale for while she is here. Status: Chronic (9) Chronic diastolic heart failure: Problem details: 11/06/2022 echocardiogram: Normal left ventricular size, moderately increased wall thickness, normal global systolic function, calculated EF of 64%. Right ventricular cavity size is normal, global systolic RV function is normal. Mildly enlarged left atrium. Mitral valve is sclerotic, trace mitral regurgitation. Grade 2 pattern of LV diastolic filling. The inferior vena cava is dilated, respiratory size variation is less than 50%. Compared to prior exam report of 03/10/2021, there has been no significant change. Reduce furosemide to 80 mg once a day at this time and follow electrolytes. Her volume status appears to be about right or mildly dry at this time. Status: Chronic (10) Intertrigo: Status: Acute Subjective Date Seen: 02/04/23 Interval history: Daily Progress Note - Hospital Medicine Day #: 3 CC: RLL pneumonia, diabetes OVERNIGHT UPDATES FROM STAFF & MED, LAB, IMAGING UPDATES we had been holding her oral diuretics secondary to concern about the dosing and likely she was volume down. we retarted those today with IV 40mg when we saw her weight gain and creatinine jump up. she can feel the excess fluid as well. fortunately her oxygen requirement continued to be weaned to room air by noon. I rounded with Claire to examine her left foot - plantar surface of 1st MT - chronic nonhealing diabetic wound. 144/51. Pulse 59. Respirations 20. Afebrile. O2 sat 90% on room air. She is off of oxygen CBC generally improved. Leukocytosis resolved. Unfortunately creatinine has jumped up to 2.0. Otherwise her electrolytes are well maintained. CRP is stable. Two view chest x-ray done this morning Chronic vascular congestion without infiltrate. No blood cultures drawn at admission Troponin negative Chest x-ray on admission, one view IMPRESSIONS: 1. Moderate diffuse reticular and ground-glass opacities are present in both lungs which may be due to interstitial edema. 2. Moderate to severe cardiomegaly is noted. 3. Patchy airspace opacities present within the right lung base. These findings can be seen with atelectasis and/or pneumonia. Echo done November of 2022 Normal left ventricular size. Moderately increased wall thickness. Normal global function. EF 64%. Global systolic RV function is normal. Grade 2 pattern of LV diastolic filling Objective: alert. NAD. Vitals: see above Lungs: crackles scattered in both lungs. Cardiac: S1S2. left foot: small eraser size defect with callus and without drainage. Disposition/Potential discharge - Likely to return to previous living situation. Today I spent 50minutes seeing the patient, reviewing Expanse and EPIC notes/diagnostics, discussing the care plan with our care time that includes social work, PT/OT, pharmacy, RT, [facility] and documenting my impressions and plan in the medical record. . Exam Const: Vital Signs, click to edit/add: Vital Signs - 24 hr 02/03/23 11:16 02/03/23 13:40 02/03/23 15:00 Temperature 97.9 F Pulse Rate [Pulse Oximeter] 53 L 53 L Respiratory Rate 22 18 18 Blood Pressure [Ri ght Arm] 139/62 Pulse Oximetry 91 93 Oxygen Delivery Me thod Room Air Nasal Cannula Oxygen Flow Rate 1 02/03/23 15:00 02/03/23 15:00 02/03/23 20:00 Temperature 97.9 F 97.7 F Pulse Rate [Pulse Oximeter] 53 L 53 L Respiratory Rate 18 18 20 Blood Pressure [Ri ght Arm] 139/60 142/93 H Pulse Oximetry 90 90 89 Oxygen Delivery Me thod Nasal Cannula Nasal Cannula Nasal Cannula Oxygen Flow Rate 1 1 1 02/03/23 23:00 02/03/23 23:11 02/04/23 03:08 Temperature 97.5 F L 97.4 F L Pulse Rate [Pulse Oximeter] 53 L 52 L Respiratory Rate 20 20 18 Blood Pressure [Ri ght Arm] 152/72 H 129/58 L Pulse Oximetry 94 94 96 Oxygen Delivery Me thod Nasal Cannula Nasal Cannula Nasal Cannula Oxygen Flow Rate 1 1 1.5 02/04/23 06:30 02/04/23 07:40 02/04/23 07:40 Temperature 97.6 F Pulse Rate [Pulse Oximeter] 52 L Respiratory Rate 20 20 Blood Pressure [Ri ght Arm] 153/76 H Pulse Oximetry 96 93 93 Oxygen Delivery Me thod Nasal Cannula Nasal Cannula Nasal Cannula Oxygen Flow Rate 1 0.5 0.5 Labs Labs: Laboratory Results - last 24 hr 02/02/23 02/03/23 02/03/23 20:55 10:33 10:50 WBC 11.16 H RBC 3.93 L Hgb 11.2 L Hct 37.4 MCV 95 MCH 29 MCHC 30 L RDW Coeff of Tad 16.6 H Plt Count 256 Neut % (Auto) 81.4 H Lymph % (Auto) 8.6 L [place] % (Auto) 7.3 Eos % (Auto) 1.9 Baso % (Auto) 0.4 Neut # (Auto) 9.10 H Lymph # (Auto) 1.00 [place] # (Auto) 0.80 Eos # (Auto) 0.20 Baso # (Auto) 0.00 Abs Immat Gran (auto) 0.00 Imm/Tot Granulo (auto) 0.4 VBG pH 7.393 VBG pCO2 45 VBG pO2 35.8 VBG HCO3 28 Sodium 140 Potassium 4.1 Chloride 105 Carbon Dioxide 27 Anion Gap 8 BUN 76 H Creatinine 1.6 H Estimated Creat Clear 29.86 Estimated GFR 35 Glucose 255 H Hemoglobin A1c Cancelled Calcium 8.8 Ionized Calcium [place] 1.15 Phosphorus 4.3 Magnesium 2.7 H Total Bilirubin AST ALT Alkaline Phosphatase Troponin I < 0.01 L C-Reactive Protein 2.7 H 3.5 H Total Protein Albumin 3.7 Procalcitonin 0.06 0.06 TSH 1.500 Lab Acknowledgement Test Added 02/04/23 06:25 WBC 10.09 RBC 4.14 Hgb 11.6 L Hct 39.4 MCV 95 MCH 28 MCHC 29 L RDW Coeff of Tad Plt Count 266 Neut % (Auto) Lymph % (Auto) [place] % (Auto) Eos % (Auto) Baso % (Auto) Neut # (Auto) Lymph # (Auto) [place] # (Auto) Eos # (Auto) Baso # (Auto) Abs Immat Gran (auto) Imm/Tot Granulo (auto) VBG pH VBG pCO2 VBG pO2 VBG HCO3 Sodium 138 Potassium 4.9 Chloride 105 Carbon Dioxide 28 Anion Gap 5 L BUN 84 H Creatinine 2.0 H Estimated Creat Clear 23.89 Estimated GFR 27 Glucose 122 H Hemoglobin A1c Calcium 8.7 Ionized Calcium [place] Phosphorus Magnesium Total Bilirubin 0.6 AST 22 ALT 23 Alkaline Phosphatase 120 Troponin I C-Reactive Protein 3.5 H Total Protein 7.3 Albumin 3.9 Procalcitonin 0.07 TSH Lab Acknowledgement
[2023-02-04] MEDS: FUROSEMIDE 10 MG/ML inj 40 MG IVP (11:05)
--- NOTE | 2023-02-04 12:04 | RESP.RT ---
Goal to maintain patients SaO2 85-92%. 11:30 placed patient on room air. Sitting up in chair Patient SaO2 94-96%, breathing regular/easy. When patient lies down SaO2 decreased to mid-upper 80's%. Patient trying to get a bed which the HOB can be raised. Patient ambulates well with cane and gait belt assistance. Has good clear voice, and good to excellent cough, able to clear secretions when present.
--- NOTE | 2023-02-04 14:01 | PM.WSCN ---
Date of Consult Patient: Byron Patient Consult date: 02/04/23 Requesting Physician: Hospitalist Primary Care Provider: Shirley Fleming DO Consult Narrative Reason for consult: Known OP wound services patient Narrative: Caity Ojeda is a 68 year old female that is well-known to wound services. Patient is currently hospitalized r/t to Acute hypoxemic respiratory failure, per hospitalist documentation, R lung base - CAP. on azithromycin and rocephin. oxygen demand decreasing. This sba underwriter is her primary wound care provider. Patient compliance with wound care recommendations and appointment attendance, have been inconsistent. Patient cancelled her 01/14, 01/21, and 01/28/23 wound center encounters. Last seen in wound center on 01/07/23. Discharged from [facility] on 01/28/23. Her care was then transferred to [facility] for ongoing care needs. Patient does have a returned case inspector with [facility]. Other pertinent past medical history poorly controlled type 2 diabetes, morbidly obese with a BMI of 50+, chronic kidney disease, chronic diastolic heart failure, lymphedema. And does have financial barriers to accessing care that she continues to work with her primary care provider on navigating as well as [facility]/social worker. 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 Wound appears stable. increased callusing with undermining present on todays evaluation. Patient states she has not consistently worn offloading shoes or inserts. But she is open to revisiting the referral that was placed through the wound center to get custom diabetic shoes and inserts. Review of Systems Status of ROS: Reports: 10 or more systems reviewed and unremarkable except as noted in History and below [facility] Medical History (Updated 02/05/23 @ 09:15 by Claire Lopez CNP) Acute on chronic diastolic heart failure ?I50.33 - Acute on chronic diastolic (congestive) heart failure (ICD-10) Acute kidney injury superimposed on chronic kidney disease ?N17.9 - Acute kidney failure, unspecified (ICD-10) ?N18.9 - Chronic kidney disease, unspecified (ICD-10) Pulmonary edema with congestive heart failure ?I50.1 - Left ventricular failure, unspecified (ICD-10) Diabetic foot ulcer ?E11.621 - Type 2 diabetes mellitus with foot ulcer (ICD-10) ?L97.509 - Non-pressure chronic ulcer of other part of unspecified foot with unspecified severity (ICD-10) History of fracture of left ankle ?Z87.81 - Personal history of (healed) traumatic fracture (ICD-10) Severe left ventricular hypertrophy ?I51.7 - Cardiomegaly (ICD-10) snf current use of insulin ?Z79.4 - intermediate accountant (current) use of insulin (ICD-10) Poorly controlled type 2 diabetes mellitus ?E11.65 - Type 2 diabetes mellitus with hyperglycemia (ICD-10) History of sciatica ?Z86.69 - Personal history of other diseases of the nervous system and sense organs (ICD-10) Primary hypothyroidism ?E03.9 - Hypothyroidism, unspecified (ICD-10) Asthma ?J45.909 - Unspecified asthma, uncomplicated (ICD-10) Vitamin D deficiency ?E55.9 - Vitamin D deficiency, unspecified (ICD-10) Rectocele ?N81.6 - Rectocele (ICD-10) Essential hypertension ?I10 - Essential (primary) hypertension (ICD-10) Obstructive sleep apnea ?G47.33 - Obstructive sleep apnea (adult) (pediatric) (ICD-10) Chronic diastolic heart failure ?I50.32 - Chronic diastolic (congestive) heart failure (ICD-10) Morbid obesity with BMI of 50.0-59.9, adult ?E66.01 - Morbid (severe) obesity due to excess calories (ICD-10) ?Z68.43 - Body mass index [BMI] 50.0-59.9, adult (ICD-10) History of nephrolithiasis ?Z87.442 - Personal history of urinary calculi (ICD-10) Lumbar back pain with radiculopathy affecting left lower extremity ?M54.16 - Radiculopathy, lumbar region (ICD-10) Hypertriglyceridemia ?E78.1 - Pure hyperglyceridemia (ICD-10) Osteoarthritis of knees, bilateral ?M17.0 - Bilateral primary osteoarthritis of knee (ICD-10) Chronic kidney disease ?N18.9 - Chronic kidney disease, unspecified (ICD-10) Venous insufficiency of both lower extremities ?I87.2 - Venous insufficiency (chronic) (peripheral) (ICD-10) Diabetic nephropathy associated with type 2 diabetes mellitus ?E11.21 - Type 2 diabetes mellitus with diabetic nephropathy (ICD-10) Surgical History Status post total abdominal hysterectomy ?Z90.710 - Acquired absence of both cervix and uterus (ICD-10) Status post thyroidectomy ?E89.0 - Postprocedural hypothyroidism (ICD-10) History of esophagogastroduodenoscopy ?Z98.890 - Other specified postprocedural states (ICD-10) Status post cholecystectomy ?Z90.49 - Acquired absence of other specified parts of digestive tract (ICD-10) History of intraocular lens implant ?Z96.1 - Presence of intraocular lens (ICD-10) Cataract extraction status ?Z98.49 - Cataract extraction status, unspecified eye (ICD-10) Status post appendectomy ?Z90.49 - Acquired absence of other specified parts of digestive tract (ICD-10) Status post colonoscopy with polypectomy ?Z98.890 - Other specified postprocedural states (ICD-10) Family History Other Diabetes High blood pressure High cholesterol Social History Narrative: . Lives alone. Three supportive children. Designates daughter, Alanna, , primary contact for power of defense attorney for health should that be required. Designates son, Nathan, [phone], secondary contact for power of defense attorney for health should that be required. Requests that we attempt resuscitation in the event of cardiopulmonary demise, stressing that she does not want to be kept alive as a vegetable should that come to pass. She reports worsening mobility problems. It is difficult due to her back pain and radicular symptoms going down her right leg for her to get up and walk around. To a lesser extent her left foot also bothers her with weight-bearing. She does walk with a walker. What is your current living situation?: I presently have a place to live Problems where you live: mold Problems where you live details: mold In the past 12 months, utilities in danger of being shut off: no In past 12 months, lack of transportation kept you from medical appts, meetings, work, or getting things needed for daily living: no In the past 12 mos, have been you worried that your food would run out before you had money to buy more?: sometimes true In the past 12 mos, the food you bought just didn't last and you didn't have money to buy more?: sometimes true Highest level of school completed/degree received: Associate degree: academic program Smoking Status: Never smoker How often do you have a drink containing alcohol: never How often do you have six or more drinks on one occasion: Never AUDIT-C Alcohol total score: 0 Non-prescribed substance use: denies use Caffeine: Yes How often does anyone, including family, friends and others, physically hurt you: never How often does anyone, including family, friends and others, insult or talk down to you: fairly often How often does anyone, including family, friends and others, threaten you with harm: never How often does anyone, including family, friends and others, scream or curse at you: never service: No Meds Home Medications and Allergies Home Medications Medication Instructions Recorded Confirmed Type allopurinol 100 mg tablet 300 mg PO DAILY 11/06/22 02/03/23 History brimonidine 0.2 % eye drops 1 drp ophthalmic (eye-left) BID 11/06/22 02/03/23 History dorzolamide 2 % eye drops 1 drp ophthalmic (eye-left) BID 11/06/22 02/03/23 History latanoprost 0.005 % eye drops 1 drp ophthalmic (eye) QPM 11/06/22 02/03/23 History levothyroxine 125 mcg tablet 125 mcg PO DAILY 11/06/22 02/03/23 History losartan 100 mg tablet 100 mg PO DAILY 11/06/22 02/03/23 History metolazone 2.5 mg tablet 2.5 mg PO .WEEKLY 11/06/22 02/03/23 History montelukast 10 mg tablet 10 mg PO HS 11/06/22 02/03/23 History nitroglycerin 0.4 mg sublingual 0.4 mg sublingual Q5M PRN 11/06/22 02/03/23 History tablet prednisolone acetate 1 % eye 1 drp ophthalmic (eye-left) BID 11/06/22 02/03/23 History drops,suspension timolol maleate 0.5 % eye drops 1 drp ophthalmic (eye-right) QAM 11/06/22 02/03/23 History albuterol sulfate 90 mcg/actuation 1 - 2 puff inhalation Q4H PRN 11/07/22 02/03/23 History aerosol inhaler ascorbic acid (vitamin C) 500 mg 500 mg PO BID 11/07/22 02/03/23 History tablet insulin human U-100 NPH-regulr 53 unit subcut QPM 11/07/22 02/03/23 History 70-30 mix 100 unit/mL subcutaneous susp (Humulin 70/30 U-100 Insulin) loratadine 10 mg tablet 10 mg PO HS 11/07/22 02/03/23 History (Allerclear) magnesium 250 mg tablet 500 mg PO DAILY 11/07/22 02/03/23 History multivitamin (Daily Multi-Vitamin 1 tab PO DAILY 11/07/22 02/03/23 History tablet) vitamin B complex (B 1 tab PO DAILY 11/07/22 02/03/23 History Complex-Vitamin B12 tablet) amlodipine 10 mg tablet 10 mg PO HS 11/29/22 02/03/23 History calcium carbonate 600 mg-vitamin 1 tab PO DAILY 11/29/22 02/03/23 History D3 5 mcg (200 unit) tablet (Calcium 600 + D(3)) cholecalciferol (vitamin D3) 125 5,000 unit PO DAILY 11/29/22 02/03/23 History mcg (5,000 unit) tablet (Vitamin D3) rosuvastatin 10 mg tablet 10 mg PO HS 11/29/22 02/03/23 History acetaminophen 650 mg tablet 650 mg PO QID 12/05/22 02/03/23 History insulin human U-100 NPH-regulr 68 unit subcut QAM 12/21/22 02/03/23 History 70-30 mix 100 unit/mL subcutaneous susp (Novolin 70/30 U-100 Insulin) metoprolol tartrate 50 mg tablet 50 mg PO HS 12/21/22 02/03/23 History metoprolol tartrate 50 mg tablet 100 mg PO QAM 12/21/22 02/03/23 History vit C 226 mg-vit E 90 mg-copper 1 cap PO DAILY 12/21/22 02/03/23 History 0.8 mg-zinc oxide-lutein 5 mg capsule (PreserVision Lutein) vitamin E 268 mg (400 unit) capsule 268 mg PO DAILY 12/21/22 02/03/23 History zinc sulfate 66 mg tablet (Zinc-15) 66 mg PO DAILY 12/21/22 02/03/23 History Allergies Allergy/AdvReac Type Severity Reaction Status Date / Time clindamycin Allergy Severe Verified 12/21/22 15:33 hydromorphone Allergy Severe Stopped Verified 12/21/22 15:33 Breathing morphine Allergy Severe Stopped Verified 12/21/22 15:33 Breathing NSAIDS (Non-Steroidal Allergy Severe Anaphylaxis Verified 12/21/22 15:33 Anti-Inflamma penicillin V Allergy Severe Hypertensio Verified 12/21/22 15:33 n aspirin AdvReac nausea and Verified 12/21/22 15:33 vomiting Exam Narrative: Exam Narrative: General: NAD, alert. Pulmonary: unlabored breathing. speaking in full sentences. MSK: Mohs extremities independently BLE: Hyper pigmentation, hyperkeratosis, hyperplasia notable. few scattered papillomatosis, left greater than right. Left foot wound: full-thickness, fat layer exposed. drainage small. measuring 1.2X1.2X0.3cm, undermining from 6-12 o'clock. Biofilm, slough, fibrin, hypergranulation, subcu present. Prominent periwound callus present. no surrounding erythema or induration. Cardiac: feet warm, and pink. pedal pulses diminished, but palpable. Const: Vital Signs, click to edit/add: Vital Signs - 24 hr 02/03/23 15:00 02/03/23 15:00 02/03/23 15:00 Temperature 97.9 F Pulse Rate [Pulse Oximeter] 53 L 53 L Respiratory Rate 18 18 18 Blood Pressure [Ri t Arm] 139/60 Pulse Oximetry 90 90 Oxygen Delivery Me thod Nasal Cannula Nasal Cannula Oxygen Flow Rate 1 1 02/03/23 20:00 02/03/23 23:00 02/03/23 23:11 Temperature 97.7 F 97.5 F L Pulse Rate [Pulse Oximeter] 53 L 53 L Respiratory Rate 20 20 20 Blood Pressure [Ri ght Arm] 142/93 H 152/72 H Pulse Oximetry 89 94 94 Oxygen Delivery Me thod Nasal Cannula Nasal Cannula Nasal Cannula Oxygen Flow Rate 1 1 1 02/04/23 03:08 02/04/23 06:30 02/04/23 07:40 Temperature 97.4 F L 97.6 F Pulse Rate [Pulse Oximeter] 52 L 52 L Respiratory Rate 18 20 Blood Pressure [Ri ght Arm] 129/58 L 153/76 H Pulse Oximetry 96 96 93 Oxygen Delivery Me thod Nasal Cannula Nasal Cannula Nasal Cannula Oxygen Flow Rate 1.5 1 0.5 02/04/23 07:40 02/04/23 11:00 02/04/23 11:00 Temperature 97.6 F Pulse Rate [Pulse Oximeter] 57 L Respiratory Rate 20 20 20 Blood Pressure [Ri ght Arm] 144/51 H Pulse Oximetry 93 92 95 Oxygen Delivery Me thod Nasal Cannula Nasal Cannula Room Air Oxygen Flow Rate 0.5 0.5 Documenting provider has reviewed patient's vital signs: yes Labs Labs: Short CBC 02/04/23 Range/Units 06:25 WBC 10.09 (4.50-11.00) K/uL Hgb 11.6 L (12.0-16.0) gm/dL Hct 39.4 (33.0-51.0) % Plt Count 266 (140-440) K/uL BMP 02/04/23 06:25 Sodium 138 Potassium 4.9 Chloride 105 Carbon Dioxide 28 BUN 84 H Creatinine 2.0 H Glucose 122 H Calcium 8.7 Liver Function 02/04/23 Range/Units 06:25 Total Bilirubin 0.6 (0.1-1.5) mg/dL AST 22 (12-35) U/L ALT 23 (4-35) U/L Alkaline Phosphatase 120 (40-150) U/L Albumin 3.9 (3.3-5.0) g/dL Assessment and Plan Assessment and plan (1) Non-pressure chronic ulcer of other part of left foot with fat layer exposed: Status: Acute (2) Lymphedema: Status: Acute (3) Venous insufficiency of both lower extremities: Problem comment: Discussed elevation and compression. Status: Chronic (4) Type 2 diabetes mellitus with foot ulcer: Status: Acute (5) Cellulitis of left lower leg: Problem comment: Fairly unremarkable at this time, overall pain and ambulation have improved. MRI of left foot shows no osteomyelitis or abscess. Discharge home on oral antibiotics. Status: Acute Plan verbal consent obtained from patient. bedside debridement down to subq with #5 curette. Patient tolerated well. minimal bleeding. Wound dressed with iodoflex, optifoam and secured with Covaderm. Next dressing to be completed 02/06/23. Patient will need resumption of care with home health nursing. Per [facility]/2023. Updated wound care order to include: Cleanse wound with a washer or similar wound cleanser, pat dry, fill wound with iodoflex, cut an oversized piece of Optifoam (meant to help with offloading), secure with covederm or similar bordered gauze dressing, change EOD & PRN. These items can be found in patients room. Med/surg nurse updated on wound care order at bedside. Dr. polanco present during todays visit with patient, and updated on wound history. Patient encouraged to keep legs elevated when sedentary to help with her chronic lymphedema. Short stretch compression reapplied per patient's preference while she is hospitalized. She does have velcro compression wraps at home that wound care has recommended she use. Next wound care appt. 02/12/23 2:30p.m. with Claire Lopez.
[2023-02-04] MEDS: FUROSEMIDE 40 MG TABLET 60 MG PO (15:45)
--- NOTE | 2023-02-04 16:41 | PC.SOCIAL ---
Received a voicemail from Nancy Gonaslez ([facility] worker) at [phone]. Pt is receiving Alternative Care Program with home care services. Concerns of non-compliance with services. Returned a phone call to Nancy and left a voicemail to return a phone call to social economist. Social work will follow up as needed.
[2023-02-04] MEDS: INSULIN PROT/ASP (NOVOLOG 70/30) 100 UNIT/ML 53 UNIT SUBCUT (18:00)
[2023-02-04] MEDS: LATANOPROST 0.005% OPHTH 1 DROP EYE-BOTH (18:00)
--- NOTE | 2023-02-04 18:15 | PC.NURSE ---
Pt alert and oriented. Pt independent in room. Pt had complaints of pain ranging from 6-7. Pt has been on RA since early afternoon per RT pt is okay to have oxygen saturations of 85%-92%. Wound care changed dressing on Pt?s foot; stated it is an every other day dressing change. Amadou wraps rewrapped by RN.?
[2023-02-04] MEDS: ROSUVASTATIN CALCIUM 10 MG TABLET PO (20:45)
[2023-02-04] MEDS: MONTELUKAST 10 MG TABLET PO (20:45)
[2023-02-04] MEDS: METOPROLOL TARTRATE 50 MG TABLET 25 MG PO (20:46)
[2023-02-04] MEDS: ACETAMINOPHEN 325 MG TABLET PO (20:46)
[2023-02-04] MEDS: AMLODIPINE 10 MG TABLET PO (20:47)
[2023-02-04] MEDS: LORATADINE 10 MG TABLET PO (20:47)
[2023-02-04] MEDS: ENOXAPARIN 30 MG/0.3ML INJ SUBCUT (20:52)
[2023-02-04] MEDS: cefTRIAXone 1 GM in 0.9 % SODIUM CHLORIDE Mini-bag 100 ML IVPB (22:06)
[2023-02-05] VITALS (7 sets, daily range): BP systolic 131–155; BP diastolic 51–75; PULSE 57–70; RESP 20; TEMP 36.4–37.1; O2SAT 88–94
[2023-02-05] MEDS: TRAMADOL HCL 50 MG TABLET PO
[2023-02-05] MEDS: ACETAMINOPHEN 325 MG TABLET PO ×2 (06:22→15:38)
[2023-02-05] MEDS: LEVOTHYROXINE 125 MCG TABLET PO (06:23)
[2023-02-05 07:06] LABS: Hematocrit 39.3 % (33.0-51.0); Hemoglobin* 11.7 gm/dL (12.0-16.0); Mean Corpuscular HGB Conc 30 gm/dL (32-36); Mean Corpuscular Hemoglobin 28 pg (26-34); Mean Corpuscular Volume 93 fL (80-100); Platelet Count* 260 K/uL (140-440); Red Blood Count 4.21 m/uL (4.00-5.20); White Blood Count* 10.23 K/uL (4.50-11.00)
[2023-02-05 07:30] LABS: Slide Review Reflex No
[2023-02-05 07:45] LABS: Albumin* 3.7 g/dL (3.3-5.0); Chloride* 99 mmol/L (96-114)
[2023-02-05 07:46] LABS: Potassium* 4.6 mmol/L (3.6-5.1); Sodium* 139 mmol/L (135-149)
[2023-02-05 07:48] LABS: Bilirubin Total* 0.4 mg/dL (0.1-1.5); Creatinine* 1.7 mg/dL (0.5-1.5); Estimated Glomerular Filt Rate 32 ml/min
[2023-02-05 07:49] LABS: Alanine Aminotransferase* 22 U/L (4-35); Alkaline Phosphatase* 120 U/L (40-150); Anion Gap 13 mEq/L (7-15); Aspartate Amino Transferase* 25 U/L (12-35); Blood Urea Nitrogen* 84 mg/dL (7-30); Calcium* 8.9 mg/dL (8.4-10.6); Carbon Dioxide* 27 mmol/L (20-32); Glucose* 93 mg/dL (60-115); Total Protein* 6.9 g/dL (6.0-8.3)
[2023-02-05 07:52] LABS: C Reactive Protein* 2.3 mg/dL (0.5-1.0)
--- NOTE | 2023-02-05 07:52 | PC.NURSE ---
Pt is alert and oriented x3. Pt reports 8/10 pain in left knee, pain managed with PRN medications. Pt is on room air, O2 stats ranged between 87-92% throughout night. Pt is up ad darius in room with cane, voiding, tolerating regular diet. Pt slept throughout most of night. Night uneventful.
[2023-02-05] MEDS: BRIMONIDINE TARTRATE 0.2% OPHTH 1 DROP EYE-LEFT ×2 (08:52→21:17)
[2023-02-05] MEDS: DORZOLAMIDE HCL 2 % OPHTH DROP 1 DROP EYE-LEFT ×2 (08:52→21:17)
[2023-02-05] MEDS: prednisoLONE acetate 1 % DROPS 1 DROP EYE-LEFT ×2 (08:52→21:17)
[2023-02-05] MEDS: timoloL maleate 0.5 % 1 DROP EYE-RIGHT (08:52)
[2023-02-05] MEDS: LIDOCAINE 5% PATCH 1 PATCH TRANSDERMA (08:53)
[2023-02-05] MEDS: NYSTATIN CREAM 30 GM 1 APPLIC TOPICAL ×3 (08:54→21:16)
[2023-02-05] MEDS: AZITHROMYCIN 250 MG TABLET PO (08:54)
[2023-02-05] MEDS: allopurinoL 300 MG TABLET 150 MG PO (08:54)
[2023-02-05] MEDS: METOPROLOL TARTRATE 50 MG TABLET PO (08:54)
[2023-02-05] MEDS: FUROSEMIDE 40 MG TABLET 60 MG PO ×2 (08:55→15:38)
[2023-02-05] MEDS: ASCORBIC ACID 500 MG TABLET PO ×2 (08:55→21:16)
[2023-02-05] MEDS: LOSARTAN POTASSIUM 50 MG TABLET 100 MG PO (08:55)
[2023-02-05] MEDS: MAGNESIUM OXIDE 400 MG TABLET PO (08:55)
[2023-02-05] MEDS: INSULIN PROT/ASP (NOVOLOG 70/30) 100 UNIT/ML 68 UNIT SUBCUT (08:59)
[2023-02-05] MEDS: VITAMIN E 400 UNIT CAPSULE PO (09:02)
[2023-02-05] MEDS: MULTIVITAMIN/MINERALS 1 TABLET 1 TAB PO (09:04)
[2023-02-05] MEDS: SODIUM CHLORIDE 0.9 % (FLUSH) 10 ML SYRINGE 5 ML IVF ×2 (09:04→21:18)
--- NOTE | 2023-02-05 13:58 | PM.IMPN1 ---
Progress Note: A&P Assessment and plan (1) Respiratory failure: Problem details: Acute hypoxemic respiratory failure R lung base - CAP - less convincing on 02/04 xray on azithromycin and rocephin oxygen demand decreasing - on room air 02/05 reinstate diuresis on 02/04, Lasix 60 mg b.i.d.. Daily weights, strict I&Os Status: Acute (2) Pneumonia: Problem details: Community-acquired Management as above Status: Acute (3) Chronic diastolic heart failure: Problem details: 11/06/2022 echocardiogram: Normal left ventricular size, moderately increased wall thickness, normal global systolic function, calculated EF of 64%. Right ventricular cavity size is normal, global systolic RV function is normal. Mildly enlarged left atrium. Mitral valve is sclerotic, trace mitral regurgitation. Grade 2 pattern of LV diastolic filling. The inferior vena cava is dilated, respiratory size variation is less than 50%. Compared to prior exam report of 03/10/2021, there has been no significant change. Initially, reduce furosemided to 80 mg once a day at this time and follow electrolytes. Her volume status appears to be about right or mildly dry at this time. 02/04: diuresis reinstated. Continue to monitor with daily weights and I&Os Status: Chronic (4) Acute kidney injury: Problem details: Improved to 1.7 from 2.0 on 02/04 after restarting diuresis, 1.3 baseline Status: Acute (5) Diabetic foot ulcer: Problem details: Left plantar 1st MTP ulcer Continue with outpatient wound clinic Status: Chronic (6) Obstructive sleep apnea: Problem details: will not wear CPAP Status: Chronic (7) Morbid obesity with BMI of 50.0-59.9, adult: Problem details: Could potentially benefit from assessment for possible surgical intervention, given multiple complications in association with the same. Status: Chronic (8) Venous insufficiency of both lower extremities: Problem details: Discussed elevation and compression daily Status: Chronic (9) Poorly controlled type 2 diabetes mellitus: Problem details: Continue NovoLog 70 30. Diabetic diet. Adding an insulin sliding scale for while she is here. Status: Chronic (10) Intertrigo: Problem details: Continue skin cares in abdominal folds Status: Acute Plan Plan for discharge with improved diuresis Time Spent With Patient Total time spent: Total time spent caring for the patient today was 45 minutes. This includes time spent for the visit reviewing the chart, time spent during the visit, time spent after the visit and documentation and planning in coordination of care. Subjective Date Seen: 02/05/23 Interval history: Patient tells me she did not sleep well overnight otherwise feeling okay. Breathing has improved. New dyspnea on room air. Tolerating orals without nausea vomiting. Tells me she has been trying to watch her salt intake. Isn't sure why her weight is up. Exam Narrative: Exam Narrative: PHYSICAL EXAM General: Pleasant, conversant, NAD HEENT: Normocephalic, atraumatic, sclera white, EOMI, oral mucosa moist Cardiovascular: RRR, S1S2. +3 pitting edema Pulmonary: Mildly diminished without rhonchi, rales, expiratory wheezes. No dyspnea on room air Neurological: Alert, answering questions appropriately, cranial nerves intact, no focal findings Extremities: No gross joint deformity or swelling. AROMI. Neurovascularly intact Skin: Warm, dry. Const: Vital Signs, click to edit/add: Vital Signs - 24 hr 02/04/23 15:25 02/04/23 15:40 02/04/23 19:25 Temperature 97.9 F 97.9 F Pulse Rate [Pulse Oximeter] 59 L 64 Respiratory Rate 20 20 20 Blood Pressure [Ri ght Arm] 144/51 H 168/64 H Pulse Oximetry 90 90 92 Oxygen Delivery Me thod Room Air Room Air Room Air Oxygen Flow Rate 0 0 02/04/23 21:18 02/04/23 23:50 02/04/23 23:50 Temperature 97.9 F Pulse Rate [Pulse Oximeter] 60 Respiratory Rate 20 20 Blood Pressure [Ri ght Arm] Pulse Oximetry 98 Oxygen Delivery Me thod Room Air Oxygen Flow Rate 0 02/04/23 23:50 02/05/23 03:35 02/05/23 08:30 Temperature 97.9 F 98.1 F Pulse Rate [Pulse Oximeter] 60 58 L Respiratory Rate 20 20 20 Blood Pressure [Ri ght Arm] 143/66 H 145/54 H Pulse Oximetry 91 92 92 Oxygen Delivery Me thod Room Air Room Air Room Air Oxygen Flow Rate 0 0 02/05/23 08:46 02/05/23 11:15 Temperature 97.5 F L 98.7 F Pulse Rate [Pulse Oximeter] 57 L 60 Respiratory Rate 20 20 Blood Pressure [Ri ght Arm] 146/75 H 151/62 H Pulse Oximetry 92 89 Oxygen Delivery Me thod Room Air Room Air Oxygen Flow Rate Labs Labs: Laboratory Results - last 24 hr 02/05/23 06:15 WBC 10.23 RBC 4.21 Hgb 11.7 L Hct 39.3 MCV 93 MCH 28 MCHC 30 L Plt Count 260 Sodium 139 Potassium 4.6 Chloride 99 Carbon Dioxide 27 Anion Gap 13 BUN 84 H Creatinine 1.7 H Estimated Creat Clear 28.10 Estimated GFR 32 Glucose 93 Calcium 8.9 Total Bilirubin 0.4 AST 25 ALT 22 Alkaline Phosphatase 120 C-Reactive Protein 2.3 H Total Protein 6.9 Albumin 3.7
[2023-02-05] MEDS: LATANOPROST 0.005% OPHTH 1 DROP EYE-BOTH (17:29)
[2023-02-05] MEDS: INSULIN PROT/ASP (NOVOLOG 70/30) 100 UNIT/ML 53 UNIT SUBCUT (17:29)
--- NOTE | 2023-02-05 18:26 | PC.NURSE ---
Pt alert and oriented. Pt independent in room. Pt had complaints of pain ranging from 6-7. Pt on RA since RT pt is okay to have oxygen saturations of 85%-92%. Pt refused to have legs markus wrapped but wanted Tubi film reader put on instead. VSS. Pt anticipated to discharge 02/06. ?
[2023-02-05] MEDS: ENOXAPARIN 30 MG/0.3ML INJ SUBCUT (21:13)
[2023-02-05] MEDS: METOPROLOL TARTRATE 50 MG TABLET 25 MG PO (21:14)
[2023-02-05] MEDS: AMLODIPINE 10 MG TABLET PO (21:15)
[2023-02-05] MEDS: ROSUVASTATIN CALCIUM 10 MG TABLET PO (21:16)
[2023-02-05] MEDS: MONTELUKAST 10 MG TABLET PO (21:16)
[2023-02-05] MEDS: LORATADINE 10 MG TABLET PO (21:16)
[2023-02-05] MEDS: cefTRIAXone 1 GM in 0.9 % SODIUM CHLORIDE Mini-bag 100 ML IVPB (22:28)
[2023-02-06 03:00] VITALS: BP 155/82; PULSE 67; RESP 20; TEMP 36.6; O2SAT 90
--- NOTE | 2023-02-06 04:58 | PC.NURSE ---
Shift note: Pt's blood sugar level has been unstable. Blood sugar checked at 2100 was 89 and pt confirmed that it normally drop at night and has been like that for sometime now but refused snacks. Blood sugar repeated at 0300 was 72. Peanut butter, Jeffy crackers and orange juice given. Rechecked at 0330 recorded 90. Pt offered to finish the remaining crackers and peanut butter but refused. Has been awake most of the night sitting in recliner and watching TV. O2 has been between 889 and 92 in room. Vitally stable.
[2023-02-06] MEDS: LEVOTHYROXINE 125 MCG TABLET PO (06:39)
[2023-02-06 06:54] LABS: Hematocrit 37.7 % (33.0-51.0); Hemoglobin* 11.3 gm/dL (12.0-16.0); Mean Corpuscular HGB Conc 30 gm/dL (32-36); Mean Corpuscular Hemoglobin 28 pg (26-34); Mean Corpuscular Volume 93 fL (80-100); Platelet Count* 262 K/uL (140-440); Red Blood Count 4.07 m/uL (4.00-5.20); White Blood Count* 10.32 K/uL (4.50-11.00)
[2023-02-06 07:00] VITALS: BP 144/73; PULSE 72; RESP 18; TEMP 36.6; O2SAT 92
[2023-02-06 07:04] LABS: Slide Review Reflex No
[2023-02-06 07:14] LABS: Albumin* 3.7 g/dL (3.3-5.0); Chloride* 101 mmol/L (96-114)
[2023-02-06 07:15] LABS: Potassium* 4.9 mmol/L (3.6-5.1); Sodium* 139 mmol/L (135-149)
[2023-02-06 07:17] LABS: Bilirubin Total* 0.4 mg/dL (0.1-1.5); Creatinine* 1.5 mg/dL (0.5-1.5); Est. Creatinine Clearance* 31.85; Estimated Glomerular Filt Rate 37 ml/min
[2023-02-06 07:18] LABS: Alanine Aminotransferase* 22 U/L (4-35); Alkaline Phosphatase* 134 U/L (40-150); Anion Gap 13 mEq/L (7-15); Aspartate Amino Transferase* 30 U/L (12-35); Blood Urea Nitrogen* 80 mg/dL (7-30); Calcium* 8.9 mg/dL (8.4-10.6); Carbon Dioxide* 25 mmol/L (20-32); Glucose* 130 mg/dL (60-115); Total Protein* 6.8 g/dL (6.0-8.3)
[2023-02-06 07:21] LABS: C Reactive Protein* 1.8 mg/dL (0.5-1.0)
--- NOTE | 2023-02-06 08:25 | PC.SOCIAL ---
Discharge planning: Late entry: on 02/05/23, spoke with [place] at [facility] who confirmed they are providing wound care nursing at home 2x week and home health aid 2xweek under pt's waver services. They are unable to provide services under Medicare as she is not homebound. They can continue to provide these servcies if ordered to resume on discharge orders. well service derrick worker to follow up as discharge and send required Home Care orders to [facility] to resume this care.
[2023-02-06] MEDS: LIDOCAINE 5% PATCH 1 PATCH TRANSDERMA (08:58)
[2023-02-06] MEDS: BRIMONIDINE TARTRATE 0.2% OPHTH 1 DROP EYE-LEFT (09:00)
[2023-02-06] MEDS: allopurinoL 300 MG TABLET 150 MG PO (09:01)
[2023-02-06] MEDS: ASCORBIC ACID 500 MG TABLET PO (09:02)
[2023-02-06] MEDS: AZITHROMYCIN 250 MG TABLET PO (09:02)
[2023-02-06] MEDS: FUROSEMIDE 40 MG TABLET 60 MG PO (09:04)
[2023-02-06] MEDS: DORZOLAMIDE HCL 2 % OPHTH DROP 1 DROP EYE-LEFT (09:04)
[2023-02-06] MEDS: LOSARTAN POTASSIUM 50 MG TABLET 100 MG PO (09:05)
[2023-02-06] MEDS: MAGNESIUM OXIDE 400 MG TABLET PO (09:05)
[2023-02-06] MEDS: MULTIVITAMIN/MINERALS 1 TABLET 1 TAB PO (09:06)
[2023-02-06] MEDS: NYSTATIN CREAM 30 GM 1 APPLIC TOPICAL ×2 (09:06→14:22)
[2023-02-06] MEDS: METOPROLOL TARTRATE 50 MG TABLET PO (09:06)
[2023-02-06] MEDS: prednisoLONE acetate 1 % DROPS 1 DROP EYE-LEFT (09:07)
[2023-02-06] MEDS: SODIUM CHLORIDE 0.9 % (FLUSH) 10 ML SYRINGE 5 ML IVF ×2 (09:07→12:47)
[2023-02-06] MEDS: timoloL maleate 0.5 % 1 DROP EYE-RIGHT (09:08)
[2023-02-06] MEDS: VITAMIN E 400 UNIT CAPSULE PO (09:09)
[2023-02-06] MEDS: INSULIN PROT/ASP (NOVOLOG 70/30) 100 UNIT/ML 68 UNIT SUBCUT (09:17)
[2023-02-06 11:00] VITALS: BP 111/86; PULSE 63; RESP 20; TEMP 36.4; O2SAT 89
[2023-02-06] MEDS: cefTRIAXone 1 GM in 0.9 % SODIUM CHLORIDE Mini-bag 100 ML IVPB (12:48)
[2023-02-06] MEDS: 0.9 % SODIUM CHLORIDE 250 ml IV (12:50)
--- NOTE | 2023-02-06 15:20 | PM.DS1 ---
DS: Providers Provider Date Seen: 02/06/23 Date of admission: 02/02/23 23:48 Primary care physician: Shirley Fleming DO Admitting Clinician: Bonnie Oliver MD Consults: 02/02/23 23:47 Consult to Respiratory Therapy [CONS] Routine Comment: Reason(s) for RT Consult:: Consult Consult to Wound Care [CONS] Routine Comment: Consulting Provider: Claire Lopez Attending Physician on discharge: Lou Fernandez [facility], PA-C [place] Hospitalist Date of Discharge: 02/06/23 DS: Diagnosis Discharge Diagnosis (1) Respiratory failure: Status: Acute Problem details: Acute hypoxemic respiratory failure R lung base - CAP - less convincing on 02/04 xray on azithromycin and rocephin. Patient completed 5 day course of IV antibiotics, needing no further oral antibiotics on discharge. oxygen demand decreasing - on room air 02/05 reinstate diuresis on 02/04, Lasix 60 mg b.i.d.. Daily weights, strict I&Os. On day of discharge, patient remained stable on room air. (2) Pneumonia: Status: Acute Problem details: Community-acquired Management as above. Completed 5 day course of IV antibiotics prior to discharge. (3) Chronic diastolic heart failure: Status: Chronic Problem details: 11/06/2022 echocardiogram: Normal left ventricular size, moderately increased wall thickness, normal global systolic function, calculated EF of 64%. Right ventricular cavity size is normal, global systolic RV function is normal. Mildly enlarged left atrium. Mitral valve is sclerotic, trace mitral regurgitation. Grade 2 pattern of LV diastolic filling. The inferior vena cava is dilated, respiratory size variation is less than 50%. Compared to prior exam report of 03/10/2021, there has been no significant change. Initially, reduce furosemided to 80 mg once a day at this time and follow electrolytes. Her volume status appears to be about right or mildly dry at this time. 02/04: diuresis reinstated, Lasix 60 mg b.i.d.. Continue to monitor with daily weights and I&Os On day of discharge, Weight remains stable. BUN and creatinine down trending. Patient instructed to resume home dose of Lasix 80 mg b.i.d.. Encouraged daily weights. Will need to follow closely with PCP for ongoing management heart failure. (4) Diabetic nephropathy associated with type 2 diabetes mellitus: Status: Chronic Problem details: Proteinuria, nearly nephrotomy 06/28/2022 when last saw compilation clerk, Dr. Alfonzo Wheatley. Avoid nonsteroidal anti-inflammatory medications. Attempt to optimize diabetes mellitus. Would benefit from SGLT2i, cannot afford. Would benefit from GLP1 agonist, cannot afford. Would benefit from weight loss, but seemingly unable to achieve. Patient encouraged to continue with glucose checks with meals and at bedtime. Will need to work with PCP to adjust insulin dosing. (5) Morbid obesity with BMI of 50.0-59.9, adult: Status: Chronic Problem details: Could potentially benefit from assessment for possible surgical intervention, given multiple complications in association with the same. (6) Diabetic foot ulcer: Status: Chronic Problem details: Left plantar 1st MTP ulcer. Daily wound management while in the hospital. Continue with outpatient wound clinic and home care services. (7) Venous insufficiency of both lower extremities: Status: Chronic Problem details: Discussed elevation and compression daily. Continue with outpatient wound care clinic. (8) Acute kidney injury: Status: Acute Problem details: Improved to 1.7 from 2.0 on 02/04 after restarting diuresis, 1.3 baseline Allopurinol was cut in half on admission to 150 mg daily. She will continue on this dose at discharge until reassessed with PCP. (9) Intertrigo: Status: Acute Problem details: Continue skin cares in abdominal folds and nystatin t.i.d.. Follow-up with PCP for ongoing management. DS: Summary Hospital Course Hospital Course: [age] year old female past medical history significant for poorly controlled diabetes mellitus type 2, venous insufficiency, lymphedema,chronic wounds,hypertension, obstructive sleep apnea, chronic diastolic heart failurewas admitted to the medical floor for further management acute hypoxic respiratory failure in setting of community-acquired pneumonia and acute on chronic diastolic heart failure. Course of care and details as noted above. Remainder of chronic medical comorbidities were monitored and managed with home medications. patient is discharged with reinstatement of home health cares Including wound cares. Outpatient follow-up with PCP for post hospital visit. Status at Discharge Overall status at discharge: patient is progressing back to baseline Time Spent with Patient Time attestation: Total time spent providing and/or coordinating discharge services: Time spent: Greater than 30 minutes Exam Narrative: Exam Narrative: PHYSICAL EXAM General: Pleasant, conversant, NAD HEENT: Normocephalic, atraumatic, sclera white, EOMI, oral mucosa moist Cardiovascular: RRR, S1S2. +3 pitting edema Pulmonary: Mildly diminished without rhonchi, rales, expiratory wheezes. No dyspnea on room air Neurological: Alert, answering questions appropriately, cranial nerves intact, no focal findings Extremities: AROMI. Neurovascularly intact Skin: Exposed skin warm, dry. lower extremity wraps are off this morning, mild serosanguinous drainage noted. Const: Vital Signs, click to edit/add: Vital Signs - 24 hr 02/05/23 15:35 02/05/23 15:35 02/05/23 19:00 Temperature 97.7 F 97.7 F Pulse Rate [Pulse Oximeter] 60 62 Respiratory Rate 20 20 20 Blood Pressure [Le ft Arm] Blood Pressure [Ri ght Arm] 155/70 H 131/51 L Pulse Oximetry 94 94 88 Oxygen Delivery Me thod Room Air Room Air Room Air Oxygen Flow Rate 0 0 02/05/23 23:00 02/05/23 23:00 02/05/23 23:00 Temperature 97.8 F Pulse Rate [Pulse Oximeter] 70 70 Respiratory Rate 20 20 20 Blood Pressure [Le ft Arm] Blood Pressure [Ri ght Arm] 153/59 H Pulse Oximetry 89 89 Oxygen Delivery Ca thod Room Air Room Air Oxygen Flow Rate 0 0 02/06/23 03:00 02/06/23 07:00 02/06/23 07:00 Temperature 97.8 F 97.8 F Pulse Rate [Pulse Oximeter] 67 72 Respiratory Rate 20 18 18 Blood Pressure [Le ft Arm] 144/73 H Blood Pressure [Ri ght Arm] 155/82 H Pulse Oximetry 90 92 92 Oxygen Delivery Ca thod Room Air Room Air Room Air Oxygen Flow Rate 0 02/06/23 11:00 Temperature 97.5 F L Pulse Rate [Pulse Oximeter] 63 Respiratory Rate 20 Blood Pressure [Le ft Arm] Blood Pressure [Ri ght Arm] 111/86 Pulse Oximetry 89 Oxygen Delivery Me thod Room Air Oxygen Flow Rate DS: Data Data Completed and Pending Labs on day of discharge: Labs from last 24 hours 02/06/23 06:30 WBC 10.32 RBC 4.07 Hgb 11.3 L Hct 37.7 MCV 93 MCH 28 MCHC 30 L Plt Count 262 Sodium 139 Potassium 4.9 Chloride 101 Carbon Dioxide 25 Anion Gap 13 BUN 80 H Creatinine 1.5 Estimated Creat Clear 31.85 Estimated GFR 37 Glucose 130 H Calcium 8.9 Total Bilirubin 0.4 AST 30 ALT 22 Alkaline Phosphatase 134 C-Reactive Protein 1.8 H Total Protein 6.8 Albumin 3.7 Discharge Plan Discharge Disposition: Home, Self-Care Date of Admission: 02/02/23 23:48 Attending Provider on Discharge: Lou Fernandez Consulting Providers: Claire Lopez Primary Care Provider: Shirley Fleming Condition: Improved Anticipated Discharge Date/Time: 02/06/23 12:15 Discharge Medications: New nystatin 100,000 unit/gram Cream 1 applic topical TID Qty: 45 0RF allopurinol 300 mg Tablet 150 mg PO DAILY Qty: 30 0RF Continued latanoprost 0.005 % drops 1 drp ophthalmic (eye) QPM Rx Instructions: BOTH EYES metolazone 2.5 mg tablet 2.5 mg PO .WEEKLY Rx Instructions: THURSDAYS prednisolone acetate 1 % drops,suspension 1 drp ophthalmic (eye-left) BID levothyroxine 125 mcg tablet 125 mcg PO DAILY brimonidine 0.2 % drops 1 drp ophthalmic (eye-left) BID nitroglycerin 0.4 mg tablet, sublingual 0.4 mg sublingual Q5M PRN montelukast 10 mg tablet 10 mg PO HS timolol maleate 0.5 % drops 1 drp ophthalmic (eye-right) QAM losartan 100 mg tablet 100 mg PO DAILY dorzolamide 2 % drops 1 drp ophthalmic (eye-left) BID albuterol sulfate 90 mcg/actuation HFA aerosol inhaler 1 - 2 puff INHALATION Q4H PRN ascorbic acid (vitamin C) 500 mg tablet 500 mg PO BID vitamin B complex [B Complex-Vitamin B12] Tablet 1 tab PO DAILY Humulin 70/30 U-100 Insulin 100 unit/mL (70-30) suspension 53 unit subcut QPM loratadine [Allerclear] 10 mg tablet 10 mg PO HS magnesium 250 mg tablet 500 mg PO DAILY multivitamin [Daily Multi-Vitamin] Tablet 1 tab PO DAILY furosemide 40 mg tablet 80 mg PO BID Qty: 120 0RF cholecalciferol (vitamin D3) [Vitamin D3] 125 mcg (5,000 unit) tablet 5,000 unit PO DAILY calcium carbonate-vitamin D3 [Calcium 600 + D(3)] 600 mg-5 mcg (200 unit) tablet 1 tab PO DAILY amlodipine 10 mg tablet 10 mg PO HS rosuvastatin 10 mg tablet 10 mg PO HS acetaminophen 650 mg tablet 650 mg PO QID Novolin 70/30 U-100 Insulin 100 unit/mL (70-30) suspension 68 unit subcut QAM metoprolol tartrate 50 mg tablet 100 mg PO QAM metoprolol tartrate 50 mg tablet 50 mg PO HS PreserVision Lutein 226-90-0.8-5 mg capsule 1 cap PO DAILY vitamin E 268 mg (400 unit) capsule 268 mg PO DAILY Zinc-15 66 mg tablet 66 mg PO DAILY Discontinued allopurinol 100 mg tablet 300 mg PO DAILY Discharge Orders: Discharge Order (Routine); Ordered 02/06/23 Ordered By: Lou Fernandez Patient Education: Allopurinol (By mouth), Nystatin (On the skin), Bacterial Pneumonia (GEN) Additional Instructions: You completed a 5 day course of antibiotics for pneumonia. Resume your usual home doses of your diuretic and blood pressure medications. Weigh yourself daily. Follow-up with your PCP for ongoing diuretic management. Your allopurinol was cut in half due to your decreased kidney function. Continue at this half dose until you follow-up with your PCP to discuss further management. You may need to adjust your insulin dosing based on your blood sugars. Continue to check your blood sugar with every meal and at bedtime. Continue to follow a low-salt, diabetic diet. [facility] TO RESUME HOME CARE. WOUND CARE 2 TIMES A WEEK. HOME HEALTH AIDE 2 TIMES A WEEK. Activity Level: No Restrictions Discharge Diet: Diabetic and Heart Healthy (2 gm sodium, low fat) Follow Up Appointments: Shirley Fleming DO [Primary Care Provider] - 02/08/23 1:20 pm ([facility] for post hospital follow-up for pneumonia, heart failure, poorly managed diabetes with chronic wounds) Forms: [employer] Info Instructions
--- NOTE | 2023-02-06 16:31 | PC.NURSE ---
Patient discharged at 1617 after completing shower per her request. Wound care to plantar surface of L foot completed by preceptor RN. VSS and patient afebrile prior to discharge. Patient has had no c/o N/V, pain or CP noted prior to discharge. She was able to complete ADLs independently. Discharge paperwork reviewed and signed.
== END 2023-02-06 16:17 | disposition home health service (06) | DRG 166 ==
LOC: ED 22:40 → MEDSURG 23:02
PROVIDERS: Family Medicine; Admitting Provider Family Medicine; Emergency Provider Family Medicine; PCP Family Medicine; Visit Provider Family Medicine
DX: J96.01 Acute respiratory failure with hypoxia (principal); I50.33 Acute on chronic diastolic (congestive) heart failure; J18.9 Pneumonia, unspecified organism; L97.422 Non-pressure chronic ulcer of left heel and midfoot with fat layer exposed; I13.0 Hypertensive heart and chronic kidney disease with heart failure and stage 1 through stage 4 chronic kidney disease, or unspecified chronic kidney disease; L03.116 Cellulitis of left lower limb; N17.9 Acute kidney failure, unspecified; Z68.43 Body mass index [BMI] 50.0-59.9, adult; E11.22 Type 2 diabetes mellitus with diabetic chronic kidney disease; N18.9 Chronic kidney disease, unspecified; Z79.4 Long term (current) use of insulin; E03.9 Hypothyroidism, unspecified; E11.621 Type 2 diabetes mellitus with foot ulcer; E11.65 Type 2 diabetes mellitus with hyperglycemia; E11.21 Type 2 diabetes mellitus with diabetic nephropathy; E66.01 Morbid (severe) obesity due to excess calories; L30.4 Erythema intertrigo; I87.2 Venous insufficiency (chronic) (peripheral); I89.0 Lymphedema, not elsewhere classified; G47.33 Obstructive sleep apnea (adult) (pediatric)
CPT/HCPCS: 36415; 71045; 71046; 80048; 80053; 80069; 82330; 82803; 82962; 83036; 83735; 83880; 84145; 84443; 84484; 85025; 85027; 85379; 86140; 87631; 93005; 94664; 94761; 99284; 99285; A9153; A9270; J0456; J0696; J1650; J1940; J7050; J7120

== ENCOUNTER 2023-02-12 12:55 | Outpatient (CLI) | payer MEDICARE, BC, SELFPAY | END 2023-02-12 12:56 | disposition home or self-care (01) | LOC: WOUND 12:56 | PROVIDERS: PCP Family Medicine; Visit Provider Nurse Practitioner Family | DX: E11.621 Type 2 diabetes mellitus with foot ulcer (principal); L97.525 Non-pressure chronic ulcer of other part of left foot with muscle involvement without evidence of necrosis; I89.0 Lymphedema, not elsewhere classified; Z79.4 Long term (current) use of insulin; Z79.84 Long term (current) use of oral hypoglycemic drugs | CPT/HCPCS: 11042 ==

== ENCOUNTER 2023-02-13 11:53 | Emergency (ER) | payer MEDICARE, BC, SELFPAY ==
[2023-02-13 12:12] VITALS: BP 142/67; PULSE 53; RESP 28; TEMP 36.8; O2SAT 88; BMI 56.2
--- NOTE | 2023-02-13 12:19 | ED.GENADULT ---
HPI - General Adult General Chief complaint: Shortness of Breath/Dyspnea Stated complaint: low Oxygen Time Seen by Provider: 02/13/23 11:57 History of Present Illness HPI narrative: Patient reports recent hospitalization for pneumonia. Describes continued SOB especially with any activity. 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 Had a wound care nurse out to her apartment today that was concerned with low sats recordings 68-year-old woman presenting to the emergency department with concern of shortness of breath. Sounds like it has been a bit worse over the last couple of days. Particularly with exertion. Climbing up the stairs requires number of minutes to recover. She is having some left-sided chest discomfort. Home health visited noting her oxygen saturations and 77% on exertion. Was admitted to this facility discharge but a week ago with pneumonia and acute kidney injury. Was diuresed. She was to do daily weights but scale is broken. Is also underlying history of asthma but no evaluation recently. Only has a rescue inhaler which she uses numerous times a day with minimal affect. Has not noted a fever. has been sick over this last week in the home unspecified cold symptoms I gather. Blister on the left lower leg has opened. Was attended to by home health is noted today. No concerns of infection over the lower legs. Past medical complicated by heart failure, diabetes, nephropathy, sleep apnea, obesity, reactive airway of some degree. Generally sleeps in a couch with multiple pillows. This is chronic. She reports pending hospital bed Did speak with Respiratory therapy later who were involved in her care in this facility. Caity considers her baseline oxygen saturation at rest between 90-94%. Goal for hospital discharge was between 88 and 92% on room air. I have reviewed Vital recordings over her stay. Was at times in the mid 90s but this was oxygen aided. Later she says has she just feels she needs to be in her usual place of residence, her apartment where there are no stairs. She feels she needs more time to heal and rest. Unfortunately her ex lives there as well mostly separately, and disturbs her sleep with the television all night Related Data Home Medications Medication Instructions Recorded Confirmed brimonidine 0.2 % eye drops 1 drp ophthalmic (eye-left) BID 11/06/22 02/03/23 dorzolamide 2 % eye drops 1 drp ophthalmic (eye-left) BID 11/06/22 02/03/23 latanoprost 0.005 % eye drops 1 drp ophthalmic (eye) QPM 11/06/22 02/03/23 levothyroxine 125 mcg tablet 125 mcg PO DAILY 11/06/22 02/03/23 losartan 100 mg tablet 100 mg PO DAILY 11/06/22 02/03/23 metolazone 2.5 mg tablet 2.5 mg PO .WEEKLY 11/06/22 02/03/23 montelukast 10 mg tablet 10 mg PO HS 11/06/22 02/03/23 nitroglycerin 0.4 mg sublingual 0.4 mg sublingual Q5M PRN 11/06/22 02/03/23 tablet prednisolone acetate 1 % eye 1 drp ophthalmic (eye-left) BID 11/06/22 02/03/23 drops,suspension timolol maleate 0.5 % eye drops 1 drp ophthalmic (eye-right) QAM 11/06/22 02/03/23 albuterol sulfate 90 mcg/actuation 1 - 2 puff inhalation Q4H PRN 11/07/22 02/03/23 aerosol inhaler ascorbic acid (vitamin C) 500 mg 500 mg PO BID 11/07/22 02/03/23 tablet insulin human U-100 NPH-regulr 53 unit subcut QPM 11/07/22 02/03/23 70-30 mix 100 unit/mL subcutaneous susp (Humulin 70/30 U-100 Insulin) loratadine 10 mg tablet 10 mg PO HS 11/07/22 02/03/23 (Allerclear) magnesium 250 mg tablet 500 mg PO DAILY 11/07/22 02/03/23 multivitamin (Daily Multi-Vitamin 1 tab PO DAILY 11/07/22 02/03/23 tablet) vitamin B complex (B 1 tab PO DAILY 11/07/22 02/03/23 Complex-Vitamin B12 tablet) amlodipine 10 mg tablet 10 mg PO HS 11/29/22 02/03/23 calcium carbonate 600 mg-vitamin 1 tab PO DAILY 11/29/22 02/03/23 D3 5 mcg (200 unit) tablet (Calcium 600 + D(3)) cholecalciferol (vitamin D3) 125 5,000 unit PO DAILY 11/29/22 02/03/23 mcg (5,000 unit) tablet (Vitamin D3) rosuvastatin 10 mg tablet 10 mg PO HS 11/29/22 02/03/23 acetaminophen 650 mg tablet 650 mg PO QID 12/05/22 02/03/23 insulin human U-100 NPH-regulr 68 unit subcut QAM 12/21/22 02/03/23 70-30 mix 100 unit/mL subcutaneous susp (Novolin 70/30 U-100 Insulin) metoprolol tartrate 50 mg tablet 50 mg PO HS 12/21/22 02/03/23 metoprolol tartrate 50 mg tablet 100 mg PO QAM 12/21/22 02/03/23 vit C 226 mg-vit E 90 mg-copper 1 cap PO DAILY 12/21/22 02/03/23 0.8 mg-zinc oxide-lutein 5 mg capsule (PreserVision Lutein) vitamin E 268 mg (400 unit) capsule 268 mg PO DAILY 12/21/22 02/03/23 zinc sulfate 66 mg tablet (Zinc-15) 66 mg PO DAILY 12/21/22 02/03/23 Previous Rx's Medication Instructions Recorded furosemide 40 mg tablet 80 mg (2 x 40 mg) PO BID #120 tabs 11/07/22 allopurinol 300 mg tablet 150 mg (1/2 x 300 mg) PO DAILY #30 02/06/23 tabs nystatin 100,000 unit/gram topical 1 applic topical TID #45 grams 02/06/23 cream Allergies Allergy/AdvReac Type Severity Reaction Status Date / Time clindamycin Allergy Severe Verified 12/21/22 15:33 hydromorphone Allergy Severe Stopped Verified 12/21/22 15:33 Breathing morphine Allergy Severe Stopped Verified 12/21/22 15:33 Breathing NSAIDS (Non-Steroidal Allergy Severe Anaphylaxis Verified 12/21/22 15:33 Anti-Inflamma penicillin V Allergy Severe Hypertensio Verified 12/21/22 15:33 n aspirin AdvReac nausea and Verified 12/21/22 15:33 vomiting Review of Systems Status of ROS: Reports: 6 or more systems reviewed and unremarkable except as noted in History and below [facility] Medical History Cellulitis of left lower leg ?L03.116 - Cellulitis of left lower limb (ICD-10) Acute on chronic diastolic heart failure ?I50.33 - Acute on chronic diastolic (congestive) heart failure (ICD-10) Acute kidney injury superimposed on chronic kidney disease ?N17.9 - Acute kidney failure, unspecified (ICD-10) ?N18.9 - Chronic kidney disease, unspecified (ICD-10) Pulmonary edema with congestive heart failure ?I50.1 - Left ventricular failure, unspecified (ICD-10) Diabetic foot ulcer ?E11.621 - Type 2 diabetes mellitus with foot ulcer (ICD-10) ?L97.509 - Non-pressure chronic ulcer of other part of unspecified foot with unspecified severity (ICD-10) History of fracture of left ankle ?Z87.81 - Personal history of (healed) traumatic fracture (ICD-10) Severe left ventricular hypertrophy ?I51.7 - Cardiomegaly (ICD-10) lobsterman 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 use of insulin ?Z79.4 - group home (current) use of insulin (ICD-10) Poorly controlled type 2 diabetes mellitus ?E11.65 - Type 2 diabetes mellitus with hyperglycemia (ICD-10) History of sciatica ?Z86.69 - Personal history of other diseases of the nervous system and sense organs (ICD-10) Primary hypothyroidism ?E03.9 - Hypothyroidism, unspecified (ICD-10) Asthma ?J45.909 - Unspecified asthma, uncomplicated (ICD-10) Vitamin D deficiency ?E55.9 - Vitamin D deficiency, unspecified (ICD-10) Rectocele ?N81.6 - Rectocele (ICD-10) Essential hypertension ?I10 - Essential (primary) hypertension (ICD-10) Obstructive sleep apnea ?G47.33 - Obstructive sleep apnea (adult) (pediatric) (ICD-10) Chronic diastolic heart failure ?I50.32 - Chronic diastolic (congestive) heart failure (ICD-10) Morbid obesity with BMI of 50.0-59.9, adult ?E66.01 - Morbid (severe) obesity due to excess calories (ICD-10) ?Z68.43 - Body mass index [BMI] 50.0-59.9, adult (ICD-10) History of nephrolithiasis ?Z87.442 - Personal history of urinary calculi (ICD-10) Lumbar back pain with radiculopathy affecting left lower extremity ?M54.16 - Radiculopathy, lumbar region (ICD-10) Hypertriglyceridemia ?E78.1 - Pure hyperglyceridemia (ICD-10) Osteoarthritis of knees, bilateral ?M17.0 - Bilateral primary osteoarthritis of knee (ICD-10) Chronic kidney disease ?N18.9 - Chronic kidney disease, unspecified (ICD-10) Venous insufficiency of both lower extremities ?I87.2 - Venous insufficiency (chronic) (peripheral) (ICD-10) Diabetic nephropathy associated with type 2 diabetes mellitus ?E11.21 - Type 2 diabetes mellitus with diabetic nephropathy (ICD-10) Surgical History Status post total abdominal hysterectomy ?Z90.710 - Acquired absence of both cervix and uterus (ICD-10) Status post thyroidectomy ?E89.0 - Postprocedural hypothyroidism (ICD-10) History of esophagogastroduodenoscopy ?Z98.890 - Other specified postprocedural states (ICD-10) Status post cholecystectomy ?Z90.49 - Acquired absence of other specified parts of digestive tract (ICD-10) History of intraocular lens implant ?Z96.1 - Presence of intraocular lens (ICD-10) Cataract extraction status ?Z98.49 - Cataract extraction status, unspecified eye (ICD-10) Status post appendectomy ?Z90.49 - Acquired absence of other specified parts of digestive tract (ICD-10) Status post colonoscopy with polypectomy ?Z98.890 - Other specified postprocedural states (ICD-10) Family History Other Diabetes High blood pressure High cholesterol Social History Narrative: . Lives alone. Three supportive children. Designates daughterAlanna, , primary contact for power of assistant prosecuting attorney for health should that be required. Designates son, Nathan, [phone], secondary contact for power of assistant prosecuting attorney for health should that be required. Requests that we attempt resuscitation in the event of cardiopulmonary demise, stressing that she does not want to be kept alive as a vegetable should that come to pass. She reports worsening mobility problems. It is difficult due to her back pain and radicular symptoms going down her right leg for her to get up and walk around. To a lesser extent her left foot also bothers her with weight-bearing. She does walk with a walker. What is your current living situation?: I presently have a place to live Problems where you live: mold Problems where you live details: mold In the past 12 months, utilities in danger of being shut off: no In past 12 months, lack of transportation kept you from medical appts, meetings, work, or getting things needed for daily living: no In the past 12 mos, have been you worried that your food would run out before you had money to buy more?: sometimes true In the past 12 mos, the food you bought just didn't last and you didn't have money to buy more?: sometimes true Highest level of school completed/degree received: Associate degree: academic program Smoking Status: Never smoker How often do you have a drink containing alcohol: never How often do you have six or more drinks on one occasion: Never AUDIT-C Alcohol total score: 0 Non-prescribed substance use: denies use Caffeine: Yes How often does anyone, including family, friends and others, physically hurt you: never How often does anyone, including family, friends and others, insult or talk down to you: fairly often How often does anyone, including family, friends and others, threaten you with harm: never How often does anyone, including family, friends and others, scream or curse at you: never service: No Exam Narrative: Exam Narrative: Pleasant. Seems tired. Lying semi recumbent in bed on her left side. Cranial nerves 2-12 intact. She is able to speak in complete sentences. Oropharynx is dry. She is limited by obesity in movements but able to move all extremities with good strength I think. Lungs actually are clear other than some clearing crepitus at the bases. No wheeze. Heart in a regular rate and rhythm. Distant. Abdomen is obese soft nontender. There are no inflammatory changes in skin folds at this time. Lower extremities with foam and light compression wraps somewhat in place. They appear clean off over the tibia. There is an area at the anterior left tibia including a 1 cm erosion that looks to have just sloughed a blister. I do not see cellulitic change in the lower extremities. She is wearing a postop sandal. Changes otherwise consistent with chronic edema and obesity. Const: Vital Signs, click to edit/add: Vital Signs - 24 hr 02/13/23 16:17 Pulse Rate [Pulse Oximeter] 66 Pulse Oximetry 85 L Course Vital Signs Vital signs: Initial Vital Signs Temperature 98.3 F 02/13/23 12:12 Temperature Source Temporal Artery Scan 02/13/23 12:12 Pulse Rate 53 L 02/13/23 12:12 Respiratory Rate 28 H 02/13/23 12:12 Blood Pressure 142/67 H 02/13/23 12:12 Blood Pressure Mean 92 02/13/23 12:12 Pulse Oximetry 88 02/13/23 12:12 Oxygen Delivery Method Room Air 02/13/23 12:12 Vital Signs Temperature 98.3 F 02/13/23 12:12 Pulse Rate 53 L 02/13/23 12:12 Respiratory Rate 28 H 02/13/23 12:12 Blood Pressure 142/67 H 02/13/23 12:12 Pulse Oximetry 88 02/13/23 12:12 Oxygen Delivery Method Room Air 02/13/23 12:12 Temperature 98.3 F 02/13/23 12:12 Pulse Rate 66 02/13/23 16:17 Respiratory Rate 18 02/13/23 14:30 Blood Pressure 134/61 02/13/23 14:30 Pulse Oximetry 85 L 02/13/23 16:17 Oxygen Delivery Method Room Air 02/13/23 14:30 Medications Administered Medications: Discontinued Medications Generic Name Dose Route Start Last Admin Trade Name Freq PRN Reason Stop Dose Admin Furosemide 40 mg 02/13/23 15:05 02/13/23 15:18 Furosemide 10 Mg/Ml Inj IVP 02/13/23 15:06 40 mg ONCE ONE Administration Medical Decision Making [facility] Narrative Medical decision making narrative: I suspect most likely a CHF exacerbation complicated by obesity/Pickwick[place], sleep apnea and does not use a CPAP and deconditioning. Unknown regular/baseline weights. She swears she only missed 1 dosing of furosemide. Takes metolazone once weekly and would be due in 2 days. Does not have I think a reversible lung component though has been using her albuterol inhaler regularly understandably I think without any relief. I do not think nebs would be helpful here. Certainly could be pneumonia here as well. Is a set up for pulmonary embolus. Check for COVID and influenza Monitoring on oximetry. Will check renal function and anticipating dosing with diuretic. Look for indication of infection. Chest x-ray reviewed by me looks show some increased increased pulmonary edema. Do not see clear infiltrate. Cardiomegaly consistent with prior. Trace costophrenic angle effusion looks improved from prior. Delay in chemistries due to hemolyzation. Pending results of this I have gone ahead and ordered 40 mg of furosemide for diuresis. Ultimately urinated multiple times between 400-600 mL urine out and I believe had a loose stool as well. Oxygen saturations maintained in upper 80s. Creatinine is 1.6 with a BUN of 60. ProBNP is similar to prior at 1550. Negative D-dimer a little surprisingly Overall I think is near baseline with mild exacerbation of CHF. I discussed medication management/outpatient plan with hospitalist who cared for her during last hospitalization. It has been decades since she had pulmonary function testing done. I think it would be a good idea to do that again as outpatient. See patient discharge plan Medical Records Medical records reviewed: Yes I reviewed the patient's medical records Lab Data Lab results reviewed: Yes I reviewed the patient's lab results Labs: Lab Results 02/13/23 02/13/23 02/13/23 Range/Units 13:03 13:21 13:21 WBC 11.92 H (4.50-11.00) K/uL RBC 3.90 L (4.00-5.20) m/uL Hgb 10.9 L (12.0-16.0) gm/dL Hct 36.5 (33.0-51.0) % MCV 94 (80-100) fL MCH 28 (26-34) pg MCHC 30 L (32-36) gm/dL RDW Coeff of Tad 17.4 H (11.5-15.5) % Plt Count 260 (140-440) K/uL Neut % (Auto) 79.1 H (42.0-72.0) % Lymph % (Auto) 9.5 L (20-44) % [place] % (Auto) 7.8 (0.0-11.0) % Eos % (Auto) 2.4 (0.0-7.0) % Baso % (Auto) 0.6 (0.0-3.0) % Neut # (Auto) 9.40 H (1.7-7.0) K/uL Lymph # (Auto) 1.10 (0.90-2.90) K/uL [place] # (Auto) 0.90 (0.00-0.90) K/UL Eos # (Auto) 0.30 (0.00-0.50) K/uL Baso # (Auto) 0.10 (0.00-0.30) K/uL Abs Immat Gran (auto) 0.10 (0.00-0.30) K/uL Imm/Tot Granulo (auto) 0.6 % D-Dimer Quant (PE/DVT) 0.49 (0.00-0.50) ug/ml VBG pH 7.398 (7.32-7.43) VBG pCO2 49 (40-50) mmHG VBG pO2 35.2 (25-47) mmHG VBG HCO3 30 H (21-28) mmol/L Sodium 142 (135-149) mmol/L Potassium 4.2 (3.6-5.1) mmol/L Chloride 107 (96-114) mmol/L Carbon Dioxide 29 (20-32) mmol/L Anion Gap 6 L (7-15) mEq/L BUN 60 H (7-30) mg/dL Creatinine 1.6 H (0.5-1.5) mg/dL Estimated Creat Clear 29.86 Estimated GFR 35 ml/min Glucose 56 L (60-115) mg/dL Lactate 1.1 (0.5-1.9) mmol/L Calcium 8.8 (8.4-10.6) mg/dL Magnesium 2.8 H Cancelled (1.5-2.6) mg/dL Total Bilirubin 0.7 (0.1-1.5) mg/dL Direct Bilirubin (0.0-0.5) mg/dL AST (12-35) U/L ALT (4-35) U/L Alkaline Phosphatase (40-150) U/L Troponin I (0.01-0.04) ng/mL NT-Pro-B Natriuret Pep pg/mL Total Protein (6.0-8.3) g/dL Albumin (3.3-5.0) g/dL SARS-CoV-2 (PCR) Negative SARS-CoV-2 (Negative) Influenza Type A (PCR) Negative PCR FLU A (Negative) Influenza Type B (PCR) Negative PCR FLU B (Negative) RSV (PCR) Negative PCR RSV (Negative) 02/13/23 02/13/23 02/13/23 Range/Units 13:21 13:21 13:21 WBC (4.50-11.00) K/uL RBC (4.00-5.20) m/uL Hgb (12.0-16.0) gm/dL Hct (33.0-51.0) % MCV (80-100) fL MCH (26-34) pg MCHC (32-36) gm/dL RDW Coeff of Tad (11.5-15.5) % Plt Count (140-440) K/uL Neut % (Auto) (42.0-72.0) % Lymph % (Auto) (20-44) % [place] % (Auto) (0.0-11.0) % Eos % (Auto) (0.0-7.0) % Baso % (Auto) (0.0-3.0) % Neut # (Auto) (1.7-7.0) K/uL Lymph # (Auto) (0.90-2.90) K/uL [place] # (Auto) (0.00-0.90) K/UL Eos # (Auto) (0.00-0.50) K/uL Baso # (Auto) (0.00-0.30) K/uL Abs Immat Gran (auto) (0.00-0.30) K/uL Imm/Tot Granulo (auto) % D-Dimer Quant (PE/DVT) (0.00-0.50) ug/ml VBG pH (7.32-7.43) VBG pCO2 (40-50) mmHG VBG pO2 (25-47) mmHG VBG HCO3 (21-28) mmol/L Sodium (135-149) mmol/L Potassium (3.6-5.1) mmol/L Chloride (96-114) mmol/L Carbon Dioxide (20-32) mmol/L Anion Gap (7-15) mEq/L BUN (7-30) mg/dL Creatinine (0.5-1.5) mg/dL Estimated Creat Clear Estimated GFR ml/min Glucose (60-115) mg/dL Lactate (0.5-1.9) mmol/L Calcium (8.4-10.6) mg/dL Magnesium (1.5-2.6) mg/dL Total Bilirubin Cancelled (0.1-1.5) mg/dL Direct Bilirubin 0.0 Cancelled (0.0-0.5) mg/dL AST 29 Cancelled (12-35) U/L ALT 44 H (4-35) U/L Alkaline Phosphatase (40-150) U/L Troponin I (0.01-0.04) ng/mL NT-Pro-B Natriuret Pep pg/mL Total Protein (6.0-8.3) g/dL Albumin (3.3-5.0) g/dL SARS-CoV-2 (PCR) (Negative) Influenza Type A (PCR) (Negative) Influenza Type B (PCR) (Negative) RSV (PCR) (Negative) 02/13/23 02/13/23 02/13/23 Range/Units 13:21 13:21 13:21 WBC (4.50-11.00) K/uL RBC (4.00-5.20) m/uL Hgb (12.0-16.0) gm/dL Hct (33.0-51.0) % MCV (80-100) fL MCH (26-34) pg MCHC (32-36) gm/dL RDW Coeff of Tad (11.5-15.5) % Plt Count (140-440) K/uL Neut % (Auto) (42.0-72.0) % Lymph % (Auto) (20-44) % [place] % (Auto) (0.0-11.0) % Eos % (Auto) (0.0-7.0) % Baso % (Auto) (0.0-3.0) % Neut # (Auto) (1.7-7.0) K/uL Lymph # (Auto) (0.90-2.90) K/uL [place] # (Auto) (0.00-0.90) K/UL Eos # (Auto) (0.00-0.50) K/uL Baso # (Auto) (0.00-0.30) K/uL Abs Immat Gran (auto) (0.00-0.30) K/uL Imm/Tot Granulo (auto) % D-Dimer Quant (PE/DVT) (0.00-0.50) ug/ml VBG pH (7.32-7.43) VBG pCO2 (40-50) mmHG VBG pO2 (25-47) mmHG VBG HCO3 (21-28) mmol/L Sodium (135-149) mmol/L Potassium (3.6-5.1) mmol/L Chloride (96-114) mmol/L Carbon Dioxide (20-32) mmol/L Anion Gap (7-15) mEq/L BUN (7-30) mg/dL Creatinine (0.5-1.5) mg/dL Estimated Creat Clear Estimated GFR ml/min Glucose (60-115) mg/dL Lactate (0.5-1.9) mmol/L Calcium (8.4-10.6) mg/dL Magnesium (1.5-2.6) mg/dL Total Bilirubin (0.1-1.5) mg/dL Direct Bilirubin (0.0-0.5) mg/dL AST (12-35) U/L ALT Cancelled (4-35) U/L Alkaline Phosphatase 140 Cancelled (40-150) U/L Troponin I < 0.01 L Cancelled (0.01-0.04) ng/mL NT-Pro-B Natriuret Pep 1550 pg/mL Total Protein (6.0-8.3) g/dL Albumin (3.3-5.0) g/dL SARS-CoV-2 (PCR) (Negative) Influenza Type A (PCR) (Negative) Influenza Type B (PCR) (Negative) RSV (PCR) (Negative) 02/13/23 02/13/23 02/13/23 Range/Units 13:21 13:21 13:21 WBC (4.50-11.00) K/uL RBC (4.00-5.20) m/uL Hgb (12.0-16.0) gm/dL Hct (33.0-51.0) % MCV (80-100) fL MCH (26-34) pg MCHC (32-36) gm/dL RDW Coeff of Tad (11.5-15.5) % Plt Count (140-440) K/uL Neut % (Auto) (42.0-72.0) % Lymph % (Auto) (20-44) % [place] % (Auto) (0.0-11.0) % Eos % (Auto) (0.0-7.0) % Baso % (Auto) (0.0-3.0) % Neut # (Auto) (1.7-7.0) K/uL Lymph # (Auto) (0.90-2.90) K/uL [place] # (Auto) (0.00-0.90) K/UL Eos # (Auto) (0.00-0.50) K/uL Baso # (Auto) (0.00-0.30) K/uL Abs Immat Gran (auto) (0.00-0.30) K/uL Imm/Tot Granulo (auto) % D-Dimer Quant (PE/DVT) (0.00-0.50) ug/ml VBG pH (7.32-7.43) VBG pCO2 (40-50) mmHG VBG pO2 (25-47) mmHG VBG HCO3 (21-28) mmol/L Sodium (135-149) mmol/L Potassium (3.6-5.1) mmol/L Chloride (96-114) mmol/L Carbon Dioxide (20-32) mmol/L Anion Gap (7-15) mEq/L BUN (7-30) mg/dL Creatinine (0.5-1.5) mg/dL Estimated Creat Clear Estimated GFR ml/min Glucose (60-115) mg/dL Lactate (0.5-1.9) mmol/L Calcium (8.4-10.6) mg/dL Magnesium (1.5-2.6) mg/dL Total Bilirubin (0.1-1.5) mg/dL Direct Bilirubin (0.0-0.5) mg/dL AST (12-35) U/L ALT (4-35) U/L Alkaline Phosphatase (40-150) U/L Troponin I (0.01-0.04) ng/mL NT-Pro-B Natriuret Pep Cancelled pg/mL Total Protein 6.7 Cancelled (6.0-8.3) g/dL Albumin 3.8 Cancelled (3.3-5.0) g/dL SARS-CoV-2 (PCR) (Negative) Influenza Type A (PCR) (Negative) Influenza Type B (PCR) (Negative) RSV (PCR) (Negative) ECG Data Attestation: I personally reviewed and interpreted this ECG as follows: (Sinus bradycardia. Low voltage. Right bundle branch block. Rate of 49.) Discharge Plan Discharge Clinical Impression: CHF exacerbation Patient Disposition: Home, Self-Care Condition: Stable Additional Instructions: Yes. I agree with you. Being in a place where you do not have to navigate stairs would be a good idea. Same goes for a place where you can get peaceful sleep. You do need to take care of yourself 1st before you can take care of other people. Regarding your metolazone and furosemide: Take your usual dose of furosemide twice daily including this evening. Tomorrow you can dose your metolazone. Perhaps could then move your Saturday dosing of metolazone to Saturday. Please schedule a follow-up for later next week to recheck your kidney function in clinic. Most importantly avoid added salt diet/food. Return for persistent increased shortness of breath in spite of exertional activity, worsening chest pain, associated fever. Prescriptions: No Action latanoprost 0.005 % drops 1 drp ophthalmic (eye) QPM Rx Instructions: BOTH EYES metolazone 2.5 mg tablet 2.5 mg PO .WEEKLY Rx Instructions: THURSDAYS prednisolone acetate 1 % drops,suspension 1 drp ophthalmic (eye-left) BID levothyroxine 125 mcg tablet 125 mcg PO DAILY brimonidine 0.2 % drops 1 drp ophthalmic (eye-left) BID nitroglycerin 0.4 mg tablet, sublingual 0.4 mg sublingual Q5M PRN montelukast 10 mg tablet 10 mg PO HS timolol maleate 0.5 % drops 1 drp ophthalmic (eye-right) QAM losartan 100 mg tablet 100 mg PO DAILY dorzolamide 2 % drops 1 drp ophthalmic (eye-left) BID albuterol sulfate 90 mcg/actuation HFA aerosol inhaler 1 - 2 puff INHALATION Q4H PRN ascorbic acid (vitamin C) 500 mg tablet 500 mg PO BID vitamin B complex [B Complex-Vitamin B12] Tablet 1 tab PO DAILY Humulin 70/30 U-100 Insulin 100 unit/mL (70-30) suspension 53 unit subcut QPM loratadine [Allerclear] 10 mg tablet 10 mg PO HS magnesium 250 mg tablet 500 mg PO DAILY multivitamin [Daily Multi-Vitamin] Tablet 1 tab PO DAILY furosemide 40 mg tablet 80 mg PO BID Qty: 120 0RF nystatin 100,000 unit/gram Cream 1 applic topical TID Qty: 45 0RF allopurinol 300 mg Tablet 150 mg PO DAILY Qty: 30 0RF cholecalciferol (vitamin D3) [Vitamin D3] 125 mcg (5,000 unit) tablet 5,000 unit PO DAILY calcium carbonate-vitamin D3 [Calcium 600 + D(3)] 600 mg-5 mcg (200 unit) tablet 1 tab PO DAILY amlodipine 10 mg tablet 10 mg PO HS rosuvastatin 10 mg tablet 10 mg PO HS acetaminophen 650 mg tablet 650 mg PO QID Novolin 70/30 U-100 Insulin 100 unit/mL (70-30) suspension 68 unit subcut QAM metoprolol tartrate 50 mg tablet 100 mg PO QAM metoprolol tartrate 50 mg tablet 50 mg PO HS PreserVision Lutein 226-90-0.8-5 mg capsule 1 cap PO DAILY vitamin E 268 mg (400 unit) capsule 268 mg PO DAILY Zinc-15 66 mg tablet 66 mg PO DAILY Follow Up/Referrals: Shirley Fleming DO [Primary Care Provider] - Stand Alone Forms: [facility] Info Instructions
--- NOTE | 2023-02-13 13:02 | CRLHL7_ITS ---
For Patients: As a result of the Century Cures Act, medical imaging exams and procedure reports are released immediately into your electronic medical record. You may view this report before your referring provider. If you have questions, please contact your health care provider. Indication: Exertional dyspnea Technique: Chest 2 views Comparison: Chest x-ray 02/04/2023 Findings/Impression: Cardiovascular and mediastinum: Cardiomegaly with aortic tortuosity. Lungs and pleural spaces: Pulmonary vascular distention with some reticular interstitial prominence suspicious for pulmonary edema which appears mildly increased compared to the prior exam. Bones and soft tissues: Diffuse idiopathic skeletal hyperostosis. Dictated by Keron Colón MD @ 02/13/2023 2:55:31 PM (Electronically Signed)
[2023-02-13 13:30] LABS: HCO3 VBG 30 mmol/L (21-28); PCO2 VBG 49 mmHG (40-50); PO2 VBG 35.2 mmHG (25-47); pH VBG 7.398 (7.32-7.43)
[2023-02-13 13:32] LABS: Lactate* 1.1 mmol/L (0.5-1.9)
[2023-02-13 14:06] LABS: Basophils Percent Auto 0.6 % (0.0-3.0); Eosinophils Percent Auto 2.4 % (0.0-7.0); Hematocrit 36.5 % (33.0-51.0); Hemoglobin* 10.9 gm/dL (12.0-16.0); Immature Granulocytes Pct Auto 0.6 %; Lymphocytes Percent Auto 9.5 % (20-44); Mean Corpuscular HGB Conc 30 gm/dL (32-36); Mean Corpuscular Hemoglobin 28 pg (26-34); Mean Corpuscular Volume 94 fL (80-100); Monocytes Percent Auto 7.8 % (0.0-11.0); Neutrophils Percent Auto 79.1 % (42.0-72.0); Platelet Count* 260 K/uL (140-440); RDW Coefficient of Variation % 17.4 % (11.5-15.5); White Blood Count* 11.92 K/uL (4.50-11.00)
[2023-02-13 14:17] LABS: PCR FLU A Negative PCR FLU A (Negative); PCR FLU B Negative PCR FLU B (Negative); PCR RSV Negative PCR RSV (Negative)
[2023-02-13 14:21] LABS: Slide Review Reflex No
[2023-02-13 14:30] VITALS: BP 134/61; PULSE 48; RESP 18; O2SAT 86
[2023-02-13 14:48] LABS: Albumin* 3.8 g/dL (3.3-5.0); Chloride* 107 mmol/L (96-114)
[2023-02-13 14:49] LABS: Potassium* 4.2 mmol/L (3.6-5.1); Sodium* 142 mmol/L (135-149)
[2023-02-13 14:51] LABS: Anion Gap 6 mEq/L (7-15); Bilirubin Total* 0.7 mg/dL (0.1-1.5); Carbon Dioxide* 29 mmol/L (20-32); Creatinine* 1.6 mg/dL (0.5-1.5); Est. Creatinine Clearance* 29.86; Estimated Glomerular Filt Rate 35 ml/min
[2023-02-13 14:52] LABS: Alanine Aminotransferase* 44 U/L (4-35); Alkaline Phosphatase* 140 U/L (40-150); Aspartate Amino Transferase* 29 U/L (12-35); Blood Urea Nitrogen* 60 mg/dL (7-30); Calcium* 8.8 mg/dL (8.4-10.6); Magnesium* 2.8 mg/dL (1.5-2.6); Total Protein* 6.7 g/dL (6.0-8.3)
[2023-02-13 14:54] LABS: SARS PCR* Negative SARS-CoV-2 (Negative)
[2023-02-13 15:04] LABS: NT Pro B Type NatriureticPept* 1550 pg/mL; Troponin I* < 0.01 ng/mL (0.01-0.04)
[2023-02-13] MEDS: FUROSEMIDE 10 MG/ML inj 40 MG IVP (15:18)
[2023-02-13 15:33] LABS: D Dimer Quantitative* 0.49 ug/ml (0.00-0.50)
--- NOTE | 2023-02-13 15:47 | ED.NURSE ---
Patient alerted staff that she felt her blood sugar was low. Fingerstick glucose was done and was 64. Patient given orange juice, crackers and peanut butter. Blood sugar recheck was 88.
[2023-02-13 16:17] VITALS: PULSE 66; O2SAT 85
[2023-02-13 17:31] LABS: Glucose* 56 mg/dL (60-115)
== END 2023-02-13 17:36 | disposition home or self-care (01) ==
PROVIDERS: Emergency Provider Family Medicine; PCP Family Medicine
DX: I50.9 Heart failure, unspecified (principal)
CPT/HCPCS: 36415; 71046; 80048; 80076; 82803; 82962; 83605; 83735; 83880; 84484; 85025; 85379; 87631; 93005; 96374; 99284; 99285; J1940

== ENCOUNTER 2023-04-04 19:05 | Emergency (ER) | payer MEDICARE, BC, SELFPAY ==
[2023-04-04 19:30] VITALS: BP 147/42; PULSE 68; RESP 16; TEMP 36.6; O2SAT 96; BMI 54.2
--- NOTE | 2023-04-04 20:14 | CRLHL7_ITS ---
For Patients: As a result of the Century Cures Act, medical imaging exams and procedure reports are released immediately into your electronic medical record. You may view this report before your referring provider. If you have questions, please contact your health care provider. INDICATION: Foot ulcer. Assess for deeper abscess. COMPARISON: MRI 24 December 2022. TECHNIQUE: Noncontrast images ankle to toes. FINDINGS: Soft tissue edema circumferentially around the ankle with skin thickening. No organized fluid. Some dystrophic mineralization at the deep margin of the inserting Achilles tendon. Prominent atherosclerosis calcification diffusely. Skin thickening and prominent subcutaneous edema extends throughout the foot more pronounced dorsally. Near-complete fatty atrophy of intrinsic muscles. No organized fluid. Moderately severe degenerative or posttraumatic arthrosis at the ankle. Surrounding ossicles and spurs. Diffuse osteopenia. Short thin metallic foreign body in the deep soft tissues of the metatarsal forefoot (image 37 series 7). Rough length is 12 mm. Dense confluent edematous soft tissues plantar medial margin 1st MTP. Suggestion of a shallow skin ulcer at this level. No definite soft tissue fluid collection. No septic arthritis or osteomyelitis within limitations of the exam. IMPRESSION: No osteomyelitis. No abscess. Diffuse soft tissue edema and skin thickening. Ulcer at the plantar 1st MTP level. Thin metallic foreign body plantar metatarsal forefoot. Please note that all CT scans at this facility use dose modulation, iterative reconstruction, and/or weight-based dosing when appropriate to reduce radiation dose to as low as reasonably achievable. Dictated by Donald Vicente MD @ 04/05/2023 7:42:20 AM (Electronically Signed)
--- NOTE | 2023-04-04 20:20 | ED.GENADULT ---
HPI - General Adult General Chief complaint: Skin/Abscess/Foreign Body Stated complaint: foot wound tunneling Time Seen by Provider: 04/04/23 19:55 Source: patient Mode of arrival: ambulatory Limitations: no limitations History of Present Illness HPI narrative: 68-year-old female with a history of chronic lymphedema and diabetes with a chronic left foot ulcer presents to the emergency department with worsening of the known ulcer. Patient reports that her daughter noticed yesterday that the foot had a blistered area and ulcer looked bigger. Patient's wound care nurse came today to dress the wound as is typically done and thought that she saw an area of new tunneling, advising the patient to go to the ED. wound care notes are reviewed. She has had cultures performed twice in the past for months. I have pictures to review from her recent wound care visits and she does have an upcoming appointment within the next couple of weeks. She is not currently on antibiotics. She denies any new injury or trauma. She does report that she has had some pain at the bottom of the 2nd toe. Current ulcers located on the plantar surface at the MTP joint area and was last sized at 0.7 mm, round and well granulated. Most recent MRI was performed in January she believes and did not show any evidence of osteomyelitis. She has not had hospitalization for this wound in the past. She admits that she has had ill-fitting shoes that had been walking around basically barefoot for quite some time. She now has a foot boot of type that she can keep the foot bed covered better. She has not had any fevers. There is no new medications. Does not notice any skin changes in other areas. Reports compliance with her diuretics. No new pulmonary, cardiac or GI changes. Prior wound care notes are reviewed. Past medical history notable for lymphedema, depression, sciatica, morbid obesity, heart failure, chronic lymphedema and chronic diabetic foot ulcer. Medications are reviewed, stable per her report, accurate as listed in EMR. Followed at [facility]. Nonsmoker. ROS notable for chronic stable issues but new only for the foot ulcer times 12 systems. Related Data Home Medications Medication Instructions Recorded Confirmed brimonidine 0.2 % eye drops 1 drp ophthalmic (eye-left) BID 11/06/22 02/03/23 dorzolamide 2 % eye drops 1 drp ophthalmic (eye-left) BID 11/06/22 02/03/23 latanoprost 0.005 % eye drops 1 drp ophthalmic (eye) QPM 11/06/22 02/03/23 levothyroxine 125 mcg tablet 125 mcg PO DAILY 11/06/22 02/03/23 losartan 100 mg tablet 100 mg PO DAILY 11/06/22 02/03/23 metolazone 2.5 mg tablet 2.5 mg PO .WEEKLY 11/06/22 02/03/23 montelukast 10 mg tablet 10 mg PO HS 11/06/22 02/03/23 nitroglycerin 0.4 mg sublingual 0.4 mg sublingual Q5M PRN 11/06/22 02/03/23 tablet prednisolone acetate 1 % eye 1 drp ophthalmic (eye-left) BID 11/06/22 02/03/23 drops,suspension timolol maleate 0.5 % eye drops 1 drp ophthalmic (eye-right) QAM 11/06/22 02/03/23 albuterol sulfate 90 mcg/actuation 1 - 2 puff inhalation Q4H PRN 11/07/22 02/03/23 aerosol inhaler ascorbic acid (vitamin C) 500 mg 500 mg PO BID 11/07/22 02/03/23 tablet insulin human U-100 NPH-regulr 53 unit subcut QPM 11/07/22 02/03/23 70-30 mix 100 unit/mL subcutaneous susp (Humulin 70/30 U-100 Insulin) loratadine 10 mg tablet 10 mg PO HS 11/07/22 02/03/23 (Allerclear) magnesium 250 mg tablet 500 mg PO DAILY 11/07/22 02/03/23 multivitamin (Daily Multi-Vitamin 1 tab PO DAILY 11/07/22 02/03/23 tablet) vitamin B complex (B 1 tab PO DAILY 11/07/22 02/03/23 Complex-Vitamin B12 tablet) amlodipine 10 mg tablet 10 mg PO HS 11/29/22 02/03/23 calcium carbonate 600 mg-vitamin 1 tab PO DAILY 11/29/22 02/03/23 D3 5 mcg (200 unit) tablet (Calcium 600 + D(3)) cholecalciferol (vitamin D3) 125 5,000 unit PO DAILY 11/29/22 02/03/23 mcg (5,000 unit) tablet (Vitamin D3) rosuvastatin 10 mg tablet 10 mg PO HS 11/29/22 02/03/23 acetaminophen 650 mg tablet 650 mg PO QID 12/05/22 02/03/23 insulin human U-100 NPH-regulr 68 unit subcut QAM 12/21/22 02/03/23 70-30 mix 100 unit/mL subcutaneous susp (Novolin 70/30 U-100 Insulin) metoprolol tartrate 50 mg tablet 50 mg PO HS 12/21/22 02/03/23 metoprolol tartrate 50 mg tablet 100 mg PO QAM 12/21/22 02/03/23 vit C 226 mg-vit E 90 mg-copper 1 cap PO DAILY 12/21/22 02/03/23 0.8 mg-zinc oxide-lutein 5 mg capsule (PreserVision Lutein) vitamin E 268 mg (400 unit) capsule 268 mg PO DAILY 12/21/22 02/03/23 zinc sulfate 66 mg tablet (Zinc-15) 66 mg PO DAILY 12/21/22 02/03/23 Previous Rx's Medication Instructions Recorded furosemide 40 mg tablet 80 mg (2 x 40 mg) PO BID #120 tabs 11/07/22 allopurinol 300 mg tablet 150 mg (1/2 x 300 mg) PO DAILY #30 02/06/23 tabs nystatin 100,000 unit/gram topical 1 applic topical TID #45 grams 02/06/23 cream sulfamethoxazole 400 1 tab PO BID #14 tabs 04/04/23 mg-trimethoprim 80 mg tablet (Bactrim) Allergies Allergy/AdvReac Type Severity Reaction Status Date / Time clindamycin Allergy Severe Verified 12/21/22 15:33 hydromorphone Allergy Severe Stopped Verified 12/21/22 15:33 Breathing morphine Allergy Severe Stopped Verified 12/21/22 15:33 Breathing NSAIDS (Non-Steroidal Allergy Severe Anaphylaxis Verified 12/21/22 15:33 Anti-Inflamma penicillin V Allergy Severe Hypertensio Verified 12/21/22 15:33 n aspirin AdvReac nausea and Verified 12/21/22 15:33 vomiting [facility] Medical History Cellulitis of left lower leg ?L03.116 - Cellulitis of left lower limb (ICD-10) Acute on chronic diastolic heart failure ?I50.33 - Acute on chronic diastolic (congestive) heart failure (ICD-10) Acute kidney injury superimposed on chronic kidney disease ?N17.9 - Acute kidney failure, unspecified (ICD-10) ?N18.9 - Chronic kidney disease, unspecified (ICD-10) Pulmonary edema with congestive heart failure ?I50.1 - Left ventricular failure, unspecified (ICD-10) Diabetic foot ulcer ?E11.621 - Type 2 diabetes mellitus with foot ulcer (ICD-10) ?L97.509 - Non-pressure chronic ulcer of other part of unspecified foot with unspecified severity (ICD-10) History of fracture of left ankle ?Z87.81 - Personal history of (healed) traumatic fracture (ICD-10) Severe left ventricular hypertrophy ?I51.7 - Cardiomegaly (ICD-10) 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 ?Z79.4 - buttermaker continuous churn (current) use of insulin (ICD-10) Poorly controlled type 2 diabetes mellitus ?E11.65 - Type 2 diabetes mellitus with hyperglycemia (ICD-10) History of sciatica ?Z86.69 - Personal history of other diseases of the nervous system and sense organs (ICD-10) Primary hypothyroidism ?E03.9 - Hypothyroidism, unspecified (ICD-10) Asthma ?J45.909 - Unspecified asthma, uncomplicated (ICD-10) Vitamin D deficiency ?E55.9 - Vitamin D deficiency, unspecified (ICD-10) Rectocele ?N81.6 - Rectocele (ICD-10) Essential hypertension ?I10 - Essential (primary) hypertension (ICD-10) Obstructive sleep apnea ?G47.33 - Obstructive sleep apnea (adult) (pediatric) (ICD-10) Chronic diastolic heart failure ?I50.32 - Chronic diastolic (congestive) heart failure (ICD-10) Morbid obesity with BMI of 50.0-59.9, adult ?E66.01 - Morbid (severe) obesity due to excess calories (ICD-10) ?Z68.43 - Body mass index [BMI] 50.0-59.9, adult (ICD-10) History of nephrolithiasis ?Z87.442 - Personal history of urinary calculi (ICD-10) Lumbar back pain with radiculopathy affecting left lower extremity ?M54.16 - Radiculopathy, lumbar region (ICD-10) Hypertriglyceridemia ?E78.1 - Pure hyperglyceridemia (ICD-10) Osteoarthritis of knees, bilateral ?M17.0 - Bilateral primary osteoarthritis of knee (ICD-10) Chronic kidney disease ?N18.9 - Chronic kidney disease, unspecified (ICD-10) Venous insufficiency of both lower extremities ?I87.2 - Venous insufficiency (chronic) (peripheral) (ICD-10) Diabetic nephropathy associated with type 2 diabetes mellitus ?E11.21 - Type 2 diabetes mellitus with diabetic nephropathy (ICD-10) Surgical History Status post total abdominal hysterectomy ?Z90.710 - Acquired absence of both cervix and uterus (ICD-10) Status post thyroidectomy ?E89.0 - Postprocedural hypothyroidism (ICD-10) History of esophagogastroduodenoscopy ?Z98.890 - Other specified postprocedural states (ICD-10) Status post cholecystectomy ?Z90.49 - Acquired absence of other specified parts of digestive tract (ICD-10) History of intraocular lens implant ?Z96.1 - Presence of intraocular lens (ICD-10) Cataract extraction status ?Z98.49 - Cataract extraction status, unspecified eye (ICD-10) Status post appendectomy ?Z90.49 - Acquired absence of other specified parts of digestive tract (ICD-10) Status post colonoscopy with polypectomy ?Z98.890 - Other specified postprocedural states (ICD-10) Family History Other Diabetes High blood pressure High cholesterol Social History Narrative: . Lives alone. Three supportive children. Designates daughter, Alanna, , primary contact for power of wound nurse for health should that be required. Designates son, Nathan, [phone], secondary contact for power of wound nurse for health should that be required. Requests that we attempt resuscitation in the event of cardiopulmonary demise, stressing that she does not want to be kept alive as a vegetable should that come to pass. She reports worsening mobility problems. It is difficult due to her back pain and radicular symptoms going down her right leg for her to get up and walk around. To a lesser extent her left foot also bothers her with weight-bearing. She does walk with a walker. What is your current living situation?: I presently have a place to live Problems where you live: mold Problems where you live details: mold In the past 12 months, utilities in danger of being shut off: no In past 12 months, lack of transportation kept you from medical appts, meetings, work, or getting things needed for daily living: no In the past 12 mos, have been you worried that your food would run out before you had money to buy more?: sometimes true In the past 12 mos, the food you bought just didn't last and you didn't have money to buy more?: sometimes true Highest level of school completed/degree received: Associate degree: academic program Smoking Status: Never smoker How often do you have a drink containing alcohol: never How often do you have six or more drinks on one occasion: Never AUDIT-C Alcohol total score: 0 Non-prescribed substance use: denies use Caffeine: Yes How often does anyone, including family, friends and others, physically hurt you: never How often does anyone, including family, friends and others, insult or talk down to you: fairly often How often does anyone, including family, friends and others, threaten you with harm: never How often does anyone, including family, friends and others, scream or curse at you: never service: No Exam Const: Vital Signs, click to edit/add: Vital Signs - 24 hr 04/04/23 19:30 04/04/23 23:25 Temperature 97.9 F Pulse Rate [Pulse Oximeter] 68 56 L Respiratory Rate 16 20 Blood Pressure [Ri ght Upper Arm] 147/42 H 154/61 H Pulse Oximetry 96 96 Oxygen Delivery Me thod Nasal Cannula Room Air Oxygen Flow Rate 2 Documenting provider has reviewed patient's vital signs: yes Common normals: no apparent distress Other: I know patient well from my prior outpatient practice. Mentation stable. Does not seem in any respiratory or physical distress. Eye: Common normals: conjunctivae normal General eye: normal appearance of both eyes Conjunctiva: conjunctiva(e) normal Neck & C-Spine: General: normal visual inspection Resp: Common normals: normal respiratory effort and no use of accessory muscles Effort & inspection: able to speak in complete sentences Other: Decreased breath sounds at bases due to body habitus but no obvious crackles. Cardio: Common normals: regular rate, regular rhythm, S1 normal heart sound and S2 normal heart sound Rate: regular rate Rhythm: regular rhythm Heart sounds: S1 normal and S2 normal Extremity: Other: 2+ lymphedema to lower legs, stable from my previous visits. There are mild chronic stasis ulcers grade 1 along the anterior left ankle, do not appear cellulitic. Mildly weepy. On the bottom of the left foot there is the known mature foot ulcer. It does appear similar in size in the open area than the last picture I can see from February in the wound care notes. A new area of blistering which starts at the 2:00 a.m. edge of the old ulcer and tracks about 7 mm wide distally and laterally by about 1.5 cm total. When I gently stroke and probed that area, about 3-4 mL of malodorous purulent dark fluid loses from the old ulcer which I collected for culture. There does not seem to be any deep fluctuant area. The metatarsals are nontender. There are no open sores on the toes or dorsum of the feet. The right foot appears to have chronic lymphedema and some stasis but no evidence of ulcerations. Psych: Common normals: speech normal Attitude: engaged Speech: normal speech Insight: insight good Judgement: fair Skin: Narrative: Stasis noted on the left anterior ankle, foot ulcers as described above. No other open areas noted. Course Course ED Course: I have reviewed both cultures from November and December. It looks like we do have some potential oral sensitivities. All 5 bacteria have been sensitive to Bactrim which is surprising and encouraging. I did speak with Podiatry. With patient consent, I did send a picture of the wound, discuss the superficial tracking, how easily the wound drained. Together, we decided that even though we cannot get an MRI in the middle of the night, a CT would at least tell us if there was a deeper abscess. Based on the appearance of the wound, gently removing the blister to unroof the lesion and then treating the new ulcer in the same way as the previous ulcer is best. Will obtain basic labs, wound culture and arrange outpatient follow-up if labs are reassuring and there is no sign of deeper abscess. She will still likely need an outpatient MRI to look for osteomyelitis. Procedure: Wound debridement. After consultation with Podiatry, wound was cleansed with Betadine x3 no anesthesia was needed. The roof of the blister was gently trimmed away with sterile scissors and well tolerated. None of the healthy intact skin was removed. This did lead to a connection with the original ulcer. There is no bleeding. I do not see any evidence of deeper ulcer, abscess or other tracts that were not readily identified on the external exam. Wound is recovered with what appears to be a DuoDerm pad from patient's home wound care supplies and dressing. Patient will have CT to look for any signs of deeper abscess that may have been missed on exam. Reevaluation(s) Time of Reevaluation #1: 23:43 Reevaluation #1: Findings discussed with patient. CT reassuring. Patient feeling much better after abscess drainage. Discussed wound care. Referral placed for wound center. She will call them in the morning to try to get a repeat appointment as well. Continue same home care orders. Alarm symptoms reviewed that would warrant ED presentation. Have started her on Bactrim single strength based on her creatinine and have a new wound culture pending. Primary care follow-up if unable to secure wound care appointment. Vital Signs Vital signs: Initial Vital Signs Temperature 97.9 F 04/04/23 19:30 Temperature Source Temporal Artery Scan 04/04/23 19:30 Pulse Rate 68 04/04/23 19:30 Respiratory Rate 16 04/04/23 19:30 Blood Pressure 147/42 H 04/04/23 19:30 Blood Pressure Mean 77 04/04/23 19:30 Blood Pressure Position Sitting 04/04/23 19:30 Pulse Oximetry 96 04/04/23 19:30 Oxygen Delivery Method Nasal Cannula 04/04/23 19:30 Oxygen Flow Rate 2 04/04/23 19:30 Vital Signs Temperature 97.9 F 04/04/23 19:30 Pulse Rate 68 04/04/23 19:30 Respiratory Rate 16 04/04/23 19:30 Blood Pressure 147/42 H 04/04/23 19:30 Pulse Oximetry 96 04/04/23 19:30 Oxygen Delivery Method Nasal Cannula 04/04/23 19:30 Oxygen Flow Rate 2 04/04/23 19:30 Temperature 97.9 F 04/04/23 19:30 Pulse Rate 56 L 04/04/23 23:25 Respiratory Rate 20 04/04/23 23:25 Blood Pressure 154/61 H 04/04/23 23:25 Pulse Oximetry 96 04/04/23 23:25 Oxygen Delivery Method Room Air 04/04/23 23:25 Oxygen Flow Rate 2 04/04/23 19:30 Medications Administered Medications: Discontinued Medications Generic Name Dose Route Start Last Admin Trade Name Freq PRN Reason Stop Dose Admin Trimethoprim/Sulfamethoxazole 1 tab 04/04/23 22:41 04/04/23 22:44 Sulfamethoxazole/Trimethoprim 400/80 Mg Tab PO 04/04/23 22:42 1 tab ONCE ONE Administration Medical Decision Making Lab Data Lab results reviewed: Yes I reviewed the patient's lab results Lab results narrative: Leukocytosis, stable creatinine. Labs: Lab Results 04/04/23 Range/Units 21:27 WBC 15.83 H (4.50-11.00) K/uL RBC 4.37 (4.00-5.20) m/uL Hgb 11.8 L (12.0-16.0) gm/dL Hct 39.5 (33.0-51.0) % MCV 90 (80-100) fL MCH 27 (26-34) pg MCHC 30 L (32-36) gm/dL RDW Coeff of Tad 17.2 H (11.5-15.5) % Plt Count 290 (140-440) K/uL Neut % (Auto) 84.7 H (42.0-72.0) % Lymph % (Auto) 7.9 L (20-44) % [place] % (Auto) 4.5 (0.0-11.0) % Eos % (Auto) 2.0 (0.0-7.0) % Baso % (Auto) 0.3 (0.0-3.0) % Neut # (Auto) 13.40 H (1.7-7.0) K/uL Lymph # (Auto) 1.30 (0.90-2.90) K/uL [place] # (Auto) 0.70 (0.00-0.90) K/UL Eos # (Auto) 0.30 (0.00-0.50) K/uL Baso # (Auto) 0.00 (0.00-0.30) K/uL Abs Immat Gran (auto) 0.10 (0.00-0.30) K/uL Imm/Tot Granulo (auto) 0.6 % Diff Slide Review Acceptable Review (Acceptable) Sodium 138 (135-149) mmol/L Potassium 4.5 (3.6-5.1) mmol/L Chloride 101 (96-114) mmol/L Carbon Dioxide 28 (20-32) mmol/L Anion Gap 9 (7-15) mEq/L BUN 75 H (7-30) mg/dL Creatinine 1.8 H (0.5-1.5) mg/dL Estimated Creat Clear 26.54 Estimated GFR 30 ml/min Glucose 279 H (60-115) mg/dL Calcium 9.4 (8.4-10.6) mg/dL C-Reactive Protein 1.2 H (0.5-1.0) mg/dL Imaging Data CT foot: Attestation: I have reviewed the pertinent imaging results. My impression: No obvious deep abscess that was missed on superficial exam. No obvious signs of osteomyelitis or fracture. Radiologist's impression: Evaluation is significantly limited by lack of IV contrast. Diffuse soft tissue swelling is present and may represent cellulitis. Plantar skin ulcer seen on previous MRI beneath the 1st MTP joint is not well visualized on the current CT. No obvious soft tissue abscess is seen. No evidence of osteomyelitis is noted. Discharge Plan Discharge Clinical Impression: Abscess of foot Patient Disposition: Home, Self-Care Condition: Improved Instructions: Abscess Incision and Drainage (DC) Additional Instructions: As we discussed, a blister formed near your old ulcer and caused a small abscess. This easily drained and I have trimmed away the top of the blister as recommended by the electrical assemblies supervisor. This will be treated in this same wound care as your existing ulcer. I have started you on Bactrim, a common antibiotic. Based on your previous wound cultures, this should work well. I would like for you to call the wound clinic in the morning to get a follow-up appointment as soon as possible. I will send a referral also. If your pain worsens significantly, you start having a lot of drainage or redness going up the foot or fevers, you should come back to the emergency department. Activity Level: Activity as Tolerated Discharge Diet: Diabetic Prescriptions: New sulfamethoxazole-trimethoprim [Bactrim] 400-80 mg tablet 1 tab PO BID Qty: 14 0RF No Action latanoprost 0.005 % drops 1 drp ophthalmic (eye) QPM Rx Instructions: BOTH EYES metolazone 2.5 mg tablet 2.5 mg PO .WEEKLY Rx Instructions: THURSDAYS prednisolone acetate 1 % drops,suspension 1 drp ophthalmic (eye-left) BID levothyroxine 125 mcg tablet 125 mcg PO DAILY brimonidine 0.2 % drops 1 drp ophthalmic (eye-left) BID nitroglycerin 0.4 mg tablet, sublingual 0.4 mg sublingual Q5M PRN montelukast 10 mg tablet 10 mg PO HS timolol maleate 0.5 % drops 1 drp ophthalmic (eye-right) QAM losartan 100 mg tablet 100 mg PO DAILY dorzolamide 2 % drops 1 drp ophthalmic (eye-left) BID albuterol sulfate 90 mcg/actuation HFA aerosol inhaler 1 - 2 puff INHALATION Q4H PRN ascorbic acid (vitamin C) 500 mg tablet 500 mg PO BID vitamin B complex [B Complex-Vitamin B12] Tablet 1 tab PO DAILY Humulin 70/30 U-100 Insulin 100 unit/mL (70-30) suspension 53 unit subcut QPM loratadine [Allerclear] 10 mg tablet 10 mg PO HS magnesium 250 mg tablet 500 mg PO DAILY multivitamin [Daily Multi-Vitamin] Tablet 1 tab PO DAILY furosemide 40 mg tablet 80 mg PO BID Qty: 120 0RF nystatin 100,000 unit/gram Cream 1 applic topical TID Qty: 45 0RF allopurinol 300 mg Tablet 150 mg PO DAILY Qty: 30 0RF cholecalciferol (vitamin D3) [Vitamin D3] 125 mcg (5,000 unit) tablet 5,000 unit PO DAILY calcium carbonate-vitamin D3 [Calcium 600 + D(3)] 600 mg-5 mcg (200 unit) tablet 1 tab PO DAILY amlodipine 10 mg tablet 10 mg PO HS rosuvastatin 10 mg tablet 10 mg PO HS acetaminophen 650 mg tablet 650 mg PO QID Novolin 70/30 U-100 Insulin 100 unit/mL (70-30) suspension 68 unit subcut QAM metoprolol tartrate 50 mg tablet 100 mg PO QAM metoprolol tartrate 50 mg tablet 50 mg PO HS PreserVision Lutein 226-90-0.8-5 mg capsule 1 cap PO DAILY vitamin E 268 mg (400 unit) capsule 268 mg PO DAILY Zinc-15 66 mg tablet 66 mg PO DAILY Follow Up/Referrals: Shirley Fleming DO [Primary Care Provider] - Claire Lopez CNP [Nurse Practitioner] - 2 Days (First available wound provider) Stand Alone Forms: [facility] Info Instructions
[2023-04-04 21:37] LABS: Basophils Percent Auto 0.3 % (0.0-3.0); Hematocrit 39.5 % (33.0-51.0); Hemoglobin* 11.8 gm/dL (12.0-16.0); Immature Granulocytes Pct Auto 0.6 %; Lymphocytes Percent Auto 7.9 % (20-44); Mean Corpuscular HGB Conc 30 gm/dL (32-36); Mean Corpuscular Hemoglobin 27 pg (26-34); Mean Corpuscular Volume 90 fL (80-100); Monocytes Percent Auto 4.5 % (0.0-11.0); Neutrophils Percent Auto 84.7 % (42.0-72.0); Platelet Count* 290 K/uL (140-440); RDW Coefficient of Variation % 17.2 % (11.5-15.5); Red Blood Count 4.37 m/uL (4.00-5.20); White Blood Count* 15.83 K/uL (4.50-11.00)
[2023-04-04 21:45] LABS: Chloride* 101 mmol/L (96-114); Potassium* 4.5 mmol/L (3.6-5.1); Sodium* 138 mmol/L (135-149)
[2023-04-04 21:47] LABS: Creatinine* 1.8 mg/dL (0.5-1.5); Est. Creatinine Clearance* 26.54; Estimated Glomerular Filt Rate 30 ml/min
[2023-04-04 21:48] LABS: Anion Gap 9 mEq/L (7-15); Blood Urea Nitrogen* 75 mg/dL (7-30); Calcium* 9.4 mg/dL (8.4-10.6); Carbon Dioxide* 28 mmol/L (20-32); Glucose* 279 mg/dL (60-115)
[2023-04-04 21:51] LABS: C Reactive Protein* 1.2 mg/dL (0.5-1.0)
[2023-04-04 22:01] LABS: Slide Review Reflex Yes
[2023-04-04 22:17] LABS: Slide Review Acceptable Review (Acceptable)
[2023-04-04 23:25] VITALS: BP 154/61; PULSE 56; RESP 20; O2SAT 96
== END 2023-04-05 00:03 | disposition home or self-care (01) ==
PROVIDERS: Emergency Provider Family Medicine; PCP Family Medicine
DX: L02.612 Cutaneous abscess of left foot (principal)
CPT/HCPCS: 10060; 36415; 73700; 80048; 85025; 86140; 87070; 87186; 87205; 99284; A9270

== ENCOUNTER 2023-05-08 13:03 | Outpatient (CLI) | payer MEDICARE, BC, SELFPAY | END 2023-05-08 13:04 | disposition home or self-care (01) | LOC: AMB 05-09 07:09 | PROVIDERS: PCP Family Medicine; Visit Provider Family Medicine | DX: M79.672 Pain in left foot (principal); M79.605 Pain in left leg | CPT/HCPCS: A0425; A0427 ==

== ENCOUNTER 2023-05-08 13:36 | Inpatient (IN) | payer MEDICARE, BC, SELFPAY ==
[2023-05-08 13:44] VITALS: BP 136/46; PULSE 55; RESP 22; TEMP 36.2; O2SAT 91; BMI 55.7
[2023-05-08 14:19] LABS: Lactate Sepsis w/Reflex* 1.1 mmol/L (0.5-1.9)
[2023-05-08 14:22] LABS: Basophils Percent Auto 0.3 % (0.0-3.0); Eosinophils Percent Auto 1.6 % (0.0-7.0); Hematocrit 38.2 % (33.0-51.0); Immature Granulocytes Pct Auto 0.3 %; Lymphocytes Percent Auto 4.8 % (20-44); Mean Corpuscular HGB Conc 29 gm/dL (32-36); Mean Corpuscular Hemoglobin 26 pg (26-34); Mean Corpuscular Volume 91 fL (80-100); Monocytes Percent Auto 7.3 % (0.0-11.0); Neutrophils Percent Auto 85.7 % (42.0-72.0); Platelet Count* 245 K/uL (140-440); RDW Coefficient of Variation % 19.1 % (11.5-15.5); Red Blood Count 4.18 m/uL (4.00-5.20); White Blood Count* 15.93 K/uL (4.50-11.00)
--- NOTE | 2023-05-08 14:25 | ED_ITS ---
HPI - General Adult General Date Seen: 05/08/23 Chief complaint: Skin/Abscess/Foreign Body Stated complaint: cellulitis Time Seen by Provider: 05/08/23 13:38 Source: patient, EMS, RN notes reviewed and old records reviewed Mode of arrival: EMS Limitations: no limitations History of Present Illness HPI narrative: Patient is a 68-year-old woman currently living independently, with morbid obe sity, diabetes, CHF, lymphedema, and a chronic ulcer of the left foot. She had previously been managed at the wound center, was seen here on April 04 and had an abscess that was drained in the foot near 1 of her ulcers. Recommendation was made for continued wound center care, but she tells me she has not been able to get there because she does not have a ride. She does have home health that she says comes 3 times a week. The home health nurse called EMS today because of it sounds like concerns about her ability to live in her current living situation. She is not changing her dressings on her legs as she is supposed to, she tells me that it is hard for her to walk because of a piece of metal in her left heel that was found on MRI, and she also has chronic back pain and sciatica on the right leg according to prior records. She is uncertain whether the appearance of her legs is dramatically different, but she does note that they are weeping more. She also is chronically on oxygen now, she says her oxygen levels with activity are about 79% and at rest about 88%, on oxygen. O2 sats are 91% on her normal 2 L of oxygen here. She says that earlier today she ?desatted, and generally speaking she says that she is feeling winded when she is up and walking around. According to the patient, she had been able to get rides through some medical van previously but now that she is on oxygen and requiring a walker they feel that she is to high acuity. She says that her children work in [facility] and [place] and are not available to provide rides to the wound clinic. Therefore she has been relying on home health who she says comes sporadically. Related Data Home Medications Medication Instructions Recorded Confirmed brimonidine 0.2 % eye drops 1 drp ophthalmic (eye-left) BID 11/06/22 05/08/23 dorzolamide 2 % eye drops 1 drp ophthalmic (eye-left) BID 11/06/22 05/08/23 latanoprost 0.005 % eye drops 1 drp ophthalmic (eye) QPM 11/06/22 05/08/23 levothyroxine 125 mcg tablet 125 mcg PO DAILY 11/06/22 05/08/23 losartan 100 mg tablet 100 mg PO DAILY 11/06/22 05/08/23 metolazone 2.5 mg tablet 2.5 mg PO FR@09 11/06/22 05/08/23 montelukast 10 mg tablet 10 mg PO HS 11/06/22 05/08/23 nitroglycerin 0.4 mg sublingual 0.4 mg sublingual Q5M PRN 11/06/22 05/08/23 tablet prednisolone acetate 1 % eye 1 drp ophthalmic (eye-left) BID 11/06/22 05/08/23 drops,suspension timolol maleate 0.5 % eye drops 1 drp ophthalmic (eye-right) QAM 11/06/22 05/08/23 albuterol sulfate 90 mcg/actuation 2 puff inhalation .3-6X/DAY 11/07/22 05/08/23 aerosol inhaler ascorbic acid (vitamin C) 500 mg 500 mg PO BID 11/07/22 05/08/23 tablet insulin human U-100 NPH-regulr 53 unit subcut QPM 11/07/22 05/08/23 70-30 mix 100 unit/mL subcutaneous susp (Humulin 70/30 U-100 Insulin) loratadine 10 mg tablet 10 mg PO HS 11/07/22 05/08/23 (Dajuan) multivitamin (Daily Multi-Vitamin 1 tab PO DAILY 11/07/22 05/08/23 tablet) vitamin B complex (B 1 tab PO DAILY 11/07/22 05/08/23 Complex-Vitamin B12 tablet) amlodipine 10 mg tablet 10 mg PO HS 11/29/22 05/08/23 cholecalciferol (vitamin D3) 125 5,000 unit PO HS 11/29/22 05/08/23 mcg (5,000 unit) tablet (Vitamin D3) rosuvastatin 10 mg tablet 10 mg PO HS 11/29/22 05/08/23 insulin human U-100 NPH-regulr 68 unit subcut QAM 12/21/22 05/08/23 70-30 mix 100 unit/mL subcutaneous susp (Novolin 70/30 U-100 Insulin) metoprolol tartrate 50 mg tablet 50 mg PO HS 12/21/22 05/08/23 metoprolol tartrate 50 mg tablet 100 mg PO QAM 12/21/22 05/08/23 vit C 226 mg-vit E 90 mg-copper 1 cap PO DAILY 12/21/22 05/08/23 0.8 mg-zinc oxide-lutein 5 mg capsule (PreserVision Lutein) vitamin E 268 mg (400 unit) capsule 268 mg PO DAILY 12/21/22 05/08/23 zinc sulfate 66 mg tablet (Zinc-15) 66 mg PO DAILY 12/21/22 05/08/23 acetaminophen 650 mg 1,300 mg PO BID 05/08/23 05/08/23 tablet,extended release (8 Hour Pain Reliever) allopurinol 100 mg tablet 150 mg PO DAILY 05/08/23 05/08/23 calcium carbonate 600 mg calcium 600 mg PO QPM 05/08/23 05/08/23 (1,500 mg) tablet (Calcium) cholecalciferol (vitamin D3) 25 25 mcg PO QAM AND QHS 05/08/23 05/08/23 mcg (1,000 unit) capsule fluticasone propionate 100 1 inh inhalation BID 05/08/23 05/08/23 mcg/actuation blister powder for inhalation hydrocortisone 1 % topical 1 applic topical TID PRN 05/08/23 05/08/23 ointment (Cortizone-10) loperamide 2 mg tablet 2 mg PO Q6H PRN 05/08/23 05/08/23 magnesium oxide 400 mg (241.3 mg 400 mg PO HS 05/08/23 05/08/23 magnesium) tablet menthol 4 % topical gel (Biofreeze 1 applic topical QID PRN 05/08/23 05/08/23 (menthol)) neomycin 3.5 mg/g-polymyxin B 1 applic ophthalmic (eye-right) 05/08/23 05/08/23 10,000 unit/g-dexameth 0.1 % eye BID PRN oint (Maxitrol) potassium gluconate 595 mg (99 mg) 595 mg PO DAILY 05/08/23 05/08/23 tablet sodium chloride 0.65 % nasal spray 1 spray intranasal Q1H PRN 05/08/23 05/08/23 aerosol (Deep Sea Nasal) tramadol 50 mg tablet 50 mg PO Q6H PRN pain 05/08/23 05/08/23 triamcinolone acetonide 0.1 % 1 applic topical 3XD PRN 05/08/23 05/08/23 topical cream Previous Rx's Medication Instructions Recorded furosemide 40 mg tablet 80 mg (2 x 40 mg) PO BID #120 tabs 11/07/22 nystatin 100,000 unit/gram topical 1 applic topical TID #45 grams 02/06/23 cream Allergies Allergy/AdvReac Type Severity Reaction Status Date / Time clindamycin Allergy Severe Verified 12/21/22 15:33 hydromorphone Allergy Severe Stopped Verified 12/21/22 15:33 Breathing morphine Allergy Severe Stopped Verified 12/21/22 15:33 Breathing NSAIDS (Non-Steroidal Allergy Severe Anaphylaxis Verified 12/21/22 15:33 Anti-Inflamma penicillin V Allergy Severe Hypertensio Verified 12/21/22 15:33 n aspirin AdvReac nausea and Verified 12/21/22 15:33 vomiting Review of Systems Status of ROS: Reports: 10 or more systems reviewed and unremarkable except as noted in History and below [facility] Medical History (Updated 05/14/23 @ 11:58 by Bonnie Oliver MD) Obstructive sleep apnea ?G47.33 - Obstructive sleep apnea (adult) (pediatric) (ICD-10) Morbid obesity with BMI of 50.0-59.9, adult ?E66.01 - Morbid (severe) obesity due to excess calories (ICD-10) ?Z68.43 - Body mass index [BMI] 50.0-59.9, adult (ICD-10) Poorly controlled type 2 diabetes mellitus ?E11.65 - Type 2 diabetes mellitus with hyperglycemia (ICD-10) Acute on chronic diastolic heart failure ?I50.33 - Acute on chronic diastolic (congestive) heart failure (ICD-10) Venous insufficiency of both lower extremities ?I87.2 - Venous insufficiency (chronic) (peripheral) (ICD-10) Pulmonary edema with congestive heart failure ?I50.1 - Left ventricular failure, unspecified (ICD-10) Cellulitis of left lower leg ?L03.116 - Cellulitis of left lower limb (ICD-10) Acute kidney injury superimposed on chronic kidney disease ?N17.9 - Acute kidney failure, unspecified (ICD-10) ?N18.9 - Chronic kidney disease, unspecified (ICD-10) Diabetic foot ulcer ?E11.621 - Type 2 diabetes mellitus with foot ulcer (ICD-10) ?L97.509 - Non-pressure chronic ulcer of other part of unspecified foot with unspecified severity (ICD-10) History of fracture of left ankle ?Z87.81 - Personal history of (healed) traumatic fracture (ICD-10) Severe left ventricular hypertrophy ?I51.7 - Cardiomegaly (ICD-10) 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 ?Z79.4 - intermodal dispatcher (current) use of insulin (ICD-10) History of sciatica ?Z86.69 - Personal history of other diseases of the nervous system and sense organs (ICD-10) Primary hypothyroidism ?E03.9 - Hypothyroidism, unspecified (ICD-10) Asthma ?J45.909 - Unspecified asthma, uncomplicated (ICD-10) Vitamin D deficiency ?E55.9 - Vitamin D deficiency, unspecified (ICD-10) Rectocele ?N81.6 - Rectocele (ICD-10) Essential hypertension ?I10 - Essential (primary) hypertension (ICD-10) Chronic diastolic heart failure ?I50.32 - Chronic diastolic (congestive) heart failure (ICD-10) History of nephrolithiasis ?Z87.442 - Personal history of urinary calculi (ICD-10) Lumbar back pain with radiculopathy affecting left lower extremity ?M54.16 - Radiculopathy, lumbar region (ICD-10) Hypertriglyceridemia ?E78.1 - Pure hyperglyceridemia (ICD-10) Osteoarthritis of knees, bilateral ?M17.0 - Bilateral primary osteoarthritis of knee (ICD-10) Chronic kidney disease ?N18.9 - Chronic kidney disease, unspecified (ICD-10) Diabetic nephropathy associated with type 2 diabetes mellitus ?E11.21 - Type 2 diabetes mellitus with diabetic nephropathy (ICD-10) Surgical History Status post total abdominal hysterectomy ?Z90.710 - Acquired absence of both cervix and uterus (ICD-10) Status post thyroidectomy ?E89.0 - Postprocedural hypothyroidism (ICD-10) History of esophagogastroduodenoscopy ?Z98.890 - Other specified postprocedural states (ICD-10) Status post cholecystectomy ?Z90.49 - Acquired absence of other specified parts of digestive tract (ICD- 10) History of intraocular lens implant ?Z96.1 - Presence of intraocular lens (ICD-10) Cataract extraction status ?Z98.49 - Cataract extraction status, unspecified eye (ICD-10) Status post appendectomy ?Z90.49 - Acquired absence of other specified parts of digestive tract (ICD- 10) Status post colonoscopy with polypectomy ?Z98.890 - Other specified postprocedural states (ICD-10) Family History Other Diabetes High blood pressure High cholesterol Social History Narrative: . Lives alone. Three supportive children. Designates daughterAlanna, , primary contact for power of infant teacher for health should that be required. Designates son, Nathan, [phone], secondary contact for power of infant teacher for health should that be required. Requests that we attempt resuscitation in the event of cardiopulmonary demise, stressing that she does not want to be kept alive as a vegetable should that come to pass. She reports worsening mobility problems. It is difficult due to her back pain and radicular symptoms going down her right leg for her to get up and walk around. To a lesser extent her left foot also bothers her with weight-bearing. She does walk with a walker. What is your current living situation?: I presently have a place to live Problems where you live: mold Problems where you live details: mold In the past 12 months, utilities in danger of being shut off: no In past 12 months, lack of transportation kept you from medical appts, meetings, work, or getting things needed for daily living: yes In the past 12 mos, have been you worried that your food would run out before you had money to buy more?: sometimes true In the past 12 mos, the food you bought just didn't last and you didn't have money to buy more?: sometimes true Highest level of school completed/degree received: Associate degree: academic program Smoking Status: Never smoker Do you use any of these nicotine containing products: None Second hand tobacco smoke exposure: No How often do you have a drink containing alcohol: never How often do you have six or more drinks on one occasion: Never AUDIT-C Alcohol total score: 0 Non-prescribed substance use: denies use Caffeine: Yes How often does anyone, including family, friends and others, physically hurt you : never How often does anyone, including family, friends and others, insult or talk down to you: rarely How often does anyone, including family, friends and others, threaten you with harm: never How often does anyone, including family, friends and others, scream or curse at you: never service: No Exam Narrative: Exam Narrative: Vital signs as noted above. In general, an alert, nontoxic woman. Significantly overweight. Head: Normocephalic, atraumatic. Eyes: Pupils are equal reactive. Extraocular movements are full. Conjunctivae are normal. ENT: Mucous membranes are moist. Delete Neck: Supple without lymphadenopathy. Heart: Regular rate and rhythm. No murmur or rub. Lungs: Clear anteriorly. Breathing is somewhat labored. Abdomen: Soft and nontender. Limited by body habitus. Extremities: Lymphedema bilaterally. She has venous stasis changes bilaterally left greater than right. She has significant weeping and blistering of the skin left greater than right. I am not able to palpate distal pulses, but capillary refill is brisk. The ulcer on head of her 1st metatarsal of the left foot looks improved relative to pictures that I saw from March. Neurologic: Patient is alert and oriented to person and place. Speech is fluent. Face is symmetric. Moves all extremities equally. Affect: Normal. Skin: Warm and dry. Well perfused. Const: Vital Signs, click to edit/add: Vital Signs - 24 hr 05/08/23 13:44 Temperature 97.2 F L Pulse Rate [Pulse Oximeter] 55 L Respiratory Rate 22 Blood Pressure [Ri ght Upper Arm] 136/46 L Pulse Oximetry 91 Oxygen Delivery Me thod Nasal Cannula Course Course ED Course: Following initial evaluation, I ordered labs, chest x-ray. Overall, her exam to me looks more consistent with lymphedema and chronic venous stasis and some superficial blistering rather than significant cellulitis, however she does have quite a bit of edema and weeping. A portable chest x-ray by my review showed pulmonary edema, final radiology read is as follows:FINDINGS: Cardiovascular and mediastinum: Stable heart size and vascular congestion. Lungs and pleural spaces: Perihilar predominant interstitial opacities. No sign of pleural effusion. No pneumothorax. Bones and soft tissues: No significant findings. IMPRESSION: Cardiomegaly with pulmonary edema. Echo done in November of 2022 showed preserved ejection fraction. O2 sats here are marginal on 4 L, did attempt to have her walk on oximetry but she says she is too tired. Other labs are notable for creatinine of 1.9 which is about her baseline. White blood cell count mildly elevated at 16, hemoglobin of 11. White blood cell count was elevated to 15 at the end of March as well. Platelets are normal. Metabolic panel is notable for a sodium of 139, potassium of 5.5, chloride 103, CO2 of 30. BUN is 94. LFT show mildly elevated transaminases and alk-phos of 166. CRP is 2. BNP is 24 50, it looks like previously she has run at about 1900. TSH is normal. Metal Checker was consulted as well, patient has just applied for medical assistance which will take several months. After that there may be an available assisted living bed for her, though I think really she would benefit from long term. Case is discussed with Dr. Soriano, as I think she would benefit from hospitalization for diuresis, plus or minus antibiotics. Vital Signs Vital signs: Initial Vital Signs Temperature 97.2 F L 05/08/23 13:44 Temperature Source Temporal Artery Scan 05/08/23 13:44 Pulse Rate 55 L 05/08/23 13:44 Respiratory Rate 05/08/23 13:44 Blood Pressure 136/46 L 05/08/23 13:44 Blood Pressure Mean 76 05/08/23 13:44 Blood Pressure Position Supine 05/08/23 13:44 Pulse Oximetry 91 05/08/23 13:44 Oxygen Delivery Method Nasal Cannula 05/08/23 13:44 Vital Signs Temperature 97.2 F L 05/08/23 13:44 Pulse Rate 55 L 05/08/23 13:44 Respiratory Rate 05/08/23 13:44 Blood Pressure 136/46 L 05/08/23 13:44 Pulse Oximetry 91 05/08/23 13:44 Oxygen Delivery Method Nasal Cannula 05/08/23 13:44 Temperature 97.6 F 02/06/24 15:00 Pulse Rate 59 L 05/14/23 15:00 Respiratory Rate 20 05/14/23 15:00 Blood Pressure 167/71 H 05/14/23 15:00 Pulse Oximetry 90 05/14/23 15:00 Oxygen Delivery Method Nasal Cannula 05/14/23 15:00 Oxygen Flow Rate 2 05/14/23 15:00 Medications Administered Medications: Generic Name Dose Route Start Last Admin Trade Name F[place]elly PRN Reason Stop Dose Admin Acetaminophen 650 mg 05/08/23 17:34 05/13/23 17:09 Acetaminophen 325 Mg Tablet PO 650 mg Q6H PRN Administration Albuterol 2 puff 05/09/23 08:05 05/10/23 20:26 Albuterol Inhaler IH 2 puff Q4H PRN Administration Allopurinol 150 mg 05/09/23 09:00 05/14/23 09:09 Allopurinol 100 Mg Tablet PO 150 mg DAILY [place] Administration Amlodipine Besylate 10 mg 05/08/23 21:00 05/13/23 20:49 Amlodipine 10 Mg Tablet PO 10 mg HS [facility] Administration Brimonidine Tartrate 1 drop 05/09/23 09:00 05/14/23 09:07 Brimonidine Tartrate 0.2% Ophth EYE-LEFT 1 drop BID [facility] Administration Dorzolamide HCl 1 drop 05/09/23 09:00 05/14/23 09:08 Dorzolamide Hcl 2 % Ophth Drop EYE-LEFT 1 drop BID [facility] Administration Enoxaparin Sodium 30 mg 05/08/23 21:00 05/13/23 20:45 Enoxaparin 30 Mg/0.3ml Inj SUBCUT 30 mg Q24H [facility] Administration Furosemide 80 mg 05/12/23 14:00 05/14/23 14:34 Furosemide 40 Mg Tablet PO 80 mg BID@0800,1400 [facility] Administration Insulin Aspart 68 unit 05/09/23 09:00 05/14/23 09:11 Insulin Prot/Asp (Novolog 70/30) 100 Unit/Ml SUBCUT 68 unit QAM [facility] Administration Insulin Aspart 0 unit 05/11/23 11:30 05/14/23 13:37 Insulin Aspart 100 Unit/Ml SUBCUT Not Given [facility] Protocol Insulin Aspart 47 unit 05/12/23 18:00 05/13/23 17:36 Insulin Prot/Asp (Novolog 70/30) 100 Unit/Ml SUBCUT 47 unit QPM [place] Administration Latanoprost 1 drop 05/09/23 21:00 05/13/23 20:43 Latanoprost 0.005% Ophth EYE-BOTH 1 drop HS [place] Administration Levothyroxine Sodium 125 mcg 05/09/23 07:45 05/14/23 05:33 Levothyroxine 125 Mcg Tablet PO 125 mcg DAILY@0700 [facility] Administration Loratadine 10 mg 05/08/23 21:00 05/13/23 20:44 Loratadine 10 Mg Tablet PO 10 mg HS [facility] Administration Losartan Potassium 100 mg 05/09/23 09:00 05/14/23 09:09 Losartan Potassium 50 Mg Tablet PO 100 mg DAILY [place] Administration Metoprolol Tartrate 100 mg 05/09/23 09:00 05/14/23 09:14 Metoprolol Tartrate 50 Mg Tablet PO 100 mg QAM [place] Administration Metoprolol Tartrate 50 mg 05/08/23 21:00 05/13/23 20:48 Metoprolol Tartrate 50 Mg Tablet PO 50 mg HS [facility] Administration Montelukast Sodium 10 mg 05/08/23 21:00 05/13/23 20:45 Montelukast 10 Mg Tablet PO 10 mg HS [facility] Administration Fluticasone 1 inhalation 05/08/23 21:00 05/14/23 09:10 Propionate 100 Mcg/ IH Not Given Actuation BID [facility] Prednisolone Acetate 1 drop 05/09/23 09:00 05/14/23 09:07 Prednisolone Acetate 1 % Drops EYE-LEFT 1 drop BID [place] Administration Rosuvastatin Calcium 10 mg 05/08/23 21:00 05/13/23 20:44 Rosuvastatin Calcium 10 Mg Tablet PO 10 mg HS [facility] Administration Sodium Chloride 5 ml 05/08/23 17:34 05/10/23 15:12 Sodium Chloride 0.9 % (Flush) 10 Ml Syringe IVF 5 ml .FLUSH PRN Administration Sodium Chloride 5 ml 05/08/23 21:00 05/14/23 09:10 Sodium Chloride 0.9 % (Flush) 10 Ml Syringe IVF 5 ml BID [place] Administration Sodium Chloride 1 spray 05/08/23 23:27 05/09/23 21:29 Sodium Chloride Nasal [place] NOSTRIL-B 1 spray Q1H PRN Administration nasal congestion or dry nares Sodium Chloride 250 ml 05/11/23 13:30 05/14/23 13:40 0.9 % Sodium Chloride 250 Ml IV Not Given Q24H [facility] Timolol Maleate 1 drop 05/09/23 09:00 05/14/23 09:07 Timolol Maleate 0.5 % EYE-RIGHT 1 drop QAM [place] Administration Tramadol HCl 50 mg 05/08/23 18:01 05/13/23 23:04 Tramadol Hcl 50 Mg Tablet PO 50 mg Q6H PRN Administration pain Discontinued Medications Generic Name Dose Route Start Last Admin Trade Name Freq PRN Reason Stop Dose Admin Brimonidine Tartrate 1 drop 05/08/23 21:00 05/08/23 20:52 Brimonidine Tartrate 0.2% Ophth EYE-LEFT 1 drop BID [place] Administration Dorzolamide HCl 1 drop 05/08/23 21:00 05/08/23 20:53 Dorzolamide Hcl 2 % Ophth Drop EYE-LEFT 1 drop BID [place] Administration Doxycycline Hyclate 100 mg 05/10/23 09:15 05/13/23 09:41 Doxycycline Hyclate 100 Mg PO 100 mg BID [place] Administration Furosemide 60 mg 05/08/23 15:32 05/08/23 16:07 Furosemide 10 Mg/Ml Inj IVP 05/08/23 15:33 60 mg ONCE ONE Administration Furosemide 60 mg 05/09/23 07:00 05/12/23 06:52 Furosemide 10 Mg/Ml Inj IVP 60 mg BID@0700,1400 [facility] Administration Cefepime HCl 2 gm/ Sodium 100 mls @ 200 mls/hr 05/09/23 08:00 05/13/23 00:28 Chloride IVPB Not Given Q24H [facility] Cefepime HCl 2 gm/ Sodium 100 mls @ 200 mls/hr 05/11/23 13:30 05/13/23 14:38 Chloride IVPB Not Given Q24H [facility] Insulin Aspart 53 unit 05/09/23 18:00 05/11/23 17:32 Insulin Prot/Asp (Novolog 70/30) 100 Unit/Ml SUBCUT 53 unit QPM [facility] Administration Insulin Aspart 0 unit 05/09/23 17:30 05/13/23 00:29 Insulin Aspart 100 Unit/Ml SUBCUT [facility] Protocol Magnesium Oxide 400 mg 05/08/23 21:00 05/08/23 20:50 Magnesium Oxide 400 Mg Tablet PO 400 mg HS [facility] Administration Nystatin 1 applic 05/08/23 21:00 05/08/23 20:54 Nystatin Cream 30 Gm TOPICAL 1 applic TID [place] Administration Nystatin 1 applic 05/09/23 09:00 05/14/23 09:08 Nystatin Cream 30 Gm TOPICAL 1 applic TID [place] Administration Prednisolone Acetate 1 drop 05/08/23 21:00 05/08/23 20:54 Prednisolone Acetate 1 % Drops EYE-LEFT 1 drop BID [place] Administration Sodium Chloride 250 ml 05/09/23 08:15 05/10/23 09:09 0.9 % Sodium Chloride 250 Ml IV Not Given Q24H [facility] Medical Decision Making Lab Data Labs: Lab Results 05/08/23 Range/Units 14:05 WBC 15.93 H (4.50-11.00) K/uL RBC 4.18 (4.00-5.20) m/uL Hgb 11.0 L (12.0-16.0) gm/dL Hct 38.2 (33.0-51.0) % MCV 91 (80-100) fL MCH 26 (26-34) pg MCHC 29 L (32-36) gm/dL RDW Coeff of Tad 19.1 H (11.5-15.5) % Plt Count 245 (140-440) K/uL Neut % (Auto) 85.7 H (42.0-72.0) % Lymph % (Auto) 4.8 L (20-44) % [place] % (Auto) 7.3 (0.0-11.0) % Eos % (Auto) 1.6 (0.0-7.0) % Baso % (Auto) 0.3 (0.0-3.0) % Neut # (Auto) 13.70 H (1.7-7.0) K/uL Lymph # (Auto) 0.80 L (0.90-2.90) K/uL [place] # (Auto) 1.20 H (0.00-0.90) K/UL Eos # (Auto) 0.30 (0.00-0.50) K/uL Baso # (Auto) 0.00 (0.00-0.30) K/uL Abs Immat Gran (auto) 0.00 (0.00-0.30) K/uL Imm/Tot Granulo (auto) 0.3 % Sodium 139 (135-149) mmol/L Potassium 5.5 H (3.6-5.1) mmol/L Chloride 103 (96-114) mmol/L Carbon Dioxide 30 (20-32) mmol/L Anion Gap 6 L (7-15) mEq/L BUN 94 H (7-30) mg/dL Creatinine 1.9 H (0.5-1.5) mg/dL Estimated Creat Clear 25.15 Estimated GFR 28 ml/min Glucose 93 (60-115) mg/dL Lactate 1.1 (0.5-1.9) mmol/L Calcium 8.7 (8.4-10.6) mg/dL Total Bilirubin 0.4 (0.1-1.5) mg/dL Direct Bilirubin 0.0 (0.0-0.5) mg/dL AST 37 H (12-35) U/L ALT 45 H (4-35) U/L Alkaline Phosphatase 166 H (40-150) U/L Troponin I 0.01 (0.01-0.04) ng/mL C-Reactive Protein 2.0 H (0.5-1.0) mg/dL NT-Pro-B Natriuret Pep 2450 pg/mL Total Protein 7.3 (6.0-8.3) g/dL Albumin 3.9 (3.3-5.0) g/dL TSH 2.100 (0.270-4.200) uIU/mL
[2023-05-08 14:40] LABS: Albumin* 3.9 g/dL (3.3-5.0); Chloride* 103 mmol/L (96-114); Sodium* 139 mmol/L (135-149)
[2023-05-08 14:41] LABS: Potassium* 5.5 mmol/L (3.6-5.1)
--- NOTE | 2023-05-08 14:42 | PC.SOCIAL ---
Addendum entered by Amanda Garcia ENTERPRISE SYSTEMS ARCHITECT 05/08/23 16:07: Spoke with Keri at [facility], who states pt is being evaluated for a bed at this facility. Keri will contact high school social studies teacher tomorrow regarding what is needed to admit her to the assisted living facility from the hospital. signal worker to follow up as needed. Original Note: Phone call to pt's [facility] worker Nancy Gonsalez at [phone]. Pt has [facility] nursing services. Nurses were concerned of pt's living environment. Nancy reports that pt is gradually getting worse. Nancy and family are working on getting pt into [facility] at this time. Pt's daughter has toured the facility, however, pt just completed her medical assistance application on Saturday05/06/23 and submitted to the [facility]. Pt is expected to go to Assisted Living on the Elderly Waiver, which is not yet in place. Pt has not had a nursing assessment or been accepted to [facility]. Nancy informs the timeline for pt to admit to [facility] is unknown at this time, but is not expected to be immediate. Nancy reports that pt does not have a lot of support. Pt has a daughter that lives in the [facility], but has children. Pt has a son in [place], but he has not followed through on assisting pt with needs. Phone call to [facility] Nursing and left a voicemail requesting a phone call back. Provided update to ED Nurse. Social work will follow up as needed.
[2023-05-08 14:44] LABS: Alanine Aminotransferase* 45 U/L (4-35); Alkaline Phosphatase* 166 U/L (40-150); Anion Gap 6 mEq/L (7-15); Aspartate Amino Transferase* 37 U/L (12-35); Bilirubin Total* 0.4 mg/dL (0.1-1.5); Blood Urea Nitrogen* 94 mg/dL (7-30); Calcium* 8.7 mg/dL (8.4-10.6); Carbon Dioxide* 30 mmol/L (20-32); Creatinine* 1.9 mg/dL (0.5-1.5); Est. Creatinine Clearance* 25.15; Estimated Glomerular Filt Rate 28 ml/min; Glucose* 93 mg/dL (60-115); Total Protein* 7.3 g/dL (6.0-8.3)
[2023-05-08 14:49] LABS: Slide Review Reflex No
[2023-05-08 14:53] LABS: NT Pro B Type NatriureticPept* 2450 pg/mL
--- NOTE | 2023-05-08 14:56 | CRLHL7_ITS ---
For Patients: As a result of the Century Cures Act, medical imaging exams and procedure reports are released immediately into your electronic medical record. You may view this report before your referring provider. If you have questions, please contact your health care provider. INDICATION: [id number]. TECHNIQUE: Chest 1 views. COMPARISON: February 13, 2023. FINDINGS: Cardiovascular and mediastinum: Stable heart size and vascular congestion. Lungs and pleural spaces: Perihilar predominant interstitial opacities. No sign of pleural effusion. No pneumothorax. Bones and soft tissues: No significant findings. IMPRESSION: Cardiomegaly with pulmonary edema. Dictated by Juvencio Rosado MD @ 05/08/2023 3:25:56 PM (Electronically Signed)
[2023-05-08] MEDS: FUROSEMIDE 10 MG/ML inj 60 MG IVP (16:07)
[2023-05-08 16:22] VITALS: BP 147/66; PULSE 77; RESP 22; O2SAT 90
[2023-05-08 17:21] VITALS: RESP 22; TEMP 36.5; O2SAT 93; BMI 59.0
--- NOTE | 2023-05-08 18:23 | PM.IMHP1 ---
Hospitalist- H&P: HPI History of Present Illness Date Seen: 05/08/23 Chief complaint: cellulitis Narrative: Caity Ojeda is a 68 year old woman who lives independently and presents with one-month history of increasing dyspnea. Over the past week she has had increasing dyspnea at rest, dyspnea with exertion, paroxysmal nocturnal dyspnea, orthopnea. She has not been able to lay in the bed for several weeks because of the orthopnea and paroxysmal nocturnal dyspnea. Denies chest heaviness, pressure, tightness, pain. Denies syncope or near-syncope. Acknowledges increasing bilateral lower extremity edema with weeping of bilateral lower extremities. About 1 month ago she saw her primary care physician who started her on oxygen. Despite being on the oxygen supplementation she continues to have dyspnea. She tells me she has a oxygen saturation monitor at home and even though she is using the oxygen appropriately her saturations are typically in the upper 80s and will dip down into the low 70s with minimal exertion, such as when she gets up to open the door to allow the home healthcare staff into her home. Has chronic bilateral lower extremity wounds left greater than right. Historically was assessed and treated in [facility] but patient. These appointments due to inability to make appointments due to lack of ride. Has not been caring for her lower extremity wounds except for has had some home healthcare individuals helping her with that for the last few weeks 2-3 times per week. Has had very little sleep due to fear of not being able to wake up. Denies fevers, rigors, diaphoresis. No other recent illnesses. Claims to be taking her usual medications. Has been working with the [facility] to try to find alternate living setting with increased services. Working with [facility] social media marketing specialist Nancy Gonsalez, . In the process of trying to achieve enhanced assisted living setting services [facility]. Review of Systems Status of ROS: Reports: 10 or more systems reviewed and unremarkable except as noted in History and below Narrative: Not able or capable of caring for herself anymore in her current living setting. Working with [facility] social sciences department chair as specified above. Denies bowel or bladder concerns. Still able to eliminated she desires and care for herself after elimination. Designates her daughter, Alanna Garcia, as her power of civil litigation attorney for health should that be required. Alanna's cell phone number is [phone]. States unequivocally that she desires a DNR DNI resuscitation status. ?When the Lord calls me home I am ready.? [facility] Medical History (Updated 05/08/23 @ 19:06 by Iain Soriano MD) Obstructive sleep apnea ?G47.33 - Obstructive sleep apnea (adult) (pediatric) (ICD-10) Morbid obesity with BMI of 50.0-59.9, adult ?E66.01 - Morbid (severe) obesity due to excess calories (ICD-10) ?Z68.43 - Body mass index [BMI] 50.0-59.9, adult (ICD-10) Poorly controlled type 2 diabetes mellitus ?E11.65 - Type 2 diabetes mellitus with hyperglycemia (ICD-10) Acute on chronic diastolic heart failure ?I50.33 - Acute on chronic diastolic (congestive) heart failure (ICD-10) Venous insufficiency of both lower extremities ?I87.2 - Venous insufficiency (chronic) (peripheral) (ICD-10) Pulmonary edema with congestive heart failure ?I50.1 - Left ventricular failure, unspecified (ICD-10) Cellulitis of left lower leg ?L03.116 - Cellulitis of left lower limb (ICD-10) Acute kidney injury superimposed on chronic kidney disease ?N17.9 - Acute kidney failure, unspecified (ICD-10) ?N18.9 - Chronic kidney disease, unspecified (ICD-10) Diabetic foot ulcer ?E11.621 - Type 2 diabetes mellitus with foot ulcer (ICD-10) ?L97.509 - Non-pressure chronic ulcer of other part of unspecified foot with unspecified severity (ICD-10) History of fracture of left ankle ?Z87.81 - Personal history of (healed) traumatic fracture (ICD-10) Severe left ventricular hypertrophy ?I51.7 - Cardiomegaly (ICD-10) USP current use of insulin ?Z79.4 - USP (current) use of insulin (ICD-10) History of sciatica ?Z86.69 - Personal history of other diseases of the nervous system and sense organs (ICD-10) Primary hypothyroidism ?E03.9 - Hypothyroidism, unspecified (ICD-10) Asthma ?J45.909 - Unspecified asthma, uncomplicated (ICD-10) Vitamin D deficiency ?E55.9 - Vitamin D deficiency, unspecified (ICD-10) Rectocele ?N81.6 - Rectocele (ICD-10) Essential hypertension ?I10 - Essential (primary) hypertension (ICD-10) Chronic diastolic heart failure ?I50.32 - Chronic diastolic (congestive) heart failure (ICD-10) History of nephrolithiasis ?Z87.442 - Personal history of urinary calculi (ICD-10) Lumbar back pain with radiculopathy affecting left lower extremity ?M54.16 - Radiculopathy, lumbar region (ICD-10) Hypertriglyceridemia ?E78.1 - Pure hyperglyceridemia (ICD-10) Osteoarthritis of knees, bilateral ?M17.0 - Bilateral primary osteoarthritis of knee (ICD-10) Chronic kidney disease ?N18.9 - Chronic kidney disease, unspecified (ICD-10) Diabetic nephropathy associated with type 2 diabetes mellitus ?E11.21 - Type 2 diabetes mellitus with diabetic nephropathy (ICD-10) Surgical History Status post total abdominal hysterectomy ?Z90.710 - Acquired absence of both cervix and uterus (ICD-10) Status post thyroidectomy ?E89.0 - Postprocedural hypothyroidism (ICD-10) History of esophagogastroduodenoscopy ?Z98.890 - Other specified postprocedural states (ICD-10) Status post cholecystectomy ?Z90.49 - Acquired absence of other specified parts of digestive tract (ICD-10) History of intraocular lens implant ?Z96.1 - Presence of intraocular lens (ICD-10) Cataract extraction status ?Z98.49 - Cataract extraction status, unspecified eye (ICD-10) Status post appendectomy ?Z90.49 - Acquired absence of other specified parts of digestive tract (ICD-10) Status post colonoscopy with polypectomy ?Z98.890 - Other specified postprocedural states (ICD-10) Family History Other Diabetes High blood pressure High cholesterol Social History Narrative: . Lives alone. Three supportive children. Designates daughterAlanna, , primary contact for power of civil litigation attorney for health should that be required. Designates son, Nathan, [phone], secondary contact for power of civil litigation attorney for health should that be required. Requests that we attempt resuscitation in the event of cardiopulmonary demise, stressing that she does not want to be kept alive as a vegetable should that come to pass. She reports worsening mobility problems. It is difficult due to her back pain and radicular symptoms going down her right leg for her to get up and walk around. To a lesser extent her left foot also bothers her with weight-bearing. She does walk with a walker. What is your current living situation?: I presently have a place to live Problems where you live: mold Problems where you live details: mold In the past 12 months, utilities in danger of being shut off: no In past 12 months, lack of transportation kept you from medical appts, meetings, work, or getting things needed for daily living: no In the past 12 mos, have been you worried that your food would run out before you had money to buy more?: sometimes true In the past 12 mos, the food you bought just didn't last and you didn't have money to buy more?: sometimes true Highest level of school completed/degree received: Associate degree: academic program Smoking Status: Never smoker How often do you have a drink containing alcohol: never How often do you have six or more drinks on one occasion: Never AUDIT-C Alcohol total score: 0 Non-prescribed substance use: denies use Caffeine: Yes How often does anyone, including family, friends and others, physically hurt you: never How often does anyone, including family, friends and others, insult or talk down to you: fairly often How often does anyone, including family, friends and others, threaten you with harm: never How often does anyone, including family, friends and others, scream or curse at you: never service: No Meds Home Medications and Allergies Home Medications Medication Instructions Recorded Confirmed Type brimonidine 0.2 % eye drops 1 drp ophthalmic (eye-left) BID 11/06/22 05/08/23 History dorzolamide 2 % eye drops 1 drp ophthalmic (eye-left) BID 11/06/22 05/08/23 History latanoprost 0.005 % eye drops 1 drp ophthalmic (eye) QPM 11/06/22 05/08/23 History levothyroxine 125 mcg tablet 125 mcg PO DAILY 11/06/22 05/08/23 History losartan 100 mg tablet 100 mg PO DAILY 11/06/22 05/08/23 History metolazone 2.5 mg tablet 2.5 mg PO FR@09 11/06/22 05/08/23 History montelukast 10 mg tablet 10 mg PO HS 11/06/22 05/08/23 History nitroglycerin 0.4 mg sublingual 0.4 mg sublingual Q5M PRN 11/06/22 05/08/23 History tablet prednisolone acetate 1 % eye 1 drp ophthalmic (eye-left) BID 11/06/22 05/08/23 History drops,suspension timolol maleate 0.5 % eye drops 1 drp ophthalmic (eye-right) QAM 11/06/22 05/08/23 History albuterol sulfate 90 mcg/actuation 2 puff inhalation .3-6X/DAY 11/07/22 05/08/23 History aerosol inhaler ascorbic acid (vitamin C) 500 mg 500 mg PO BID 11/07/22 05/08/23 History tablet insulin human U-100 NPH-regulr 53 unit subcut QPM 11/07/22 05/08/23 History 70-30 mix 100 unit/mL subcutaneous susp (Humulin 70/30 U-100 Insulin) loratadine 10 mg tablet 10 mg PO HS 11/07/22 05/08/23 History (Allerclear) multivitamin (Daily Multi-Vitamin 1 tab PO DAILY 11/07/22 05/08/23 History tablet) vitamin B complex (B 1 tab PO DAILY 11/07/22 05/08/23 History Complex-Vitamin B12 tablet) amlodipine 10 mg tablet 10 mg PO HS 11/29/22 05/08/23 History cholecalciferol (vitamin D3) 125 5,000 unit PO HS 11/29/22 05/08/23 History mcg (5,000 unit) tablet (Vitamin D3) rosuvastatin 10 mg tablet 10 mg PO HS 11/29/22 05/08/23 History insulin human U-100 NPH-regulr 68 unit subcut QAM 12/21/22 05/08/23 History 70-30 mix 100 unit/mL subcutaneous susp (Novolin 70/30 U-100 Insulin) metoprolol tartrate 50 mg tablet 50 mg PO HS 12/21/22 05/08/23 History metoprolol tartrate 50 mg tablet 100 mg PO QAM 12/21/22 05/08/23 History vit C 226 mg-vit E 90 mg-copper 1 cap PO DAILY 12/21/22 05/08/23 History 0.8 mg-zinc oxide-lutein 5 mg capsule (PreserVision Lutein) vitamin E 268 mg (400 unit) capsule 268 mg PO DAILY 12/21/22 05/08/23 History zinc sulfate 66 mg tablet (Zinc-15) 66 mg PO DAILY 12/21/22 05/08/23 History acetaminophen 650 mg 1,300 mg PO BID 05/08/23 05/08/23 History tablet,extended release (8 Hour Pain Reliever) allopurinol 100 mg tablet 150 mg PO DAILY 05/08/23 05/08/23 History calcium carbonate 600 mg calcium 600 mg PO QPM 05/08/23 05/08/23 History (1,500 mg) tablet (Calcium) cholecalciferol (vitamin D3) 25 25 mcg PO QAM AND QHS 05/08/23 05/08/23 History mcg (1,000 unit) capsule fluticasone propionate 100 1 inh inhalation BID 05/08/23 05/08/23 History mcg/actuation blister powder for inhalation hydrocortisone 1 % topical 1 applic topical TID PRN 05/08/23 05/08/23 History ointment (Cortizone-10) loperamide 2 mg tablet 2 mg PO Q6H PRN 05/08/23 05/08/23 History magnesium oxide 400 mg (241.3 mg 400 mg PO HS 05/08/23 05/08/23 History magnesium) tablet menthol 4 % topical gel (Biofreeze 1 applic topical QID PRN 05/08/23 05/08/23 History (menthol)) neomycin 3.5 mg/g-polymyxin B 1 applic ophthalmic (eye-right) 05/08/23 05/08/23 History 10,000 unit/g-dexameth 0.1 % eye BID PRN oint (Maxitrol) potassium gluconate 595 mg (99 mg) 595 mg PO DAILY 05/08/23 05/08/23 History tablet sodium chloride 0.65 % nasal spray 1 spray intranasal Q1H PRN 05/08/23 05/08/23 History aerosol (Deep Sea Nasal) tramadol 50 mg tablet 50 mg PO Q6H PRN pain 05/08/23 05/08/23 History triamcinolone acetonide 0.1 % 1 applic topical 3XD PRN 05/08/23 05/08/23 History topical cream Allergies Allergy/AdvReac Type Severity Reaction Status Date / Time clindamycin Allergy Severe Verified 12/21/22 15:33 hydromorphone Allergy Severe Stopped Verified 12/21/22 15:33 Breathing morphine Allergy Severe Stopped Verified 12/21/22 15:33 Breathing NSAIDS (Non-Steroidal Allergy Severe Anaphylaxis Verified 12/21/22 15:33 Anti-Inflamma penicillin V Allergy Severe Hypertensio Verified 12/21/22 15:33 n aspirin AdvReac nausea and Verified 12/21/22 15:33 vomiting Exam Narrative: Exam Narrative: Examine the patient the emergency department. She is sitting on a chair with her backup right and her feet on the floor. Appears comfortable albeit tachypneic at rest. Has oxygen supplementation via nasal cannula at 3 liters/minute. Saturations around 90%. Respiratory rate is 22-24 breaths per minute. Blood pressure and heart rate are unremarkable. Afebrile. Vision and hearing are grossly intact. Alert and oriented to self, place, time, situation. Friendly, articulate, cooperative. Gracious and appreciative. External auditory canals and tympanic membranes are normal. Midline nasal septum. Dentition fair repair. Dry buccal mucosa. No icterus or conjunctival injection. Conjugate gaze. Neck is full. Nevertheless appears to have JVD and hepatojugular reflux in the sitting upright position. Lungs with decreased breath sounds in the bases otherwise no rales, wheezing, or rhonchi. No CVA tenderness. Heart tones distant but with regular rhythm, normal S1-S2. No obvious murmur, gallop, rub. PMI not laterally displaced. Abdomen is obese with active bowel sounds, soft, nontender. No rebound or guarding. Has yeast in some of her skin folds of her skin of the abdomen and pelvis. Dependent edema in feet legs and thighs. Open wounds bilateral lower extremities left more so than right. Clear weeping through skin from edema. No focal motor neurologic deficits. Able to transfer herself to the bedside commode and back. Const: Vital Signs, click to edit/add: Vital Signs - 24 hr 05/08/23 13:44 05/08/23 16:22 Temperature 97.2 F L Pulse Rate [Pulse Oximeter] 55 L 77 Respiratory Rate 22 22 Blood Pressure [Ri ght Upper Arm] 136/46 L 147/66 H Pulse Oximetry 91 90 Oxygen Delivery Me thod Nasal Cannula Nasal Cannula Oxygen Flow Rate 2 Documenting provider has reviewed patient's vital signs: yes Hospitalist - H&P: Result Labs Labs: Short CBC 05/08/23 Range/Units 14:05 WBC 15.93 H (4.50-11.00) K/uL Hgb 11.0 L (12.0-16.0) gm/dL Hct 38.2 (33.0-51.0) % Plt Count 245 (140-440) K/uL BMP 05/08/23 14:05 Sodium 139 Potassium 5.5 H Chloride 103 Carbon Dioxide 30 BUN 94 H Creatinine 1.9 H Glucose 93 Calcium 8.7 Liver Function 05/08/23 Range/Units 14:05 Total Bilirubin 0.4 (0.1-1.5) mg/dL Direct Bilirubin 0.0 (0.0-0.5) mg/dL AST 37 H (12-35) U/L ALT 45 H (4-35) U/L Alkaline Phosphatase 166 H (40-150) U/L Albumin 3.9 (3.3-5.0) g/dL Imaging Chest x-ray: Attestation: I have reviewed the pertinent imaging results. Radiologist's impression: Compared current x-ray to the x-ray in February of 2023 and in November of 2022. Now has cardiomegaly and pulmonary edema which she did not have previously. Assessment and Plan Assessment and plan (1) Acute on chronic hypoxic respiratory failure: Problem comment: - has been utilizing oxygen supplementation for roughly the last month and still not achieving desired outcomes - multifactorial including acute on chronic diastolic heart failure, pulmonary edema with heart failure, obesity, obstructive sleep apnea - continue with oxygen supplementation for now - treat underlying conditions Status: Acute (2) Venous stasis ulcer with edema of lower leg: Problem comment: - does not appear to have cellulitis but rather inflammation in association with legs being in chronic dependent position - clean legs and apply ABD pads to areas that are open for now - wound care consultation - patient unable to care for herself in her home, including her wound care, and warrants efforts to assess if she meets eligibility criteria for nursing home facility versus assisted living facility with enhanced services - physical therapy, occupational therapy, social sciences department chair consultations Status: Acute (3) Acute on chronic diastolic heart failure: Problem comment: - furosemide 60 mg IV twice daily - I's and O's and daily weights - orthostatic blood pressures and pulses - monitor kidney function panel - telemetry, electrocardiogram, serial troponins - recheck echocardiogram Status: Acute (4) Pulmonary edema with congestive heart failure: Problem comment: - chest x-ray much worse than previously - treatment as specified in acute on chronic diastolic heart failure section above Status: Acute (5) Venous insufficiency of both lower extremities: Problem comment: - above regarding venous stasis ulcer of lower extremity with edema - Discussed elevation and compression daily hereafter. - Have placed consultation for wound care to see in-hospital if they are able. Status: Acute (6) Intertrigo: Problem comment: Continue skin cares in abdominal folds and nystatin t.i.d.. Follow-up with PCP for ongoing management. Status: Acute (7) Diabetic nephropathy associated with type 2 diabetes mellitus: Problem comment: Proteinuria, nearly nephrotic 06/28/2022 when last saw bankruptcy paralegal, Dr. Alfonzo Wheatley. Avoid nonsteroidal anti-inflammatory medications. Attempt to optimize diabetes mellitus. Would benefit from SGLT2i, cannot afford. Would benefit from GLP1 agonist, cannot afford. Would benefit from weight loss, but seemingly unable to achieve. Patient encouraged to continue with glucose checks with meals and at bedtime. She will need to work with PCP to adjust insulin dosing. - in-hospital monitor kidney function and electrolytes daily Status: Chronic (8) Lymphedema: Status: Acute (9) Physical debility: Problem comment: - PT, OT, social sciences department chair consultation Status: Acute (10) Unable to care for self: Problem comment: - social sciences department chair consultation and continue to work with [facility] Status: Acute (11) Poorly controlled type 2 diabetes mellitus: Problem comment: Continue NovoLog 70/30. Diabetic diet. Adding an insulin sliding scale for while she is here. 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 Status: Acute Plan 1. Reviewed impression with patient. 2. Plan as specified above. 3. Answered patient's questions to her satisfaction 4. Patient agreeable with above stated plans and recommendations.
[2023-05-08 19:00] VITALS: RESP 22; TEMP 36.4; O2SAT 91
[2023-05-08 19:03] LABS: Troponin I* < 0.01 ng/mL (0.01-0.04)
--- NOTE | 2023-05-08 19:43 | PC.NURSE ---
Pt is able to ambulate in room with [facility] wide base walker. Chronic 2 L O2, sats in low to mid 90's. Lower legs weepy with many clear fluid filled blister bilaterally. Cleansed & soaked in VASHE gauze then wrapped. Pt states she is pending a room at [facility] worker is Nancy Gonsalez; [phone] is person to help with this. Pt is knowledgble about her meds and proper cares for legs but states she needs help in the house with house work and has no transportation; which limits [facility].
[2023-05-08] MEDS: AMLODIPINE 10 MG TABLET PO (20:50)
[2023-05-08] MEDS: LORATADINE 10 MG TABLET PO (20:50)
[2023-05-08] MEDS: MAGNESIUM OXIDE 400 MG TABLET PO (20:50)
[2023-05-08] MEDS: MONTELUKAST 10 MG TABLET PO (20:51)
[2023-05-08] MEDS: METOPROLOL TARTRATE 50 MG TABLET PO (20:51)
[2023-05-08] MEDS: ROSUVASTATIN CALCIUM 10 MG TABLET PO (20:51)
[2023-05-08] MEDS: ENOXAPARIN 30 MG/0.3ML INJ SUBCUT (20:51)
[2023-05-08] MEDS: TRAMADOL HCL 50 MG TABLET PO (20:51)
[2023-05-08] MEDS: BRIMONIDINE TARTRATE 0.2% OPHTH 1 DROP EYE-LEFT (20:52)
[2023-05-08] MEDS: DORZOLAMIDE HCL 2 % OPHTH DROP 1 DROP EYE-LEFT (20:53)
[2023-05-08] MEDS: SODIUM CHLORIDE 0.9 % (FLUSH) 10 ML SYRINGE 5 ML IVF (20:54)
[2023-05-08] MEDS: NYSTATIN CREAM 30 GM 1 APPLIC TOPICAL (20:54)
[2023-05-08] MEDS: prednisoLONE acetate 1 % DROPS 1 DROP EYE-LEFT (20:54)
[2023-05-08 21:22] LABS: Troponin I* 0.01 ng/mL (0.01-0.04)
[2023-05-08 22:35] VITALS: RESP 22; O2SAT 91
[2023-05-08 23:00] VITALS: BP 120/82; PULSE 67; PULSE 68; RESP 22; TEMP 36.6; O2SAT 93
[2023-05-08] MEDS: ACETAMINOPHEN 325 MG TABLET 650 MG PO (23:30)
[2023-05-09] VITALS (8 sets, daily range): BP systolic 113–162; BP diastolic 46–91; PULSE 50–67; RESP 22–24; TEMP 35.9–36.7; O2SAT 93–96; BMI 58.5
[2023-05-09] MEDS: SODIUM CHLORIDE NASAL SPRAY 1 SPRAY NOSTRIL-B ×2 (01:43→21:29)
[2023-05-09] MEDS: TRAMADOL HCL 50 MG TABLET PO ×3 (03:14→23:24)
[2023-05-09 06:23] LABS: Lactate* 1.1 mmol/L (0.5-1.9)
--- NOTE | 2023-05-09 06:28 | PC.NURSE ---
Addendum entered by Obdulia Richards RN 05/09/23 06:39: Pt ind in room with pt owned cane, calls appropriately for help. requires 2lpm oxymask to maintain sats >88%, she does not keep NC on due to pt reporting irritation to nose, NS nasal spray administered to help with nasal dryness. Original Note: [id number] Pt did not sleep well during night, c/o bilateral leg pain/spasms. prn pain medications administered with little to no relief, offered alternatives such as elevation, repositioning, walking, ice, other prn pain medication, wrapping and pt refused all of the above. weeping noted to both legs, at beginning of shift legs cleansed, abd dressings applied with tubi tray filler, pt tolerated this for approx 5 hours until pt requested they be removed.
[2023-05-09 06:31] LABS: Basophils Percent Auto 0.2 % (0.0-3.0); Eosinophils Percent Auto 1.5 % (0.0-7.0); Hematocrit 37.1 % (33.0-51.0); Hemoglobin* 10.7 gm/dL (12.0-16.0); Immature Granulocytes Pct Auto 0.3 %; Immature Reticulocyte Fraction 28.1 % (3.0-15.9); Lymphocytes Percent Auto 4.3 % (20-44); Mean Corpuscular HGB Conc 29 gm/dL (32-36); Mean Corpuscular Hemoglobin 26 pg (26-34); Mean Corpuscular Volume 90 fL (80-100); Monocytes Percent Auto 7.1 % (0.0-11.0); Neutrophils Percent Auto 86.6 % (42.0-72.0); Platelet Count* 244 K/uL (140-440); RDW Coefficient of Variation % 18.9 % (11.5-15.5); Red Blood Count 4.12 m/uL (4.00-5.20); Reticulocyte Hemoglobin Equivi 21.5 pg (29.0-35.0); Reticulocytes Absolute 0.12 # (0.03-0.08); White Blood Count* 16.88 K/uL (4.50-11.00)
[2023-05-09 06:32] LABS: Slide Review Reflex No
[2023-05-09 06:43] LABS: Albumin* 3.8 g/dL (3.3-5.0); Chloride* 105 mmol/L (96-114); Sodium* 141 mmol/L (135-149)
[2023-05-09 06:45] LABS: Bilirubin Total* 0.8 mg/dL (0.1-1.5); Creatinine* 1.8 mg/dL (0.5-1.5); Est. Creatinine Clearance* 26.54; Estimated Glomerular Filt Rate 30 ml/min
[2023-05-09 06:46] LABS: Alanine Aminotransferase* 37 U/L (4-35); Alkaline Phosphatase* 192 U/L (40-150); Anion Gap 8 mEq/L (7-15); Aspartate Amino Transferase* 27 U/L (12-35); Blood Urea Nitrogen* 88 mg/dL (7-30); Carbon Dioxide* 28 mmol/L (20-32); Glucose* 214 mg/dL (60-115); Total Protein* 6.7 g/dL (6.0-8.3)
[2023-05-09] MEDS: FUROSEMIDE 10 MG/ML inj 60 MG IVP ×2 (06:46→14:37)
[2023-05-09 06:47] LABS: Calcium* 8.6 mg/dL (8.4-10.6); Magnesium* 3.1 mg/dL (1.5-2.6); Phosphorus* 4.8 mg/dL (2.5-4.5)
[2023-05-09] MEDS: SODIUM CHLORIDE 0.9 % (FLUSH) 10 ML SYRINGE 5 ML IVF ×3 (06:47→21:26)
[2023-05-09 06:49] LABS: C Reactive Protein* 2.5 mg/dL (0.5-1.0)
[2023-05-09 07:03] LABS: Procalcitonin* 0.07 ng/mL (<0.50)
[2023-05-09 07:05] LABS: NT Pro B Type NatriureticPept* 2750 pg/mL
[2023-05-09] MEDS: LEVOTHYROXINE 125 MCG TABLET PO (07:44)
[2023-05-09] MEDS: ACETAMINOPHEN 325 MG TABLET 650 MG PO (07:50)
[2023-05-09] MEDS: CEFEPIME HCL 2 GM in 0.9 % SODIUM CHLORIDE Mini-bag 100 ML IVPB (08:08)
[2023-05-09] MEDS: 0.9 % SODIUM CHLORIDE 250 ml IV (08:11)
--- NOTE | 2023-05-09 08:14 | PM.IMPN1 ---
Progress Note: A&P Assessment and plan (1) Acute on chronic hypoxic respiratory failure: Problem details: - has been utilizing home oxygen supplementation for roughly the last month and still not achieving desired outcomes - multifactorial including acute on chronic diastolic heart failure, pulmonary edema with heart failure, obesity, obstructive sleep apnea - continue with oxygen supplementation, diuresis, obtain TTE, RT following Status: Acute (2) Venous stasis ulcer with edema of lower leg: Problem details: - on admission, appeared to have chronic PVD rather than cellulitis - on hospital day 1, having more LLE pain and drainage with subjective fevers and leukocytosis: will culture wound and initiate Cefepime 05/09 - wound care consultation requested - patient unable to care for herself in her home, including her wound care, may require increased care services upon discharge - physical therapy, occupational therapy, social organization professor consultations Status: Acute (3) Acute on chronic diastolic heart failure: Problem details: - furosemide 60 mg IV twice daily - I's and O's and daily weights - orthostatic blood pressures and pulses - monitor kidney function panel - telemetry, electrocardiogram, serial troponins - recheck echocardiogram Status: Acute (4) Obstructive sleep apnea: Problem details: - will not wear CPAP Status: Acute (5) Physical debility: Problem details: - PT, OT, social organization professor consultation Status: Acute (6) Poorly controlled type 2 diabetes mellitus: Problem details: - Continue NovoLog 70/30 with diabetic diet, add SSI during hospital stay Status: Acute (7) Venous insufficiency of both lower extremities: Problem details: - patient declined compression overnight - wound consult has been placed Status: Acute Plan - per above - continue diuresis, await TTE results - appreciate recommendations from therapies and wound care regarding dispo planning Subjective Date Seen: 05/09/23 Interval history: Caity was admitted to the hospital on 05/08 for acute on chronic dyspnea and weakness. Her dyspnea appeared to be multifactorial (CHF, untreated FIOR, pulmonary edema), and she is feeling better after diuresis, still feels quite weak. Having more pain and drainage in her RLE this morning. At this time, she does not feel that she would be able to discharge to previous living situation; believes she needs increased services/care at home. She has not yet seen therapies today. Wound care has also been consulted given chronic LE wounds. Exam Narrative: Exam Narrative: GEN: Alert and oriented, sitting in bedside chair HEENT: EOMIs bilaterally, no scleral icterus CV: RRR, No concerning murmurs R: LCTA bilaterally without concerning wheezing, fine bibasilar rales Ext: no pretibial edema, BLE erythema c/w PVD. Erythema more pronounced on LLE with vesicular features and drainage, + ttp. Two wounds on bottom of L foot, + eschar formation Skin: No other skin lesions noted on exposed skin Neuro: No focal deficits, no resting tremor Psych: Appropriate Const: Vital Signs, click to edit/add: Vital Signs - 24 hr 05/08/23 13:44 05/08/23 16:22 05/08/23 17:21 Temperature 97.2 F L 97.7 F Pulse Rate Pulse Rate [Pulse Oximeter] 55 L 77 Pulse Rate [orthos tatic lying Left P ulse Oximeter] Pulse Rate [orthos tatic sitting Left Pulse Oximeter] Pulse Rate [orthos tatic standing Lef t Pulse Oximeter] Respiratory Rate 22 22 22 Blood Pressure [Le ft Arm] Blood Pressure [Ri ght Upper Arm] 136/46 L 147/66 H Blood Pressure [or thostatic lying Ri ght Arm] Blood Pressure [or thostatic sitting Right Arm] Blood Pressure [or thostatic standing Right Arm] Pulse Oximetry 91 90 93 Oxygen Delivery Me thod Nasal Cannula Nasal Cannula Nasal Cannula Oxygen Flow Rate 2 2 05/08/23 19:00 05/08/23 22:35 05/08/23 23:00 Temperature 97.6 F 97.9 F Pulse Rate Pulse Rate [Pulse Oximeter] 68 Pulse Rate [orthos tatic lying Left P ulse Oximeter] Pulse Rate [orthos tatic sitting Left Pulse Oximeter] Pulse Rate [orthos tatic standing Lef t Pulse Oximeter] Respiratory Rate 22 22 22 Blood Pressure [Le ft Arm] 120/82 Blood Pressure [Ri ght Upper Arm] Blood Pressure [or thostatic lying Ri ght Arm] Blood Pressure [or thostatic sitting Right Arm] Blood Pressure [or thostatic standing Right Arm] Pulse Oximetry 91 91 93 Oxygen Delivery Me thod OxyMask OxyMask OxyMask Oxygen Flow Rate 2 2 1 05/08/23 23:00 05/09/23 03:00 05/09/23 06:00 Temperature 97.1 F L Pulse Rate 67 Pulse Rate [Pulse Oximeter] 59 L Pulse Rate [orthos tatic lying Left P ulse Oximeter] 67 Pulse Rate [orthos tatic sitting Left Pulse Oximeter] 63 Pulse Rate [orthos tatic standing Lef t Pulse Oximeter] 65 Respiratory Rate 22 Blood Pressure [Le ft Arm] 145/91 H Blood Pressure [Ri ght Upper Arm] Blood Pressure [or thostatic lying Ri ght Arm] 151/46 H Blood Pressure [or thostatic sitting Right Arm] 162/69 H Blood Pressure [or thostatic standing Right Arm] 147/64 H Pulse Oximetry 94 Oxygen Delivery Me thod OxyMask Oxygen Flow Rate 1.5 Labs Labs: Laboratory Results - last 24 hr 05/08/23 05/08/23 05/08/23 14:05 18:29 21:00 WBC 15.93 H RBC 4.18 Hgb 11.0 L Hct 38.2 MCV 91 MCH 26 MCHC 29 L RDW Coeff of Tad 19.1 H Plt Count 245 Neut % (Auto) 85.7 H Lymph % (Auto) 4.8 L [place] % (Auto) 7.3 Eos % (Auto) 1.6 Baso % (Auto) 0.3 Neut # (Auto) 13.70 H Lymph # (Auto) 0.80 L [place] # (Auto) 1.20 H Eos # (Auto) 0.30 Baso # (Auto) 0.00 Abs Immat Gran (auto) 0.00 Imm/Tot Granulo (auto) 0.3 Absolute Retic Percent Retic Immature Retic Fraction Retic Hgb Equivalent Sodium 139 Potassium 5.5 H Chloride 103 Carbon Dioxide 30 Anion Gap 6 L BUN 94 H Creatinine 1.9 H Estimated Creat Clear 25.15 Estimated GFR 28 Glucose 93 Lactate 1.1 Calcium 8.7 Phosphorus Magnesium Total Bilirubin 0.4 Direct Bilirubin 0.0 AST 37 H ALT 45 H Alkaline Phosphatase 166 H Troponin I 0.01 < 0.01 L C-Reactive Protein 2.0 H NT-Pro-B Natriuret Pep 2450 Total Protein 7.3 Albumin 3.9 Procalcitonin TSH 2.100 Lab Acknowledgement Test Added 05/09/23 05:57 WBC 16.88 H RBC 4.12 Hgb 10.7 L Hct 37.1 MCV 90 MCH 26 MCHC 29 L RDW Coeff of Tad 18.9 H Plt Count 244 Neut % (Auto) 86.6 H Lymph % (Auto) 4.3 L [place] % (Auto) 7.1 Eos % (Auto) 1.5 Baso % (Auto) 0.2 Neut # (Auto) 14.60 H Lymph # (Auto) 0.70 L [place] # (Auto) 1.20 H Eos # (Auto) 0.30 Baso # (Auto) 0.00 Abs Immat Gran (auto) 0.10 Imm/Tot Granulo (auto) 0.3 Absolute Retic 0.12 H Percent Retic 3.0 H Immature Retic Fraction 28.1 H Retic Hgb Equivalent 21.5 L Sodium 141 Potassium 5.0 Chloride 105 Carbon Dioxide 28 Anion Gap 8 BUN 88 H Creatinine 1.8 H Estimated Creat Clear 26.54 Estimated GFR 30 Glucose 214 H Lactate 1.1 Calcium 8.6 Phosphorus 4.8 H Magnesium 3.1 H Total Bilirubin 0.8 Direct Bilirubin AST 27 ALT 37 H Alkaline Phosphatase 192 H Troponin I C-Reactive Protein 2.5 H NT-Pro-B Natriuret Pep 2750 Total Protein 6.7 Albumin 3.8 Procalcitonin 0.07 TSH Lab Acknowledgement
[2023-05-09] MEDS: LOSARTAN POTASSIUM 50 MG TABLET 100 MG PO (09:05)
[2023-05-09] MEDS: allopurinoL 100 MG TABLET 150 MG PO (09:06)
[2023-05-09] MEDS: METOPROLOL TARTRATE 50 MG TABLET 100 MG PO (09:06)
[2023-05-09] MEDS: INSULIN PROT/ASP (NOVOLOG 70/30) 100 UNIT/ML 68 UNIT SUBCUT (09:08)
[2023-05-09] MEDS: BRIMONIDINE TARTRATE 0.2% OPHTH 1 DROP EYE-LEFT ×2 (09:28→21:25)
[2023-05-09] MEDS: timoloL maleate 0.5 % 1 DROP EYE-RIGHT (09:29)
[2023-05-09] MEDS: DORZOLAMIDE HCL 2 % OPHTH DROP 1 DROP EYE-LEFT ×2 (09:29→21:25)
[2023-05-09] MEDS: prednisoLONE acetate 1 % DROPS 1 DROP EYE-LEFT ×2 (09:30→21:25)
[2023-05-09] MEDS: NYSTATIN CREAM 30 GM 1 APPLIC TOPICAL ×2 (09:31→21:26)
--- NOTE | 2023-05-09 12:45 | PC.SOCIAL ---
Discharge planning: Spoke with RNKeri from [facility]. Keri came to the hospital to meet with pt in person for assessment for admission to an assisted living level of care on their campus. Patient and daughter had been working on this prior to hospitalization. Provided Keri with written information for evaluation for admit. Keri plan to accept pt for admit to assisted living on Saturday05/13/23. Received call from Belem Gonsalez [facility] director social service, stating pt did not fill out a form that is needed for her MA application. Belem to send this to hospital director social service to provide to pt for completion. case management social worker to follow up as needed.
--- NOTE | 2023-05-09 13:47 | PC.SOCIAL ---
Addendum entered by GENET Yarbrough 05/09/23 14:47: Received a phone call back from Itzel at [facility]. Provided update on discharge plans. Itzel informs there were concerns of pt's living environment. Asked Itzel if [facility] completed a [facility] report, Itzel will check into this further. Itzel discussed that pt has lack of family support and has burned bridges with other friends and relatives. [facility] would like an update on confirmed discharge plans when pt is discharged from [facility]. Original Note: Received a voicemail from Itzel at [facility] at [phone] requesting a phone call back. Itzel informs that they have several concerns of the pt being at home that she would like to share with social work. Phone call to Itzel at [facility], left a voicemail requesting a phone call back. Social work will follow up as needed.
--- NOTE | 2023-05-09 14:11 | REH.OT ---
Orders received for OT eval and treat. Patient unable to keep her eyes open for assessment. Will evaluate as able on 05/10/23.
--- NOTE | 2023-05-09 16:44 | P.IMCN_ITS ---
Date of Consult Consult date: 05/09/23 Requesting Physician: Hospitalist Primary Care Provider: Shirley Fleming DO Consult Narrative Narrative: Caity Ojeda is a 68 year old female known to wound services being seen today inpatient after admission through ER yesterday for acute respiratory and acute on chronic CHF. EMS was called by patient's home health nurse due to patient's living condition and her inability to care for herself. Upon presentation to the hospital Labs showed leukocytosis. Subjective fevers reported. Hospitalist team collected wound culture and plans to start IV ABX today. Patient has a known chronic DFU to left foot, venous insufficiency, and chronic lymphedema. ABIs to LLE 1.05 2022, RLE was non-compressible at that time, pedal pulses were palpable and patient tolerated lite compression. Patient declined arterial US testing to further evaluate RLE at that time. Historically patient has been non-compliant with wound care recommendations. Patient often cancels wound center appt. last minute or no-shows. She was discharged from the program 2022 for non-compliance. She was readmitted at the request of primary care. Last wound center appt. patient attended was 3-m onths ago, 2022. Review of Systems Status of ROS: Reports: 6 or more systems reviewed and unremarkable except as noted in History and below [facility] Medical History (Updated 05/09/23 @ 11:08 by Michelle Gold MD) Obstructive sleep apnea ?G47.33 - Obstructive sleep apnea (adult) (pediatric) (ICD-10) Morbid obesity with BMI of 50.0-59.9, adult ?E66.01 - Morbid (severe) obesity due to excess calories (ICD-10) ?Z68.43 - Body mass index [BMI] 50.0-59.9, adult (ICD-10) Poorly controlled type 2 diabetes mellitus ?E11.65 - Type 2 diabetes mellitus with hyperglycemia (ICD-10) Acute on chronic diastolic heart failure ?I50.33 - Acute on chronic diastolic (congestive) heart failure (ICD-10) Venous insufficiency of both lower extremities ?I87.2 - Venous insufficiency (chronic) (peripheral) (ICD-10) Pulmonary edema with congestive heart failure ?I50.1 - Left ventricular failure, unspecified (ICD-10) Cellulitis of left lower leg ?L03.116 - Cellulitis of left lower limb (ICD-10) Acute kidney injury superimposed on chronic kidney disease ?N17.9 - Acute kidney failure, unspecified (ICD-10) ?N18.9 - Chronic kidney disease, unspecified (ICD-10) Diabetic foot ulcer ?E11.621 - Type 2 diabetes mellitus with foot ulcer (ICD-10) ?L97.509 - Non-pressure chronic ulcer of other part of unspecified foot with unspecified severity (ICD-10) History of fracture of left ankle ?Z87.81 - Personal history of (healed) traumatic fracture (ICD-10) Severe left ventricular hypertrophy ?I51.7 - Cardiomegaly (ICD-10) 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 customer service 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 use of 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 ?Z79.4 - intermodal customer service (current) use of insulin (ICD-10) History of sciatica ?Z86.69 - Personal history of other diseases of the nervous system and sense organs (ICD-10) Primary hypothyroidism ?E03.9 - Hypothyroidism, unspecified (ICD-10) Asthma ?J45.909 - Unspecified asthma, uncomplicated (ICD-10) Vitamin D deficiency ?E55.9 - Vitamin D deficiency, unspecified (ICD-10) Rectocele ?N81.6 - Rectocele (ICD-10) Essential hypertension ?I10 - Essential (primary) hypertension (ICD-10) Chronic diastolic heart failure ?I50.32 - Chronic diastolic (congestive) heart failure (ICD-10) History of nephrolithiasis ?Z87.442 - Personal history of urinary calculi (ICD-10) Lumbar back pain with radiculopathy affecting left lower extremity ?M54.16 - Radiculopathy, lumbar region (ICD-10) Hypertriglyceridemia ?E78.1 - Pure hyperglyceridemia (ICD-10) Osteoarthritis of knees, bilateral ?M17.0 - Bilateral primary osteoarthritis of knee (ICD-10) Chronic kidney disease ?N18.9 - Chronic kidney disease, unspecified (ICD-10) Diabetic nephropathy associated with type 2 diabetes mellitus ?E11.21 - Type 2 diabetes mellitus with diabetic nephropathy (ICD-10) Surgical History Status post total abdominal hysterectomy ?Z90.710 - Acquired absence of both cervix and uterus (ICD-10) Status post thyroidectomy ?E89.0 - Postprocedural hypothyroidism (ICD-10) History of esophagogastroduodenoscopy ?Z98.890 - Other specified postprocedural states (ICD-10) Status post cholecystectomy ?Z90.49 - Acquired absence of other specified parts of digestive tract (ICD- 10) History of intraocular lens implant ?Z96.1 - Presence of intraocular lens (ICD-10) Cataract extraction status ?Z98.49 - Cataract extraction status, unspecified eye (ICD-10) Status post appendectomy ?Z90.49 - Acquired absence of other specified parts of digestive tract (ICD- 10) Status post colonoscopy with polypectomy ?Z98.890 - Other specified postprocedural states (ICD-10) Family History Other Diabetes High blood pressure High cholesterol Social History Narrative: . Lives alone. Three supportive children. Designates daughter, Alanna, , primary contact for power of health care attorney for health should that be required. Designates son, Nathan, [phone], secondary contact for power of health care attorney for health should that be required. Requests that we attempt resuscitation in the event of cardiopulmonary demise, stressing that she does not want to be kept alive as a vegetable should that come to pass. She reports worsening mobility problems. It is difficult due to her back pain and radicular symptoms going down her right leg for her to get up and walk around. To a lesser extent her left foot also bothers her with weight-bearing. She does walk with a walker. What is your current living situation?: I presently have a place to live Problems where you live: mold Problems where you live details: mold In the past 12 months, utilities in danger of being shut off: no In past 12 months, lack of transportation kept you from medical appts, meetings, work, or getting things needed for daily living: yes In the past 12 mos, have been you worried that your food would run out before you had money to buy more?: sometimes true In the past 12 mos, the food you bought just didn't last and you didn't have money to buy more?: sometimes true Highest level of school completed/degree received: Associate degree: academic program Smoking Status: Never smoker Do you use any of these nicotine containing products: None Second hand tobacco smoke exposure: No How often do you have a drink containing alcohol: never How often do you have six or more drinks on one occasion: Never AUDIT-C Alcohol total score: 0 Non-prescribed substance use: denies use Caffeine: Yes How often does anyone, including family, friends and others, physically hurt you : never How often does anyone, including family, friends and others, insult or talk down to you: rarely How often does anyone, including family, friends and others, threaten you with harm: never How often does anyone, including family, friends and others, scream or curse at you: never service: No Meds Home Medications and Allergies Home Medications Medication Instructions Recorded Confirmed Type brimonidine 0.2 % eye drops 1 drp ophthalmic (eye-left) BID 11/06/22 05/08/23 History dorzolamide 2 % eye drops 1 drp ophthalmic (eye-left) BID 11/06/22 05/08/23 History latanoprost 0.005 % eye drops 1 drp ophthalmic (eye) QPM 11/06/22 05/08/23 H istory levothyroxine 125 mcg tablet 125 mcg PO DAILY 11/06/22 05/08/23 History losartan 100 mg tablet 100 mg PO DAILY 11/06/22 05/08/23 History metolazone 2.5 mg tablet 2.5 mg PO FR@09 11/06/22 05/08/23 History montelukast 10 mg tablet 10 mg PO HS 11/06/22 05/08/23 History nitroglycerin 0.4 mg sublingual 0.4 mg sublingual Q5M PRN 11/06/22 05/08/23 History tablet prednisolone acetate 1 % eye 1 drp ophthalmic (eye-left) BID 11/06/22 05/08/23 History drops,suspension timolol maleate 0.5 % eye drops 1 drp ophthalmic (eye-right) QAM 11/06/22 05/08/23 History albuterol sulfate 90 mcg/actuation 2 puff inhalation .3-6X/DAY 11/07/22 05/08/23 History aerosol inhaler ascorbic acid (vitamin C) 500 mg 500 mg PO BID 11/07/22 05/08/23 History tablet insulin human U-100 NPH-regulr 53 unit subcut QPM 11/07/22 05/08/23 History 70-30 mix 100 unit/mL subcutaneous susp (Humulin 70/30 U-100 Insulin) loratadine 10 mg tablet 10 mg PO HS 11/07/22 05/08/23 History (Allerclear) multivitamin (Daily Multi-Vitamin 1 tab PO DAILY 11/07/22 05/08/23 History tablet) vitamin B complex (B 1 tab PO DAILY 11/07/22 05/08/23 History Complex-Vitamin B12 tablet) amlodipine 10 mg tablet 10 mg PO HS 11/29/22 05/08/23 History cholecalciferol (vitamin D3) 125 5,000 unit PO HS 11/29/22 05/08/23 History mcg (5,000 unit) tablet (Vitamin D3) rosuvastatin 10 mg tablet 10 mg PO HS 11/29/22 05/08/23 History insulin human U-100 NPH-regulr 68 unit subcut QAM 12/21/22 05/08/23 History 70-30 mix 100 unit/mL subcutaneous susp (Novolin 70/30 U-100 Insulin) metoprolol tartrate 50 mg tablet 50 mg PO HS 12/21/22 05/08/23 History metoprolol tartrate 50 mg tablet 100 mg PO QAM 12/21/22 05/08/23 History vit C 226 mg-vit E 90 mg-copper 1 cap PO DAILY 12/21/22 05/08/23 History 0.8 mg-zinc oxide-lutein 5 mg capsule (PreserVision Lutein) vitamin E 268 mg (400 unit) capsule 268 mg PO DAILY 12/21/22 05/08/23 History zinc sulfate 66 mg tablet (Zinc-15) 66 mg PO DAILY 12/21/22 05/08/23 History acetaminophen 650 mg 1,300 mg PO BID 05/08/23 05/08/23 History tablet,extended release (8 Hour Pain Reliever) allopurinol 100 mg tablet 150 mg PO DAILY 05/08/23 05/08/23 History calcium carbonate 600 mg calcium 600 mg PO QPM 05/08/23 05/08/23 History (1,500 mg) tablet (Calcium) cholecalciferol (vitamin D3) 25 25 mcg PO QAM AND QHS 05/08/23 05/08/23 History mcg (1,000 unit) capsule fluticasone propionate 100 1 inh inhalation BID 05/08/23 05/08/23 History mcg/actuation blister powder for inhalation hydrocortisone 1 % topical 1 applic topical TID PRN 05/08/23 05/08/23 History ointment (Cortizone-10) loperamide 2 mg tablet 2 mg PO Q6H PRN 05/08/23 05/08/23 History magnesium oxide 400 mg (241.3 mg 400 mg PO HS 05/08/23 05/08/23 History magnesium) tablet menthol 4 % topical gel (Biofreeze 1 applic topical QID PRN 05/08/23 05/08/23 History (menthol)) neomycin 3.5 mg/g-polymyxin B 1 applic ophthalmic (eye-right) 05/08/23 05/08/23 History 10,000 unit/g-dexameth 0.1 % eye BID PRN oint (Maxitrol) potassium gluconate 595 mg (99 mg) 595 mg PO DAILY 05/08/23 05/08/23 History tablet sodium chloride 0.65 % nasal spray 1 spray intranasal Q1H PRN 05/08/23 05/08/23 History aerosol (Deep Sea Nasal) tramadol 50 mg tablet 50 mg PO Q6H PRN pain 05/08/23 05/08/23 History triamcinolone acetonide 0.1 % 1 applic topical 3XD PRN 05/08/23 05/08/23 History topical cream Allergies Allergy/AdvReac Type Severity Reaction Status Date / Time clindamycin Allergy Severe Verified 12/21/22 15:33 hydromorphone Allergy Severe Stopped Verified 12/21/22 15:33 Breathing morphine Allergy Severe Stopped Verified 12/21/22 15:33 Breathing NSAIDS (Non-Steroidal Allergy Severe Anaphylaxis Verified 12/21/22 15:33 Anti-Inflamma penicillin V Allergy Severe Hypertensio Verified 12/21/22 15:33 n aspirin AdvReac nausea and Verified 12/21/22 15:33 vomiting Exam Narrative: Exam Narrative: Limited exam due to patient stating she was comfortable in left lateral laying position and did not want to assist with repositioning for this commercial insurance underwriter getting full visualization of left lateral wound. General: patient resting in bed. NAD. Pulmonary: Symmetrical rise, unlabored BLE: Hyperpigmentation, lymphorrhea, hyperplasia, hyperkeratosis. Pedal pulses palpable. RLE scattered irregular shaped venous wounds of varying sizes, largest measuring 5X7X0.1. Periwound findings consistent with stasis dermatitis otherwise within normal limits. Left open draining ulcerations humera-wound with stasis dermatitis. Drainage greater out of LLE than RLE. Erythema is diffuse, and not well demarcated. non-tender to palpation. left foot plantar DFUs: dry eschar, measuring 0.5X0.5X0.1cm. periwound callus present, otherwise WNL Const: Vital Signs, click to edit/add: Vital Signs - 24 hr 05/08/23 17:21 05/08/23 19:00 05/08/23 22:35 Temperature 97.7 F 97.6 F Pulse Rate Pulse Rate [Pulse Oximeter] Pulse Rate [orthos tatic lying Left P ulse Oximeter] Pulse Rate [orthos tatic sitting Left Pulse Oximeter] Pulse Rate [orthos tatic standing Lef t Pulse Oximeter] Respiratory Rate 22 22 22 Blood Pressure [Le ft Arm] Blood Pressure [or thostatic lying Ri ght Arm] Blood Pressure [or thostatic sitting Right Arm] Blood Pressure [or thostatic standing Right Arm] Pulse Oximetry 93 91 91 Oxygen Delivery Me thod Nasal Cannula OxyMask OxyMask Oxygen Flow Rate 2 2 2 05/08/23 23:00 05/08/23 23:00 05/09/23 03:00 Temperature 97.9 F 97.1 F L Pulse Rate 67 Pulse Rate [Pulse Oximeter] 68 59 L Pulse Rate [orthos tatic lying Left P ulse Oximeter] Pulse Rate [orthos tatic sitting Left Pulse Oximeter] Pulse Rate [orthos tatic standing Lef t Pulse Oximeter] Respiratory Rate 22 22 Blood Pressure [Le ft Arm] 120/82 145/91 H Blood Pressure [or thostatic lying Ri ght Arm] Blood Pressure [or thostatic sitting Right Arm] Blood Pressure [or thostatic standing Right Arm] Pulse Oximetry 93 94 Oxygen Delivery Me thod OxyMask OxyMask Oxygen Flow Rate 1 1.5 05/09/23 06:00 05/09/23 07:00 05/09/23 07:00 Temperature Pulse Rate 62 Pulse Rate [Pulse Oximeter] 63 Pulse Rate [orthos tatic lying Left P ulse Oximeter] 67 Pulse Rate [orthos tatic sitting Left Pulse Oximeter] 63 Pulse Rate [orthos tatic standing Lef t Pulse Oximeter] 65 Respiratory Rate Blood Pressure [Le ft Arm] Blood Pressure [or thostatic lying Ri ght Arm] 151/46 H Blood Pressure [or thostatic sitting Right Arm] 162/69 H Blood Pressure [or thostatic standing Right Arm] 147/64 H Pulse Oximetry Oxygen Delivery Me thod Oxygen Flow Rate 05/09/23 07:00 05/09/23 07:00 Temperature 97.5 F L Pulse Rate Pulse Rate [Pulse Oximeter] 63 Pulse Rate [orthos tatic lying Left P ulse Oximeter] Pulse Rate [orthos tatic sitting Left Pulse Oximeter] Pulse Rate [orthos tatic standing Lef t Pulse Oximeter] Respiratory Rate 22 22 Blood Pressure [Le ft Arm] 157/66 H Blood Pressure [or thostatic lying Ri ght Arm] Blood Pressure [or thostatic sitting Right Arm] Blood Pressure [or thostatic standing Right Arm] Pulse Oximetry 95 95 Oxygen Delivery Me thod OxyMask OxyMask Oxygen Flow Rate 2 2 Documenting provider has reviewed patient's vital signs: yes Labs Labs: Short CBC 05/09/23 Range/Units 05:57 WBC 16.88 H (4.50-11.00) K/uL Hgb 10.7 L (12.0-16.0) gm/dL Hct 37.1 (33.0-51.0) % Plt Count 244 (140-440) K/uL BMP 05/09/23 05:57 Sodium 141 Potassium 5.0 Chloride 105 Carbon Dioxide 28 BUN 88 H Creatinine 1.8 H Glucose 214 H Calcium 8.6 Cardiac Enzymes 05/08/23 05/08/23 Range/Units 14:05 18:29 Troponin I 0.01 < 0.01 L (0.01-0.04) ng/mL Liver Function 05/09/23 Range/Units 05:57 Total Bilirubin 0.8 (0.1-1.5) mg/dL AST 27 (12-35) U/L ALT 37 H (4-35) U/L Alkaline Phosphatase 192 H (40-150) U/L Albumin 3.8 (3.3-5.0) g/dL Assessment and Plan Assessment and plan (1) Morbid obesity with BMI of 50.0-59.9, adult: Problem comment: Could potentially benefit from assessment for possible surgical intervention, given multiple complications in association with the same, although patient states she is not interested. 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 [employer] Status: Acute (3) Venous stasis ulcer with edema of lower leg: Problem comment: - on admission, appeared to have chronic PVD rather than cellulitis - on hospital day 1, having more LLE pain and drainage with subjective fevers and leukocytosis: will culture wound and initiate Cefepime 05/09 - wound care consultation requested - patient unable to care for herself in her home, including her wound care, may require increased care services upon discharge - physical therapy, occupational therapy, social sciences chair consultations Status: Acute (4) Lymphedema: Status: Acute Plan * Left foot wounds: cleanse, paint with betadine, cover with border foam (mepilex okay to use). * BLE Wounds: cleanse wounds apply honey/alginate to left draining wound cover with abd. all other wounds to BLE apply medihoney, xeroform, cover with abd. apply coban 2-layer LITE to BLE. If patient is unable to tolerate 2-layer wrap okay to use double layer of tubi-arch cushion skiving machine operator G. Change EOD and PRN. nursing updated on wound care orders and supplied with dressings. Patient advised on the importance of getting edema properly managed, by wearing compression and elevating her legs. she verbalized understanding with ya, ya, ya and rolled over to close eyes and rest.
--- NOTE | 2023-05-09 19:45 | PC.NURSE ---
Pt rates lower leg pain 5-8/10, see MAR for medication administration. Legs wrapped per [facility]. Britt stated she would be putting in written insstructions for Dressing changes every other day or earlier if saturated or soiled; therefore next change is set for Saturday. Pt needs support in following through with cares to aid in healing. Pt is asking for help in making proper meal orders to fit in a diabetic/2g Na diet. Family present and supportive.
[2023-05-09] MEDS: AMLODIPINE 10 MG TABLET PO (21:24)
[2023-05-09] MEDS: LORATADINE 10 MG TABLET PO (21:24)
[2023-05-09] MEDS: METOPROLOL TARTRATE 50 MG TABLET PO (21:24)
[2023-05-09] MEDS: MONTELUKAST 10 MG TABLET PO (21:24)
[2023-05-09] MEDS: ROSUVASTATIN CALCIUM 10 MG TABLET PO (21:25)
[2023-05-09] MEDS: ENOXAPARIN 30 MG/0.3ML INJ SUBCUT (21:25)
[2023-05-09] MEDS: LATANOPROST 0.005% OPHTH 1 DROP EYE-BOTH (21:25)
[2023-05-10] VITALS (12 sets, daily range): BP systolic 123–141; BP diastolic 47–55; PULSE 53–63; RESP 16–20; TEMP 36.4–36.6; O2SAT 90–94
--- NOTE | 2023-05-10 05:10 | PC.NURSE ---
[phone] Pt more comfortable this evening and night, able to get some sleep in recliner, did not attempt to sleep in bed. tolerating NC at 2LPM. dressing to BLE C/D/I, pt tolerating well. rating pain to BLE 6/10, much better than last night. denies SOB, chest pain, lightheaded/dizziness or headache.
[2023-05-10 05:58] LABS: HCO3 VBG 27 mmol/L (21-28); PCO2 VBG 46 mmHG (40-50); pH VBG 7.386 (7.32-7.43)
[2023-05-10 05:59] LABS: Basophils Percent Auto 0.2 % (0.0-3.0); Hematocrit 35.3 % (33.0-51.0); Hemoglobin* 10.3 gm/dL (12.0-16.0); Immature Granulocytes Pct Auto 1.2 %; Lymphocytes Percent Auto 6.1 % (20-44); Mean Corpuscular HGB Conc 29 gm/dL (32-36); Mean Corpuscular Hemoglobin 26 pg (26-34); Mean Corpuscular Volume 90 fL (80-100); Monocytes Percent Auto 8.9 % (0.0-11.0); Neutrophils Percent Auto 81.6 % (42.0-72.0); Platelet Count* 221 K/uL (140-440); RDW Coefficient of Variation % 19.2 % (11.5-15.5); Red Blood Count 3.94 m/uL (4.00-5.20); White Blood Count* 13.01 K/uL (4.50-11.00)
[2023-05-10 06:01] LABS: Slide Review Reflex No
[2023-05-10 06:34] LABS: Albumin* 3.5 g/dL (3.3-5.0)
[2023-05-10 06:35] LABS: Chloride* 103 mmol/L (96-114); Potassium* 4.5 mmol/L (3.6-5.1); Sodium* 138 mmol/L (135-149)
[2023-05-10 06:37] LABS: Anion Gap 10 mEq/L (7-15); Aspartate Amino Transferase* 22 U/L (12-35); Bilirubin Total* 0.7 mg/dL (0.1-1.5); Carbon Dioxide* 25 mmol/L (20-32); Creatinine* 1.9 mg/dL (0.5-1.5); Est. Creatinine Clearance* 25.15; Estimated Glomerular Filt Rate 28 ml/min; Total Protein* 6.9 g/dL (6.0-8.3)
[2023-05-10 06:38] LABS: Alanine Aminotransferase* 30 U/L (4-35); Alkaline Phosphatase* 156 U/L (40-150); Blood Urea Nitrogen* 90 mg/dL (7-30); Calcium* 8.5 mg/dL (8.4-10.6); Glucose* 137 mg/dL (60-115)
[2023-05-10] MEDS: FUROSEMIDE 10 MG/ML inj 60 MG IVP ×2 (06:39→15:12)
[2023-05-10] MEDS: SODIUM CHLORIDE 0.9 % (FLUSH) 10 ML SYRINGE 5 ML IVF ×4 (06:40→20:23)
[2023-05-10] MEDS: LEVOTHYROXINE 125 MCG TABLET PO (06:40)
--- NOTE | 2023-05-10 08:17 | P.IMPN_ITS ---
Progress Note: A&P Assessment and plan (1) Acute on chronic hypoxic respiratory failure: Problem details: - using home O2 for approximately one month prior to admission with minimal improvement - multifactorial: untreated FIOR, CHF - feeling better after diuresis, RT following - TTE 05/09 with results below: Final Impressions: Limited Echocardiogram performed 1. Normal left ventricular size, mildly increased wall thickness, normal global systolic function, calculated EF of 61 %. 2. Right ventricular cavity size is mildly enlarged, global systolic RV function is borderline. 3. The mitral valve is sclerotic, trace mitral regurgitation. 4. The inferior vena cava is normal sized, respiratory size variation less than 50%. Comparison Compared to prior exam report of 11/07/2022: - The right ventricular systolic function has slightly decreased. - RV size has increased. Status: Acute (2) Venous stasis ulcer with edema of lower leg: Problem details: - on admission, appeared to have chronic PVD rather than cellulitis - on hospital day 1, having more LLE pain and drainage with subjective fevers and leukocytosis: will culture wound and initiate Cefepime 05/09 - on 05/10, wound culture + for MRSA: transitioned from Cefepime to Doxycycline based on previous cultures - wound care following - physical therapy, occupational therapy, social work coordinator consultations Status: Acute (3) Unable to care for self: Problem details: - will require SNF upon d/c, plan is to transition to [facility] on Saturday, 05/13 Status: Acute (4) Poorly controlled type 2 diabetes mellitus: Problem details: - Continue NovoLog 70/30 with diabetic diet, add SSI during hospital stay Status: Acute (5) Obstructive sleep apnea: Problem details: - will not wear CPAP Status: Acute Plan - per above; placement planned for Saturday - renally dosed Lovenox for ppx Subjective Date Seen: 05/10/23 Interval history: Caity was admitted to the hospital on 05/08 for acute on chronic dyspnea and weakness. Her dyspnea appeared to be multifactorial (CHF, untreated FIOR, pulmonary edema). Blood sugars have been variable: 64-257. RLE wound culture + for MRSA. Therapies, Social work team, and Wound Care following. Caity has no concerns for hospitalist team this morning. Exam Narrative: Exam Narrative: GEN: Alert and sitting comfortably in bedside chair HEENT: EOMIs bilaterally, no scleral icterus CV: RRR, soft systolic murmur without concerning features R: LCTA bilaterally without concerning wheezing, fine bibasilar rales Skin: Bilateral lower extremities are wrapped this morning, not formally examined Neuro: No focal deficits Psych: Appropriately conversive and interactive Const: Vital Signs, click to edit/add: Vital Signs - 24 hr 05/09/23 11:00 05/09/23 15:00 05/09/23 15:00 Temperature 97.3 F L Pulse Rate 50 L Pulse Rate [Pulse Oximeter] 56 L 54 L Respiratory Rate 24 Blood Pressure [Le ft Arm] 138/69 Pulse Oximetry 96 Oxygen Delivery Me thod OxyMask Oxygen Flow Rate 2 05/09/23 15:00 05/09/23 15:00 05/09/23 19:00 Temperature 97.1 F L 98.0 F Pulse Rate Pulse Rate [Pulse Oximeter] 54 L 56 L Respiratory Rate 24 24 22 Blood Pressure [Le ft Arm] 113/65 140/60 H Pulse Oximetry 95 95 93 Oxygen Delivery Me thod Nasal Cannula Nasal Cannula Nasal Cannula Oxygen Flow Rate 2 2 2 05/09/23 22:48 05/09/23 22:48 05/09/23 23:00 Temperature Pulse Rate 61 Pulse Rate [Pulse Oximeter] 56 L Respiratory Rate 22 Blood Pressure [Le ft Arm] Pulse Oximetry 93 Oxygen Delivery Me thod Nasal Cannula Oxygen Flow Rate 2 05/09/23 23:00 05/10/23 02:06 Temperature 96.7 F L Pulse Rate Pulse Rate [Pulse Oximeter] 57 L 53 L Respiratory Rate 22 20 Blood Pressure [Le ft Arm] 146/66 H Pulse Oximetry 93 93 Oxygen Delivery Me thod Nasal Cannula Nasal Cannula Oxygen Flow Rate 2 2 Labs Labs: Laboratory Results - last 24 hr 05/10/23 05:50 WBC 13.01 H RBC 3.94 L Hgb 10.3 L Hct 35.3 MCV 90 MCH 26 MCHC 29 L RDW Coeff of Tad 19.2 H Plt Count 221 Neut % (Auto) 81.6 H Lymph % (Auto) 6.1 L [place] % (Auto) 8.9 Eos % (Auto) 2.0 Baso % (Auto) 0.2 Neut # (Auto) 10.60 H Lymph # (Auto) 0.80 L [place] # (Auto) 1.20 H Eos # (Auto) 0.30 Baso # (Auto) 0.00 Abs Immat Gran (auto) 0.20 Imm/Tot Granulo (auto) 1.2 VBG pH 7.386 VBG pCO2 46 VBG pO2 51.0 H VBG HCO3 27 Sodium 138 Potassium 4.5 Chloride 103 Carbon Dioxide 25 Anion Gap 10 BUN 90 H Creatinine 1.9 H Estimated Creat Clear 25.15 Estimated GFR 28 Glucose 137 H Calcium 8.5 Magnesium 3.0 H Total Bilirubin 0.7 AST 22 ALT 30 Alkaline Phosphatase 156 H Total Protein 6.9 Albumin 3.5
[2023-05-10] MEDS: allopurinoL 100 MG TABLET 150 MG PO (09:09)
[2023-05-10] MEDS: LOSARTAN POTASSIUM 50 MG TABLET 100 MG PO (09:10)
[2023-05-10] MEDS: METOPROLOL TARTRATE 50 MG TABLET 100 MG PO (09:10)
[2023-05-10] MEDS: DORZOLAMIDE HCL 2 % OPHTH DROP 1 DROP EYE-LEFT ×2 (09:12→20:25)
[2023-05-10] MEDS: prednisoLONE acetate 1 % DROPS 1 DROP EYE-LEFT ×2 (09:12→20:25)
[2023-05-10] MEDS: timoloL maleate 0.5 % 1 DROP EYE-RIGHT (09:12)
[2023-05-10] MEDS: NYSTATIN CREAM 30 GM 1 APPLIC TOPICAL ×3 (09:12→20:27)
[2023-05-10] MEDS: BRIMONIDINE TARTRATE 0.2% OPHTH 1 DROP EYE-LEFT ×2 (09:12→20:26)
[2023-05-10] MEDS: ACETAMINOPHEN 325 MG TABLET 650 MG PO ×2 (09:15→20:17)
[2023-05-10] MEDS: INSULIN PROT/ASP (NOVOLOG 70/30) 100 UNIT/ML 68 UNIT SUBCUT (09:17)
[2023-05-10] MEDS: DOXYCYCLINE HYCLATE 100 MG PO ×2 (09:17→20:18)
--- NOTE | 2023-05-10 11:43 | PC.SOCIAL ---
Addendum entered by ELLIE López 05/10/23 14:32: Updated Belem Gonsalez at [facility] on the plan for [facility] assisted living if accepted on Saturday and the back up plan of [facility] placement for short term rehab if needed prior to assisted living admission. foundry worker apprentice to follow up as needed. Addendum entered by ELLIE López 05/10/23 14:25: Received call from Keri stating that the [facility] flight director will assess pt on Saturday to determine if she is able to be admitted to assisted living or will need to go to a short term rehab stay at a [facility] facility prior to assisted living. foundry worker apprentice to follow up as needed. Addendum entered by ELLIE López 05/10/23 12:09: Received call back from [facility] stating they have no available private rooms which would be needed due to MRSA. They will not have any available for at least a week. foundry worker apprentice to follow up as needed. Original Note: Discharge planning: Multiple messages were left for Keri at [facility] on 05/09/23 requesting call back with decision on admit to assisted living on their campus on Saturday. No returned phone call yet received. As back-up plan, social sciences lecturer began looking fro [facility] short term placement if needed to bridge time between discharge from the hospital and admit to assisted living. Contacted the following facilities wiith the listed results: 1.Called [facility] and spoke with Fabi who states they are not able to accommodate pt's needs. Pt's weigth is 359 pounds and she is in isolation due to MRSA. 2. Emailed [facility], provided no HIPAA protected information, and awaiting call back. 3. Emailed [facility], provided no HIPAA protected information, and awaiting call back. Social work to follow up as needed.
--- NOTE | 2023-05-10 15:40 | PC.SOCIAL ---
Discharge planning: cabin worker met with pt in her room and discussed with her the possibility of her needing to go to a SNF for short-term rehab before she can be accepted at the [facility] facility. cabin worker explained to pt that the Director of [facility] will be back on Saturday to assess the pt's case and decide on accepting pt now or requesting her to go to short-term rehab first. Pt was not pleased with this news, but accepted it. Pt asked this social work professor to update her daughter, Alanna Ojeda, and discuss what other SNF's to look at for her with Alanna. cabin worker called Alanna at #[phone] and gave her the [facility] update. cabin worker was then informed by [facility] that they would look at the pt's referral. Pt's daughter, Alanna, was pleased with this news, as she stated her sister lives close to [place] and this would be a good facility for her mother to go to, if needed, due to location. cabin worker secure emailed the referral to [facility] at [facility]. cabin worker also explained to pt's daughter, Alanna, that she would be updated on Saturday by the Social Work Department as soon as we hear an answer from [facility]. Pt's daughter, Alanna, gave this social work professor permission to contact additional SNF that could accommodate the pt's bariatric status, keeping in mind that the pt does not want to go anywhere in [place]. cabin worker contacted the following facilities: 1. [facility] #[phone]= Denial due to having no openings and a weight limit of 350 lb. 2. [facility] #[phone]= left message requesting a call back. 3. [facility] #[phone]= left message requesting a call back. 4. [facility] #[phone]= left message requesting a call back. 5. [facility] #[phone]= left message requesting a call back. 6. [facility] #[phone]= no answer, kept ringing. 7. [facility] [place] #[phone]= left message requesting a call back. 8. [facility] #[phone]= left message requesting a call back. 9. [facility] #[phone]= left message requesting a call back. 10. [facility] #[phone]= left message requesting a call back. Social work to follow-up as needed.
[2023-05-10] MEDS: INSULIN ASPART 100 UNIT/ML SUBCUT (17:39)
[2023-05-10] MEDS: INSULIN PROT/ASP (NOVOLOG 70/30) 100 UNIT/ML 53 UNIT SUBCUT (17:39)
[2023-05-10] MEDS: ENOXAPARIN 30 MG/0.3ML INJ SUBCUT (20:14)
[2023-05-10] MEDS: LORATADINE 10 MG TABLET PO (20:14)
[2023-05-10] MEDS: MONTELUKAST 10 MG TABLET PO (20:15)
[2023-05-10] MEDS: ROSUVASTATIN CALCIUM 10 MG TABLET PO (20:15)
[2023-05-10] MEDS: LATANOPROST 0.005% OPHTH 1 DROP EYE-BOTH (20:24)
[2023-05-10] MEDS: ALBUTEROL INHALER 2 PUFF IH (20:26)
[2023-05-11] VITALS (8 sets, daily range): BP systolic 124–148; BP diastolic 52–72; PULSE 50–65; RESP 16–18; TEMP 36.2–36.6; O2SAT 90–95
--- NOTE | 2023-05-11 04:09 | PC.NURSE ---
Pt slept in chair all night. Legs elevated for comfort. Up to BR SBA with cane. Oriented x3. Legs weeping. Afebrile. Tele Sinus Luis.
[2023-05-11 06:16] LABS: Basophils Percent Auto 0.4 % (0.0-3.0); Eosinophils Percent Auto 3.1 % (0.0-7.0); Hematocrit 36.4 % (33.0-51.0); Hemoglobin* 10.6 gm/dL (12.0-16.0); Immature Granulocytes Pct Auto 1.2 %; Lymphocytes Percent Auto 10.8 % (20-44); Mean Corpuscular HGB Conc 29 gm/dL (32-36); Mean Corpuscular Hemoglobin 26 pg (26-34); Mean Corpuscular Volume 90 fL (80-100); Monocytes Percent Auto 10.2 % (0.0-11.0); Neutrophils Percent Auto 74.3 % (42.0-72.0); Platelet Count* 232 K/uL (140-440); Red Blood Count 4.05 m/uL (4.00-5.20); White Blood Count* 11.09 K/uL (4.50-11.00)
[2023-05-11 06:35] LABS: Albumin* 3.8 g/dL (3.3-5.0); Chloride* 102 mmol/L (96-114); Potassium* 4.5 mmol/L (3.6-5.1); Sodium* 138 mmol/L (135-149)
[2023-05-11 06:38] LABS: Alanine Aminotransferase* 30 U/L (4-35); Alkaline Phosphatase* 145 U/L (40-150); Anion Gap 11 mEq/L (7-15); Bilirubin Total* 0.5 mg/dL (0.1-1.5); Blood Urea Nitrogen* 95 mg/dL (7-30); Calcium* 8.7 mg/dL (8.4-10.6); Carbon Dioxide* 25 mmol/L (20-32); Creatinine* 2.1 mg/dL (0.5-1.5); Est. Creatinine Clearance* 22.75; Estimated Glomerular Filt Rate 25 ml/min; Glucose* 95 mg/dL (60-115); Total Protein* 7.2 g/dL (6.0-8.3)
[2023-05-11 06:41] LABS: Slide Review Reflex No
[2023-05-11] MEDS: FUROSEMIDE 10 MG/ML inj 60 MG IVP ×2 (06:53→13:54)
[2023-05-11 06:54] LABS: Aspartate Amino Transferase* 35 U/L (12-35)
[2023-05-11] MEDS: LEVOTHYROXINE 125 MCG TABLET PO (06:56)
--- NOTE | 2023-05-11 08:22 | P.IMPN_ITS ---
Progress Note: A&P Assessment and plan (1) Acute on chronic hypoxic respiratory failure: Problem details: - using home O2 for approximately one month prior to admission with minimal improvement - multifactorial: untreated FIOR, CHF - feeling better after diuresis, RT following - TTE 05/09 with results below: Final Impressions: Limited Echocardiogram performed 1. Normal left ventricular size, mildly increased wall thickness, normal global systolic function, calculated EF of 61 %. 2. Right ventricular cavity size is mildly enlarged, global systolic RV function is borderline. 3. The mitral valve is sclerotic, trace mitral regurgitation. 4. The inferior vena cava is normal sized, respiratory size variation less than 50%. Comparison Compared to prior exam report of 11/07/2022: - The right ventricular systolic function has slightly decreased. - RV size has increased. Status: Acute (2) Acute on chronic diastolic heart failure: Problem details: - ECHO as above - furosemide 60 mg IV twice daily - 2/3 Cr increasing slowly, continues to have bibasilar crackles, wt increased today, I/Os not accurate - I discussed this with staff. - Continue current lasix dose. Continue I's and O's and daily weights, orthostatic blood pressures and pulses, monitor kidney function panel, telemetry. Anticipate transition to oral lasix tomorrow. Status: Acute (3) Venous stasis ulcer with edema of lower leg: Problem details: - on admission, appeared to have chronic PVD rather than cellulitis - on hospital day 1, having more LLE pain and drainage with subjective fevers and leukocytosis: will culture wound and initiate Cefepime 05/09 - on 05/10, wound culture + for MRSA: transitioned from Cefepime to Doxycycline based on previous cultures - wound care following - physical therapy, occupational therapy, school social worker consultations Status: Acute (4) Unable to care for self: Problem details: - will require SNF upon d/c, plan is to transition to enhanced [facility] on Saturday, 05/13 Status: Acute (5) Poorly controlled type 2 diabetes mellitus: Problem details: - Continue NovoLog 70/30 (68u am, 53u pm, which is her home dosing) with diabetic diet, SSI added during hospital stay - 2/3 blood gluc lower over the last 24 hours, 80-130's. Patient feeling woozy. Decrease ISS to low dose, continue 70/30 doses as is. Status: Chronic (6) Obstructive sleep apnea: Problem details: - will not wear CPAP Status: Chronic Plan VTE prophylaxis: Low-dose nightly enoxaparin. Time Spent With Patient Total time spent: Today I spent 35 minutes rounding on the patient. Greater than 50% included reviewing her chart including blood glucose, medications, labs, wound care note, provider notes, discussing care with the team, updating and managing the care plan. Subjective Time Seen by Provider: 08:08 Date Seen: 05/11/23 Interval history: Caity had many complaints today. The feeling woozy, like her blood sugar is low. She normally would order a muffin with her breakfast and really wanted 1 this morning but could only have fruit instead. She is quite upset about this. She also notes that her eggs are already cold. She expresses fear of the unknown avoided will be like to be in an enhanced assisted living facility where she does not have her deodorant, her clothes, her music, her books, etc.. When I suggested that she contact a friend to go to her house to gather up these things and bring them, she complained about something else instead of answering. She says that her weight has not changed despite her eating differently over the last couple days. She is very frustrated by that. We talked about how a change to a diet takes weeks to start to to see a change. She complains about very low blood sugars in the middle of the night at home and how that would make her shaky and unsteady, but does admit that she has not had low blood sugars in the middle of the night here. She also complains of a sore throat. Exam Narrative: Exam Narrative: General: No acute distress. Irritable. Awake, alert, oriented. No pallor. No jaundice. Morbidly obese. Sitting in the bedside chair picking at breakfast. Oropharynx: Clear. Mucous membranes moist. Cardiovascular: Regular rate and rhythm. Soft grade 1/6 systolic murmur. Respiratory: Fine bibasilar crackles, no wheezes. Abdomen: Bowel sounds present. Soft, nondistended, nontender. Extremities: Both lower extremities are wrapped, these are clean, dry, and intact. Const: Vital Signs, click to edit/add: Vital Signs - 24 hr 05/10/23 08:27 05/10/23 08:27 05/10/23 09:24 Temperature 97.6 F Pulse Rate 55 L Pulse Rate [Apical ] Pulse Rate [Pulse Oximeter] 63 Respiratory Rate 18 Blood Pressure [Le ft Arm] 141/47 H Pulse Oximetry 90 90 Oxygen Delivery Me thod Nasal Cannula Nasal Cannula Oxygen Flow Rate 2 2 05/10/23 15:10 05/10/23 15:10 05/10/23 15:31 Temperature 97.9 F Pulse Rate 53 L Pulse Rate [Apical ] 54 L Pulse Rate [Pulse Oximeter] Respiratory Rate 20 Blood Pressure [Le ft Arm] 126/53 L Pulse Oximetry 91 91 Oxygen Delivery Me thod Nasal Cannula Nasal Cannula Oxygen Flow Rate 2 2 05/10/23 19:06 05/10/23 19:39 05/10/23 20:17 Temperature 97.6 F 97.6 F Pulse Rate 54 L Pulse Rate [Apical ] 55 L Pulse Rate [Pulse Oximeter] 55 L Respiratory Rate 16 Blood Pressure [Le ft Arm] 123/55 L Pulse Oximetry 94 Oxygen Delivery Me thod Nasal Cannula Oxygen Flow Rate 2 05/10/23 21:19 05/10/23 22:32 05/10/23 22:33 Temperature 97.6 F 97.6 F Pulse Rate Pulse Rate [Apical ] 57 L 57 L Pulse Rate [Pulse Oximeter] 57 L 57 L Respiratory Rate 16 16 Blood Pressure [Le ft Arm] 136/52 L Pulse Oximetry 90 Oxygen Delivery Me thod Nasal Cannula Oxygen Flow Rate 2 05/10/23 22:34 05/11/23 01:42 05/11/23 08:04 Temperature 97.2 F L Pulse Rate Pulse Rate [Apical ] 50 L Pulse Rate [Pulse Oximeter] 50 L Respiratory Rate 18 16 Blood Pressure [Le ft Arm] 140/53 H Pulse Oximetry 90 91 95 Oxygen Delivery Me thod Nasal Cannula Nasal Cannula Room Air Oxygen Flow Rate 2 2 05/11/23 08:04 Temperature 97.8 F Pulse Rate Pulse Rate [Apical ] 55 L Pulse Rate [Pulse Oximeter] Respiratory Rate 18 Blood Pressure [Le ft Arm] 147/52 H Pulse Oximetry 95 Oxygen Delivery Me thod Room Air Oxygen Flow Rate Labs Labs: Laboratory Results - last 24 hr 05/11/23 06:03 WBC 11.09 H RBC 4.05 Hgb 10.6 L Hct 36.4 MCV 90 MCH 26 MCHC 29 L RDW Coeff of Tad 19.0 H Plt Count 232 Neut % (Auto) 74.3 H Lymph % (Auto) 10.8 L [place] % (Auto) 10.2 Eos % (Auto) 3.1 Baso % (Auto) 0.4 Neut # (Auto) 8.20 H Lymph # (Auto) 1.20 [place] # (Auto) 1.10 H Eos # (Auto) 0.30 Baso # (Auto) 0.00 Abs Immat Gran (auto) 0.10 Imm/Tot Granulo (auto) 1.2 Sodium 138 Potassium 4.5 Chloride 102 Carbon Dioxide 25 Anion Gap 11 BUN 95 H Creatinine 2.1 H Estimated Creat Clear 22.75 Estimated GFR 25 Glucose 95 Calcium 8.7 Total Bilirubin 0.5 AST 35 ALT 30 Alkaline Phosphatase 145 Total Protein 7.2 Albumin 3.8
[2023-05-11] MEDS: prednisoLONE acetate 1 % DROPS 1 DROP EYE-LEFT ×2 (08:59→21:05)
[2023-05-11] MEDS: SODIUM CHLORIDE 0.9 % (FLUSH) 10 ML SYRINGE 5 ML IVF ×2 (08:59→21:10)
[2023-05-11] MEDS: timoloL maleate 0.5 % 1 DROP EYE-RIGHT (08:59)
[2023-05-11] MEDS: BRIMONIDINE TARTRATE 0.2% OPHTH 1 DROP EYE-LEFT ×2 (08:59→21:01)
[2023-05-11] MEDS: DORZOLAMIDE HCL 2 % OPHTH DROP 1 DROP EYE-LEFT ×2 (08:59→21:03)
[2023-05-11] MEDS: METOPROLOL TARTRATE 50 MG TABLET 100 MG PO (09:00)
[2023-05-11] MEDS: allopurinoL 100 MG TABLET 150 MG PO (09:00)
[2023-05-11] MEDS: DOXYCYCLINE HYCLATE 100 MG PO ×2 (09:00→21:08)
[2023-05-11] MEDS: NYSTATIN CREAM 30 GM 1 APPLIC TOPICAL ×3 (09:00→21:06)
[2023-05-11] MEDS: INSULIN PROT/ASP (NOVOLOG 70/30) 100 UNIT/ML 68 UNIT SUBCUT (09:01)
[2023-05-11] MEDS: LOSARTAN POTASSIUM 50 MG TABLET 100 MG PO (09:01)
[2023-05-11] MEDS: ACETAMINOPHEN 325 MG TABLET 650 MG PO ×2 (09:07→17:32)
[2023-05-11] MEDS: 0.9 % SODIUM CHLORIDE 250 ml IV (13:56)
[2023-05-11] MEDS: CEFEPIME HCL 2 GM in 0.9 % SODIUM CHLORIDE Mini-bag 100 ML IVPB (13:57)
[2023-05-11] MEDS: INSULIN PROT/ASP (NOVOLOG 70/30) 100 UNIT/ML 53 UNIT SUBCUT (17:32)
[2023-05-11] MEDS: TRAMADOL HCL 50 MG TABLET PO (19:46)
[2023-05-11] MEDS: LATANOPROST 0.005% OPHTH 1 DROP EYE-BOTH (21:05)
[2023-05-11] MEDS: ENOXAPARIN 30 MG/0.3ML INJ SUBCUT (21:07)
[2023-05-11] MEDS: ROSUVASTATIN CALCIUM 10 MG TABLET PO (21:08)
[2023-05-11] MEDS: MONTELUKAST 10 MG TABLET PO (21:08)
[2023-05-11] MEDS: METOPROLOL TARTRATE 50 MG TABLET PO (21:09)
[2023-05-11] MEDS: LORATADINE 10 MG TABLET PO (21:09)
[2023-05-11] MEDS: AMLODIPINE 10 MG TABLET PO (21:09)
--- NOTE | 2023-05-12 01:14 | PC.NURSE ---
Diabetic note: Blood sugar checked at 2100 was 78. Jeffy crackers 1x with peanut butter and jello given. Blood sugar rechecked at 2300 was 53. Jeffy crackers with peanut butter 2x, apple juice and protein shake was given. Rechecked at 2330 was 75. Patient made comfortable in bed. Complained of difficulty sleeping and tightness of the dressing to the left left and asked for removal. Dressing removed at 2300.
[2023-05-12 03:00] VITALS: BP 145/63; PULSE 58; RESP 18; TEMP 36.6; O2SAT 94
[2023-05-12 06:28] LABS: Basophils Percent Auto 0.4 % (0.0-3.0); Eosinophils Percent Auto 2.5 % (0.0-7.0); Hematocrit 37.9 % (33.0-51.0); Hemoglobin* 11.1 gm/dL (12.0-16.0); Immature Granulocytes Pct Auto 0.3 %; Lymphocytes Percent Auto 8.4 % (20-44); Mean Corpuscular HGB Conc 29 gm/dL (32-36); Mean Corpuscular Hemoglobin 26 pg (26-34); Mean Corpuscular Volume 89 fL (80-100); Monocytes Percent Auto 9.2 % (0.0-11.0); Neutrophils Percent Auto 79.2 % (42.0-72.0); Platelet Count* 269 K/uL (140-440); RDW Coefficient of Variation % 18.8 % (11.5-15.5); Red Blood Count 4.27 m/uL (4.00-5.20); Slide Review Reflex No; White Blood Count* 13.33 K/uL (4.50-11.00)
[2023-05-12 06:39] LABS: Albumin* 3.8 g/dL (3.3-5.0)
[2023-05-12 06:40] LABS: Chloride* 105 mmol/L (96-114); Potassium* 4.6 mmol/L (3.6-5.1); Sodium* 138 mmol/L (135-149)
[2023-05-12 06:42] LABS: Anion Gap 7 mEq/L (7-15); Aspartate Amino Transferase* 27 U/L (12-35); Bilirubin Total* 0.6 mg/dL (0.1-1.5); Carbon Dioxide* 26 mmol/L (20-32); Est. Creatinine Clearance* 23.89; Estimated Glomerular Filt Rate 27 ml/min; Total Protein* 7.3 g/dL (6.0-8.3)
[2023-05-12 06:43] LABS: Alanine Aminotransferase* 31 U/L (4-35); Alkaline Phosphatase* 151 U/L (40-150); Blood Urea Nitrogen* 99 mg/dL (7-30); Calcium* 8.8 mg/dL (8.4-10.6); Glucose* 97 mg/dL (60-115)
[2023-05-12] MEDS: FUROSEMIDE 10 MG/ML inj 60 MG IVP (06:52)
[2023-05-12] MEDS: LEVOTHYROXINE 125 MCG TABLET PO (06:52)
[2023-05-12 07:40] VITALS: PULSE 58
[2023-05-12 07:54] VITALS: BP 149/58; PULSE 55; RESP 18; TEMP 36.8; O2SAT 94
[2023-05-12] MEDS: NYSTATIN CREAM 30 GM 1 APPLIC TOPICAL ×3 (09:00→21:11)
[2023-05-12] MEDS: allopurinoL 100 MG TABLET 150 MG PO (09:00)
[2023-05-12] MEDS: timoloL maleate 0.5 % 1 DROP EYE-RIGHT (09:00)
[2023-05-12] MEDS: BRIMONIDINE TARTRATE 0.2% OPHTH 1 DROP EYE-LEFT ×2 (09:00→20:50)
[2023-05-12] MEDS: DORZOLAMIDE HCL 2 % OPHTH DROP 1 DROP EYE-LEFT ×2 (09:00→20:50)
[2023-05-12] MEDS: DOXYCYCLINE HYCLATE 100 MG PO ×2 (09:00→20:49)
[2023-05-12] MEDS: LOSARTAN POTASSIUM 50 MG TABLET 100 MG PO (09:00)
[2023-05-12] MEDS: prednisoLONE acetate 1 % DROPS 1 DROP EYE-LEFT ×2 (09:00→20:49)
[2023-05-12] MEDS: SODIUM CHLORIDE 0.9 % (FLUSH) 10 ML SYRINGE 5 ML IVF ×2 (09:01→21:12)
[2023-05-12] MEDS: METOPROLOL TARTRATE 50 MG TABLET 100 MG PO (09:01)
[2023-05-12] MEDS: INSULIN PROT/ASP (NOVOLOG 70/30) 100 UNIT/ML 68 UNIT SUBCUT (09:03)
--- NOTE | 2023-05-12 11:53 | P.IMPN_ITS ---
Progress Note: A&P Assessment and plan (1) Acute on chronic hypoxic respiratory failure: Problem details: - 05/12 appears to be back to baseline - using home O2 for approximately one month prior to admission with minimal improvement - multifactorial: untreated FIOR, CHF - feeling better after diuresis, RT following - TTE 05/09 with results below: Final Impressions: Limited Echocardiogram performed 1. Normal left ventricular size, mildly increased wall thickness, normal global systolic function, calculated EF of 61 %. 2. Right ventricular cavity size is mildly enlarged, global systolic RV function is borderline. 3. The mitral valve is sclerotic, trace mitral regurgitation. 4. The inferior vena cava is normal sized, respiratory size variation less than 50%. Comparison Compared to prior exam report of 11/07/2022: - The right ventricular systolic function has slightly decreased. - RV size has increased. Status: Acute (2) Acute on chronic diastolic heart failure: Problem details: - ECHO as above - 05/11 Cr increasing slowly, continues to have bibasilar crackles, wt increased today, I/Os not accurate - I discussed this with staff. - 05/12 Cr stable at 2. Change furosemide back to home oral dose and recheck BMP in am. Continue I's and O's and daily weights, orthostatic blood pressures and pulses, monitor kidney function panel. Anticipate discharge to [facility] tomorrow. Status: Acute (3) Venous stasis ulcer with edema of lower leg: Problem details: - on admission, appeared to have chronic PVD rather than cellulitis - on hospital day 1, having more LLE pain and drainage with subjective fevers and leukocytosis: Cultured wound and initiated Cefepime 05/09 - on 05/10, wound culture + for MRSA: transitioned from Cefepime to Doxycycline based on previous cultures - wound care following - physical therapy, occupational therapy, dialysis social worker consultations - 05/12 left leg wound culture grew out Morganella morganii, sensitivities below, will continue cefepime and doxycycline for now to cover for Morganella and MRSA. This should also cover most of the recent/previous cultures as well. Will discuss with ID tomorrow prior to discharge to ensure that we have her on an appropriate oral antibiotic regimen. M morganii CHINO RX --------- --- Ampicillin >=32 R Ampicillin/Sulbactam >=32 R Cefazolin >=64 R Cefepime <=1 S Cefoxitin 16 I Ceftazidime 16 I Ceftriaxone <=1 S Ciprofloxacin <=0.25 S Ertapenem <=0.5 S Gentamicin <=1 S Imipenem 2 I Levofloxacin <=0.12 S Tobramycin <=1 S Trimethoprim/Sulfamethoxazole <=20 S Piperacillin/Tazobactam <=4 S Status: Acute (4) Unable to care for self: Problem details: - will require SNF upon d/c, plan is to transition to enhanced [facility] on Saturday, 05/13 Status: Acute (5) Poorly controlled type 2 diabetes mellitus: Problem details: - Continue NovoLog 70/30 (68u am, 53u pm, which is her home dosing) with diabet ic diet, SSI added during hospital stay - 2/3 blood gluc lower over the last 24 hours, 80-130's. Patient feeling woozy. Decrease ISS to low dose, continue 70/30 doses as is. - 2/4 low blood glucose overnight. Decrease evening 70/30 and monitor. Status: Chronic (6) Obstructive sleep apnea: Problem details: - will not wear CPAP Status: Chronic Plan VTE prophylaxis: Low-dose nightly enoxaparin. Subjective Time Seen by Provider: 07:50 Date Seen: 05/12/23 Interval history: Caity had many of the same complaints today. She had a low blood sugar overnight and was up most of the night with frequent blood sugar checks as a result. She has guests coming today during the time in which she is scheduled for physical therapy and wants to skip physical therapy to be with her guests. I encouraged her to participate in physical therapy today noting that it is very important and 1 of the reasons she is here. She is no longer feeling woozy, but now complains of a stiff left neck and feels like it is swollen in the back of her neck and back of her head. She also complains of shooting pain in her lower extremities, especially on the left and made the nurse take off her bandage in the middle of the night although that did not relieve the pain. Exam Narrative: Exam Narrative: General: No acute distress. Irritable. Awake, alert, oriented. No pallor. No jaundice. Morbidly obese. Sitting in the bedside chair with a thick blanket over her. Cardiovascular: Regular rate and rhythm. Soft grade 1/6 systolic murmur. Respiratory: Poor inspiratory effort, continue to try to talks through my exam despite me asking her not to, no crackles or wheezes. Extremities: Const: Vital Signs, click to edit/add: Vital Signs - 24 hr 05/11/23 15:58 05/11/23 15:58 05/11/23 16:32 Temperature 97.5 F L Pulse Rate 54 L Pulse Rate [Apical ] 56 L Pulse Rate [Pulse Oximeter] Respiratory Rate 18 Blood Pressure [Le ft Arm] 148/55 H Pulse Oximetry 92 92 Oxygen Delivery Me thod Nasal Cannula Nasal Cannula Oxygen Flow Rate 1 1 05/11/23 20:27 05/11/23 23:00 05/11/23 23:00 Temperature 98 F Pulse Rate 54 L Pulse Rate [Apical ] Pulse Rate [Pulse Oximeter] 56 L 54 L Respiratory Rate 18 18 Blood Pressure [Le ft Arm] 137/72 Pulse Oximetry 90 Oxygen Delivery Me thod Nasal Cannula Oxygen Flow Rate 1 05/11/23 23:00 05/11/23 23:00 05/12/23 03:00 Temperature 98 F 97.8 F Pulse Rate Pulse Rate [Apical ] Pulse Rate [Pulse Oximeter] 54 L 58 L Respiratory Rate 18 18 18 Blood Pressure [Le ft Arm] 131/52 L 145/63 H Pulse Oximetry 90 90 94 Oxygen Delivery Me thod Nasal Cannula Nasal Cannula Nasal Cannula Oxygen Flow Rate 1 1 1 05/12/23 07:40 05/12/23 07:54 05/12/23 07:54 Temperature 98.2 F Pulse Rate 58 L Pulse Rate [Apical ] 55 L Pulse Rate [Pulse Oximeter] Respiratory Rate 18 Blood Pressure [Le ft Arm] 149/58 H Pulse Oximetry 94 94 Oxygen Delivery Me thod Nasal Cannula Nasal Cannula Oxygen Flow Rate 1 1 Labs Labs: Laboratory Results - last 24 hr 05/12/23 06:13 WBC 13.33 H RBC 4.27 Hgb 11.1 L Hct 37.9 MCV 89 MCH 26 MCHC 29 L RDW Coeff of Tad 18.8 H Plt Count 269 Neut % (Auto) 79.2 H Lymph % (Auto) 8.4 L [place] % (Auto) 9.2 Eos % (Auto) 2.5 Baso % (Auto) 0.4 Neut # (Auto) 10.60 H Lymph # (Auto) 1.10 [place] # (Auto) 1.20 H Eos # (Auto) 0.30 Baso # (Auto) 0.10 Abs Immat Gran (auto) 0.00 Imm/Tot Granulo (auto) 0.3 Sodium 138 Potassium 4.6 Chloride 105 Carbon Dioxide 26 Anion Gap 7 BUN 99 H Creatinine 2.0 H Estimated Creat Clear 23.89 Estimated GFR 27 Glucose 97 Calcium 8.8 Total Bilirubin 0.6 AST 27 ALT 31 Alkaline Phosphatase 151 H Total Protein 7.3 Albumin 3.8
[2023-05-12] MEDS: FUROSEMIDE 40 MG TABLET 80 MG PO (14:04)
[2023-05-12] MEDS: CEFEPIME HCL 2 GM in 0.9 % SODIUM CHLORIDE Mini-bag 100 ML IVPB (14:06)
[2023-05-12] MEDS: 0.9 % SODIUM CHLORIDE 250 ml IV (14:06)
--- NOTE | 2023-05-12 14:25 | PC.NURSE ---
Bilateral lower extremity wound dressings changed after shower with OT. Next dressing change due 05/14/23 in the afternoon.
[2023-05-12] MEDS: TRAMADOL HCL 50 MG TABLET PO ×2 (14:33→20:48)
[2023-05-12 15:00] VITALS: BP 158/65; PULSE 58; PULSE 60; RESP 18; TEMP 36.6; O2SAT 92
[2023-05-12] MEDS: INSULIN PROT/ASP (NOVOLOG 70/30) 100 UNIT/ML 47 UNIT SUBCUT (18:03)
[2023-05-12 20:15] VITALS: BP 160/71; PULSE 60; RESP 24; TEMP 36.7; O2SAT 93
[2023-05-12] MEDS: MONTELUKAST 10 MG TABLET PO (20:48)
[2023-05-12] MEDS: LORATADINE 10 MG TABLET PO (20:48)
[2023-05-12] MEDS: AMLODIPINE 10 MG TABLET PO (20:48)
[2023-05-12] MEDS: ENOXAPARIN 30 MG/0.3ML INJ SUBCUT (20:49)
[2023-05-12] MEDS: ROSUVASTATIN CALCIUM 10 MG TABLET PO (20:49)
[2023-05-12] MEDS: LATANOPROST 0.005% OPHTH 1 DROP EYE-BOTH (20:49)
[2023-05-12] MEDS: METOPROLOL TARTRATE 50 MG TABLET PO (20:49)
[2023-05-12] MEDS: INSULIN ASPART 100 UNIT/ML SUBCUT (21:02)
[2023-05-12 23:00] VITALS: BP 147/61; PULSE 55; RESP 18; TEMP 36.6; O2SAT 94
[2023-05-13] MEDS: ACETAMINOPHEN 325 MG TABLET 650 MG PO ×3 (02:18→17:09)
[2023-05-13 02:29] VITALS: BP 124/46; PULSE 54; RESP 18; TEMP 36.6; O2SAT 93
[2023-05-13 06:18] LABS: Basophils Percent Auto 0.4 % (0.0-3.0); Eosinophils Percent Auto 2.8 % (0.0-7.0); Hematocrit 36.7 % (33.0-51.0); Hemoglobin* 10.8 gm/dL (12.0-16.0); Immature Granulocytes Pct Auto 1.1 %; Lymphocytes Percent Auto 7.4 % (20-44); Mean Corpuscular HGB Conc 29 gm/dL (32-36); Mean Corpuscular Hemoglobin 26 pg (26-34); Mean Corpuscular Volume 89 fL (80-100); Neutrophils Percent Auto 78.3 % (42.0-72.0); Platelet Count* 257 K/uL (140-440); RDW Coefficient of Variation % 18.8 % (11.5-15.5); Red Blood Count 4.12 m/uL (4.00-5.20); White Blood Count* 13.95 K/uL (4.50-11.00)
[2023-05-13 06:22] LABS: Slide Review Reflex No
--- NOTE | 2023-05-13 06:30 | PC.NURSE ---
Shift note: Pt said she feels weak today compared to the previous days. Pt declined to sleep in bed rather preferred to sleep in the recliner until at 0230 where she started to complained of neck pain due to poor positioning. Pt accepted to get into bed but had difficulty lifting her legs to bed. Nurse assisted pt to bed. Blood sugar level at 2300 was 136. Pt had intermittent sleep tonight.
[2023-05-13 06:32] LABS: Albumin* 3.8 g/dL (3.3-5.0); Chloride* 105 mmol/L (96-114)
[2023-05-13 06:35] LABS: Alanine Aminotransferase* 30 U/L (4-35); Alkaline Phosphatase* 149 U/L (40-150); Aspartate Amino Transferase* 25 U/L (12-35); Bilirubin Total* 0.6 mg/dL (0.1-1.5); Blood Urea Nitrogen* 92 mg/dL (7-30); Carbon Dioxide* 26 mmol/L (20-32); Creatinine* 1.9 mg/dL (0.5-1.5); Est. Creatinine Clearance* 25.15; Estimated Glomerular Filt Rate 28 ml/min; Glucose* 103 mg/dL (60-115); Total Protein* 7.3 g/dL (6.0-8.3)
[2023-05-13 06:56] LABS: Anion Gap 8 mEq/L (7-15); Potassium* 4.5 mmol/L (3.6-5.1); Sodium* 139 mmol/L (135-149)
[2023-05-13] MEDS: LEVOTHYROXINE 125 MCG TABLET PO (06:57)
[2023-05-13] MEDS: FUROSEMIDE 40 MG TABLET 80 MG PO ×2 (08:19→14:39)
[2023-05-13 08:21] VITALS: BP 155/62; PULSE 65; RESP 20; TEMP 36.8; O2SAT 92
--- NOTE | 2023-05-13 08:47 | PM.IMPN1 ---
Progress Note: A&P Assessment and plan (1) Acute on chronic hypoxic respiratory failure: Problem details: - 05/12 appears to be back to baseline - 05/13 She is clinically stable back on oral furosemide. Cr is stable. Wt. stable and improving at 161.9kg today, down from admission wt of 163.2kg. - using home O2 for approximately one month prior to admission with minimal improvement - multifactorial: untreated FIOR, CHF - feeling better after diuresis, RT following - TTE 05/09 with results below: Final Impressions: Limited Echocardiogram performed 1. Normal left ventricular size, mildly increased wall thickness, normal global systolic function, calculated EF of 61 %. 2. Right ventricular cavity size is mildly enlarged, global systolic RV function is borderline. 3. The mitral valve is sclerotic, trace mitral regurgitation. 4. The inferior vena cava is normal sized, respiratory size variation less than 50%. Comparison Compared to prior exam report of 11/07/2022: - The right ventricular systolic function has slightly decreased. - RV size has increased. Status: Acute (2) Acute on chronic diastolic heart failure: Problem details: - ECHO as above - 05/11 Cr increasing slowly, continues to have bibasilar crackles, wt increased today, I/Os not accurate - I discussed this with staff. - 05/12 Cr stable at 2. Change furosemide back to home oral dose and recheck BMP in am. Continue I's and O's and daily weights, orthostatic blood pressures and pulses, monitor kidney function panel. Status: Acute (3) Venous stasis ulcer with edema of lower leg: Problem details: - on admission, appeared to have chronic PVD rather than cellulitis - on hospital day 1, having more LLE pain and drainage with subjective fevers and leukocytosis: Cultured wound and initiated Cefepime 05/09 - on 05/10, wound culture + for MRSA: transitioned from Cefepime to Doxycycline based on previous cultures - wound care following - physical therapy, occupational therapy, medical social consultant consultations - 05/12 left leg wound culture grew out Morganella morganii, sensitivities below, will continue cefepime and doxycycline for now to cover for Morganella and MRSA. This should also cover most of the recent/previous cultures as well. Will discuss with ID tomorrow prior to discharge to ensure that we have her on an appropriate oral antibiotic regimen. - 05/13 Wounds examined with Claire Lopez from wound care. No appreciable cellulitis or purulent drainage. Wound culture amended to now show M morganii and G+ cocci #1 and G+ cocci #2. I spoke with Dr. Luna from Infectious Disease several times today and appreciate her recommendations. Since the wound does not appear infected. She has received adequate antibiotic coverage for 5 days. Will stop antibiotics and monitor. M morganii [facility]INO RX --------- --- Ampicillin >=32 R Ampicillin/Sulbactam >=32 R Cefazolin >=64 R Cefepime <=1 S Cefoxitin 16 I Ceftazidime 16 I Ceftriaxone <=1 S Ciprofloxacin <=0.25 S Ertapenem <=0.5 S Gentamicin <=1 S Imipenem 2 I Levofloxacin <=0.12 S Tobramycin <=1 S Trimethoprim/Sulfamethoxazole <=20 S Piperacillin/Tazobactam <=4 S Status: Acute (4) Unable to care for self: Problem details: - will require SNF upon d/c, SW involved. TBD if further IV antibiotics are needed. No safe option for discharge at this time. Status: Acute (5) Poorly controlled type 2 diabetes mellitus: Problem details: - Continue NovoLog 70/30 (68u am, 53u pm, which is her home dosing) with diabetic diet, SSI added during hospital stay - 2/3 blood gluc lower over the last 24 hours, 80-130's. Patient feeling woozy. Decrease ISS to low dose, continue 70/30 doses as is. - 2/4 low blood glucose overnight. Decrease evening 70/30 and monitor. - 2/5 No low BG over the last 24 hours. BG now 96-194. Continue current regimen. Status: Chronic (6) Obstructive sleep apnea: Problem details: - will not wear CPAP Status: Chronic Plan VTE prophylaxis: Low-dose nightly enoxaparin. Time Spent With Patient Total time spent: Today I spent 35 minutes rounding on the patient. Greater than 50% included discussing care with the team, reviewing data, updating and managing the care plan. Subjective Time Seen by Provider: 13:00 Date Seen: 05/13/23 Interval history: Caity tells me she had a terrible night. She complains of leg pain and says, I just can't stand the coban! She also complains of the hospital bed and notes it is more comfortable to sleep in the recliner. She was sleeping for a large part of this morning when I went to visit her. I let her sleep since I heard she was up a lot last night. Claire Lopez from wound care saw her with me and we examined Caity's legs together and discussed her wound status and cares. Exam Narrative: Exam Narrative: General: No acute distress. Irritable. Awake, alert, oriented. No pallor. No jaundice. Morbidly obese. Sitting in the bedside chair with a thick blanket over her. Cardiovascular: Regular rate and rhythm. Soft grade 1/6 systolic murmur. Respiratory: Poor inspiratory effort, continue to try to talks through my exam despite me asking her not to, no crackles or wheezes. Extremities: Massive lymphedema of both lower extremities. Scattered venous wounds on RLE are without erythema. LLE has some serosanguinous drainage and slough from large flat anterior wound with multiple other smaller scattered wounds with escar. Some mild diffuse blanching erythema of LLE appears more consistent with lymphedema. No induration or purulent drainage noted. Const: Vital Signs, click to edit/add: Vital Signs - 24 hr 05/12/23 15:00 05/12/23 15:00 05/12/23 15:00 Temperature 97.9 F Pulse Rate [Pulse Oximeter] 58 L 60 Respiratory Rate 18 18 Blood Pressure [Le ft Arm] 158/65 H Pulse Oximetry 92 92 Oxygen Delivery Me thod Nasal Cannula Nasal Cannula Oxygen Flow Rate 1 05/12/23 20:15 05/12/23 23:00 05/12/23 23:00 Temperature 98.0 F Pulse Rate [Pulse Oximeter] 60 55 L Respiratory Rate 24 18 18 Blood Pressure [Le ft Arm] 160/71 H Pulse Oximetry 93 94 Oxygen Delivery Me thod Nasal Cannula Nasal Cannula Oxygen Flow Rate 1 05/12/23 23:00 05/13/23 02:29 05/13/23 08:21 Temperature 97.8 F 97.9 F 98.3 F Pulse Rate [Pulse Oximeter] 55 L 54 L 65 Respiratory Rate 18 18 20 Blood Pressure [Le ft Arm] 147/61 H 124/46 L 155/62 H Pulse Oximetry 94 93 92 Oxygen Delivery Me thod Nasal Cannula Nasal Cannula Nasal Cannula Oxygen Flow Rate 1 1 1 Labs Labs: Laboratory Results - last 24 hr 05/13/23 06:06 WBC 13.95 H RBC 4.12 Hgb 10.8 L Hct 36.7 MCV 89 MCH 26 MCHC 29 L RDW Coeff of Tad 18.8 H Plt Count 257 Neut % (Auto) 78.3 H Lymph % (Auto) 7.4 L [place]olls % (Auto) 10.0 Eos % (Auto) 2.8 Baso % (Auto) 0.4 Neut # (Auto) 10.90 H Lymph # (Auto) 1.00 [place]olls # (Auto) 1.40 H Eos # (Auto) 0.40 Baso # (Auto) 0.10 Abs Immat Gran (auto) 0.20 Imm/Tot Granulo (auto) 1.1 Sodium 139 Potassium 4.5 Chloride 105 Carbon Dioxide 26 Anion Gap 8 BUN 92 H Creatinine 1.9 H Estimated Creat Clear 25.15 Estimated GFR 28 Glucose 103 Calcium 9.0 Total Bilirubin 0.6 AST 25 ALT 30 Alkaline Phosphatase 149 Total Protein 7.3 Albumin 3.8
[2023-05-13] MEDS: BRIMONIDINE TARTRATE 0.2% OPHTH 1 DROP EYE-LEFT ×2 (09:38→20:43)
[2023-05-13] MEDS: prednisoLONE acetate 1 % DROPS 1 DROP EYE-LEFT ×2 (09:39→20:43)
[2023-05-13] MEDS: timoloL maleate 0.5 % 1 DROP EYE-RIGHT (09:39)
[2023-05-13] MEDS: allopurinoL 100 MG TABLET 150 MG PO (09:40)
[2023-05-13] MEDS: DORZOLAMIDE HCL 2 % OPHTH DROP 1 DROP EYE-LEFT ×2 (09:40→20:43)
[2023-05-13] MEDS: METOPROLOL TARTRATE 50 MG TABLET 100 MG PO (09:40)
[2023-05-13] MEDS: DOXYCYCLINE HYCLATE 100 MG PO (09:41)
[2023-05-13] MEDS: LOSARTAN POTASSIUM 50 MG TABLET 100 MG PO (09:41)
[2023-05-13] MEDS: NYSTATIN CREAM 30 GM 1 APPLIC TOPICAL ×3 (09:43→20:49)
[2023-05-13] MEDS: INSULIN PROT/ASP (NOVOLOG 70/30) 100 UNIT/ML 68 UNIT SUBCUT (09:47)
--- NOTE | 2023-05-13 10:21 | W.PM.INFDCN ---
Consultation Information Consultation Information Date of Consult: 05/13/23 Requesting Physician: Bonnie Oliver Consultation Statement: This patient recommendation is based on a telemedicine consult request which was completed asynchronously through chart review and information provided by the primary physician. The patient was not seen or examined today. The evaluation is consultative in nature and all patient care and treatment decisions can either be accepted or rejected by the patient's primary hospital-based treating physician using their own independent medical judgment for their patient. Clinical Science Liaison contact information: Please call ID Connect call [place] [phone] HPI - Infectious Disease History of Present Illness History of Present Illness: Caity Ojeda is a 68-year-old woman with PMH morbid obesity, poorly controlled diabetes, CHF, lymphedema, and chronic bilateral lower extremity wounds left greater than right. She had previously been managed at the wound center of [facility], was seen here on April 04 and had an abscess that was drained in the foot near 1 of her ulcers. Recommendation was made for continued wound center care but pt could not follow up due to inability to make appointments due to lack of ride. The pt presented to ED on 05/08/22 with one-month history of increasing dyspnea. Over the week prior to this admission, she has had increasing dyspnea at rest, dyspnea with exertion, paroxysmal nocturnal dyspnea, orthopnea. She has not been able to lay in the bed for several weeks because of the orthopnea and paroxysmal nocturnal dyspnea. Denied chest heaviness, pressure, tightness, pain. Denied syncope or near-syncope. Acknowledges increasing bilateral lower extremity edema with weeping of bilateral lower extremities. Pt has not been caring for her lower extremity wounds except for has had some home healthcare individuals helping her with that for the last few weeks 2-3 times per week. Denies fevers, rigors, diaphoresis. No other recent illnesses. Claims to be taking her usual medications. Has been working with the [facility] to try to find alternate living setting with increased services. The patient has been managed for acute on chronic hypoxic respiratory failure, cause thought to be multifactorial: untreated FIOR, CHF, pt is now feeling better after diuresis, as of 05/12 it seems that the pt appears to be back to baseline. TTE 05/09 c/w Normal left ventricular size, mildly increased wall thickness, normal global systolic function, calculated EF of 61 %. Pt was noted to have a venous stasis ulcer with edema of left lower leg, on addition she appeared to have PVD (stasis changes) rather than cellulitis but on hospital day, per notes, pt c/o having more LLE pain and drainage with subjective fevers, labs notable for leukocytosis, primary team sent a superficial wound swab culture and initiated cefepime on 05/09/23, then on 05/10, wound Cx + MRSA, doxycycline was added and continued cefepime based on previous micro data. Wound care following. On 05/12 left leg superficial wound culture (collected on 05/09) grew Morganella morganii R unasyn, cefazolin, I cefoxitin, ceftazidime and imip, S cefepime, CTX, cipro/levaquin, pip/tazo and bactrim, + small amount of GPC and small amount of GPC # 2. Primary team continued cefepime + doxycycline, and tele ID was consulted on 05/13 for recommendations Re antibiotic treatment course. Am labs reviewed, WBC 13.9K<16.8K, Hg 10.8, plar 257K, serum Cr .9<2.1, CrCl 28 today. ? [facility] Medical History (Updated 05/13/23 @ 14:03 by Bonnie Oliver MD) Obstructive sleep apnea ?G47.33 - Obstructive sleep apnea (adult) (pediatric) (ICD-10) Morbid obesity with BMI of 50.0-59.9, adult ?E66.01 - Morbid (severe) obesity due to excess calories (ICD-10) ?Z68.43 - Body mass index [BMI] 50.0-59.9, adult (ICD-10) Poorly controlled type 2 diabetes mellitus ?E11.65 - Type 2 diabetes mellitus with hyperglycemia (ICD-10) Acute on chronic diastolic heart failure ?I50.33 - Acute on chronic diastolic (congestive) heart failure (ICD-10) Venous insufficiency of both lower extremities ?I87.2 - Venous insufficiency (chronic) (peripheral) (ICD-10) Pulmonary edema with congestive heart failure ?I50.1 - Left ventricular failure, unspecified (ICD-10) Cellulitis of left lower leg ?L03.116 - Cellulitis of left lower limb (ICD-10) Acute kidney injury superimposed on chronic kidney disease ?N17.9 - Acute kidney failure, unspecified (ICD-10) ?N18.9 - Chronic kidney disease, unspecified (ICD-10) Diabetic foot ulcer ?E11.621 - Type 2 diabetes mellitus with foot ulcer (ICD-10) ?L97.509 - Non-pressure chronic ulcer of other part of unspecified foot with unspecified severity (ICD-10) History of fracture of left ankle ?Z87.81 - Personal history of (healed) traumatic fracture (ICD-10) Severe left ventricular hypertrophy ?I51.7 - Cardiomegaly (ICD-10) long-term current use of insulin ?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 (ICD-10) History of sciatica ?Z86.69 - Personal history of other diseases of the nervous system and sense organs (ICD-10) Primary hypothyroidism ?E03.9 - Hypothyroidism, unspecified (ICD-10) Asthma ?J45.909 - Unspecified asthma, uncomplicated (ICD-10) Vitamin D deficiency ?E55.9 - Vitamin D deficiency, unspecified (ICD-10) Rectocele ?N81.6 - Rectocele (ICD-10) Essential hypertension ?I10 - Essential (primary) hypertension (ICD-10) Chronic diastolic heart failure ?I50.32 - Chronic diastolic (congestive) heart failure (ICD-10) History of nephrolithiasis ?Z87.442 - Personal history of urinary calculi (ICD-10) Lumbar back pain with radiculopathy affecting left lower extremity ?M54.16 - Radiculopathy, lumbar region (ICD-10) Hypertriglyceridemia ?E78.1 - Pure hyperglyceridemia (ICD-10) Osteoarthritis of knees, bilateral ?M17.0 - Bilateral primary osteoarthritis of knee (ICD-10) Chronic kidney disease ?N18.9 - Chronic kidney disease, unspecified (ICD-10) Diabetic nephropathy associated with type 2 diabetes mellitus ?E11.21 - Type 2 diabetes mellitus with diabetic nephropathy (ICD-10) Surgical History Status post total abdominal hysterectomy ?Z90.710 - Acquired absence of both cervix and uterus (ICD-10) Status post thyroidectomy ?E89.0 - Postprocedural hypothyroidism (ICD-10) History of esophagogastroduodenoscopy ?Z98.890 - Other specified postprocedural states (ICD-10) Status post cholecystectomy ?Z90.49 - Acquired absence of other specified parts of digestive tract (ICD-10) History of intraocular lens implant ?Z96.1 - Presence of intraocular lens (ICD-10) Cataract extraction status ?Z98.49 - Cataract extraction status, unspecified eye (ICD-10) Status post appendectomy ?Z90.49 - Acquired absence of other specified parts of digestive tract (ICD-10) Status post colonoscopy with polypectomy ?Z98.890 - Other specified postprocedural states (ICD-10) Family History Other Diabetes High blood pressure High cholesterol Social History Narrative: . Lives alone. Three supportive children. Designates daughter, Alanna, , primary contact for power of restaurant cashier for health should that be required. Designates son, Nathan, [phone], secondary contact for power of restaurant cashier for health should that be required. Requests that we attempt resuscitation in the event of cardiopulmonary demise, stressing that she does not want to be kept alive as a vegetable should that come to pass. She reports worsening mobility problems. It is difficult due to her back pain and radicular symptoms going down her right leg for her to get up and walk around. To a lesser extent her left foot also bothers her with weight-bearing. She does walk with a walker. What is your current living situation?: I presently have a place to live Problems where you live: mold Problems where you live details: mold In the past 12 months, utilities in danger of being shut off: no In past 12 months, lack of transportation kept you from medical appts, meetings, work, or getting things needed for daily living: yes In the past 12 mos, have been you worried that your food would run out before you had money to buy more?: sometimes true In the past 12 mos, the food you bought just didn't last and you didn't have money to buy more?: sometimes true Highest level of school completed/degree received: Associate degree: academic program Smoking Status: Never smoker Do you use any of these nicotine containing products: None Second hand tobacco smoke exposure: No How often do you have a drink containing alcohol: never How often do you have six or more drinks on one occasion: Never AUDIT-C Alcohol total score: 0 Non-prescribed substance use: denies use Caffeine: Yes How often does anyone, including family, friends and others, physically hurt you: never How often does anyone, including family, friends and others, insult or talk down to you: rarely How often does anyone, including family, friends and others, threaten you with harm: never How often does anyone, including family, friends and others, scream or curse at you: never service: No Home Medications and Allergies Home Medications and Allergies Inpatient Medications: Active Medications Generic Name Dose Route Start Last Admin Trade Name Freq PRN Reason Stop Dose Admin Acetaminophen 650 mg 05/08/23 17:34 05/13/23 09:45 Acetaminophen 325 Mg Tablet PO 650 mg Q6H PRN Administration Albuterol 2 puff 05/09/23 08:05 05/10/23 20:26 Albuterol Inhaler IH 2 puff Q4H PRN Administration Allopurinol 150 mg 05/09/23 09:00 05/13/23 09:40 Allopurinol 100 Mg Tablet PO 150 mg DAILY [place] Administration Amlodipine Besylate 10 mg 05/08/23 21:00 05/12/23 20:48 Amlodipine 10 Mg Tablet PO 10 mg HS [place] Administration Brimonidine Tartrate 1 drop 05/09/23 09:00 05/13/23 09:38 Brimonidine Tartrate 0.2% Ophth EYE-LEFT 1 drop BID [place] Administration Dorzolamide HCl 1 drop 05/09/23 09:00 05/13/23 09:40 Dorzolamide Hcl 2 % Ophth Drop EYE-LEFT 1 drop BID [place] Administration Doxycycline Hyclate 100 mg 05/10/23 09:15 05/13/23 09:41 Doxycycline Hyclate 100 Mg PO 100 mg BID [place] Administration Enoxaparin Sodium 30 mg 05/08/23 21:00 05/12/23 20:49 Enoxaparin 30 Mg/0.3ml Inj SUBCUT 30 mg Q24H [place] Administration Furosemide 80 mg 05/12/23 14:00 05/13/23 08:19 Furosemide 40 Mg Tablet PO 80 mg BID@0800,1400 [place] Administration Hydrocortisone/Aloe 1 applic 05/09/23 01:22 Hydrocortisone 1 % Cream TOPICAL TID PRN Cefepime HCl 2 gm/ Sodium 100 mls @ 200 mls/hr 05/11/23 13:30 05/13/23 00:29 Chloride IVPB Infused Q24H [facility] Infusion Insulin Aspart 68 unit 05/09/23 09:00 05/13/23 09:47 Insulin Prot/Asp (Novolog 70/30) 100 Unit/Ml SUBCUT 68 unit QAM [facility] Administration Insulin Aspart 0 unit 05/11/23 11:30 05/13/23 08:06 Insulin Aspart 100 Unit/Ml SUBCUT Not Given ACHS [facility] Protocol Insulin Aspart 47 unit 05/12/23 18:00 05/12/23 18:03 Insulin Prot/Asp (Novolog 70/30) 100 Unit/Ml SUBCUT 47 unit QPM [place] Administration Latanoprost 1 drop 05/09/23 21:00 05/12/23 20:49 Latanoprost 0.005% Ophth EYE-BOTH 1 drop HS [facility] Administration Levothyroxine Sodium 125 mcg 05/09/23 07:45 05/13/23 06:57 Levothyroxine 125 Mcg Tablet PO 125 mcg DAILY@0700 [facility] Administration Loperamide HCl 2 mg 05/09/23 01:18 Loperamide Hcl 2 Mg Capsule PO Q6H PRN Loratadine 10 mg 05/08/23 21:00 05/12/23 20:48 Loratadine 10 Mg Tablet PO 10 mg HS [facility] Administration Losartan Potassium 100 mg 05/09/23 09:00 05/13/23 09:41 Losartan Potassium 50 Mg Tablet PO 100 mg DAILY [facility] Administration Metoprolol Tartrate 100 mg 05/09/23 09:00 05/13/23 09:40 Metoprolol Tartrate 50 Mg Tablet PO 100 mg QAM [facility] Administration Metoprolol Tartrate 50 mg 05/08/23 21:00 05/12/23 20:49 Metoprolol Tartrate 50 Mg Tablet PO 50 mg HS [facility] Administration Montelukast Sodium 10 mg 05/08/23 21:00 05/12/23 20:48 Montelukast 10 Mg Tablet PO 10 mg HS [place] Administration Nitroglycerin 0.4 mg 05/08/23 18:01 Nitroglycerin 0.4 Mg Tab.Subl SUBLINGUAL Q5M PRN Fluticasone 1 inhalation 05/08/23 21:00 05/13/23 09:47 Propionate 100 Mcg/ IH Not Given Actuation BID [place] Nystatin 1 applic 05/09/23 09:00 05/13/23 09:43 Nystatin Cream 30 Gm TOPICAL 1 applic TID [facility] Administration Ondansetron HCl 4 mg 05/08/23 17:34 Ondansetron Odt 4 Mg Tab PO Q6H PRN Phenol 1 spray 05/08/23 23:26 Phenol 1.4 % Throat [place] MUCOUS MEM Q2H PRN Prednisolone Acetate 1 drop 05/09/23 09:00 05/13/23 09:39 Prednisolone Acetate 1 % Drops EYE-LEFT 1 drop BID [place] Administration Rosuvastatin Calcium 10 mg 05/08/23 21:00 05/12/23 20:49 Rosuvastatin Calcium 10 Mg Tablet PO 10 mg HS [facility] Administration Sodium Chloride 5 ml 05/08/23 17:34 05/10/23 15:12 Sodium Chloride 0.9 % (Flush) 10 Ml Syringe IVF 5 ml .FLUSH PRN Administration Sodium Chloride 5 ml 05/08/23 21:00 05/13/23 09:43 Sodium Chloride 0.9 % (Flush) 10 Ml Syringe IVF Not Given BID [place] Sodium Chloride 1 spray 05/08/23 23:27 05/09/23 21:29 Sodium Chloride Nasal [place] NOSTRIL-B 1 spray Q1H PRN Administration nasal congestion or dry nares Sodium Chloride 250 ml 05/11/23 13:30 05/12/23 14:06 0.9 % Sodium Chloride 250 Ml IV 250 ml Q24H [facility] Administration Timolol Maleate 1 drop 05/09/23 09:00 05/13/23 09:39 Timolol Maleate 0.5 % EYE-RIGHT 1 drop QAM [facility] Administration Tramadol HCl 50 mg 05/08/23 18:01 05/12/23 20:48 Tramadol Hcl 50 Mg Tablet PO 50 mg Q6H PRN Administration pain Triamcinolone Acetonide 1 applic 05/08/23 18:01 Triamcinolone Acetonide Cream 0.1 % TOPICAL TID PRN Discontinued Medications Generic Name Dose Route Start Last Admin Trade Name Freq PRN Reason Stop Dose Admin Albuterol 2 puff 05/08/23 18:05 Albuterol Inhaler IH Q4H PRN Brimonidine Tartrate 1 drop 05/08/23 21:00 05/08/23 20:52 Brimonidine Tartrate 0.2% Ophth EYE-LEFT 1 drop BID [place] Administration Dorzolamide HCl 1 drop 05/08/23 21:00 05/08/23 20:53 Dorzolamide Hcl 2 % Ophth Drop EYE-LEFT 1 drop BID [place] Administration Furosemide 60 mg 05/08/23 15:32 05/08/23 16:07 Furosemide 10 Mg/Ml Inj IVP 05/08/23 15:33 60 mg ONCE ONE Administration Furosemide 60 mg 05/09/23 07:00 05/12/23 06:52 Furosemide 10 Mg/Ml Inj IVP 60 mg BID@0700,1400 [facility] Administration Cefepime HCl 2 gm/ Sodium 100 mls @ 200 mls/hr 05/09/23 08:00 05/13/23 00:28 Chloride IVPB Not Given Q24H [facility] Insulin Aspart 53 unit 05/09/23 18:00 05/11/23 17:32 Insulin Prot/Asp (Novolog 70/30) 100 Unit/Ml SUBCUT 53 unit QPM [facility] Administration Insulin Aspart 0 unit 05/09/23 17:30 05/13/23 00:29 Insulin Aspart 100 Unit/Ml SUBCUT Not Given ACHS [facility] Protocol Latanoprost 1 drop 05/09/23 18:00 Latanoprost 0.005% Ophth EYE-BOTH QPM [facility] Levothyroxine Sodium 125 mcg 05/09/23 09:00 Levothyroxine 125 Mcg Tablet PO DAILY [facility] Magnesium Oxide 400 mg 05/08/23 21:00 05/08/23 20:50 Magnesium Oxide 400 Mg Tablet PO 400 mg HS [facility] Administration Nystatin 1 applic 05/08/23 21:00 05/08/23 20:54 Nystatin Cream 30 Gm TOPICAL 1 applic TID [facility] Administration Prednisolone Acetate 1 drop 05/08/23 21:00 05/08/23 20:54 Prednisolone Acetate 1 % Drops EYE-LEFT 1 drop BID [facility] Administration Sodium Chloride 250 ml 05/09/23 08:15 05/10/23 09:09 0.9 % Sodium Chloride 250 Ml IV Not Given Q24H [facility] Timolol Maleate 1 drop 05/09/23 09:00 Timolol Maleate 0.5 % EYE-RIGHT QAM [facility] Allergies Allergy/AdvReac Type Severity Reaction Status Date / Time clindamycin Allergy Severe Verified 12/21/22 15:33 hydromorphone Allergy Severe Stopped Verified 12/21/22 15:33 Breathing morphine Allergy Severe Stopped Verified 12/21/22 15:33 Breathing NSAIDS (Non-Steroidal Allergy Severe Anaphylaxis Verified 12/21/22 15:33 Anti-Inflamma penicillin V Allergy Severe Hypertensio Verified 12/21/22 15:33 n aspirin AdvReac nausea and Verified 12/21/22 15:33 vomiting Objective - Infectious Disease Objective Vital Signs: Vital Signs - 24 hr 05/12/23 15:00 05/12/23 15:00 05/12/23 15:00 Temperature 97.9 F Pulse Rate [Pulse Oximeter] 58 L 60 Respiratory Rate 18 18 Blood Pressure [Left Arm] 158/65 H Pulse Oximetry 92 92 Oxygen Delivery Method Nasal Cannula Nasal Cannula Oxygen Flow Rate 1 1 05/12/23 20:15 05/12/23 23:00 05/12/23 23:00 Temperature 98.0 F Pulse Rate [Pulse Oximeter] 60 55 L Respiratory Rate 24 18 18 Blood Pressure [Left Arm] 160/71 H Pulse Oximetry 93 94 Oxygen Delivery Method Nasal Cannula Nasal Cannula Oxygen Flow Rate 1 1 05/12/23 23:00 05/13/23 02:29 05/13/23 08:21 Temperature 97.8 F 97.9 F 98.3 F Pulse Rate [Pulse Oximeter] 55 L 54 L 65 Respiratory Rate 18 18 20 Blood Pressure [Left Arm] 147/61 H 124/46 L 155/62 H Pulse Oximetry 94 93 92 Oxygen Delivery Method Nasal Cannula Nasal Cannula Nasal Cannula Oxygen Flow Rate 1 1 1 05/13/23 08:21 05/13/23 08:21 Temperature Pulse Rate [Pulse Oximeter] 65 Respiratory Rate 20 20 Blood Pressure [Left Arm] Pulse Oximetry 92 Oxygen Delivery Method Nasal Cannula Oxygen Flow Rate 1 Narrative: Patient was not seen or examined. Results - Infectious Disease Results Labs: 05/09/23 09:45 Leg Left Wound Culture - Preliminary Morganella morganii Gram positive cocci Gram positive cocci#2 05/08/23 14:05 Blood Blood Culture - Preliminary NO GROWTH AFTER 96 HOURS 05/09/23 09:45 Leg Left MRSA Screen - Final Positive - MRSA (Methicillin resistant Staph aureus) isolated. Laboratory Tests 05/13/23 05/12/23 05/11/23 Range/Units 06:06 06:13 06:03 WBC 13.95 H 13.33 H 11.09 H (4.50-11.00) K/uL RBC 4.12 4.27 4.05 (4.00-5.20) m/uL Hgb 10.8 L 11.1 L 10.6 L (12.0-16.0) gm/dL Hct 36.7 37.9 36.4 (33.0-51.0) % MCV 89 89 90 (80-100) fL MCH 26 26 26 (26-34) pg MCHC 29 L 29 L 29 L (32-36) gm/dL RDW Coeff of Tad 18.8 H 18.8 H 19.0 H (11.5-15.5) % Plt Count 257 269 232 (140-440) K/uL Neut % (Auto) 78.3 H 79.2 H 74.3 H (42.0-72.0) % Lymph % (Auto) 7.4 L 8.4 L 10.8 L (20-44) % [place] % (Auto) 10.0 9.2 10.2 (0.0-11.0) % Eos % (Auto) 2.8 2.5 3.1 (0.0-7.0) % Baso % (Auto) 0.4 0.4 0.4 (0.0-3.0) % Neut # (Auto) 10.90 H 10.60 H 8.20 H (1.7-7.0) K/uL Lymph # (Auto) 1.00 1.10 1.20 (0.90-2.90) K/uL [place] # (Auto) 1.40 H 1.20 H 1.10 H (0.00-0.90) K/UL Eos # (Auto) 0.40 0.30 0.30 (0.00-0.50) K/uL Baso # (Auto) 0.10 0.10 0.00 (0.00-0.30) K/uL Abs Immat Gran (auto) 0.20 0.00 0.10 (0.00-0.30) K/uL Imm/Tot Granulo (auto) 1.1 0.3 1.2 % Absolute Retic (0.03-0.08) # Percent Retic (0.5-2.0) % Immature Retic Fraction (3.0-15.9) % Retic Hgb Equivalent (29.0-35.0) pg VBG pH (7.32-7.43) VBG pCO2 (40-50) mmHG VBG pO2 (25-47) mmHG VBG HCO3 (21-28) mmol/L Sodium 139 138 138 (135-149) mmol/L Potassium 4.5 4.6 4.5 (3.6-5.1) mmol/L Chloride 105 105 102 (96-114) mmol/L Carbon Dioxide 26 26 25 (20-32) mmol/L Anion Gap 8 7 11 (7-15) mEq/L BUN 92 H 99 H 95 H (7-30) mg/dL Creatinine 1.9 H 2.0 H 2.1 H (0.5-1.5) mg/dL Estimated Creat Clear 25.15 23.89 22.75 Estimated GFR 28 27 25 ml/min Glucose 103 97 95 (60-115) mg/dL Lactate (0.5-1.9) mmol/L Calcium 9.0 8.8 8.7 (8.4-10.6) mg/dL Phosphorus (2.5-4.5) mg/dL Magnesium (1.5-2.6) mg/dL Total Bilirubin 0.6 0.6 0.5 (0.1-1.5) mg/dL Direct Bilirubin (0.0-0.5) mg/dL AST 25 27 35 (12-35) U/L ALT 30 31 30 (4-35) U/L Alkaline Phosphatase 149 151 H 145 (40-150) U/L Troponin I (0.01-0.04) ng/mL C-Reactive Protein (0.5-1.0) mg/dL NT-Pro-B Natriuret Pep pg/mL Total Protein 7.3 7.3 7.2 (6.0-8.3) g/dL Albumin 3.8 3.8 3.8 (3.3-5.0) g/dL Procalcitonin (<0.50) ng/mL TSH (0.270-4.200) uIU/mL Lab Acknowledgement 05/10/23 05/09/23 05/08/23 Range/Units 05:50 05:57 21:00 WBC 13.01 H 16.88 H (4.50-11.00) K/uL RBC 3.94 L 4.12 (4.00-5.20) m/uL Hgb 10.3 L 10.7 L (12.0-16.0) gm/dL Hct 35.3 37.1 (33.0-51.0) % MCV 90 90 (80-100) fL MCH 26 26 (26-34) pg MCHC 29 L 29 L (32-36) gm/dL RDW Coeff of Tad 19.2 H 18.9 H (11.5-15.5) % Plt Count 221 244 (140-440) K/uL Neut % (Auto) 81.6 H 86.6 H (42.0-72.0) % Lymph % (Auto) 6.1 L 4.3 L (20-44) % [place] % (Auto) 8.9 7.1 (0.0-11.0) % Eos % (Auto) 2.0 1.5 (0.0-7.0) % Baso % (Auto) 0.2 0.2 (0.0-3.0) % Neut # (Auto) 10.60 H 14.60 H (1.7-7.0) K/uL Lymph # (Auto) 0.80 L 0.70 L (0.90-2.90) K/uL [place] # (Auto) 1.20 H 1.20 H (0.00-0.90) K/UL Eos # (Auto) 0.30 0.30 (0.00-0.50) K/uL Baso # (Auto) 0.00 0.00 (0.00-0.30) K/uL Abs Immat Gran (auto) 0.20 0.10 (0.00-0.30) K/uL Imm/Tot Granulo (auto) 1.2 0.3 % Absolute Retic 0.12 H (0.03-0.08) # Percent Retic 3.0 H (0.5-2.0) % Immature Retic Fraction 28.1 H (3.0-15.9) % Retic Hgb Equivalent 21.5 L (29.0-35.0) pg VBG pH 7.386 (7.32-7.43) VBG pCO2 46 (40-50) mmHG VBG pO2 51.0 H (25-47) mmHG VBG HCO3 27 (21-28) mmol/L Sodium 138 141 (135-149) mmol/L Potassium 4.5 5.0 (3.6-5.1) mmol/L Chloride 103 105 (96-114) mmol/L Carbon Dioxide 25 28 (20-32) mmol/L Anion Gap 10 8 (7-15) mEq/L BUN 90 H 88 H (7-30) mg/dL Creatinine 1.9 H 1.8 H (0.5-1.5) mg/dL Estimated Creat Clear 25.15 26.54 Estimated GFR 28 30 ml/min Glucose 137 H 214 H (60-115) mg/dL Lactate 1.1 (0.5-1.9) mmol/L Calcium 8.5 8.6 (8.4-10.6) mg/dL Phosphorus 4.8 H (2.5-4.5) mg/dL Magnesium 3.0 H 3.1 H (1.5-2.6) mg/dL Total Bilirubin 0.7 0.8 (0.1-1.5) mg/dL Direct Bilirubin (0.0-0.5) mg/dL AST 22 27 (12-35) U/L ALT 30 37 H (4-35) U/L Alkaline Phosphatase 156 H 192 H (40-150) U/L Troponin I (0.01-0.04) ng/mL C-Reactive Protein 2.5 H (0.5-1.0) mg/dL NT-Pro-B Natriuret Pep 2750 pg/mL Total Protein 6.9 6.7 (6.0-8.3) g/dL Albumin 3.5 3.8 (3.3-5.0) g/dL Procalcitonin 0.07 (<0.50) ng/mL TSH (0.270-4.200) uIU/mL Lab Acknowledgement Test Added 05/08/23 05/08/23 Range/Units 18:29 14:05 WBC 15.93 H (4.50-11.00) K/uL RBC 4.18 (4.00-5.20) m/uL Hgb 11.0 L (12.0-16.0) gm/dL Hct 38.2 (33.0-51.0) % MCV 91 (80-100) fL MCH 26 (26-34) pg MCHC 29 L (32-36) gm/dL RDW Coeff of Tad 19.1 H (11.5-15.5) % Plt Count 245 (140-440) K/uL Neut % (Auto) 85.7 H (42.0-72.0) % Lymph % (Auto) 4.8 L (20-44) % [place] % (Auto) 7.3 (0.0-11.0) % Eos % (Auto) 1.6 (0.0-7.0) % Baso % (Auto) 0.3 (0.0-3.0) % Neut # (Auto) 13.70 H (1.7-7.0) K/uL Lymph # (Auto) 0.80 L (0.90-2.90) K/uL [place] # (Auto) 1.20 H (0.00-0.90) K/UL Eos # (Auto) 0.30 (0.00-0.50) K/uL Baso # (Auto) 0.00 (0.00-0.30) K/uL Abs Immat Gran (auto) 0.00 (0.00-0.30) K/uL Imm/Tot Granulo (auto) 0.3 % Absolute Retic (0.03-0.08) # Percent Retic (0.5-2.0) % Immature Retic Fraction (3.0-15.9) % Retic Hgb Equivalent (29.0-35.0) pg VBG pH (7.32-7.43) VBG pCO2 (40-50) mmHG VBG pO2 (25-47) mmHG VBG HCO3 (21-28) mmol/L Sodium 139 (135-149) mmol/L Potassium 5.5 H (3.6-5.1) mmol/L Chloride 103 (96-114) mmol/L Carbon Dioxide 30 (20-32) mmol/L Anion Gap 6 L (7-15) mEq/L BUN 94 H (7-30) mg/dL Creatinine 1.9 H (0.5-1.5) mg/dL Estimated Creat Clear 25.15 Estimated GFR 28 ml/min Glucose 93 (60-115) mg/dL Lactate 1.1 (0.5-1.9) mmol/L Calcium 8.7 (8.4-10.6) mg/dL Phosphorus (2.5-4.5) mg/dL Magnesium (1.5-2.6) mg/dL Total Bilirubin 0.4 (0.1-1.5) mg/dL Direct Bilirubin 0.0 (0.0-0.5) mg/dL AST 37 H (12-35) U/L ALT 45 H (4-35) U/L Alkaline Phosphatase 166 H (40-150) U/L Troponin I < 0.01 L 0.01 (0.01-0.04) ng/mL C-Reactive Protein 2.0 H (0.5-1.0) mg/dL NT-Pro-B Natriuret Pep 2450 pg/mL Total Protein 7.3 (6.0-8.3) g/dL Albumin 3.9 (3.3-5.0) g/dL Procalcitonin (<0.50) ng/mL TSH 2.100 (0.270-4.200) uIU/mL Lab Acknowledgement Impression & Recommendations Recommendations Impression & Recommendations: SHERRIE Ojeda is a 68-year-old woman with PMH morbid obesity, poorly controlled diabetes, CHF, lymphedema, and chronic bilateral lower extremity wounds left greater than right. She had previously been managed at the wound center of [facility], was seen here on April 04 and had an abscess that was drained in the foot near 1 of her ulcers. Recommendation was made for continued wound center care but pt could not follow up due to inability to make appointments due to lack of ride. The pt presented to ED on 05/08/22 with one-month history of increasing dyspnea. Over the week prior to this admission, she has had increasing dyspnea at rest, dyspnea with exertion, paroxysmal nocturnal dyspnea, orthopnea. She has not been able to lay in the bed for several weeks because of the orthopnea and paroxysmal nocturnal dyspnea. Denied chest heaviness, pressure, tightness, pain. Denied syncope or near-syncope. Acknowledges increasing bilateral lower extremity edema with weeping of bilateral lower extremities. Pt has not been caring for her lower extremity wounds except for has had some home healthcare individuals helping her with that for the last few weeks 2-3 times per week. Denies fevers, rigors, diaphoresis. No other recent illnesses. Claims to be taking her usual medications. Has been working with the [facility] to try to find alternate living setting with increased services. The patient has been managed for acute on chronic hypoxic respiratory failure, cause thought to be multifactorial: untreated FIOR, CHF, pt is now feeling better after diuresis, as of 05/12 it seems that the pt appears to be back to baseline. TTE 05/09 c/w Normal left ventricular size, mildly increased wall thickness, normal global systolic function, calculated EF of 61 %. Pt was noted to have a venous stasis ulcer with edema of left lower leg, on addition she appeared to have PVD (stasis changes) rather than cellulitis but on hospital day, per notes, pt c/o having more LLE pain and drainage with subjective fevers, labs notable for leukocytosis, primary team sent a superficial wound swab culture and initiated cefepime on 05/09/23, then on 05/10, wound Cx + MRSA, doxycycline was added and continued cefepime based on previous micro data. Wound care following. On 05/12 left leg superficial wound culture (collected on 05/09) grew Morganella morganii R unasyn, cefazolin, I cefoxitin, ceftazidime and imip, S cefepime, CTX, cipro/levaquin, pip/tazo and bactrim, + small amount of GPC and small amount of GPC # 2. Primary team continued cefepime + doxycycline, and tele ID was consulted on 05/13 for recommendations Re antibiotic treatment course. Am labs reviewed, WBC 13.9K<16.8K, Hg 10.8, plar 257K, serum Cr .9<2.1, CrCl 28 today. ? Micro Summary: 05/09/23 MRSA screen (left leg) positive 05/09/23 left leg wound Cx large amount of Morganella morganii R unasyn, cefazolin, I cefoxitin, ceftazidime and imip, S cefepime, CTX, cipro/levaquin, pip/tazo and bactrim, + small amount of GPC and small amount of GPC # 2. 05/08/23 blood cx NGTD 04/04/23 wound cx MRSA and Morganella morganii Old wound cx 12/21/22 +MRSA, Kleb oxytoca and Pseudomonas stutzeri shen sensitive Diagnostics (Labs, Imaging) Summary: 05/08/22 CXR Cardiomegaly with pulmonary edema. 04/04 CT left foot w/o contrast c/w No osteomyelitis. No abscess. Diffuse soft tissue edema and skin thickening. Ulcer at the plantar 1st MTP level. Thin metallic foreign body plantar metatarsal forefoot. Antibiotic Summary: Currently on cefepime and doxycycline. Antibiotic allergies/intolerances: Clindamycin and PNC V, pt tolerating cefepime Patient Summary: # Chronic LE wounds with possible superimposed SSTI? resolved. Superficial wound Cx polymicrobial with growth of Morganella, + MRSA and growth of 2 strains of GPCs. # Venous stasis ulcer with edema of lower leg # History of lymphedema # Leukocytosis WBC trending down # Acute on chronic hypoxic respiratory failure, clinically improving # Poorly controlled DM Recommendations: -I discussed with primary team today, per hospitalist exam and impression, as of today the patient does not have clinical exam findings suggestive of an active ongoing Rt LE skin and soft tissue infection and the findings may be 2/2 chronic changes due to PVD and lymphedema, as per primary team this was confirmed by the tubing machine tender who has been following the patient and examined her today. The patient has already received 5 days of broad spectrum IV antibiotics, I suggest stopping IV vancomycin and cefepime and continue to monitor clinically with monitoring of fever curve and WBC count. -Continue local wound care and elevate LE to improve lymphatic drainage and decrease the edema. -Follow up final wound culture results although superficial wound cultures are of limited benefit and may reflect colonization rather than true infection, however for MRSA, there is evidence that if superficial cx is positive, it may likely be the culprit so I would cover for it. There is no growth of pseudomonas from wound swab cx this time. -Pt will need outpatient wound care follow up, if signs of mild infection were to be seen upon outpatient follow up, Cefpodoxime renal dosing of 400 mg PO daily (for CrCl 10-20), if CrCl >30, the dose can be increased to 400 mg PO BID, along with PO doxycycline 100 mg BID is an oral Abx regimen that can be considered if needd to empirically treat for LE SSTI. -Tighter glycemic control -Plan d/w Primary team, thanks for the consult, tele ID will sign off, please page us with question. Hayes Luna MD Division of Infectious Disease [facility] ID Connect
[2023-05-13 11:33] VITALS: BP 153/64; PULSE 54; RESP 24; TEMP 36.5; O2SAT 90
--- NOTE | 2023-05-13 14:45 | PC.SOCIAL ---
Addendum entered by VANESSA LópezSW 05/13/23 16:56: Received email back from Keri stating they can not take a Medical Assistance pending pt to the [facility] and stating they can not meet her needs at [facility] where they could take a Medical Assistance Pending patient. Requested call from Keri or the dining services director Hoskins to discuss what the pt needs that can not be met at [facility] are to make sure they have correct information and problem solve this situation. black off worker [place] not think a nurse to nurse report was done and is concerned that the decision may have been made with old information. Multiple messages and emails sent requesting further clarification of this decision. black off worker to follow up as needed Original Note: Discharge planning: Called [facility] assisted living admissions, Keri and confirmed pt will be ready for discharge tomorrow morning. Secure emailed packet of updated information and awaiting call back with decision on admit. Called Belem at [facility] and updated her on discharge plan. black off worker to follow up as needed.
--- NOTE | 2023-05-13 15:45 | PM.WSPN ---
Progress Note: A&P Assessment and plan (1) Unable to care for self: Problem details: - will require Assisted living or SNF upon d/c, SW involved. No safe option for discharge at this time. Status: Acute (2) Morbid obesity with BMI of 50.0-59.9, adult: Problem details: Could potentially benefit from assessment for possible surgical intervention, given multiple complications in association with the same, although patient states she is not interested. Status: Acute (3) Physical debility: Problem details: - PT, OT, social worker delinquency prevention consultation Status: Acute (4) Poorly controlled type 2 diabetes mellitus: Problem details: On admission, continued on home dose NovoLog 70/30 (68u am, 53u pm) with diabetic diet, SSI added during hospital stay - 2/3 blood gluc lower over the last 24 hours, 80-130's. Patient feeling woozy. Decrease ISS to low dose, continue 70/30 doses as is. - 2/ low blood glucose overnight. Decrease evening 70/30 and monitor. - 05/14 No low BG over the last 48 hours. BG now 96-152. Continue current regimen. - 2 BG >100-200 yesterday, 54 this afternoon. Recent adjustments to insulin noted. Will decrease am dose and monitor, adjusting as necessary Recommend for patient to eat routine diabetic meals or meals on regular intervals throughout the day for better management of her poorly-controlled insulin-dependent diabetes as she was reported to skip meals or not eat until after lunch. Status: Chronic (5) Venous insufficiency of both lower extremities: Problem details: - patient declined compression overnight - wound consult has been placed Status: Acute (6) Venous stasis ulcer with edema of lower leg: Problem details: On admission, appeared to have chronic PVD rather than cellulitis - on hospital day 1, having more LLE pain and drainage with subjective fevers and leukocytosis: Cultured wound and initiated Cefepime 05/09 - on 05/10, wound culture + for MRSA: transitioned from Cefepime to Doxycycline based on previous cultures - wound care following - physical therapy, occupational therapy consulted - 05/12 left leg wound culture grew out Morganella morganii, sensitivities below, will continue cefepime and doxycycline for now to cover for Morganella and MRSA. This should also cover most of the recent/previous cultures as well. Will discuss with ID tomorrow prior to discharge to ensure that we have her on an appropriate oral antibiotic regimen. - 05/13 Wounds examined with Claire Lopez from wound care. No appreciable cellulitis or purulent drainage. Wound culture amended to now show M morganii and G+ cocci #1 and G+ cocci #2. I spoke with Dr. Luna from Infectious Disease several times today and appreciate her recommendations. Since the wound does not appear infected. She has received adequate antibiotic coverage for 5 days. Will stop antibiotics and monitor. - Wound culture from 05/09/23 grew out M morganii (multiple resistances, sens to cefepime), MRSA, and E faecalis (pansensitive). - 05/14 No fever, wounds look similar to yesterday. Continued cares without antibiotics. Status: Acute (7) Lymphedema: Status: Acute (8) Type 2 diabetes mellitus with foot ulcer: Status: Acute Plan wounds improved. continue with dressing 05/10/23 wound care orders, with the exception of compression, which will be changed to short-stretch wraps. Patient agreeable with short-stretch compression wraps. She is educated on the importance of consistent compression, proper elevation, and exercise to help with her chronic lymphedema, venous insufficiency. Patient is advised that this will be lifelong need. If she does not consistently participate in the management of her chronic lymphedema, venous insufficiency wounds likely will not improve/heal and will reoccur. Patient is also advised that the chronic edema compounds her neuropathy and contributes to her restless leg pain. The patient verbalized understanding and was agreeable to wound care orders. Dressing change completed today with bedside RN and compression applied. Hospitalist team continues to work with the Infectious Disease in regards to patient's antibiotic management while she is hospitalized for positive wound cultures. Given the chronicity of the wounds, colonization likely present on admission. Patient has been afebrile, has received adequate IV antibiotic coverage based on sensitivity reports, physical exam findings favor cutaneous manifestations of chronic PVD over cellulitis. Patient educated on the importance of her nutrition to not only help her wounds heal but her other comorbidities she verbalized understanding ensure she is trying to be more mindful of this. Continue to appreciate nutritional services help. Time Spent With Patient Total time spent: 45 Subjective Date Seen: 05/13/23 Interval history: Patient being seen today by wound services for f/u of last weeks evaluation of chronic wounds. Hospitalist present at bedside. Patient was not able to tolerate the 2 layer Coban compression, was transitioned to . Nursing reports patient not consistently elevating legs to help with edema. Patient requesting cytogenetic technologist compression. Patient is participating with OT/PT and getting in 3-4 walks on the unit a day. Exam Narrative: Exam Narrative: General: NAD. Upon entering the room patient was sitting in recliner legs were elevated off the ground, below hips. tubigrp rolled and bandages where down near ankles. No compression to calf. Pulmonary: unlabored, speaking in full sentences. Symmetrical rise. BLE: wounds to RLE smaller, with minimal drainage. LLE drainage down, moderate amount of lymphorrhea, small amount of serosanguineous drainage out of the lateral wound. No purulent drainage appreciated. Diffuse erythema to the periwound, consistent with stasis dermatitis. It does not extend beyond the periwound region. Her edema is pitting without induration. skin temp is within normal limits. Left foot: skin temp and color WNL. wound stable. Periwound WNL. 100% slough and biofilm, removed with mechanical debridement patient tolerated. measuring 0.5X0.3X0.2cm. Psych: normal affect. Const: Vital Signs, click to edit/add: Vital Signs - 24 hr 05/12/23 20:15 05/12/23 23:00 05/12/23 23:00 Temperature 98.0 F Pulse Rate [Pulse Oximeter] 60 55 L Respiratory Rate 24 18 18 Blood Pressure [Le ft Arm] 160/71 H Pulse Oximetry 93 94 Oxygen Delivery Me thod Nasal Cannula Nasal Cannula Oxygen Flow Rate 1 1 05/12/23 23:00 05/13/23 02:29 05/13/23 08:21 Temperature 97.8 F 97.9 F 98.3 F Pulse Rate [Pulse Oximeter] 55 L 54 L 65 Respiratory Rate 18 18 20 Blood Pressure [Le ft Arm] 147/61 H 124/46 L 155/62 H Pulse Oximetry 94 93 92 Oxygen Delivery Me thod Nasal Cannula Nasal Cannula Nasal Cannula Oxygen Flow Rate 1 1 1 05/13/23 08:21 05/13/23 08:21 05/13/23 11:33 Temperature 97.7 F Pulse Rate [Pulse Oximeter] 65 54 L Respiratory Rate 20 20 24 Blood Pressure [Le ft Arm] 153/64 H Pulse Oximetry 92 90 Oxygen Delivery Me thod Nasal Cannula Nasal Cannula Oxygen Flow Rate 1 1 Documenting provider has reviewed patient's vital signs: yes Labs Labs: Laboratory Results - last 24 hr 05/13/23 06:06 WBC 13.95 H RBC 4.12 Hgb 10.8 L Hct 36.7 MCV 89 MCH 26 MCHC 29 L RDW Coeff of Tad 18.8 H Plt Count 257 Neut % (Auto) 78.3 H Lymph % (Auto) 7.4 L Bartholomew % (Auto) 10.0 Eos % (Auto) 2.8 Baso % (Auto) 0.4 Neut # (Auto) 10.90 H Lymph # (Auto) 1.00 Bartholomew # (Auto) 1.40 H Eos # (Auto) 0.40 Baso # (Auto) 0.10 Abs Immat Gran (auto) 0.20 Imm/Tot Granulo (auto) 1.1 Sodium 139 Potassium 4.5 Chloride 105 Carbon Dioxide 26 Anion Gap 8 BUN 92 H Creatinine 1.9 H Estimated Creat Clear 25.15 Estimated GFR 28 Glucose 103 Calcium 9.0 Total Bilirubin 0.6 AST 25 ALT 30 Alkaline Phosphatase 149 Total Protein 7.3 Albumin 3.8
[2023-05-13 17:01] VITALS: BP 147/54; PULSE 60; RESP 20; TEMP 36.4; O2SAT 90
[2023-05-13] MEDS: INSULIN ASPART 100 UNIT/ML SUBCUT (17:07)
--- NOTE | 2023-05-13 17:21 | PC.SOCIAL ---
Received call from Latricia Last , [facility] department stating she has an open case on this patient. Updated Vilma on possible discharge plan. Vilma requested an update when discharge plan is finalized. Belem Gonsalez at [facility] also wants an update when discharge plan is finalized.
[2023-05-13] MEDS: INSULIN PROT/ASP (NOVOLOG 70/30) 100 UNIT/ML 47 UNIT SUBCUT (17:36)
--- NOTE | 2023-05-13 18:00 | PC.NURSE ---
End of Shift: Patient pleasant and cooperative. Patient vitally stable, lungs clear, BS WNL, IV SL and intact. Patient currently on 1 L of oxygen NS with sats in low 90's, patient is SOB with activity. Patient rates LE pain 7-8/10, tylenol given x2. Patient SBA with cane. Patient urinating and had 1 mod BM. Patient LE wounds cleansed and redressed. Patient blood sugars 96, 137, and 152. Patient tolerating regular diet. Patient is very whiney and sad like today. Patient has been up in chair all shift.
[2023-05-13] MEDS: LATANOPROST 0.005% OPHTH 1 DROP EYE-BOTH (20:43)
[2023-05-13] MEDS: LORATADINE 10 MG TABLET PO (20:44)
[2023-05-13] MEDS: ROSUVASTATIN CALCIUM 10 MG TABLET PO (20:44)
[2023-05-13] MEDS: ENOXAPARIN 30 MG/0.3ML INJ SUBCUT (20:45)
[2023-05-13] MEDS: MONTELUKAST 10 MG TABLET PO (20:45)
[2023-05-13] MEDS: METOPROLOL TARTRATE 50 MG TABLET PO (20:48)
[2023-05-13] MEDS: AMLODIPINE 10 MG TABLET PO (20:49)
[2023-05-13] MEDS: SODIUM CHLORIDE 0.9 % (FLUSH) 10 ML SYRINGE 5 ML IVF (20:51)
[2023-05-13 23:00] VITALS: BP 157/60; PULSE 63; RESP 22; TEMP 36.8; O2SAT 91
[2023-05-13] MEDS: TRAMADOL HCL 50 MG TABLET PO (23:04)
[2023-05-14] MEDS: LEVOTHYROXINE 125 MCG TABLET PO (05:33)
[2023-05-14 05:44] VITALS: BP 140/81; PULSE 58; RESP 20; TEMP 36.8; O2SAT 90
--- NOTE | 2023-05-14 06:54 | PC.NURSE ---
End of shift [id number]: Assumed care of patient at 2300. Pt is A&O, afebrile and VSS. Pt maintained O2 > 90% on 2L NC overnight. Independent with cane to the bathroom but pt will utilize call light for nurse to be present in the room when she ambulates. BLE wraps C/D/I and dressings last changed 05/13/23. Contact precautions in place d/t MRSA in BLE wounds. ID discontinued IV vanco & IV cefepime on 05/13. HS blood sugar: 134; no insulin was given. Pt requested nurse to check blood sugar @ 0500: 100. Plan to discharge to [facility] today with SW assistance. ?
[2023-05-14 07:36] VITALS: BP 144/51; PULSE 57; RESP 20; TEMP 36.9; O2SAT 90
[2023-05-14] MEDS: timoloL maleate 0.5 % 1 DROP EYE-RIGHT (09:07)
[2023-05-14] MEDS: BRIMONIDINE TARTRATE 0.2% OPHTH 1 DROP EYE-LEFT ×2 (09:07→21:02)
[2023-05-14] MEDS: prednisoLONE acetate 1 % DROPS 1 DROP EYE-LEFT ×2 (09:07→21:04)
[2023-05-14] MEDS: NYSTATIN CREAM 30 GM 1 APPLIC TOPICAL ×2 (09:08→21:03)
[2023-05-14] MEDS: DORZOLAMIDE HCL 2 % OPHTH DROP 1 DROP EYE-LEFT ×2 (09:08→21:03)
[2023-05-14] MEDS: FUROSEMIDE 40 MG TABLET 80 MG PO ×2 (09:09→14:34)
[2023-05-14] MEDS: LOSARTAN POTASSIUM 50 MG TABLET 100 MG PO (09:09)
[2023-05-14] MEDS: allopurinoL 100 MG TABLET 150 MG PO (09:09)
[2023-05-14] MEDS: SODIUM CHLORIDE 0.9 % (FLUSH) 10 ML SYRINGE 5 ML IVF ×2 (09:10→21:04)
[2023-05-14] MEDS: INSULIN PROT/ASP (NOVOLOG 70/30) 100 UNIT/ML 68 UNIT SUBCUT (09:11)
[2023-05-14] MEDS: METOPROLOL TARTRATE 50 MG TABLET 100 MG PO (09:14)
--- NOTE | 2023-05-14 11:42 | P.IMPN_ITS ---
Progress Note: A&P Assessment and plan (1) Acute on chronic hypoxic respiratory failure: Problem details: - using home O2 for approximately one month prior to admission with minimal improvement - multifactorial: untreated FIOR, CHF - feeling better after diuresis, RT following Status: Acute (2) Acute on chronic diastolic heart failure: Problem details: - TTE 05/09 with results below: Final Impressions: Limited Echocardiogram performed 1. Normal left ventricular size, mildly increased wall thickness, normal global systolic function, calculated EF of 61 %. 2. Right ventricular cavity size is mildly enlarged, global systolic RV function is borderline. 3. The mitral valve is sclerotic, trace mitral regurgitation. 4. The inferior vena cava is normal sized, respiratory size variation less than 50%. Comparison Compared to prior exam report of 11/07/2022: - The right ventricular systolic function has slightly decreased. - RV size has increased. - 05/11 Cr increasing slowly, continues to have bibasilar crackles, wt increased today, I/Os not accurate - I discussed this with staff. - 05/12 Cr stable at 2. Change furosemide back to home oral dose and recheck BMP in am. Continue I's and O's and daily weights, orthostatic blood pressures and pulses, monitor kidney function panel. - 05/14 Remains clinically stable back on oral furosemide. Cr is stable. Wt. improving at 161.7kg today, down from admission wt of 163.2kg. Status: Acute (3) Venous stasis ulcer with edema of lower leg: Problem details: - on admission, appeared to have chronic PVD rather than cellulitis - on hospital day 1, having more LLE pain and drainage with subjective fevers and leukocytosis: Cultured wound and initiated Cefepime 05/09 - on 05/10, wound culture + for MRSA: transitioned from Cefepime to Doxycycline based on previous cultures - wound care following - physical therapy, occupational therapy, social work case manager consultations - 05/12 left leg wound culture grew out Morganella morganii, sensitivities below, will continue cefepime and doxycycline for now to cover for Morganella and MRSA. This should also cover most of the recent/previous cultures as well. Will discuss with ID tomorrow prior to discharge to ensure that we have her on an appropriate oral antibiotic regimen. - 05/13 Wounds examined with Claire Lopez from wound care. No appreciable cellulitis or purulent drainage. Wound culture amended to now show M morganii and G+ cocci #1 and G+ cocci #2. I spoke with Dr. Luna from [facility] several times today and appreciate her recommendations. Since the wound does not appear infected. She has received adequate antibiotic coverage for 5 days. Will stop antibiotics and monitor. - Wound culture from 05/09/23 grew out M morganii (multiple resistances, sens to cefepime), MRSA, and E faecalis (pansensitive). - 2/6 No fever, wounds look similar to yesterday. Continue without antibiotics. Status: Acute (4) Unable to care for self: Problem details: - will require Assisted living or SNF upon d/c, SW involved. No safe option for discharge at this time. Status: Acute (5) Poorly controlled type 2 diabetes mellitus: Problem details: - Continue NovoLog 70/30 (68u am, 53u pm, which is her home dosing) with diabetic diet, SSI added during hospital stay - 2/3 blood gluc lower over the last 24 hours, 80-130's. Patient feeling woozy. Decrease ISS to low dose, continue 70/30 doses as is. - 2/4 low blood glucose overnight. Decrease evening 70/30 and monitor. - 2/6 No low BG over the last 48 hours. BG now 96-152. Continue current regimen. Status: Chronic (6) Obstructive sleep apnea: Problem details: - will not wear CPAP Status: Chronic Plan - Shooting nighttime pains in LEs. Check ABIs for PAD. Subjective Time Seen by Provider: 09:55 Date Seen: 05/14/23 Interval history: Caity complained appreciably less today. She said she is encouraged that her weight is trending down. She denies CP. Neck pain is improving. She continues to have cramps and pain in her LEs at night. Exam Narrative: Exam Narrative: General: No acute distress. Irritable. Awake, alert, oriented. No pallor. No jaundice. Morbidly obese. Sitting in the bedside chair with a thick blanket over her. Cardiovascular: Regular rate and rhythm. Soft grade 1/6 systolic murmur. Respiratory: Poor inspiratory effort, continue to try to talks through my exam despite me asking her not to, no crackles or wheezes. Extremities: Massive lymphedema of both lower extremities. Wounds similar to y day, without erythema. Const: Vital Signs, click to edit/add: Vital Signs - 24 hr 05/13/23 17:01 05/13/23 17:01 05/13/23 17:01 Temperature 97.5 F L Pulse Rate [Apical ] Pulse Rate [Pulse Oximeter] 60 60 Respiratory Rate 20 20 20 Blood Pressure [Le ft Arm] 147/54 H Blood Pressure [Ri ght Arm] Pulse Oximetry 90 90 Oxygen Delivery Me thod Nasal Cannula Nasal Cannula Oxygen Flow Rate 1 1 05/13/23 23:00 05/13/23 23:00 05/13/23 23:00 Temperature 98.3 F Pulse Rate [Apical ] Pulse Rate [Pulse Oximeter] 63 63 Respiratory Rate 22 22 22 Blood Pressure [Le ft Arm] Blood Pressure [Ri ght Arm] 157/60 H Pulse Oximetry 91 91 Oxygen Delivery Me thod Nasal Cannula Nasal Cannula Oxygen Flow Rate 1.5 1.5 05/14/23 05:44 05/14/23 07:36 05/14/23 07:36 Temperature 98.3 F 98.5 F Pulse Rate [Apical ] 57 L Pulse Rate [Pulse Oximeter] 58 L Respiratory Rate 20 20 Blood Pressure [Le ft Arm] Blood Pressure [Ri ght Arm] 140/81 H 144/51 H Pulse Oximetry 90 90 90 Oxygen Delivery Me thod Nasal Cannula Nasal Cannula Nasal Cannula Oxygen Flow Rate 2 2 2
--- NOTE | 2023-05-14 11:43 | PC.SOCIAL ---
Addendum entered by GENET Zhang 05/14/23 15:29: Discharge planning: material requirements worker spoke to Keri at [facility] via email later in the afternoon. Keri stated that she spoke to pt's daughter about pt not being accepted at [facility]. Social work to follow-up as needed. Addendum entered by GENET Zhang 05/14/23 14:39: Discharge planning: material requirements worker [facility] the [facility] for [facility]hab that was sent last Saturday. Alma Fitzpatrick is still reviewing the pt's referral for short-term rehab. Social work to follow-up as needed. Original Note: Discharge planning: material requirements worker heard back from Keri at [facility] and was informed that the pt would not be able to be accepted at [facility] because pts have to walk to their meals independently and the room that is available is about 800 ft from the dining room. material requirements worker checked with PT and they confirmed that the pt is not able to walk that far. material requirements worker sent a referral to [facility]. Social work to follow-up as needed.
[2023-05-14 15:00] VITALS: BP 167/71; PULSE 59; RESP 20; TEMP 36.4; O2SAT 90
--- NOTE | 2023-05-14 15:47 | PC.NURSE ---
Caity offers mutliple vague complaints today dry mouth, sore throat, sore neck, nausea (not currently). Updated MD. Meryl Ulloa for neck pain. Up to bathroom 2 BMs one medium/one large. Verbalizes feelings of despair in regards to her disposition plan. BG before lunch 73, refused tray but drank carton of milk. Rechecked sugar around 1345 and it was 67. Agreed to drink orange juice, eat slovak yogurt, and drink premier protien. MD aware.
[2023-05-14] MEDS: INSULIN PROT/ASP (NOVOLOG 70/30) 100 UNIT/ML 47 UNIT SUBCUT (18:29)
[2023-05-14] MEDS: ROSUVASTATIN CALCIUM 10 MG TABLET PO (21:02)
[2023-05-14] MEDS: ENOXAPARIN 30 MG/0.3ML INJ SUBCUT (21:02)
[2023-05-14] MEDS: MONTELUKAST 10 MG TABLET PO (21:02)
[2023-05-14] MEDS: AMLODIPINE 10 MG TABLET PO (21:02)
[2023-05-14] MEDS: METOPROLOL TARTRATE 50 MG TABLET PO (21:02)
[2023-05-14] MEDS: LORATADINE 10 MG TABLET PO (21:02)
[2023-05-14] MEDS: LATANOPROST 0.005% OPHTH 1 DROP EYE-BOTH (21:06)
[2023-05-14 23:00] VITALS: BP 152/57; PULSE 57; RESP 24; TEMP 36.1; O2SAT 89
--- NOTE | 2023-05-14 23:36 | PC.NURSE ---
End of Shift: Patient pleasant and cooperative. Afebrile. O2 sats 90% on 2L. Up to bathroom and chair with SBA and cane. Tolerating regular diet with no nausea. BG 94 and 138.
[2023-05-15] MEDS: TRAMADOL HCL 50 MG TABLET PO (02:20)
[2023-05-15] MEDS: LEVOTHYROXINE 125 MCG TABLET PO (06:04)
[2023-05-15 06:26] LABS: Basophils Percent Auto 0.4 % (0.0-3.0); Eosinophils Percent Auto 2.9 % (0.0-7.0); Hematocrit 36.2 % (33.0-51.0); Hemoglobin* 10.4 gm/dL (12.0-16.0); Lymphocytes Percent Auto 8.7 % (20-44); Mean Corpuscular HGB Conc 29 gm/dL (32-36); Mean Corpuscular Hemoglobin 26 pg (26-34); Mean Corpuscular Volume 90 fL (80-100); Monocytes Percent Auto 10.7 % (0.0-11.0); Neutrophils Percent Auto 76.3 % (42.0-72.0); Platelet Count* 234 K/uL (140-440); RDW Coefficient of Variation % 18.8 % (11.5-15.5); Red Blood Count 4.03 m/uL (4.00-5.20); White Blood Count* 11.91 K/uL (4.50-11.00)
[2023-05-15 06:33] LABS: Slide Review Reflex No
[2023-05-15 06:58] LABS: Chloride* 106 mmol/L (96-114); Potassium* 4.9 mmol/L (3.6-5.1); Sodium* 140 mmol/L (135-149)
[2023-05-15 07:00] VITALS: BP 150/61; PULSE 57; RESP 16; TEMP 36.2; O2SAT 93
[2023-05-15 07:01] LABS: Anion Gap 8 mEq/L (7-15); Blood Urea Nitrogen* 94 mg/dL (7-30); Carbon Dioxide* 26 mmol/L (20-32); Creatinine* 1.9 mg/dL (0.5-1.5); Est. Creatinine Clearance* 25.15; Estimated Glomerular Filt Rate 28 ml/min
[2023-05-15 07:02] LABS: Calcium* 9.1 mg/dL (8.4-10.6); Glucose* 103 mg/dL (60-115)
[2023-05-15] MEDS: FUROSEMIDE 40 MG TABLET 80 MG PO ×2 (09:40→17:22)
[2023-05-15] MEDS: allopurinoL 100 MG TABLET 150 MG PO (09:41)
[2023-05-15] MEDS: DORZOLAMIDE HCL 2 % OPHTH DROP 1 DROP EYE-LEFT ×2 (09:45→21:16)
[2023-05-15] MEDS: prednisoLONE acetate 1 % DROPS 1 DROP EYE-LEFT ×2 (09:46→21:16)
[2023-05-15] MEDS: BRIMONIDINE TARTRATE 0.2% OPHTH 1 DROP EYE-LEFT ×2 (09:46→21:16)
[2023-05-15] MEDS: timoloL maleate 0.5 % 1 DROP EYE-RIGHT (09:46)
[2023-05-15] MEDS: LOSARTAN POTASSIUM 50 MG TABLET 100 MG PO (09:47)
[2023-05-15] MEDS: METOPROLOL TARTRATE 50 MG TABLET 100 MG PO (09:48)
[2023-05-15] MEDS: ACETAMINOPHEN 325 MG TABLET 650 MG PO ×2 (09:49→17:27)
[2023-05-15] MEDS: SODIUM CHLORIDE 0.9 % (FLUSH) 10 ML SYRINGE 5 ML IVF ×2 (09:54→21:19)
[2023-05-15] MEDS: NYSTATIN CREAM 30 GM 1 APPLIC TOPICAL ×3 (09:54→21:19)
[2023-05-15] MEDS: INSULIN PROT/ASP (NOVOLOG 70/30) 100 UNIT/ML 68 UNIT SUBCUT (09:58)
--- NOTE | 2023-05-15 14:01 | P.IMPN_ITS ---
Progress Note: A&P Assessment and plan (1) Acute on chronic hypoxic respiratory failure: Problem details: - using home O2 for approximately one month prior to admission with minimal improvement, continues on 2 L - multifactorial: untreated FIOR, CHF - feeling better after diuresis, RT following Status: Acute (2) Acute on chronic diastolic heart failure: Problem details: - TTE 05/09 with results below: Final Impressions: Limited Echocardiogram performed 1. Normal left ventricular size, mildly increased wall thickness, normal global systolic function, calculated EF of 61 %. 2. Right ventricular cavity size is mildly enlarged, global systolic RV function is borderline. 3. The mitral valve is sclerotic, trace mitral regurgitation. 4. The inferior vena cava is normal sized, respiratory size variation less than 50%. Comparison Compared to prior exam report of 11/07/2022: - The right ventricular systolic function has slightly decreased. - RV size has increased. - 05/11 Cr increasing slowly, continues to have bibasilar crackles, wt increased today, I/Os not accurate - I discussed this with staff. - 05/12 Cr stable at 2. Change furosemide back to home oral dose and recheck BMP in am. Continue I's and O's and daily weights, orthostatic blood pressures and pulses, monitor kidney function panel. - 05/14 Remains clinically stable back on oral furosemide. Cr is stable. Wt. improving at 161.7kg today, down from admission wt of 163.2kg. Continue oral furosemide. Creatinine within baseline 1.6-2.0. Weight stable after trending down. Status: Chronic (3) Venous stasis ulcer with edema of lower leg: Problem details: - on admission, appeared to have chronic PVD rather than cellulitis - on hospital day 1, having more LLE pain and drainage with subjective fevers and leukocytosis: Cultured wound and initiated Cefepime 05/09 - on 05/10, wound culture + for MRSA: transitioned from Cefepime to Doxycycline based on previous cultures - wound care following - physical therapy, occupational therapy, social service coordinator consultations - 05/12 left leg wound culture grew out Morganella morganii, sensitivities below, will continue cefepime and doxycycline for now to cover for Morganella and MRSA. This should also cover most of the recent/previous cultures as well. Will discuss with ID tomorrow prior to discharge to ensure that we have her on an appropriate oral antibiotic regimen. - 05/13 Wounds examined with Claire Lopez from wound care. No appreciable cellulitis or purulent drainage. Wound culture amended to now show M morganii and G+ cocci #1 and G+ cocci #2. I spoke with Dr. Luna from Infectious Disease several times today and appreciate her recommendations. Since the wound does not appear infected. She has received adequate antibiotic coverage for 5 days. Will stop antibiotics and monitor. - Wound culture from 05/09/23 grew out M morganii (multiple resistances, sens to cefepime), MRSA, and E faecalis (pansensitive). - 2/ No fever, wounds look similar to yesterday. Continue without antibiotics. Stable, continue to monitor. No antibiotics. Status: Acute (4) Unable to care for self: Problem details: - will require Assisted living or SNF upon d/c, SW involved. No safe option for discharge at this time. Status: Acute (5) Poorly controlled type 2 diabetes mellitus: Problem details: - Continue NovoLog 70/30 (68u am, 53u pm, which is her home dosing) with diabetic diet, SSI added during hospital stay - 2/3 blood gluc lower over the last 24 hours, 80-130's. Patient feeling woozy. Decrease ISS to low dose, continue 70/30 doses as is. - 2/4 low blood glucose overnight. Decrease evening 70/30 and monitor. - 2/6 No low BG over the last 48 hours. BG now 96-152. Continue current regimen. Status: Chronic (6) Obstructive sleep apnea: Problem details: - will not wear CPAP Status: Chronic Plan Medically stable for discharge. On chronic 2 L O2 per nasal cannula. Awaiting placement. Time Spent With Patient Total time spent: Total time spent caring for the patient today was 45 minutes. This includes time spent for the visit reviewing the chart, time spent during the visit, time spent after the visit and documentation and planning in coordination of care. Subjective Date Seen: 05/15/23 Interval history: Patient is sitting in the chair this morning, napping. Reports feeling okay. Mild chronic headache, improving. Otherwise no complaints this morning. No events reported overnight. Remains afebrile. Has finished 5 day course of antibiotics. Awaiting placement. Exam Narrative: Exam Narrative: PHYSICAL EXAM General: Pleasant, conversant, NAD HEENT: Normocephalic, atraumatic, sclera white, EOMI, oral mucosa moist Cardiovascular: RRR, S1S2. Pulmonary: Diminished bilaterally, no expiratory wheezes, No dyspnea on 2 L Abdominal: Soft, obese, nondistended, NTTP Neurological: Alert, answering questions appropriately, cranial nerves intact, no focal findings Extremities: Chronic lower extremity swelling. AROMI. Neurovascularly intact Skin: Warm, dry. Const: Vital Signs, click to edit/add: Vital Signs - 24 hr 05/14/23 15:00 05/14/23 15:00 05/14/23 15:00 Temperature 97.6 F Pulse Rate [Pulse Oximeter] 59 L 59 L Respiratory Rate 20 20 Blood Pressure [Le ft Arm] 167/71 H Blood Pressure [Ri ght Arm] Pulse Oximetry 90 90 Oxygen Delivery Me thod Nasal Cannula Nasal Cannula Oxygen Flow Rate 2 2 05/14/23 23:00 05/14/23 23:00 05/14/23 23:00 Temperature 97 F L Pulse Rate [Pulse Oximeter] 57 L 57 L Respiratory Rate 24 24 24 Blood Pressure [Le ft Arm] 152/57 H Blood Pressure [Ri ght Arm] Pulse Oximetry 89 89 Oxygen Delivery Me thod Nasal Cannula Nasal Cannula Oxygen Flow Rate 2 2 05/15/23 07:00 05/15/23 07:00 Temperature 97.2 F L Pulse Rate [Pulse Oximeter] 57 L Respiratory Rate 16 16 Blood Pressure [Le ft Arm] Blood Pressure [Ri ght Arm] 150/61 H Pulse Oximetry 93 93 Oxygen Delivery Me thod Nasal Cannula Nasal Cannula Oxygen Flow Rate 2 2 Labs Labs: Laboratory Results - last 24 hr 05/15/23 05:55 WBC 11.91 H RBC 4.03 Hgb 10.4 L Hct 36.2 MCV 90 MCH 26 MCHC 29 L RDW Coeff of Tad 18.8 H Plt Count 234 Neut % (Auto) 76.3 H Lymph % (Auto) 8.7 L [place] % (Auto) 10.7 Eos % (Auto) 2.9 Baso % (Auto) 0.4 Neut # (Auto) 9.10 H Lymph # (Auto) 1.00 [place] # (Auto) 1.30 H Eos # (Auto) 0.30 Baso # (Auto) 0.00 Abs Immat Gran (auto) 0.10 Imm/Tot Granulo (auto) 1.0 Sodium 140 Potassium 4.9 Chloride 106 Carbon Dioxide 26 Anion Gap 8 BUN 94 H Creatinine 1.9 H Estimated Creat Clear 25.15 Estimated GFR 28 Glucose 103 Calcium 9.1
[2023-05-15 15:00] VITALS: PULSE 57; RESP 16; O2SAT 93
--- NOTE | 2023-05-15 16:19 | PC.SOCIAL ---
Discharge planning: Left message for Agnieszka at [facility] asking if there has been a decision on admit as this is currently pt's first choice for facility. Awaiting call back. Received call from pt's daughter, Alanna, who requested an update on discharge planning. Alanna is hoping pt will qualify for a short term rehab stay at a snf facility where she can regain some of her strength and endurance so that she could go to [facility] after rehab stay. Dtr states pt does not want to be in the [facility], or it's [facility] or [place]. deck worker emailed to daughter, the list of snf facilities that accept bariatric patients and the list of nursing homes with Department of Health ratings. Dtr will look this over and see if there are other facilities she thinks pt would be interested in. Dtr is hopeful that [facility] will accept pt as pt has a sister who lives in [place]. deck worker to follow up as needed.
[2023-05-15] MEDS: INSULIN PROT/ASP (NOVOLOG 70/30) 100 UNIT/ML 47 UNIT SUBCUT (19:27)
--- NOTE | 2023-05-15 19:44 | PC.NURSE ---
Elevated BP, chrissy, sats in low 90s on 2L NC. Otherwise VSS. Consistent headache/migraine pain of 8 in back of head- ice pack and PRN tylenol given w/ relief this AM and this evening. Generalized edema. Hypo bowel sounds. Diminished LS left anterior. Ate 50% of breakfast(BS 128). Lunch did not come for pt and she did not call to report, reported visual disturbances. BS=47- gave apple juice, ensure, & jello ordered lunch. Follow-up blood sugar of 148. Did not need any sliding scale insulin today. Voided x3. PIV right hand- SL'd. Last BM today, 05/15. Up with a cane in room. Leg and foot wound dressing changed. Will continue to monitor, follow POC, and keep pt and family updated. Parul Mills RN
[2023-05-15] MEDS: ENOXAPARIN 30 MG/0.3ML INJ SUBCUT (21:15)
[2023-05-15] MEDS: METOPROLOL TARTRATE 50 MG TABLET PO (21:15)
[2023-05-15] MEDS: AMLODIPINE 10 MG TABLET PO (21:15)
[2023-05-15] MEDS: ROSUVASTATIN CALCIUM 10 MG TABLET PO (21:15)
[2023-05-15] MEDS: LORATADINE 10 MG TABLET PO (21:15)
[2023-05-15] MEDS: MONTELUKAST 10 MG TABLET PO (21:15)
[2023-05-15] MEDS: LATANOPROST 0.005% OPHTH 1 DROP EYE-BOTH (21:16)
[2023-05-15] MEDS: INSULIN ASPART 100 UNIT/ML SUBCUT (21:19)
[2023-05-15 22:25] VITALS: BP 151/65; PULSE 61; RESP 16; TEMP 36.4; O2SAT 93
[2023-05-15 23:00] VITALS: PULSE 64; RESP 16; O2SAT 92
[2023-05-16] MEDS: TRAMADOL HCL 50 MG TABLET PO ×2 (00:05→21:40)
[2023-05-16] MEDS: ACETAMINOPHEN 325 MG TABLET 650 MG PO ×2 (00:05→08:59)
[2023-05-16 06:50] VITALS: BP 142/61; PULSE 57; RESP 13; TEMP 36.3; O2SAT 96
[2023-05-16 07:22] LABS: Hematocrit 37.8 % (33.0-51.0); Hemoglobin* 10.9 gm/dL (12.0-16.0); Mean Corpuscular HGB Conc 29 gm/dL (32-36); Mean Corpuscular Hemoglobin 26 pg (26-34); Mean Corpuscular Volume 90 fL (80-100); Platelet Count* 288 K/uL (140-440); Red Blood Count 4.22 m/uL (4.00-5.20); White Blood Count* 11.72 K/uL (4.50-11.00)
[2023-05-16 07:29] LABS: Chloride* 105 mmol/L (96-114); Sodium* 141 mmol/L (135-149)
[2023-05-16 07:30] LABS: Potassium* 5.1 mmol/L (3.6-5.1)
[2023-05-16 07:33] LABS: Anion Gap 9 mEq/L (7-15); Blood Urea Nitrogen* 95 mg/dL (7-30); Calcium* 9.5 mg/dL (8.4-10.6); Carbon Dioxide* 27 mmol/L (20-32); Glucose* 98 mg/dL (60-115)
[2023-05-16 07:36] LABS: Slide Review Reflex No
[2023-05-16 07:48] LABS: Creatinine* 1.9 mg/dL (0.5-1.5); Est. Creatinine Clearance* 25.15; Estimated Glomerular Filt Rate 28 ml/min
[2023-05-16 08:28] VITALS: RESP 13; O2SAT 94
[2023-05-16 08:42] VITALS: BP 149/66; TEMP 36.6; O2SAT 94
[2023-05-16 08:52] VITALS: RESP 13
[2023-05-16] MEDS: allopurinoL 100 MG TABLET 150 MG PO (08:53)
[2023-05-16] MEDS: FUROSEMIDE 40 MG TABLET 80 MG PO ×2 (08:53→17:06)
[2023-05-16] MEDS: LOSARTAN POTASSIUM 50 MG TABLET 100 MG PO (08:54)
[2023-05-16] MEDS: METOPROLOL TARTRATE 50 MG TABLET 100 MG PO (08:54)
[2023-05-16] MEDS: LEVOTHYROXINE 125 MCG TABLET PO (08:54)
[2023-05-16] MEDS: prednisoLONE acetate 1 % DROPS 1 DROP EYE-LEFT ×2 (08:56→21:32)
[2023-05-16] MEDS: timoloL maleate 0.5 % 1 DROP EYE-RIGHT (08:57)
[2023-05-16] MEDS: DORZOLAMIDE HCL 2 % OPHTH DROP 1 DROP EYE-LEFT ×2 (08:57→21:32)
[2023-05-16] MEDS: BRIMONIDINE TARTRATE 0.2% OPHTH 1 DROP EYE-LEFT ×2 (08:58→21:31)
[2023-05-16] MEDS: SODIUM CHLORIDE 0.9 % (FLUSH) 10 ML SYRINGE 5 ML IVF ×2 (08:59→21:33)
[2023-05-16] MEDS: ALBUTEROL INHALER 2 PUFF IH (09:00)
[2023-05-16] MEDS: NYSTATIN CREAM 30 GM 1 APPLIC TOPICAL ×3 (09:03→21:29)
[2023-05-16] MEDS: INSULIN PROT/ASP (NOVOLOG 70/30) 100 UNIT/ML 68 UNIT SUBCUT (09:05)
--- NOTE | 2023-05-16 10:44 | PC.SOCIAL ---
Addendum entered by GENET Zhang 05/16/23 16:46: Discharge planning: public welfare worker spoke to pt's daughter, Alanna, about [facility]'s decision on pt. Alanna shared that she reviewed the lists of facilities that were emailed to her and she wanted this worker to contact several facilities. public welfare worker contacted the following facilities: 1. [facility] #[phone]= Left message asking for a call back. 2. [facility] #[phone]= Left message asking for a call back. 3. [facility] #[phone]= Left message asking for a call back. [place] [facility][phone]= Left a message asking for a call back. 5. [facility] #[phone]= Left message asking for a call back. 6. [facility] #[phone]= They have openings. Faxed referral. They are reviewing. 7. [facility] #[phone]= Possible openings. Faxed referral. They are reviewing. Social work to follow-up as needed. Original Note: Discharge planning: public welfare worker heard back from [facility] and they are not able to accept the pt at this time due to their facility being full. public welfare worker will continue to look for accepting facilities. Social work to follow-up as needed.
--- NOTE | 2023-05-16 14:23 | NUTR.NU ---
RDn with LOS note day 7. Patient admitted for respiratory failure and venous stasis ulcer on leg. Current weight 359 lbs; height 5ft 5.5in; BMI 58.8 kg/m2. Weight has been stable since admit. Current diet is 2 gram sodium. Meal intakes are adequate, mainly 75-100%. Patient also ordered Premier protein BID; provides 320 kcals and 60 grams protein daily for wound healing. Diet education provided on 05/09/2023 related to CHF and DMT2. RDN attempted to visit with patient, however patient was not available on multiple attempts. No change in nutrition interventions at this time. RDN will continue to monitor and attempt to visit at later date.
[2023-05-16 15:05] VITALS: RESP 18; O2SAT 95
--- NOTE | 2023-05-16 15:09 | P.IMPN_ITS ---
Progress Note: A&P Assessment and plan (1) Acute on chronic hypoxic respiratory failure: Problem details: - using home O2 for approximately one month prior to admission with minimal improvement, continues on 2 L - multifactorial: untreated FIOR, CHF - feeling better after diuresis, RT following Status: Acute (2) Acute on chronic diastolic heart failure: Problem details: - TTE 05/09 with results below: Final Impressions: Limited Echocardiogram performed 1. Normal left ventricular size, mildly increased wall thickness, normal global systolic function, calculated EF of 61 %. 2. Right ventricular cavity size is mildly enlarged, global systolic RV function is borderline. 3. The mitral valve is sclerotic, trace mitral regurgitation. 4. The inferior vena cava is normal sized, respiratory size variation less than 50%. Comparison Compared to prior exam report of 11/07/2022: - The right ventricular systolic function has slightly decreased. - RV size has increased. - 05/11 Cr increasing slowly, continues to have bibasilar crackles, wt increased today, I/Os not accurate - I discussed this with staff. - 05/12 Cr stable at 2. Change furosemide back to home oral dose and recheck BMP in am. Continue I's and O's and daily weights, orthostatic blood pressures and pulses, monitor kidney function panel. - 05/14 Remains clinically stable back on oral furosemide. Cr is stable. Wt. improving at 161.7kg today, down from admission wt of 163.2kg. Continue oral furosemide. Creatinine within baseline 1.6-2.0. Weight stable after trending down. Status: Chronic (3) Venous stasis ulcer with edema of lower leg: Problem details: - on admission, appeared to have chronic PVD rather than cellulitis - on hospital day 1, having more LLE pain and drainage with subjective fevers and leukocytosis: Cultured wound and initiated Cefepime 05/09 - on 05/10, wound culture + for MRSA: transitioned from Cefepime to Doxycycline based on previous cultures - wound care following - physical therapy, occupational therapy, criminal justice social worker consultations - 05/12 left leg wound culture grew out Morganella morganii, sensitivities below, will continue cefepime and doxycycline for now to cover for Morganella and MRSA. This should also cover most of the recent/previous cultures as well. Will discuss with ID tomorrow prior to discharge to ensure that we have her on an appropriate oral antibiotic regimen. - 05/13 Wounds examined with Claire Lopez from wound care. No appreciable cellulitis or purulent drainage. Wound culture amended to now show M morganii and G+ cocci #1 and G+ cocci #2. I spoke with Dr. Luna from Infectious Disease several times today and appreciate her recommendations. Since the wound does not appear infected. She has received adequate antibiotic coverage for 5 days. Will stop antibiotics and monitor. - Wound culture from 05/09/23 grew out M morganii (multiple resistances, sens to cefepime), MRSA, and E faecalis (pansensitive). - 2/ No fever, wounds look similar to yesterday. Continue without antibiotics. Stable, continue to monitor. No antibiotics. Status: Acute (4) Unable to care for self: Problem details: - will require Assisted living or SNF upon d/c, SW involved. No safe option for discharge at this time. Status: Acute (5) Poorly controlled type 2 diabetes mellitus: Problem details: - Continue NovoLog 70/30 (68u am, 53u pm, which is her home dosing) with diabetic diet, SSI added during hospital stay - 2/3 blood gluc lower over the last 24 hours, 80-130's. Patient feeling woozy. Decrease ISS to low dose, continue 70/30 doses as is. - 2/4 low blood glucose overnight. Decrease evening 70/30 and monitor. - 2/6 No low BG over the last 48 hours. BG now 96-152. Continue current regimen. 2/8 BG >100-200 yesterday, 54 this afternoon. Recent adjustments to insulin noted. Will decrease am dose and monitor, adjusting as necessary Status: Chronic (6) Obstructive sleep apnea: Problem details: - will not wear CPAP Status: Chronic Plan Medically stable for discharge. On chronic 2 L O2 per nasal cannula. Awaiting placement. Time Spent With Patient Total time spent: Total time spent caring for the patient today was 45 minutes. This includes time spent for the visit reviewing the chart, time spent during the visit, time spent after the visit and documentation and planning in coordination of care. Subjective Date Seen: 05/16/23 Interval history: Patient is sitting up in chair this morning. Has another chronic headache. We pulled the shades to dark in the room which helped immediately. Eating breakfast without nausea. No other complaints this morning. Has remained afebrile and vitally stable. Awaiting placement. Exam Narrative: Exam Narrative: PHYSICAL EXAM General: Pleasant, conversant, NAD, appears comfortable despite headache HEENT: Normocephalic, atraumatic, sclera white, EOMI, oral mucosa moist Cardiovascular: RRR, S1S2. Pulmonary: Diminished bilaterally, no expiratory wheezes, No dyspnea on 2 L Neurological: Alert, answering questions appropriately, cranial nerves intact, no focal findings Extremities: Chronic lower extremity swelling. AROMI. Neurovascularly intact Skin: Warm, dry. Const: Vital Signs, click to edit/add: Vital Signs - 24 hr 05/15/23 22:25 05/15/23 23:00 05/15/23 23:00 Temperature 97.6 F Pulse Rate [Pulse Oximeter] 61 64 Respiratory Rate 16 16 16 Blood Pressure [Ri ght Arm] 151/65 H Pulse Oximetry 93 92 Oxygen Delivery Me thod Nasal Cannula Nasal Cannula Oxygen Flow Rate 2 2 05/16/23 06:50 05/16/23 08:28 05/16/23 08:42 Temperature 97.4 F L 97.8 F Pulse Rate [Pulse Oximeter] 57 L Respiratory Rate 13 13 Blood Pressure [Ri ght Arm] 142/61 H 149/66 H Pulse Oximetry 96 94 94 Oxygen Delivery Me thod Room Air Room Air Nasal Cannula Oxygen Flow Rate 2 05/16/23 08:52 Temperature Pulse Rate [Pulse Oximeter] Respiratory Rate 13 Blood Pressure [Ri ght Arm] Pulse Oximetry Oxygen Delivery Me thod Oxygen Flow Rate Labs Labs: Laboratory Results - last 24 hr 05/16/23 06:43 WBC 11.72 H RBC 4.22 Hgb 10.9 L Hct 37.8 MCV 90 MCH 26 MCHC 29 L Plt Count 288 Sodium 141 Potassium 5.1 Chloride 105 Carbon Dioxide 27 Anion Gap 9 BUN 95 H Creatinine 1.9 H Estimated Creat Clear 25.15 Estimated GFR 28 Glucose 98 Calcium 9.5
[2023-05-16] MEDS: SODIUM CHLORIDE NASAL SPRAY 1 SPRAY NOSTRIL-B (17:06)
[2023-05-16] MEDS: INSULIN PROT/ASP (NOVOLOG 70/30) 100 UNIT/ML 47 UNIT SUBCUT (17:53)
--- NOTE | 2023-05-16 19:15 | PC.NURSE ---
End of Shift: Pt has been very pleasant and cooperative. some neck pain. she got Tylenol and heat to the neck. she is eating, drinking and voiding. Afebrile. O2 sats 90% on 2L. Up to bathroom and chair with SBA and cane. Tolerating regular diet with no nausea. BG 45 and 147. MD was update and 70/30 was decrease to 60 from 68. SL in the right hand was patent. she is on MSRA precautions. Nystatin applied. legs are wrapped.
[2023-05-16 21:25] VITALS: BP 153/73; PULSE 57; RESP 22; TEMP 36.3; O2SAT 97
[2023-05-16] MEDS: ENOXAPARIN 30 MG/0.3ML INJ SUBCUT (21:29)
[2023-05-16] MEDS: ROSUVASTATIN CALCIUM 10 MG TABLET PO (21:30)
[2023-05-16] MEDS: LORATADINE 10 MG TABLET PO (21:30)
[2023-05-16] MEDS: MONTELUKAST 10 MG TABLET PO (21:30)
[2023-05-16] MEDS: AMLODIPINE 10 MG TABLET PO (21:30)
[2023-05-16] MEDS: LATANOPROST 0.005% OPHTH 1 DROP EYE-BOTH (21:32)
[2023-05-16] MEDS: INSULIN ASPART 100 UNIT/ML SUBCUT (21:33)
[2023-05-16] MEDS: METOPROLOL TARTRATE 50 MG TABLET PO (21:36)
[2023-05-17] MEDS: LEVOTHYROXINE 125 MCG TABLET PO (06:06)
--- NOTE | 2023-05-17 06:15 | PC.NURSE ---
END OF SHIFT NOTE: PT PLEASANT AND COOPERATIVE. A&Ox3. DENIES CP, SOB, N/V. AMBULATES INDEPENDENTLY WITH CANE IN ROOM. VSS ON 2LNC; AFEBRILE. PT SLEPT IN CHAIR DURING HS. BLE WRAPPED AND ELEVATED. CALL LIGHT WITHIN PT?S REACH.?
[2023-05-17 06:42] LABS: Hematocrit 35.3 % (33.0-51.0); Hemoglobin* 10.3 gm/dL (12.0-16.0); Mean Corpuscular HGB Conc 29 gm/dL (32-36); Mean Corpuscular Hemoglobin 26 pg (26-34); Mean Corpuscular Volume 90 fL (80-100); Platelet Count* 266 K/uL (140-440); Red Blood Count 3.94 m/uL (4.00-5.20); White Blood Count* 10.33 K/uL (4.50-11.00)
[2023-05-17 06:48] LABS: Chloride* 106 mmol/L (96-114); Sodium* 139 mmol/L (135-149)
[2023-05-17 06:49] LABS: Potassium* 5.3 mmol/L (3.6-5.1)
[2023-05-17 06:51] LABS: Creatinine* 1.9 mg/dL (0.5-1.5); Est. Creatinine Clearance* 25.15; Estimated Glomerular Filt Rate 28 ml/min
[2023-05-17 06:52] LABS: Anion Gap 8 mEq/L (7-15); Blood Urea Nitrogen* 95 mg/dL (7-30); Calcium* 9.3 mg/dL (8.4-10.6); Carbon Dioxide* 25 mmol/L (20-32); Glucose* 84 mg/dL (60-115)
[2023-05-17 06:53] LABS: Slide Review Reflex No
[2023-05-17 08:30] VITALS: RESP 22; O2SAT 92
[2023-05-17 08:38] VITALS: BP 133/50; PULSE 51; RESP 22; TEMP 36.4; O2SAT 92
[2023-05-17] MEDS: timoloL maleate 0.5 % 1 DROP EYE-RIGHT (08:41)
[2023-05-17] MEDS: DORZOLAMIDE HCL 2 % OPHTH DROP 1 DROP EYE-LEFT (08:42)
[2023-05-17] MEDS: BRIMONIDINE TARTRATE 0.2% OPHTH 1 DROP EYE-LEFT (08:42)
[2023-05-17] MEDS: prednisoLONE acetate 1 % DROPS 1 DROP EYE-LEFT (08:42)
[2023-05-17] MEDS: SODIUM CHLORIDE 0.9 % (FLUSH) 10 ML SYRINGE 5 ML IVF (08:43)
[2023-05-17] MEDS: METOPROLOL TARTRATE 50 MG TABLET 100 MG PO (08:44)
[2023-05-17] MEDS: FUROSEMIDE 40 MG TABLET 80 MG PO (08:44)
[2023-05-17] MEDS: LOSARTAN POTASSIUM 50 MG TABLET 100 MG PO (08:44)
[2023-05-17] MEDS: NYSTATIN CREAM 30 GM 1 APPLIC TOPICAL (08:45)
[2023-05-17] MEDS: allopurinoL 100 MG TABLET 150 MG PO (08:45)
[2023-05-17] MEDS: SODIUM CHLORIDE NASAL SPRAY 1 SPRAY NOSTRIL-B (08:50)
[2023-05-17] MEDS: INSULIN PROT/ASP (NOVOLOG 70/30) 100 UNIT/ML 60 UNIT SUBCUT (10:55)
[2023-05-17] MEDS: ACETAMINOPHEN 325 MG TABLET 650 MG PO (10:56)
[2023-05-17 11:01] VITALS: BP 131/50; PULSE 53; RESP 22; TEMP 36.6; O2SAT 97
--- NOTE | 2023-05-17 12:04 | PM.DS1 ---
DS: Providers Provider Date Seen: 05/17/23 Date of admission: 05/08/23 17:34 Primary care physician: Shirley Fleming DO Admitting Clinician: Iain Soriano MD Consults: 05/08/23 17:34 Consult to Respiratory Therapy [CONS] Routine Comment: Reason(s) for RT Consult:: Consult 05/08/23 17:45 Consult to Nutrition [CONS] Routine Comment: Reason for consult:: Miscellaneous Comment: CHF, chronic wounds, DMT2 Consult to Physical Therapy [CONS] Routine Comment: Reason(s) for PT Consult:: Evaluate and Treat Any Restrictions?:: No Restrictions Consult to Fan Installer [CONS] Routine Comment: Reason for Consult:: Discharge Planning Needs 05/08/23 17:48 Consult to Occupational Therapy [CONS] Routine Comment: Reason(s) for OT Consult:: Evaluate and Treat Any Restrictions?:: No Restrictions 05/08/23 18:09 Consult to Physician [CONS] Routine Comment: Consulting Provider[facility] Has provider been notified: No 05/08/23 19:28 Consult to Fan Installer [CONS] Routine Comment: Reason for Consult:: Social Service Consult Discharge Planning Needs Possible SNF placement 05/08/23 19:36 Consult to Occupational Therapy [CONS] Routine Comment: Reason(s) for OT Consult:: ADLs Prior to Discharge Any Restrictions?:: No Restrictions 05/13/23 07:12 Consult to Infectious Diseases [CONS] Routine Comment: Consulting Provider: [facility] Consult priority: Routine Has provider been notified: No Call back required?: Yes Attending Physician on discharge: LÓPEZ Kaba, PA-C [facility] Date of Discharge: 05/17/23 DS: Diagnosis Discharge Diagnosis (1) Acute on chronic hypoxic respiratory failure: Status: Acute Problem details: Continued on home O2 for approximately one month prior to admission with minimal improvement, continues on 2 L Considered to be multifactorial: untreated FIOR, CHF, obesity (2) Acute on chronic diastolic heart failure: Status: Chronic Problem details: TTE 05/09 with results below: Final Impressions: Limited Echocardiogram performed 1. Normal left ventricular size, mildly increased wall thickness, normal global systolic function, calculated EF of 61 %. 2. Right ventricular cavity size is mildly enlarged, global systolic RV function is borderline. 3. The mitral valve is sclerotic, trace mitral regurgitation. 4. The inferior vena cava is normal sized, respiratory size variation less than 50%. Comparison Compared to prior exam report of 11/07/2022: - The right ventricular systolic function has slightly decreased. - RV size has increased Continued on oral furosemide. Creatinine within baseline 1.6-2.0. Weight stable after trending down. (3) Venous stasis ulcer with edema of lower leg: Status: Acute Problem details: On admission, appeared to have chronic PVD rather than cellulitis - on hospital day 1, having more LLE pain and drainage with subjective fevers and leukocytosis: Cultured wound and initiated Cefepime 05/09 - on 05/10, wound culture + for MRSA: transitioned from Cefepime to Doxycycline based on previous cultures - wound care following - physical therapy, occupational therapy consulted - 05/12 left leg wound culture grew out Morganella morganii, sensitivities below, will continue cefepime and doxycycline for now to cover for Morganella and MRSA. This should also cover most of the recent/previous cultures as well. Will discuss with ID tomorrow prior to discharge to ensure that we have her on an appropriate oral antibiotic regimen. - 05/13 Wounds examined with Claire Lopez from wound care. No appreciable cellulitis or purulent drainage. Wound culture amended to now show M morganii and G+ cocci #1 and G+ cocci #2. I spoke with Dr. Luna from Infectious Disease several times today and appreciate her recommendations. Since the wound does not appear infected. She has received adequate antibiotic coverage for 5 days. Will stop antibiotics and monitor. - Wound culture from 05/09/23 grew out M morganii (multiple resistances, sens to cefepime), MRSA, and E faecalis (pansensitive). - 2 No fever, wounds look similar to yesterday. Continued cares without antibiotics. (4) Poorly controlled type 2 diabetes mellitus: Status: Chronic Problem details: On admission, continued on home dose NovoLog 70/30 (68u am, 53u pm) with diabetic diet, SSI added during hospital stay - 2/3 blood gluc lower over the last 24 hours, 80-130's. Patient feeling woozy. Decrease ISS to low dose, continue 70/30 doses as is. - 05/12 low blood glucose overnight. Decrease evening 70/30 and monitor. - 2/6 No low BG over the last 48 hours. BG now 96-152. Continue current regimen. - 2/8 BG >100-200 yesterday, 54 this afternoon. Recent adjustments to insulin noted. Will decrease am dose and monitor, adjusting as necessary Recommend for patient to eat routine diabetic meals or meals on regular intervals throughout the day for better management of her poorly-controlled insulin-dependent diabetes as she was reported to skip meals or not eat until after lunch. (5) Obstructive sleep apnea: Status: Chronic Problem details: Noncompliant with CPAP DS: Summary Hospital Course Hospital Course: [age] year old female past medical history significant for poorly-controlled diabetes mellitus, morbid obesity, FIOR, venous insufficiency bilateral lower extremities, venous stasis lower extremities, chronic hypoxic respiratory failure, pulmonary edema with congestive heart failure, lymphedema was admitted to the medical floor for increasing dyspnea at rest, with exertion, orthopnea. Course of care and details as noted above. As detailed above, patient's acute on chronic worsening hypoxic respiratory failure in setting of obesity, heart failure, pulmonary edema was managed with home O2 and furosemide. She was on a short course of antibiotics for concern of worsening lower extremity wounds, discontinue following 5 day course, appearing to be at baseline. Wound care provider consulted, recommendations for wound cares followed. With patient significant debilities, she is discharged to rehab facility.. Remainder of chronic medical comorbidities were monitored and managed with home medications. Status at Discharge Functional status at discharge: wheelchair bound Overall status at discharge: patient is not back to baseline Time Spent with Patient Time attestation: Total time spent providing and/or coordinating discharge services: Time spent: Greater than 30 minutes Exam Narrative: Exam Narrative: PHYSICAL EXAM General: Pleasant, conversant, NAD Cardiovascular: RRR Pulmonary: No dyspnea Neurological: Alert, answering questions appropriately Skin: Warm, dry. Const: Vital Signs, click to edit/add: Vital Signs - 24 hr 05/16/23 15:05 05/16/23 15:05 05/16/23 21:25 Temperature 97.4 F L Pulse Rate [Pulse Oximeter] 57 L Respiratory Rate 18 18 22 Blood Pressure [Ri ght Arm] 153/73 H Pulse Oximetry 95 97 Oxygen Delivery Me thod Nasal Cannula Nasal Cannula Oxygen Flow Rate 2 2 Fraction of Inspir ed Oxygen 05/16/23 21:25 05/16/23 21:25 05/17/23 08:30 Temperature Pulse Rate [Pulse Oximeter] 57 L Respiratory Rate 22 22 22 Blood Pressure [Ri ght Arm] Pulse Oximetry 97 92 Oxygen Delivery Me thod Nasal Cannula Nasal Cannula Oxygen Flow Rate 2 2 Fraction of Inspir ed Oxygen 05/17/23 08:38 05/17/23 11:01 Temperature 97.6 F 97.8 F Pulse Rate [Pulse Oximeter] 51 L 53 L Respiratory Rate 22 22 Blood Pressure [Ri ght Arm] 133/50 L 131/50 L Pulse Oximetry 92 97 Oxygen Delivery Me thod Nasal Cannula Nasal Cannula Oxygen Flow Rate 2 Fraction of Inspir ed Oxygen 2 DS: Data Data Completed and Pending Completed studies during hospitalization: Procedures Excision of Left Foot Subcutaneous Tissue and Fascia, Open Approach (02/02/23) Introduction of Other Gas into Respiratory Tract, Via Natural or Artificial Opening (02/02/23) Labs on day of discharge: Labs from last 24 hours 05/17/23 06:05 WBC 10.33 RBC 3.94 L Hgb 10.3 L Hct 35.3 MCV 90 MCH 26 MCHC 29 L Plt Count 266 Sodium 139 Potassium 5.3 H Chloride 106 Carbon Dioxide 25 Anion Gap 8 BUN 95 H Creatinine 1.9 H Estimated Creat Clear 25.15 Estimated GFR 28 Glucose 84 Calcium 9.3 Discharge Plan Discharge Disposition: [facility] Date of Admission: 05/08/23 17:34 Attending Provider on Discharge: Lou Fernandez Consulting Providers: Nicole Lal; Claire Lopez; Virgen Zhou; Hayes Luna; Yesi Sommers; Lokesh Colindres; Brian Cook; Marla Lewis; Bel Guidry Primary Care Provider: Shirley Fleming Condition: Stable Anticipated Discharge Date/Time: 05/17/23 11:38 Discharge Medications: Continued latanoprost 0.005 % drops 1 drp ophthalmic (eye) QPM Rx Instructions: BOTH EYES metolazone 2.5 mg tablet 2.5 mg PO FR@09 Rx Instructions: ONCE A WEEK ON SATURDAY prednisolone acetate 1 % drops,suspension 1 drp ophthalmic (eye-left) BID levothyroxine 125 mcg tablet 125 mcg PO DAILY brimonidine 0.2 % drops 1 drp ophthalmic (eye-left) BID nitroglycerin 0.4 mg tablet, sublingual 0.4 mg sublingual Q5M PRN montelukast 10 mg tablet 10 mg PO HS timolol maleate 0.5 % drops 1 drp ophthalmic (eye-right) QAM losartan 100 mg tablet 100 mg PO DAILY dorzolamide 2 % drops 1 drp ophthalmic (eye-left) BID ascorbic acid (vitamin C) 500 mg tablet 500 mg PO BID vitamin B complex [B Complex-Vitamin B12] Tablet 1 tab PO DAILY loratadine [Allerclear] 10 mg tablet 10 mg PO HS multivitamin [Daily Multi-Vitamin] Tablet 1 tab PO DAILY furosemide 40 mg tablet 80 mg PO BID Qty: 120 0RF nystatin 100,000 unit/gram Cream 1 applic topical TID Qty: 45 0RF cholecalciferol (vitamin D3) [Vitamin D3] 125 mcg (5,000 unit) tablet 5,000 unit PO HS amlodipine 10 mg tablet 10 mg PO HS rosuvastatin 10 mg tablet 10 mg PO HS metoprolol tartrate 50 mg tablet 100 mg PO QAM metoprolol tartrate 50 mg tablet 50 mg PO HS PreserVision Lutein 226-90-0.8-5 mg capsule 1 cap PO DAILY vitamin E 268 mg (400 unit) capsule 268 mg PO DAILY Zinc-15 66 mg tablet 66 mg PO DAILY acetaminophen [8 Hour Pain Reliever] 650 mg tablet extended release 1,300 mg PO BID Rx Instructions: AND SOMETIMES A THIRD DOSE IN THE MIDDLE OF THE DAY allopurinol 100 mg tablet 150 mg PO DAILY calcium carbonate [Calcium 600] 600 mg calcium (1,500 mg) tablet 600 mg PO QPM cholecalciferol (vitamin D3) 25 mcg (1,000 unit) capsule 25 mcg PO QAM AND QHS fluticasone propionate 100 mcg/actuation blister with device 1 inh inhalation BID hydrocortisone [Cortizone-10] 1 % ointment 1 applic topical TID PRN Rx Instructions: USES IN FOLDS PRN loperamide 2 mg tablet 2 mg PO Q6H PRN magnesium oxide 400 mg (241.3 mg magnesium) tablet 400 mg PO HS Biofreeze (menthol) 4 % gel 1 applic topical QID PRN neomycin-polymyxin B-dexameth [Maxitrol] 3.5 mg/g-10,000 unit/g-0.1 % ointment 1 applic ophthalmic (eye-right) BID PRN Rx Instructions: USES TWICE A DAY FOR 3 DAYS AFTER EYE INJECTION potassium gluconate 595 mg (99 mg) tablet 595 mg PO DAILY triamcinolone acetonide 0.1 % cream 1 applic topical 3XD PRN Rx Instructions: USES ON ARMS PRN [place] Nasal 0.65 % aerosol,spray 1 spray intranasal Q1H PRN tramadol 50 mg tablet 50 mg PO Q6H PRN (Reason: pain) Qty: 10 0RF Changed Humulin 70/30 U-100 Insulin 100 unit/mL (70-30) suspension 47 unit subcut QPM Qty: 3 0RF Novolin 70/30 U-100 Insulin 100 unit/mL (70-30) suspension 60 unit subcut QAM Qty: 10 0RF albuterol sulfate 90 mcg/actuation HFA aerosol inhaler 2 puff INHALATION 3XD PRN (Reason: shortness of breath or wheezing) Qty: 8.5 0RF Rx Instructions: AT LEAST THREE AND UP TO SIX TIMES PER DAY Discharge Orders: Discharge Order (Routine); Ordered 05/17/23 Ordered By: Lou Fernandez Additional Instructions: Ankle brachial indices as outpatient. Need to help set up transportation for appointment. Appointment is 05/20/23 @ 8:00 Left foot wounds: cleanse, paint with betadine, cover with border foam (mepilex okay to use). BLE Wounds:cleanse wounds apply honey/alginate to left draining wound cover with abd. all other wounds to BLE apply medihoney, xeroform, cover with abd. apply coban 2-layer LITE to BLE. If patient is unable to tolerate 2-layer wrap okay to use double layer of tubi-corncob pipes assembler G. Change EOD and PRN. Activity Level: Activity as Tolerated Activity Detail: PT and OT to evaluate Discharge Diet: Diabetic Diet Detail: Patient will need to eat regular meals or at regular intervals to avoid hypoglycemia in setting of poorly controlled insulin dependent diabetes. Insulin dosing has recently been decreased in order to compensate for this. Follow Up Appointments: Wound,Center [Other] - 05/20/23 8:00 am Shirley Fleming DO [Primary Care Provider] - 05/24/23 (Post hospital follow up, multiple comorbidities) Forms: MyHealth Info Instructions Wound Care: as above for lower extremity wounds Nystatin to intertriginous folds Admit to: SNF Discharge Potential: Fair Length of Stay: <30 days Can use facility standing orders?: Yes Code Status: DNR/DNI Rehab Potential: Fair Therapy: Physical Therapy and Occupational Therapy Therapy Orders: Evaluate and Treat Oxygen: Yes Oxygen Delivery Method: Nasal Cannula Oxygen Flow Rate: 2 Urinary Catheter: No Glucose Checks: ACHS Orders are good >30 days: No Signature: LÓPEZ Kaba, HENRIC [facility]
--- NOTE | 2023-05-17 14:58 | NUTR.NU ---
RDN attempted to visit with patient x4, however patient was not available on all attempts. RDN will attempt to visit with patient at a later date.
--- NOTE | 2023-05-17 15:27 | PC.SOCIAL ---
Discharge planning: manager workers compensation received a call from [facility] in [place] stating they could accept the pt for admission today. manager workers compensation spoke with the pt and pt's daughter, Alanna. They are good with this plan. Pre admission screening was completed and the number was sent to [facility]. PAS#[id number]. Pt will be transported by non emergency EMS transport today at 2pm. manager workers compensation provided the pt with The Important Message from Medicare form. Social work to follow-up as needed.
--- NOTE | 2023-05-17 15:36 | PC.NURSE ---
Pt alert and oriented. Pt had complaints of a headache; see EMAR for intervention. Pt independent in room. Pt is chronically on oxygen and currently on 2 Liters. Pt?s IV removed at 1230. Pt?s wound care was completed at 1235. Pt transferred to SNF and transported by EMS at 1414.?
== END 2023-05-17 14:14 | DRG 189 ==
LOC: ED 14:36 → MEDSURG 17:05
PROVIDERS: Family Medicine; Physician Assistant; Admitting Provider Internal Medicine; Emergency Provider Emergency Medicine; PCP Family Medicine; Visit Provider Internal Medicine
DX: J96.21 Acute and chronic respiratory failure with hypoxia (principal); I50.33 Acute on chronic diastolic (congestive) heart failure; Z68.43 Body mass index [BMI] 50.0-59.9, adult; I13.0 Hypertensive heart and chronic kidney disease with heart failure and stage 1 through stage 4 chronic kidney disease, or unspecified chronic kidney disease; L97.829 Non-pressure chronic ulcer of other part of left lower leg with unspecified severity; L97.819 Non-pressure chronic ulcer of other part of right lower leg with unspecified severity; L97.429 Non-pressure chronic ulcer of left heel and midfoot with unspecified severity; L97.419 Non-pressure chronic ulcer of right heel and midfoot with unspecified severity; Z99.81 Dependence on supplemental oxygen; B96.4 Proteus (mirabilis) (morganii) as the cause of diseases classified elsewhere; B95.62 Methicillin resistant Staphylococcus aureus infection as the cause of diseases classified elsewhere; B96.89 Other specified bacterial agents as the cause of diseases classified elsewhere; G47.33 Obstructive sleep apnea (adult) (pediatric); E66.01 Morbid (severe) obesity due to excess calories; E11.65 Type 2 diabetes mellitus with hyperglycemia; I87.2 Venous insufficiency (chronic) (peripheral); N18.9 Chronic kidney disease, unspecified; E11.22 Type 2 diabetes mellitus with diabetic chronic kidney disease; Z79.4 Long term (current) use of insulin; L30.4 Erythema intertrigo; I89.0 Lymphedema, not elsewhere classified; Z91.198 Patient's noncompliance with other medical treatment and regimen for other reason; Z59.82 Transportation insecurity; E11.21 Type 2 diabetes mellitus with diabetic nephropathy; G89.29 Other chronic pain; M54.30 Sciatica, unspecified side; R51.9 Headache, unspecified; Z99.3 Dependence on wheelchair
CPT/HCPCS: 36415; 71045; 80048; 80053; 80076; 82803; 82962; 83605; 83735; 83880; 84100; 84145; 84443; 84484; 85025; 85027; 85045; 86140; 87040; 87070; 87081; 87186; 93005; 93306; 97110; 97116; 97162; 97166; 97530; 97535; 99284; A9270; J0692; J1650; J1940; J7050

== ENCOUNTER 2023-05-17 14:05 | Outpatient (CLI) | payer MEDICARE, BC, SELFPAY | END 2023-05-17 14:06 | disposition home or self-care (01) | LOC: AMB 05-20 02:17 | PROVIDERS: PCP Family Medicine; Visit Provider Family Medicine | DX: R53.81 Other malaise (principal); R53.1 Weakness | CPT/HCPCS: A0425; A0428 ==

== ENCOUNTER 2023-07-17 12:46 | Outpatient (CLI) | payer BC, SELFPAY | END 2023-07-17 12:47 | disposition home or self-care (01) | LOC: WOUND 12:46 | PROVIDERS: PCP Family Medicine; Visit Provider Physician Assistant | DX: E11.621 Type 2 diabetes mellitus with foot ulcer (principal); E11.40 Type 2 diabetes mellitus with diabetic neuropathy, unspecified; L97.422 Non-pressure chronic ulcer of left heel and midfoot with fat layer exposed; I89.0 Lymphedema, not elsewhere classified; L97.812 Non-pressure chronic ulcer of other part of right lower leg with fat layer exposed; Z79.4 Long term (current) use of insulin; Z79.84 Long term (current) use of oral hypoglycemic drugs; E66.9 Obesity, unspecified; Z68.43 Body mass index [BMI] 50.0-59.9, adult | CPT/HCPCS: 11042; G0463 ==

== ENCOUNTER 2023-07-24 11:55 | Outpatient (CLI) | payer BC, SELFPAY | END 2023-07-24 11:56 | disposition home or self-care (01) | LOC: AMB 07-27 14:51 | PROVIDERS: PCP Family Medicine; Visit Provider Family Medicine | DX: R06.09 Other forms of dyspnea (principal) | CPT/HCPCS: A0425; A0427 ==

== ENCOUNTER 2023-07-24 12:38 | Inpatient (IN) | payer BC, SELFPAY ==
[2023-07-24] VITALS (24 sets, daily range): BP systolic 140–186; BP diastolic 51–93; PULSE 61–86; RESP 20–22; TEMP 36.1–36.6; O2SAT 86–93; BMI 57.4; BMI 56.9
--- NOTE | 2023-07-24 13:13 | ED_ITS ---
HPI - SOB/Dyspnea General Time Seen by Provider: 13:13 Date Seen: 07/24/23 Chief Complaint: Shortness of Breath/Dyspnea Stated Complaint: shortness of breath Time Seen by Provider: 07/24/23 13:12 Source: patient, EMS and RN notes reviewed Mode of arrival: EMS Limitations: no limitations History of Present Illness HPI Narrative: This 68-year-old female he is coming in with increasing shortness of breath and productive cough. She thinks she may have a bacterial bronchitis or bacterial respiratory infection. She is coughing up significant phlegm, has turned green. She baseline is on oxygen at home, usually 2-3 L. She is currently on a 3 L OxyMask and is at 89% with good waveform. She cannot lie back, had to sit up in the bed. She does have underlying COPD. She got a DuoNeb by EMS and that really helped her cough up some phlegm. She notices no chest pain, has had no fevers. She had some grandchildren that had strep, she rode in a vehicle that they had been in but no direct exposure. She has no sore throat. She does have a history of congestive heart failure in her chart as well. She has chronically thickened edematous lower extremities and has wounds for which she is [facility]. She feels no changes to the legs. No abdominal symptoms. MD elicited complaint: shortness of breath and cough Related Data Home oxygen amount: 2 liters Home Medications Medication Instructions Recorded Confirmed brimonidine 0.2 % eye drops 1 drp ophthalmic (eye-left) BID 11/06/22 05/08/23 dorzolamide 2 % eye drops 1 drp ophthalmic (eye-left) BID 11/06/22 05/08/23 latanoprost 0.005 % eye drops 1 drp ophthalmic (eye) QPM 11/06/22 05/08/23 levothyroxine 125 mcg tablet 125 mcg PO DAILY 11/06/22 05/08/23 losartan 100 mg tablet 100 mg PO DAILY 11/06/22 05/08/23 metolazone 2.5 mg tablet 2.5 mg PO FR@09 11/06/22 05/08/23 montelukast 10 mg tablet 10 mg PO HS 11/06/22 05/08/23 nitroglycerin 0.4 mg sublingual 0.4 mg sublingual Q5M PRN 08/01/23 01/31/24 tablet prednisolone acetate 1 % eye 1 drp ophthalmic (eye-left) BID 11/06/22 05/08/23 drops,suspension timolol maleate 0.5 % eye drops 1 drp ophthalmic (eye-right) QAM 11/06/22 05/08/23 ascorbic acid (vitamin C) 500 mg 500 mg PO BID 11/07/22 05/08/23 tablet loratadine 10 mg tablet 10 mg PO HS 11/07/22 05/08/23 (Allerclear) multivitamin (Daily Multi-Vitamin 1 tab PO DAILY 11/07/22 05/08/23 tablet) vitamin B complex (B 1 tab PO DAILY 11/07/22 05/08/23 Complex-Vitamin B12 tablet) amlodipine 10 mg tablet 10 mg PO HS 11/29/22 05/08/23 cholecalciferol (vitamin D3) 125 5,000 unit PO HS 11/29/22 05/08/23 mcg (5,000 unit) tablet (Vitamin D3) rosuvastatin 10 mg tablet 10 mg PO HS 11/29/22 05/08/23 metoprolol tartrate 50 mg tablet 50 mg PO HS 12/21/22 05/08/23 metoprolol tartrate 50 mg tablet 100 mg PO QAM 12/21/22 05/08/23 vit C 226 mg-vit E 90 mg-copper 1 cap PO DAILY 12/21/22 05/08/23 0.8 mg-zinc oxide-lutein 5 mg capsule (PreserVision Lutein) vitamin E 268 mg (400 unit) capsule 268 mg PO DAILY 12/21/22 05/08/23 zinc sulfate 66 mg tablet (Zinc-15) 66 mg PO DAILY 12/21/22 05/08/23 acetaminophen 650 mg 1,300 mg PO BID 05/08/23 05/08/23 tablet,extended release (8 Hour Pain Reliever) allopurinol 100 mg tablet 150 mg PO DAILY 05/08/23 05/08/23 calcium carbonate (Calcium 600) 600 mg PO QPM 05/08/23 05/08/23 cholecalciferol (vitamin D3) 25 25 mcg PO QAM AND QHS 05/08/23 05/08/23 mcg (1,000 unit) capsule fluticasone propionate 100 1 inh inhalation BID 05/08/23 05/08/23 mcg/actuation blister powder for inhalation hydrocortisone 1 % topical 1 applic topical TID PRN 05/08/23 05/08/23 ointment (Cortizone-10) loperamide 2 mg tablet 2 mg PO Q6H PRN 05/08/23 05/08/23 magnesium oxide 400 mg (241.3 mg 400 mg PO HS 05/08/23 05/08/23 magnesium) tablet menthol 4 % topical gel (Biofreeze 1 applic topical QID PRN 05/08/23 05/08/23 (menthol)) neomycin 3.5 mg/g-polymyxin B 1 applic ophthalmic (eye-right) 05/08/23 05/08/23 10,000 unit/g-dexameth 0.1 % eye BID PRN oint (Maxitrol) potassium gluconate 595 mg (99 mg) 595 mg PO DAILY 05/08/23 05/08/23 tablet sodium chloride 0.65 % nasal spray 1 spray intranasal Q1H PRN 05/08/23 05/08/23 aerosol (Deep Sea Nasal) triamcinolone acetonide 0.1 % 1 applic topical 3XD PRN 05/08/23 05/08/23 topical cream Previous Rx's Medication Instructions Recorded furosemide 40 mg tablet 80 mg (2 x 40 mg) PO BID #120 tabs 11/07/22 nystatin 100,000 unit/gram topical 1 applic topical TID #45 grams 02/06/23 cream albuterol sulfate 90 mcg/actuation 2 puff inhalation 3XD PRN 05/17/23 aerosol inhaler shortness of breath or wheezing #8.5 grams insulin human U-100 NPH-regulr 47 unit (0.47 mL) subcut QPM #3 mL 05/17/23 70-30 mix 100 unit/mL subcutaneous susp (Humulin 70/30 U-100 Insulin) insulin human U-100 NPH-regulr 60 unit (0.6 mL) subcut QAM #10 mL 05/17/23 70-30 mix 100 unit/mL subcutaneous susp (Novolin 70/30 U-100 Insulin) tramadol 50 mg tablet 50 mg PO Q6H PRN pain #10 tabs 05/17/23 Allergies Allergy/AdvReac Type Severity Reaction Status Date / Time clindamycin Allergy Severe Verified 12/21/22 15:33 hydromorphone Allergy Severe Stopped Verified 12/21/22 15:33 Breathing morphine Allergy Severe Stopped Verified 12/21/22 15:33 Breathing NSAIDS (Non-Steroidal Allergy Severe Anaphylaxis Verified 12/21/22 15:33 Anti-Inflamma penicillin V Allergy Severe Hypertensio Verified 12/21/22 15:33 n aspirin AdvReac nausea and Verified 12/21/22 15:33 vomiting Review of Systems Status of ROS: Reports: 6 or more systems reviewed and unremarkable except as noted in History and below [facility] Medical History Unable to care for self ?Z78.9 - Other specified health status (ICD-10) Physical debility ?R53.81 - Other malaise (ICD-10) Obstructive sleep apnea ?G47.33 - Obstructive sleep apnea (adult) (pediatric) (ICD-10) Morbid obesity with BMI of 50.0-59.9, adult ?E66.01 - Morbid (severe) obesity due to excess calories (ICD-10) ?Z68.43 - Body mass index [BMI] 50.0-59.9, adult (ICD-10) Poorly controlled type 2 diabetes mellitus ?E11.65 - Type 2 diabetes mellitus with hyperglycemia (ICD-10) Acute on chronic diastolic heart failure ?I50.33 - Acute on chronic diastolic (congestive) heart failure (ICD-10) Venous insufficiency of both lower extremities ?I87.2 - Venous insufficiency (chronic) (peripheral) (ICD-10) Pulmonary edema with congestive heart failure ?I50.1 - Left ventricular failure, unspecified (ICD-10) Cellulitis of left lower leg ?L03.116 - Cellulitis of left lower limb (ICD-10) Acute kidney injury superimposed on chronic kidney disease ?N17.9 - Acute kidney failure, unspecified (ICD-10) ?N18.9 - Chronic kidney disease, unspecified (ICD-10) Diabetic foot ulcer ?E11.621 - Type 2 diabetes mellitus with foot ulcer (ICD-10) ?L97.509 - Non-pressure chronic ulcer of other part of unspecified foot with unspecified severity (ICD-10) History of fracture of left ankle ?Z87.81 - Personal history of (healed) traumatic fracture (ICD-10) Severe left ventricular hypertrophy ?I51.7 - Cardiomegaly (ICD-10) 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 (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-10) History of sciatica ?Z86.69 - Personal history of other diseases of the nervous system and sense organs (ICD-10) Primary hypothyroidism ?E03.9 - Hypothyroidism, unspecified (ICD-10) Asthma ?J45.909 - Unspecified asthma, uncomplicated (ICD-10) Vitamin D deficiency ?E55.9 - Vitamin D deficiency, unspecified (ICD-10) Rectocele ?N81.6 - Rectocele (ICD-10) Essential hypertension ?I10 - Essential (primary) hypertension (ICD-10) Chronic diastolic heart failure ?I50.32 - Chronic diastolic (congestive) heart failure (ICD-10) History of nephrolithiasis ?Z87.442 - Personal history of urinary calculi (ICD-10) Lumbar back pain with radiculopathy affecting left lower extremity ?M54.16 - Radiculopathy, lumbar region (ICD-10) Hypertriglyceridemia ?E78.1 - Pure hyperglyceridemia (ICD-10) Osteoarthritis of knees, bilateral ?M17.0 - Bilateral primary osteoarthritis of knee (ICD-10) Chronic kidney disease ?N18.9 - Chronic kidney disease, unspecified (ICD-10) Diabetic nephropathy associated with type 2 diabetes mellitus ?E11.21 - Type 2 diabetes mellitus with diabetic nephropathy (ICD-10) Surgical History Status post total abdominal hysterectomy ?Z90.710 - Acquired absence of both cervix and uterus (ICD-10) Status post thyroidectomy ?E89.0 - Postprocedural hypothyroidism (ICD-10) History of esophagogastroduodenoscopy ?Z98.890 - Other specified postprocedural states (ICD-10) Status post cholecystectomy ?Z90.49 - Acquired absence of other specified parts of digestive tract (ICD- 10) History of intraocular lens implant ?Z96.1 - Presence of intraocular lens (ICD-10) Cataract extraction status ?Z98.49 - Cataract extraction status, unspecified eye (ICD-10) Status post appendectomy ?Z90.49 - Acquired absence of other specified parts of digestive tract (ICD- 10) Status post colonoscopy with polypectomy ?Z98.890 - Other specified postprocedural states (ICD-10) Family History Other Diabetes High blood pressure High cholesterol Social History Narrative: . Lives alone. Three supportive children. Designates daughterAlanna, , primary contact for power of mergers and acquisitions attorney for health should that be required. Designates son, Nathan, [phone], secondary contact for power of mergers and acquisitions attorney for health should that be required. Requests that we attempt resuscitation in the event of cardiopulmonary demise, stressing that she does not want to be kept alive as a vegetable should that come to pass. She reports worsening mobility problems. It is difficult due to her back pain and radicular symptoms going down her right leg for her to get up and walk around. To a lesser extent her left foot also bothers her with weight-bearing. She does walk with a walker. What is your current living situation?: I presently have a place to live Problems where you live: mold Problems where you live details: mold In the past 12 months, utilities in danger of being shut off: no In past 12 months, lack of transportation kept you from medical appts, meetings, work, or getting things needed for daily living: yes In the past 12 mos, have been you worried that your food would run out before you had money to buy more?: sometimes true In the past 12 mos, the food you bought just didn't last and you didn't have money to buy more?: sometimes true Highest level of school completed/degree received: Associate degree: academic program Smoking Status: Never smoker Do you use any of these nicotine containing products: None Second hand tobacco smoke exposure: No How often do you have a drink containing alcohol: never How often do you have six or more drinks on one occasion: Never AUDIT-C Alcohol total score: 0 Non-prescribed substance use: denies use Caffeine: Yes How often does anyone, including family, friends and others, physically hurt you : never How often does anyone, including family, friends and others, insult or talk down to you: rarely How often does anyone, including family, friends and others, threaten you with harm: never How often does anyone, including family, friends and others, scream or curse at you: never service: No Exam Const: Vital Signs, click to edit/add: Vital Signs - 24 hr 07/24/23 12:48 07/24/23 12:49 07/24/23 13:00 Temperature 97 F L Pulse Rate 75 83 Pulse Rate [Pulse Oximeter] 75 Respiratory Rate 22 Blood Pressure Blood Pressure [Le ft Forearm] 143/71 H Pulse Oximetry 90 90 89 Oxygen Delivery Me thod OxyMask OxyMask OxyMask Oxygen Flow Rate 2 3 3 07/24/23 13:01 07/24/23 13:14 07/24/23 13:14 Temperature Pulse Rate 83 Pulse Rate [Pulse Oximeter] Respiratory Rate Blood Pressure 140/73 H Blood Pressure [Le ft Forearm] Pulse Oximetry 89 90 90 Oxygen Delivery Me thod OxyMask OxyMask Oxygen Flow Rate 3 3 07/24/23 13:15 07/24/23 13:30 07/24/23 13:31 Temperature Pulse Rate 82 73 73 Pulse Rate [Pulse Oximeter] Respiratory Rate Blood Pressure 164/91 H Blood Pressure [Le ft Forearm] Pulse Oximetry 89 90 92 Oxygen Delivery Me thod OxyMask OxyMask OxyMask Oxygen Flow Rate 3 3 3 07/24/23 13:45 07/24/23 14:31 07/24/23 14:41 Temperature Pulse Rate 67 73 Pulse Rate [Pulse Oximeter] Respiratory Rate Blood Pressure 150/84 H Blood Pressure [Le ft Forearm] Pulse Oximetry 90 93 Oxygen Delivery Me thod OxyMask OxyMask Oxygen Flow Rate 3 3 07/24/23 15:00 07/24/23 15:01 07/24/23 15:30 Temperature Pulse Rate 70 69 80 Pulse Rate [Pulse Oximeter] Respiratory Rate Blood Pressure 155/62 H Blood Pressure [Le ft Forearm] Pulse Oximetry 88 86 L 90 Oxygen Delivery Me thod OxyMask OxyMask OxyMask Oxygen Flow Rate 3 3 3 07/24/23 15:31 Temperature Pulse Rate 78 Pulse Rate [Pulse Oximeter] Respiratory Rate Blood Pressure 160/79 H Blood Pressure [Le ft Forearm] Pulse Oximetry 91 Oxygen Delivery Me thod OxyMask Oxygen Flow Rate 3 The 68-year-old female is sitting up on the edge of the bed, has an OxyMask gotten, 89% with good waveform. She is able to speak in complete sentences. She did have a productive cough of yellowish phlegm while I was in there. She is alert, interactive, no apparent distress. Sclera clear, conjugate gaze, pupils equal round. Symmetrical facial function. Lungs with some mild rhonchi, no wheezing or crackles but distant breath sounds. CV sounds regular, do not hear any murmur. Abdomen is significantly obese but not tender. She has stocking it is on her lower extremities, chronically edematous legs. Legs are quite thick. Documenting provider has reviewed patient's vital signs: yes Course Course ED Course: Patient with history of CHF and COPD with increasing shortness of breath, worsening hypoxia and productive cough. This could be combined CHF and COPD, need to consider infectious respiratory pathogens. Will get full complement of labs, start with a chest x-ray. She wants to make sure I do not give her Keflex, reviewed with her that that is not a very good respiratory antibiotic anyways, not likely that I would be giving her this type of antibiotic if she ne eds 1 for respiratory infection. Reevaluation(s) Time of Reevaluation #1: 15:57 Reevaluation #1: Went to review with patient that the plan is for hospitalization, I do think she has congestive heart failure but I also suspect that she probably has some COPD exacerbation with her sputum production that is green. Dr. Rebolledo is actually in with the patient. He will update me if he needs me to order anything here. Consultations Consultation #1: Reviewed with Dr. Rebolledo, have questions as to dosage of her Lasix given her current regimen of Lasix 80 b.i.d. as well as metolazone daily. I do question if she also has COPD exacerbation, do think we need to consider prednisone in oral antibiotics. He is going to look at this patient, will have me weight on medications at this time. Time: 13:05 Vital Signs Vital signs: Initial Vital Signs Temperature 97 F L 07/24/23 12:48 Temperature Source Temporal Artery Scan 07/24/23 12:48 Pulse Rate 75 07/24/23 12:48 Respiratory Rate 22 07/24/23 12:48 Blood Pressure 143/71 H 07/24/23 12:48 Blood Pressure Mean 95 07/24/23 12:48 Pulse Oximetry 90 07/24/23 12:48 Oxygen Delivery Method OxyMask 07/24/23 12:48 Oxygen Flow Rate 2 07/24/23 12:48 Vital Signs Temperature 97 F L 07/24/23 12:48 Pulse Rate 75 07/24/23 12:48 Respiratory Rate 22 07/24/23 12:48 Blood Pressure 143/71 H 07/24/23 12:48 Pulse Oximetry 90 07/24/23 12:48 Oxygen Delivery Method OxyMask 07/24/23 12:48 Oxygen Flow Rate 2 07/24/23 12:48 Temperature 97 F L 07/24/23 12:48 Pulse Rate 78 07/24/23 15:31 Respiratory Rate 22 07/24/23 12:48 Blood Pressure 160/79 H 07/24/23 15:31 Pulse Oximetry 91 07/24/23 15:31 Oxygen Delivery Method OxyMask 07/24/23 15:31 Oxygen Flow Rate 3 07/24/23 15:31 MDM - SOB/Dyspnea Lab Data Attestation: I reviewed the patient's lab results. Labs: Lab Results 07/24/23 07/24/23 Range/Units 13:35 14:00 WBC 12.12 H (4.50-11.00) K/uL RBC 4.59 (4.00-5.20) m/uL Hgb 11.3 L (12.0-16.0) gm/dL Hct 39.6 (33.0-51.0) % MCV 86 (80-100) fL MCH 25 L (26-34) pg MCHC 29 L (32-36) gm/dL RDW Coeff of Tad 19.7 H (11.5-15.5) % Plt Count 254 (140-440) K/uL Neut % (Auto) 79.0 H (42.0-72.0) % Lymph % (Auto) 6.8 L (20-44) % Motley % (Auto) 9.8 (0.0-11.0) % Eos % (Auto) 3.5 (0.0-7.0) % Baso % (Auto) 0.4 (0.0-3.0) % Neut # (Auto) 9.60 H (1.7-7.0) K/uL Lymph # (Auto) 0.80 L (0.90-2.90) K/uL Motley # (Auto) 1.20 H (0.00-0.90) K/UL Eos # (Auto) 0.40 (0.00-0.50) K/uL Baso # (Auto) 0.00 (0.00-0.30) K/uL Abs Immat Gran (auto) 0.10 (0.00-0.30) K/uL Imm/Tot Granulo (auto) 0.5 % D-Dimer Quant (PE/DVT) 0.74 H (0.00-0.50) ug/ml VBG pH 7.398 (7.32-7.43) VBG pCO2 44 (40-50) mmHG VBG pO2 42.8 (25-47) mmHG VBG HCO3 27 (21-28) mmol/L Sodium 137 (135-149) mmol/L Potassium 4.6 (3.6-5.1) mmol/L Chloride 106 (96-114) mmol/L Carbon Dioxide 28 (20-32) mmol/L Anion Gap 3 L (7-15) mEq/L BUN 62 H (7-30) mg/dL Creatinine 1.6 H (0.5-1.5) mg/dL Estimated Creat Clear 29.86 Estimated GFR 35 ml/min Glucose 213 H (60-115) mg/dL Lactate 1.2 (0.5-1.9) mmol/L Calcium 8.9 (8.4-10.6) mg/dL Total Bilirubin 0.8 (0.1-1.5) mg/dL AST 30 (12-35) U/L ALT 30 (4-35) U/L Alkaline Phosphatase 294 H (40-150) U/L Troponin I 0.02 (0.01-0.04) ng/mL C-Reactive Protein 6.0 H (0.5-1.0) mg/dL NT-Pro-B Natriuret Pep 3500 pg/mL Total Protein 7.5 (6.0-8.3) g/dL Albumin 3.9 (3.3-5.0) g/dL SARS-CoV-2 (PCR) Negative SARS-CoV-2 (Negative) Influenza Type A (PCR) Negative PCR FLU A (Negative) Influenza Type B (PCR) Negative PCR FLU B (Negative) RSV (PCR) Negative PCR RSV (Negative) Imaging Data Chest x-ray: Attestation: I have reviewed the pertinent imaging results. My impression: I did visualize her portable chest x-ray in compared to her last 1, thinks she has some mild congestive changes indicative of CHF. Await Radiology over-read Radiologist's impression: Patient: MEENA SHARMA Facility:?[facility] Patient ID:?[id number] Site Patient ID:?[id number]. Site :?[id number] Study:?XRay Chest 1 VIEW PORTABLE-07/24/2023 2:07:50 PM Ordering Physician:ROJELIO Final Report: Indication: SOB, COPD Technique: One view of the chest Comparison: Chest radiograph on May 08, 2023 Findings/impression : Cardiomegaly with mild pulmonary vascular congestion and likely mild pulmonary interstitial edema. No pleural effusion or pneumothorax. No displaced fractures. Dictated by Benji Benson MD @ 07/24/2023 2:23:37 PM (Electronic Signature) ECG Data Attestation: I personally reviewed and interpreted this ECG as follows: (Normal sinus rhythm, 70 beats per minute. Right bundle branch block but looks to be intra conduction delay as well. Q-waves V4 through V6 flipped T-waves without ST segment change 3 in AVF. QT corrected 518 milliseconds.) ECG interpretation date: 07/24/23 ECG interpretation time: 15:49 Prior ECG tracings: available for review (Bifascicular block on the last EKG, QT corrected was just under 500 milliseconds, more prominent Q-waves on current EKG. Compared to 05/09/2023.) Discharge Plan Discharge Clinical Impression: Acute infective exacerbation of chronic obstructive airway disease Congestive heart failure Qualifiers: Heart failure type: unspecified Heart failure chronicity: acute on chronic Qualified Code(s): I50.9 - Heart failure, unspecified Patient Disposition: Admitted As Observation
--- NOTE | 2023-07-24 13:14 | XR_ITS ---
Patient: MEENA SHARMA Facility:?[facility] Patient ID:?[id number] Site Patient ID:?[id number]. Site :?[id number] Study:?XRay-Chest 1 VIEW PORTABLE-07/24/2023 2:07:50 PM Ordering Physician:ROJELIO Final Report: Indication: SOB, COPD Technique: One view of the chest Comparison: Chest radiograph on May 08, 2023 Findings/impression : Cardiomegaly with mild pulmonary vascular congestion and likely mild pulmonary interstitial edema. No pleural effusion or pneumothorax. No displaced fractures. Dictated by Benji Benson MD @ 07/24/2023 2:23:37 PM Signed by:?Benji Benson MD @07/24/2023 2:23:37 PM (Electronic Signature)
[2023-07-24 14:07] LABS: HCO3 VBG 27 mmol/L (21-28); Lactate* 1.2 mmol/L (0.5-1.9); PCO2 VBG 44 mmHG (40-50); PO2 VBG 42.8 mmHG (25-47); pH VBG 7.398 (7.32-7.43)
[2023-07-24 14:11] LABS: Basophils Percent Auto 0.4 % (0.0-3.0); Eosinophils Percent Auto 3.5 % (0.0-7.0); Hematocrit 39.6 % (33.0-51.0); Hemoglobin* 11.3 gm/dL (12.0-16.0); Immature Granulocytes Pct Auto 0.5 %; Lymphocytes Percent Auto 6.8 % (20-44); Mean Corpuscular HGB Conc 29 gm/dL (32-36); Mean Corpuscular Hemoglobin 25 pg (26-34); Mean Corpuscular Volume 86 fL (80-100); Monocytes Percent Auto 9.8 % (0.0-11.0); Platelet Count* 254 K/uL (140-440); RDW Coefficient of Variation % 19.7 % (11.5-15.5); Red Blood Count 4.59 m/uL (4.00-5.20); White Blood Count* 12.12 K/uL (4.50-11.00)
[2023-07-24 14:15] LABS: Slide Review Reflex No
[2023-07-24 14:23] LABS: Chloride* 106 mmol/L (96-114)
[2023-07-24 14:24] LABS: Albumin* 3.9 g/dL (3.3-5.0); Potassium* 4.6 mmol/L (3.6-5.1); Sodium* 137 mmol/L (135-149)
[2023-07-24 14:27] LABS: Alanine Aminotransferase* 30 U/L (4-35); Alkaline Phosphatase* 294 U/L (40-150); Anion Gap 3 mEq/L (7-15); Aspartate Amino Transferase* 30 U/L (12-35); Bilirubin Total* 0.8 mg/dL (0.1-1.5); Blood Urea Nitrogen* 62 mg/dL (7-30); Carbon Dioxide* 28 mmol/L (20-32); Creatinine* 1.6 mg/dL (0.5-1.5); Est. Creatinine Clearance* 29.86; Estimated Glomerular Filt Rate 35 ml/min; Glucose* 213 mg/dL (60-115); Total Protein* 7.5 g/dL (6.0-8.3)
[2023-07-24 14:28] LABS: Calcium* 8.9 mg/dL (8.4-10.6); D Dimer Quantitative* 0.74 ug/ml (0.00-0.50)
[2023-07-24 14:37] LABS: NT Pro B Type NatriureticPept* 3500 pg/mL
[2023-07-24 14:39] LABS: Troponin I* 0.02 ng/mL (0.01-0.04)
[2023-07-24 14:42] LABS: PCR FLU A Negative PCR FLU A (Negative); PCR FLU B Negative PCR FLU B (Negative); PCR RSV Negative PCR RSV (Negative); SARS PCR* Negative SARS-CoV-2 (Negative)
[2023-07-24 17:38] LABS: Appearance Urine Turbid (Clear); Bilirubin Urine Negative (Negative); Blood Urine Negative (Negative); Color Urine Yellow (Yellow); Glucose Urine Negative (Negative); Ketones Urine Negative (Negative); Leukocyte Esterase Urine Negative (Negative); Nitrite Urine Negative (Negative); Protein Urine 3+ (Negative); Urobilinogen Urine 0.2 (0.2-1.0); pH Urine 5.5 (5.0-8.5)
[2023-07-24 17:46] LABS: Bacteria Urine Moderate; Fine Granular Casts Urine Few; RBC Urine 0-2 (0-2); Squamous Epithelial Cell Urine Moderate (None-Few)
[2023-07-24] MEDS: FUROSEMIDE 10 MG/ML inj 80 MG IVP (18:05)
[2023-07-24] MEDS: INSULIN PROT/ASP (NOVOLOG 70/30) 100 UNIT/ML 47 UNIT SUBCUT (18:06)
[2023-07-24] MEDS: SODIUM CHLORIDE 0.9 % (FLUSH) 10 ML SYRINGE 5 ML IVF ×2 (18:06→21:13)
[2023-07-24] MEDS: cefTRIAXone 1 GM in 0.9 % SODIUM CHLORIDE Mini-bag 100 ML IVPB (18:09)
[2023-07-24] MEDS: CALCIUM CARBONATE 500 MG TABLET PO (18:10)
[2023-07-24] MEDS: MAGNESIUM OXIDE 400 MG TABLET PO (18:15)
--- NOTE | 2023-07-24 18:51 | P.IMHP_ITS ---
Hospitalist- H&P: HPI History of Present Illness Date Seen: 07/24/23 Chief complaint: shortness of breath Narrative: Meena Ojeda is a 68 year old female admitted through the emergency department with 2 day history of cough, dyspnea, fatigue, malaise, poor appetite and diarrhea. Cough is productive of greenish sputum. She is not having chest pain. She is not having upper respiratory illness symptoms. She is not having nausea or vomiting. She still reports nonbloody diarrhea. No abdominal pain. Patient has known history of heart failure and COPD with chronic respiratory symptoms. She reports these are much worse in the last 2 days. She was exposed to her grandchildren 12 days ago who or later diagnosed with strep. She has not had a sore throat herself. She has had no other exposures to people with respiratory illness or gastrointestinal illness. She reports she has taken her medicines as prescribed but she has cut back on her metoprolol from 100 mg in the morning and 50 mg in the evening to 50 mg b.i.d. because she reports her heart rate is slow and she is feeling prominent fatigue. She has chronic lower extremity edema, venous stasis disease and venous stasis ulcers. She is getting daily wound care and dressing changes for these from home health nurse and from our wound clinic. She reports these have been very slowly getting better over the last few weeks. She was last hospitalized here at the end of April for cellulitis in her legs. Culture of leg wounds at that time showed MRSA and Morganella morganii. Review of Systems Narrative: Prior to the last today she reports generally doing well. In the last 2 days she has had prominent constitutional symptoms as outlined above. No chest pain or abdominal pain. No fever. Chronic bilateral heel pain. [facility] Medical History Unable to care for self ?Z78.9 - Other specified health status (ICD-10) Physical debility ?R53.81 - Other malaise (ICD-10) Obstructive sleep apnea ?G47.33 - Obstructive sleep apnea (adult) (pediatric) (ICD-10) Morbid obesity with BMI of 50.0-59.9, adult ?E66.01 - Morbid (severe) obesity due to excess calories (ICD-10) ?Z68.43 - Body mass index [BMI] 50.0-59.9, adult (ICD-10) Poorly controlled type 2 diabetes mellitus ?E11.65 - Type 2 diabetes mellitus with hyperglycemia (ICD-10) Acute on chronic diastolic heart failure ?I50.33 - Acute on chronic diastolic (congestive) heart failure (ICD-10) Venous insufficiency of both lower extremities ?I87.2 - Venous insufficiency (chronic) (peripheral) (ICD-10) Pulmonary edema with congestive heart failure ?I50.1 - Left ventricular failure, unspecified (ICD-10) Cellulitis of left lower leg ?L03.116 - Cellulitis of left lower limb (ICD-10) Acute kidney injury superimposed on chronic kidney disease ?N17.9 - Acute kidney failure, unspecified (ICD-10) ?N18.9 - Chronic kidney disease, unspecified (ICD-10) Diabetic foot ulcer ?E11.621 - Type 2 diabetes mellitus with foot ulcer (ICD-10) ?L97.509 - Non-pressure chronic ulcer of other part of unspecified foot with unspecified severity (ICD-10) History of fracture of left ankle ?Z87.81 - Personal history of (healed) traumatic fracture (ICD-10) Severe left ventricular hypertrophy ?I51.7 - Cardiomegaly (ICD-10) skilled nursing current use of insulin ?Z79.4 - terminal gauger (current) use of insulin (ICD-10) History of sciatica ?Z86.69 - Personal history of other diseases of the nervous system and sense organs (ICD-10) Primary hypothyroidism ?E03.9 - Hypothyroidism, unspecified (ICD-10) Asthma ?J45.909 - Unspecified asthma, uncomplicated (ICD-10) Vitamin D deficiency ?E55.9 - Vitamin D deficiency, unspecified (ICD-10) Rectocele ?N81.6 - Rectocele (ICD-10) Essential hypertension ?I10 - Essential (primary) hypertension (ICD-10) Chronic diastolic heart failure ?I50.32 - Chronic diastolic (congestive) heart failure (ICD-10) History of nephrolithiasis ?Z87.442 - Personal history of urinary calculi (ICD-10) Lumbar back pain with radiculopathy affecting left lower extremity ?M54.16 - Radiculopathy, lumbar region (ICD-10) Hypertriglyceridemia ?E78.1 - Pure hyperglyceridemia (ICD-10) Osteoarthritis of knees, bilateral ?M17.0 - Bilateral primary osteoarthritis of knee (ICD-10) Chronic kidney disease ?N18.9 - Chronic kidney disease, unspecified (ICD-10) Diabetic nephropathy associated with type 2 diabetes mellitus ?E11.21 - Type 2 diabetes mellitus with diabetic nephropathy (ICD-10) Surgical History Status post total abdominal hysterectomy ?Z90.710 - Acquired absence of both cervix and uterus (ICD-10) Status post thyroidectomy ?E89.0 - Postprocedural hypothyroidism (ICD-10) History of esophagogastroduodenoscopy ?Z98.890 - Other specified postprocedural states (ICD-10) Status post cholecystectomy ?Z90.49 - Acquired absence of other specified parts of digestive tract (ICD- 10) History of intraocular lens implant ?Z96.1 - Presence of intraocular lens (ICD-10) Cataract extraction status ?Z98.49 - Cataract extraction status, unspecified eye (ICD-10) Status post appendectomy ?Z90.49 - Acquired absence of other specified parts of digestive tract (ICD- 10) Status post colonoscopy with polypectomy ?Z98.890 - Other specified postprocedural states (ICD-10) Family History Other Diabetes High blood pressure High cholesterol Social History (Updated 07/24/23 @ 18:59 by Jose Rebolledo MD) Narrative: . Lives alone. Three supportive children. Designates daughterAlanna, , primary contact for power of hand silvering supervisor for health should that be required. Designates son, Nathan, [phone], secondary contact for power of hand silvering supervisor for health should that be required. Requests that we attempt resuscitation in the event of cardiopulmonary demise, stressing that she does not want to be kept alive as a vegetable should that come to pass. She reports worsening mobility problems. It is difficult due to her back pain and radicular symptoms going down her right leg for her to get up and walk around. To a lesser extent her left foot also bothers her with weight-bearing. She does walk with a walker. She has a home health nurse doing dressing changes as well as wound care from [facility]. What is your current living situation?: I presently have a place to live Problems where you live: mold Problems where you live details: mold In the past 12 months, utilities in danger of being shut off: no In past 12 months, lack of transportation kept you from medical appts, meetings, work, or getting things needed for daily living: yes In the past 12 mos, have been you worried that your food would run out before you had money to buy more?: sometimes true In the past 12 mos, the food you bought just didn't last and you didn't have m oney to buy more?: sometimes true How often does anyone, including family, friends and others, physically hurt you : never How often does anyone, including family, friends and others, insult or talk down to you: rarely How often does anyone, including family, friends and others, threaten you with harm: never How often does anyone, including family, friends and others, scream or curse at you: never Meds Home Medications and Allergies Home Medications Medication Instructions Recorded Confirmed Type brimonidine 0.2 % eye drops 1 drp ophthalmic (eye-left) BID 11/06/22 07/24/23 History dorzolamide 2 % eye drops 1 drp ophthalmic (eye-left) BID 11/06/22 07/24/23 History latanoprost 0.005 % eye drops 1 drp ophthalmic (eye) QPM 11/06/22 07/24/23 Hist ory levothyroxine 125 mcg tablet 125 mcg PO DAILY@07 11/06/22 07/24/23 History losartan 100 mg tablet 100 mg PO DAILY 11/06/22 07/24/23 History metolazone 2.5 mg tablet 2.5 mg PO FR@09 11/06/22 07/24/23 History montelukast 10 mg tablet 10 mg PO HS 11/06/22 07/24/23 History nitroglycerin 0.4 mg sublingual 0.4 mg sublingual Q5M PRN 11/06/22 07/24/23 History tablet prednisolone acetate 1 % eye 1 drp ophthalmic (eye-left) BID 11/06/22 07/24/23 History drops,suspension timolol maleate 0.5 % eye drops 1 drp ophthalmic (eye-right) QAM 11/06/22 07/24/23 History ascorbic acid (vitamin C) 500 mg 500 mg PO BID 11/07/22 07/24/23 History tablet loratadine 10 mg tablet 10 mg PO HS 11/07/22 07/24/23 History (Allerclear) multivitamin (Daily Multi-Vitamin 1 tab PO DAILY 11/07/22 07/24/23 History tablet) vitamin B complex (B 1 tab PO DAILY 11/07/22 07/24/23 History Complex-Vitamin B12 tablet) amlodipine 10 mg tablet 10 mg PO HS 11/29/22 07/24/23 History cholecalciferol (vitamin D3) 125 5,000 unit PO HS 11/29/22 07/24/23 History mcg (5,000 unit) tablet (Vitamin D3) rosuvastatin 10 mg tablet 10 mg PO HS 11/29/22 07/24/23 History metoprolol tartrate 50 mg tablet 50 mg PO HS 12/21/22 07/24/23 History metoprolol tartrate 50 mg tablet 100 mg PO QAM 12/21/22 07/24/23 History vit C 226 mg-vit E 90 mg-copper 1 cap PO DAILY 12/21/22 07/24/23 History 0.8 mg-zinc oxide-lutein 5 mg capsule (PreserVision Lutein) vitamin E 268 mg (400 unit) capsule 268 mg PO DAILY 12/21/22 07/24/23 History zinc sulfate 66 mg tablet (Zinc-15) 66 mg PO HS 12/21/22 07/24/23 History acetaminophen 650 mg 1,300 mg PO BID 05/08/23 07/24/23 History tablet,extended release (8 Hour Pain Reliever) allopurinol 100 mg tablet 150 mg PO DAILY 05/08/23 07/24/23 History calcium carbonate (Calcium 600) 600 mg PO QPM 05/08/23 07/24/23 History cholecalciferol (vitamin D3) 25 25 mcg PO QAM 05/08/23 07/24/23 History mcg (1,000 unit) capsule fluticasone propionate 100 1 inh inhalation BID 05/08/23 07/24/23 History mcg/actuation blister powder for inhalation hydrocortisone 1 % topical 1 applic topical TID PRN 05/08/23 07/24/23 History ointment (Cortizone-10) loperamide 2 mg tablet 2 mg PO Q6H PRN 05/08/23 07/24/23 History magnesium oxide 400 mg (241.3 mg 400 mg PO HS 05/08/23 07/24/23 History magnesium) tablet menthol 4 % topical gel (Biofreeze 1 applic topical QID PRN 05/08/23 07/24/23 History (menthol)) neomycin 3.5 mg/g-polymyxin B 1 applic ophthalmic (eye-right) 05/08/23 07/24/23 History 10,000 unit/g-dexameth 0.1 % eye BID PRN oint (Maxitrol) potassium gluconate 595 mg (99 mg) 595 mg PO DAILY 05/08/23 07/24/23 History tablet sodium chloride 0.65 % nasal spray 1 spray intranasal Q1H PRN 05/08/23 07/24/23 History aerosol (Deep Sea Nasal) triamcinolone acetonide 0.1 % 1 applic topical 3XD PRN 05/08/23 07/24/23 History topical cream albuterol sulfate 90 mcg/actuation 2 puff inhalation 6XD PRN 07/24/23 07/24/23 History aerosol inhaler shortness of breath or wheezing furosemide 20 mg tablet 60 mg PO BID@08,14 07/24/23 07/24/23 History nystatin 100,000 unit/gram topical 1 applic topical BID 07/24/23 07/24/23 History cream sodium chloride-aloe vera nasal 1 applic intranasal Q2H PRN 07/24/23 07/24/23 History gel (Yaphank Saline nasal gel) Allergies Allergy/AdvReac Type Severity Reaction Status Date / Time clindamycin Allergy Severe Verified 12/21/22 15:33 hydromorphone Allergy Severe Stopped Verified 12/21/22 15:33 Breathing morphine Allergy Severe Stopped Verified 12/21/22 15:33 Breathing NSAIDS (Non-Steroidal Allergy Severe Anaphylaxis Verified 12/21/22 15:33 Anti-Inflamma penicillin V Allergy Severe Hypertensio Verified 12/21/22 15:33 n aspirin AdvReac nausea and Verified 12/21/22 15:33 vomiting Exam Narrative: Exam Narrative: She is alert and appears in mild respiratory distress with increased rate and work of breathing on oxygen per face mask. Oropharynx with small airway. Neck is supple without mass or adenopathy. Respirations with relatively diffuse mild wheezes and musical rhonchi bilaterally and anteriorly and posteriorly. No obvious consolidation. Fair air exchange in all lung velez. Cardiovascular: S1, S2, regular rate and rhythm. Abdomen: Bowel sounds active. Abdomen is soft without tenderness or mass. Skin under her abdominal pannus is relatively free of inflammation, erythema. Lower extremities bilaterally with chronic venous stasis skin changes. She has bilateral leg ulcers which are mildly draining but do not appear to be acutely infected. Left heel has an ulcer that is also draining but without marked signs of infection/erythema. She is tender over the posterior plantar surface of both heels. On the right it looks bruised but with intact skin on the left there is a persistent chronic ulcer. Const: Vital Signs, click to edit/add: Vital Signs - 24 hr 07/24/23 12:48 07/24/23 12:49 07/24/23 13:00 Temperature 97 F L Pulse Rate 75 83 Pulse Rate [Pulse Oximeter] 75 Pulse Rate [Right Radial] Respiratory Rate 22 Blood Pressure Blood Pressure [Le ft Forearm] 143/71 H Blood Pressure [Ri ght Arm] Pulse Oximetry 90 90 89 Oxygen Delivery Me thod OxyMask OxyMask OxyMask Oxygen Flow Rate 2 3 3 07/24/23 13:01 07/24/23 13:14 07/24/23 13:14 Temperature Pulse Rate 83 Pulse Rate [Pulse Oximeter] Pulse Rate [Right Radial] Respiratory Rate Blood Pressure 140/73 H Blood Pressure [Le ft Forearm] Blood Pressure [Ri ght Arm] Pulse Oximetry 89 90 90 Oxygen Delivery Me thod OxyMask OxyMask Oxygen Flow Rate 3 3 07/24/23 13:15 07/24/23 13:30 07/24/23 13:31 Temperature Pulse Rate 82 73 73 Pulse Rate [Pulse Oximeter] Pulse Rate [Right Radial] Respiratory Rate Blood Pressure 164/91 H Blood Pressure [Le ft Forearm] Blood Pressure [Ri ght Arm] Pulse Oximetry 89 90 92 Oxygen Delivery Me thod OxyMask OxyMask OxyMask Oxygen Flow Rate 3 3 3 07/24/23 13:45 07/24/23 14:31 07/24/23 14:41 Temperature Pulse Rate 67 73 Pulse Rate [Pulse Oximeter] Pulse Rate [Right Radial] Respiratory Rate Blood Pressure 150/84 H Blood Pressure [Le ft Forearm] Blood Pressure [Ri ght Arm] Pulse Oximetry 90 93 Oxygen Delivery Me thod OxyMask OxyMask Oxygen Flow Rate 3 3 07/24/23 15:00 07/24/23 15:01 07/24/23 15:30 Temperature Pulse Rate 70 69 80 Pulse Rate [Pulse Oximeter] Pulse Rate [Right Radial] Respiratory Rate Blood Pressure 155/62 H Blood Pressure [Le ft Forearm] Blood Pressure [Ri ght Arm] Pulse Oximetry 88 86 L 90 Oxygen Delivery Me thod OxyMask OxyMask OxyMask Oxygen Flow Rate 3 3 3 07/24/23 15:31 07/24/23 15:32 07/24/23 16:00 Temperature Pulse Rate 78 70 77 Pulse Rate [Pulse Oximeter] Pulse Rate [Right Radial] Respiratory Rate Blood Pressure 160/79 H Blood Pressure [Le ft Forearm] Blood Pressure [Ri ght Arm] Pulse Oximetry 91 89 90 Oxygen Delivery Me thod OxyMask OxyMask OxyMask Oxygen Flow Rate 3 3 3 07/24/23 16:01 07/24/23 16:02 07/24/23 17:25 Temperature 96.9 F L Pulse Rate 75 74 Pulse Rate [Pulse Oximeter] Pulse Rate [Right Radial] 81 Respiratory Rate 20 Blood Pressure 162/80 H Blood Pressure [Le ft Forearm] Blood Pressure [Ri ght Arm] 186/66 H Pulse Oximetry 91 92 90 Oxygen Delivery Me thod OxyMask OxyMask Nasal Cannula Oxygen Flow Rate 3 3 3 07/24/23 18:21 Temperature Pulse Rate 86 Pulse Rate [Pulse Oximeter] Pulse Rate [Right Radial] Respiratory Rate Blood Pressure Blood Pressure [Le ft Forearm] Blood Pressure [Ri ght Arm] Pulse Oximetry Oxygen Delivery Me thod Oxygen Flow Rate Documenting provider has reviewed patient's vital signs: yes Hospitalist - H&P: Result Labs Labs: Short CBC 07/24/23 Range/Units 14:00 WBC 12.12 H (4.50-11.00) K/uL Hgb 11.3 L (12.0-16.0) gm/dL Hct 39.6 (33.0-51.0) % Plt Count 254 (140-440) K/uL BMP 07/24/23 14:00 Sodium 137 Potassium 4.6 Chloride 106 Carbon Dioxide 28 BUN 62 H Creatinine 1.6 H Glucose 213 H Calcium 8.9 Cardiac Enzymes 07/24/23 Range/Units 14:00 Troponin I 0.02 (0.01-0.04) ng/mL Liver Function 07/24/23 Range/Units 14:00 Total Bilirubin 0.8 (0.1-1.5) mg/dL AST 30 (12-35) U/L ALT 30 (4-35) U/L Alkaline Phosphatase 294 H (40-150) U/L Albumin 3.9 (3.3-5.0) g/dL Urine 07/24/23 Range/Units 17:30 Urine Color Yellow (Yellow) Urine Appearance Turbid A (Clear) Urine pH 5.5 (5.0-8.5) Ur Specific [place] 1.020 (1.000-1.030) Urine Protein 3+ A (Negative) Urine Glucose (UA) Negative (Negative) Imaging Chest x-ray: Radiologist's impression: Patient: MEENA OJEDA Facility:?[facility] Patient ID:?[id number] Site Patient ID:?[id number]. Site :?[id number] Study:?XRay-Chest 1 VIEW PORTABLE-07/24/2023 2:07:50 PM Ordering Physician:ROJELIO Final Report: Indication: SOB, COPD Technique: One view of the chest Comparison: Chest radiograph on May 08, 2023 Findings/impression : Cardiomegaly with mild pulmonary vascular congestion and likely mild pulmonary interstitial edema. No pleural effusion or pneumothorax. No displaced fractures. Assessment and Plan Assessment and plan (1) Acute on chronic hypoxic respiratory failure: Problem comment: Possibly multifactorial with chest x-ray suggesting heart failure primarily. Clinically I would favor pneumonia and possibly COPD exacerbation. Status: Acute (2) Congestive heart failure: Problem comment: More aggressive diuresis today and follow. Status: Acute (3) Acute infective exacerbation of chronic obstructive airway disease: Problem comment: Nebulizer treatment. Will hold on steroids today in light of diabetes and other comorbidities. Status: Acute (4) Venous stasis ulcer with edema of lower leg: Problem comment: Chronic venous stasis ulcers in both legs. Currently do not appear to be causing cellulitis or other infection requiring antibiotics and debridement Status: Acute (5) Venous insufficiency of both lower extremities: Problem comment: Compression and elevation if patient will tolerate it Status: Acute (6) Poorly controlled type 2 diabetes mellitus: Problem comment: Resume home insulin management. Monitor blood sugars and sliding scale insulin. Status: Chronic (7) Type 2 diabetes mellitus with foot ulcer: Problem comment: Routine wound care and monitor Status: Acute (8) Non-pressure chronic ulcer of other part of left foot with fat layer exposed: Status: Acute (9) Bradycardia: Problem comment: At patient's request will continue to monitor heart rate and reduce metoprolol with a target heart rate in the 60s. Status: Acute Plan Patient is admitted to the hospital for management of hypoxic respiratory failure with heart failure, pneumonia, COPD exacerbation. Initiate treatment with oxygen, diuretic, antibiotics for community-acquired pneumonia and inhaled bronchodilators. Temporarily hold on prednisone for COPD based on her clinical course. Continue good wound care for her legs, lymphedema and leg ulcers. Total Time Spent Total Time Spent: Total time spent today is 85 minutes, 60 minutes in coordination of care and discussing with patient and other providers ongoing evaluation management of heart failure, COPD, pneumonia, leg ulcers
[2023-07-24] MEDS: ACETAMINOPHEN 650 MG TABLET ER 1300 MG PO (21:11)
[2023-07-24] MEDS: METOPROLOL TARTRATE 50 MG TABLET 25 MG PO (21:12)
[2023-07-24] MEDS: LORATADINE 10 MG TABLET PO (21:12)
[2023-07-24] MEDS: AMLODIPINE 10 MG TABLET PO (21:12)
[2023-07-24] MEDS: BUDESONIDE 0.5 MG/2ML NEB NEB (21:12)
[2023-07-24] MEDS: ASCORBIC ACID 500 MG TABLET PO (21:12)
[2023-07-24] MEDS: MONTELUKAST 10 MG TABLET PO (21:12)
[2023-07-24] MEDS: DOXYCYCLINE HYCLATE 100 MG PO (21:12)
[2023-07-24] MEDS: ROSUVASTATIN CALCIUM 10 MG TABLET PO (21:12)
[2023-07-24] MEDS: ENOXAPARIN 30 MG/0.3ML INJ SUBCUT (21:13)
[2023-07-24] MEDS: IPRAT-ALBUT 0.5-2.5 MG/3 ML NEB 1 NEB IH (21:13)
[2023-07-24] MEDS: DORZOLAMIDE HCL 2 % OPHTH DROP 1 DROP EYE-LEFT (22:18)
[2023-07-24] MEDS: BRIMONIDINE TARTRATE 0.2% OPHTH 1 DROP EYE-LEFT (22:18)
[2023-07-24] MEDS: LATANOPROST 0.005% OPHTH 1 DROP EYE-BOTH (22:18)
[2023-07-24] MEDS: NYSTATIN CREAM 30 GM 1 APPLIC TOPICAL (22:18)
[2023-07-24] MEDS: INSULIN ASPART 100 UNIT/ML SUBCUT (22:23)
[2023-07-25] VITALS (8 sets, daily range): BP systolic 129–170; BP diastolic 35–83; PULSE 63–85; RESP 18–22; TEMP 36.4–36.8; O2SAT 88–94; BMI 58.9; BMI 57.2
--- NOTE | 2023-07-25 06:27 | PC.NURSE ---
End of shift: Pleasant and cooperative with cares. SOB reported with exertion, resolves with rest. O2 at 3L per NC. Lung sounds diminished in bilateral bases, expiratory rhonchi. Wheezing in upper airways on expiration. Dressing to venous stasis wounds clean, dry and intact. Patient reports that she goes EOD to the wound clinic for dressing changes, that they are due around 1145 on 07/25/2023. BG at 2100 was 232, patient reluctantly agreed to take sliding scale but requested her BG be rechecked at 0500, at 0500 BG 104, patient requesting ensure stating that it was too low and that it was to long of a wait until breakfast would be here. No stools this shift. Denied any pain.
[2023-07-25 06:35] LABS: Basophils Absolute Auto 0.03 K/uL (0.00-0.30); Basophils Percent Auto 0.3 % (0.0-3.0); Eosinophils Absolute Auto 0.56 K/uL (0.00-0.50); Eosinophils Percent Auto 5.9 % (0.0-7.0); Hematocrit 39.6 % (33.0-51.0); Hemoglobin* 11.3 gm/dL (12.0-16.0); Immature Granulocytes Abs Auto 0.09 K/uL (0.00-0.30); Lymphocytes Percent Auto 10.6 % (20-44); Mean Corpuscular HGB Conc 29 gm/dL (32-36); Mean Corpuscular Hemoglobin 25 pg (26-34); Mean Corpuscular Volume 86 fL (80-100); Monocytes Percent Auto 14.3 % (0.0-11.0); Neutrophils Absolute Auto 6.44 K/uL (1.7-7.0); Neutrophils Percent Auto 67.9 % (42.0-72.0); Platelet Count* 261 K/uL (140-440); RDW Coefficient of Variation % 19.7 % (11.5-15.5); Red Blood Count 4.59 m/uL (4.00-5.20); White Blood Count* 9.47 K/uL (4.50-11.00)
[2023-07-25] MEDS: LEVOTHYROXINE 125 MCG TABLET PO (06:44)
[2023-07-25 06:45] LABS: Chloride* 106 mmol/L (96-114); Potassium* 4.6 mmol/L (3.6-5.1); Sodium* 138 mmol/L (135-149)
[2023-07-25 06:48] LABS: Creatinine* 1.7 mg/dL (0.5-1.5); Estimated Glomerular Filt Rate 32 ml/min
[2023-07-25 06:49] LABS: Anion Gap 0 mEq/L (7-15); Blood Urea Nitrogen* 61 mg/dL (7-30); Calcium* 8.9 mg/dL (8.4-10.6); Carbon Dioxide* 32 mmol/L (20-32); Glucose* 118 mg/dL (60-115); Magnesium* 2.6 mg/dL (1.5-2.6)
[2023-07-25 06:51] LABS: C Reactive Protein* 4.7 mg/dL (0.5-1.0)
[2023-07-25 06:56] LABS: Troponin I* 0.02 ng/mL (0.01-0.04)
[2023-07-25 07:02] LABS: Slide Review Reflex No
--- NOTE | 2023-07-25 10:18 | P.IMPN_ITS ---
Progress Note: A&P Assessment and plan (1) Acute on chronic hypoxic respiratory failure: Problem details: Possibly multifactorial with chest x-ray suggesting heart failure primarily. Clinically I would favor pneumonia and possibly COPD exacerbation. -07/24 - continue rocephin, doxy. adding prednisone, aerobika. continue scheduled nebs. Status: Acute (2) Diastolic congestive heart failure with preserved left ventricular function, NYHA class 2: Problem details: Mild acute exacerbation. ECHO last done in 05/01. EF 61%, increased wall thickness, pulmonary hypertension from COPD, restrictive lung disease, untreated FIOR. -07/24 on home dosing of lasix after 1x 80mg IV dose. Status: Acute (3) Acute infective exacerbation of chronic obstructive airway disease: Problem details: 07/24: WBC count, CRP down trending. add prednisone and aerobika. Status: Acute (4) Poorly controlled type 2 diabetes mellitus: Problem details: Resume home insulin management. Monitor blood sugars and sliding scale insulin. -07/24 - checking A1C. bedside glucose: 104, 105, 232 Status: Chronic (5) Venous stasis ulcer with edema of lower leg: Problem details: Chronic venous stasis ulcers in both legs. Currently do not appear to be causing cellulitis or other infection requiring antibiotics and debridement. -07/24 asked RN to follow wound clinic care guidelines. Status: Acute (6) Bradycardia: Problem details: At patient's request will continue to monitor heart rate and reduce metoprolol with a target heart rate in the 60s. Status: Acute (7) Diabetic nephropathy associated with type 2 diabetes mellitus: Problem details: Proteinuria, nearly nephrotic 06/28/2022 when last saw astrophysics teacher, Dr. Alfonzo Wheatley. Avoid nonsteroidal anti-inflammatory medications. Attempt to optimize diabetes mellitus. Would benefit from SGLT2i, cannot afford. Would benefit from GLP1 agonist, cannot afford. Would benefit from weight loss, but seemingly unable to achieve. Patient encouraged to continue with glucose checks with meals and at bedtime. She will need to work with PCP to adjust insulin dosing. - in-hospital monitor kidney function and electrolytes daily Status: Chronic (8) Lymphedema: Status: Acute (9) Intertrigo: Problem details: Continue skin cares in abdominal folds and nystatin t.i.d.. Follow-up with PCP for ongoing management. Status: Acute Subjective Date Seen: 07/25/23 Interval history: Daily Progress Note - Hospital Medicine Day #: 2 CC: weak, productive cough, increased work of breathing OVERNIGHT UPDATES FROM STAFF & MED, LAB, IMAGING UPDATES stable night. on home oxygen usually 2L on tank. sleeps on her couch, not a bed. sometimes sleeps in her rocker chair. c/o of right ear pain, weak, coughing sputum, wob. admitting dx: mild CHF with superimposed copd exacerbation (viral/bacterial cause). CXR shows pulmonary edema, no infiltrate, viral panel neg for RSV, FLU, Covid. BNP is 3500, which is up from the baseline of 2500. ED administered 80 IV lasix, then we resumed home lasix doses. Getting rocephin and doxy and nebs for COPD exacerbation. oxygen requirement is stable. blood gas showed normal pH and no CO2 retention at admission. Adding aerobika therapy and po prednisone this am. wounds/legs are likely at baseline. no new infection suspected. CRP 6.0 --> 4.7 CBC shows her white blood cell count has dropped from 12-9. Hemoglobin is stable Platelets stable Electrolytes are normal. Creatinine is at her baseline with a chronic kidney disease stage 4. CRP is down Troponin undetectable Objective: speaking without dyspnea. mild cough/throat clearing noted. Vitals: see above Lungs: rhonchi without wheeze. Cardiac: S1S2. edematous, lymphedema prodominant legs Disposition/Potential discharge - Likely to return to previous living situation. Today I spent 50minutes seeing the patient, reviewing [facility] and EPIC notes/diagnostics, discussing the care plan with our care time that includes social work, PT/OT, pharmacy, RT, intermediate and documenting my impressions and plan in the medical record. Exam Const: Vital Signs, click to edit/add: Vital Signs - 24 hr 07/24/23 12:48 07/24/23 12:49 07/24/23 13:00 Temperature 97 F L Pulse Rate 75 83 Pulse Rate [Left P ulse Oximeter] Pulse Rate [Pulse Oximeter] 75 Pulse Rate [Right Radial] Respiratory Rate 22 Blood Pressure Blood Pressure [Le ft Forearm] 143/71 H Blood Pressure [Ri ght Arm] Pulse Oximetry 90 90 89 Oxygen Delivery Me thod OxyMask OxyMask OxyMask Oxygen Flow Rate 2 3 3 07/24/23 13:01 07/24/23 13:14 07/24/23 13:14 Temperature Pulse Rate 83 Pulse Rate [Left P ulse Oximeter] Pulse Rate [Pulse Oximeter] Pulse Rate [Right Radial] Respiratory Rate Blood Pressure 140/73 H Blood Pressure [Le ft Forearm] Blood Pressure [Ri ght Arm] Pulse Oximetry 89 90 90 Oxygen Delivery Me thod OxyMask OxyMask Oxygen Flow Rate 3 3 07/24/23 13:15 07/24/23 13:30 07/24/23 13:31 Temperature Pulse Rate 82 73 73 Pulse Rate [Left P ulse Oximeter] Pulse Rate [Pulse Oximeter] Pulse Rate [Right Radial] Respiratory Rate Blood Pressure 164/91 H Blood Pressure [Le ft Forearm] Blood Pressure [Ri ght Arm] Pulse Oximetry 89 90 92 Oxygen Delivery Me thod OxyMask OxyMask OxyMask Oxygen Flow Rate 3 3 3 07/24/23 13:45 07/24/23 14:31 07/24/23 14:41 Temperature Pulse Rate 67 73 Pulse Rate [Left P ulse Oximeter] Pulse Rate [Pulse Oximeter] Pulse Rate [Right Radial] Respiratory Rate Blood Pressure 150/84 H Blood Pressure [Le ft Forearm] Blood Pressure [Ri ght Arm] Pulse Oximetry 90 93 Oxygen Delivery Me thod OxyMask OxyMask Oxygen Flow Rate 3 3 07/24/23 15:00 07/24/23 15:01 07/24/23 15:30 Temperature Pulse Rate 70 69 80 Pulse Rate [Left P ulse Oximeter] Pulse Rate [Pulse Oximeter] Pulse Rate [Right Radial] Respiratory Rate Blood Pressure 155/62 H Blood Pressure [Le ft Forearm] Blood Pressure [Ri ght Arm] Pulse Oximetry 88 86 L 90 Oxygen Delivery Me thod OxyMask OxyMask OxyMask Oxygen Flow Rate 3 3 3 07/24/23 15:31 07/24/23 15:32 07/24/23 16:00 Temperature Pulse Rate 78 70 77 Pulse Rate [Left P ulse Oximeter] Pulse Rate [Pulse Oximeter] Pulse Rate [Right Radial] Respiratory Rate Blood Pressure 160/79 H Blood Pressure [Le ft Forearm] Blood Pressure [Ri ght Arm] Pulse Oximetry 91 89 90 Oxygen Delivery Me thod OxyMask OxyMask OxyMask Oxygen Flow Rate 3 3 3 07/24/23 16:01 07/24/23 16:02 07/24/23 17:25 Temperature 96.9 F L Pulse Rate 75 74 Pulse Rate [Left P ulse Oximeter] Pulse Rate [Pulse Oximeter] Pulse Rate [Right Radial] 81 Respiratory Rate 20 Blood Pressure 162/80 H Blood Pressure [Le ft Forearm] Blood Pressure [Ri ght Arm] 186/66 H Pulse Oximetry 91 92 90 Oxygen Delivery Me thod OxyMask OxyMask Nasal Cannula Oxygen Flow Rate 3 3 3 07/24/23 18:21 07/24/23 19:00 07/24/23 19:35 Temperature 97.8 F Pulse Rate 86 Pulse Rate [Left P ulse Oximeter] Pulse Rate [Pulse Oximeter] Pulse Rate [Right Radial] 84 Respiratory Rate 22 22 Blood Pressure Blood Pressure [Le ft Forearm] Blood Pressure [Ri ght Arm] 177/93 H Pulse Oximetry 89 89 Oxygen Delivery Me thod Nasal Cannula Nasal Cannula Oxygen Flow Rate 3 3 07/24/23 23:00 07/24/23 23:00 07/24/23 23:00 Temperature Pulse Rate 65 Pulse Rate [Left P ulse Oximeter] Pulse Rate [Pulse Oximeter] Pulse Rate [Right Radial] 84 Respiratory Rate 22 22 Blood Pressure Blood Pressure [Le ft Forearm] Blood Pressure [Ri ght Arm] Pulse Oximetry 89 Oxygen Delivery Me thod Nasal Cannula Oxygen Flow Rate 3 07/24/23 23:00 07/25/23 02:42 07/25/23 07:00 Temperature 97.9 F 97.5 F L Pulse Rate Pulse Rate [Left P ulse Oximeter] Pulse Rate [Pulse Oximeter] Pulse Rate [Right Radial] 61 63 69 Respiratory Rate 20 22 18 Blood Pressure Blood Pressure [Le ft Forearm] Blood Pressure [Ri ght Arm] 141/51 H 129/61 Pulse Oximetry 92 92 Oxygen Delivery Me thod Nasal Cannula Nasal Cannula Oxygen Flow Rate 3 3 07/25/23 07:00 Temperature 97.7 F Pulse Rate Pulse Rate [Left P ulse Oximeter] 69 Pulse Rate [Pulse Oximeter] Pulse Rate [Right Radial] Respiratory Rate 18 Blood Pressure Blood Pressure [Le ft Forearm] Blood Pressure [Ri ght Arm] 162/71 H Pulse Oximetry 91 Oxygen Delivery Me thod Room Air Oxygen Flow Rate Labs Labs: Laboratory Results - last 24 hr 07/24/23 07/24/23 07/24/23 13:35 14:00 17:30 WBC 12.12 H RBC 4.59 Hgb 11.3 L Hct 39.6 MCV 86 MCH 25 L MCHC 29 L RDW Coeff of Tad 19.7 H Plt Count 254 Neut % (Auto) 79.0 H Lymph % (Auto) 6.8 L Hand % (Auto) 9.8 Eos % (Auto) 3.5 Baso % (Auto) 0.4 Neut # (Auto) 9.60 H Lymph # (Auto) 0.80 L Hand # (Auto) 1.20 H Eos # (Auto) 0.40 Baso # (Auto) 0.00 Abs Immat Gran (auto) 0.10 Imm/Tot Granulo (auto) 0.5 D-Dimer Quant (PE/DVT) 0.74 H VBG pH 7.398 VBG pCO2 44 VBG pO2 42.8 VBG HCO3 27 Sodium 137 Potassium 4.6 Chloride 106 Carbon Dioxide 28 Anion Gap 3 L BUN 62 H Creatinine 1.6 H Estimated Creat Clear 29.86 Estimated GFR 35 Glucose 213 H Lactate 1.2 Calcium 8.9 Magnesium Total Bilirubin 0.8 AST 30 ALT 30 Alkaline Phosphatase 294 H Troponin I 0.02 C-Reactive Protein 6.0 H NT-Pro-B Natriuret Pep 3500 Total Protein 7.5 Albumin 3.9 Urine Color Yellow Urine Appearance Turbid A Urine pH 5.5 Ur Specific [place] 1.020 Urine Protein 3+ A Urine Glucose (UA) Negative Urine Ketones Negative Urine Blood Negative Urine Nitrite Negative Urine Bilirubin Negative Urine Urobilinogen 0.2 Ur Leukocyte Esterase Negative Urine RBC 0-2 Urine WBC 2-5 Ur Squamous Epith Cells Moderate A Urine Bacteria Moderate A Fine Granular Casts Few A SARS-CoV-2 (PCR) Negative SARS-CoV-2 Influenza Type A (PCR) Negative PCR FLU A Influenza Type B (PCR) Negative PCR FLU B RSV (PCR) Negative PCR RSV 07/25/23 05:56 WBC 9.47 RBC 4.59 Hgb 11.3 L Hct 39.6 MCV 86 MCH 25 L MCHC 29 L RDW Coeff of Tad 19.7 H Plt Count 261 Neut % (Auto) 67.9 Lymph % (Auto) 10.6 L Hand % (Auto) 14.3 H Eos % (Auto) 5.9 Baso % (Auto) 0.3 Neut # (Auto) 6.44 Lymph # (Auto) 1.00 Hand # (Auto) 1.40 H Eos # (Auto) 0.56 H Baso # (Auto) 0.03 Abs Immat Gran (auto) 0.09 Imm/Tot Granulo (auto) 1.0 D-Dimer Quant (PE/DVT) VBG pH VBG pCO2 VBG pO2 VBG HCO3 Sodium 138 Potassium 4.6 Chloride 106 Carbon Dioxide 32 Anion Gap 0 L BUN 61 H Creatinine 1.7 H Estimated Creat Clear 28.10 Estimated GFR 32 Glucose 118 H Lactate Calcium 8.9 Magnesium 2.6 Total Bilirubin AST ALT Alkaline Phosphatase Troponin I 0.02 C-Reactive Protein 4.7 H NT-Pro-B Natriuret Pep Total Protein Albumin Urine Color Urine Appearance Urine pH Ur Specific [place] Urine Protein Urine Glucose (UA) Urine Ketones Urine Blood Urine Nitrite Urine Bilirubin Urine Urobilinogen Ur Leukocyte Esterase Urine RBC Urine WBC Ur Squamous Epith Cells Urine Bacteria Fine Granular Casts SARS-CoV-2 (PCR) Influenza Type A (PCR) Influenza Type B (PCR) RSV (PCR)
[2023-07-25] MEDS: DORZOLAMIDE HCL 2 % OPHTH DROP 1 DROP EYE-LEFT ×2 (10:24→21:42)
[2023-07-25] MEDS: timoloL maleate 0.5 % 1 DROP EYE-RIGHT (10:25)
[2023-07-25] MEDS: BRIMONIDINE TARTRATE 0.2% OPHTH 1 DROP EYE-LEFT ×2 (10:25→21:42)
[2023-07-25] MEDS: prednisoLONE acetate 1 % DROPS 1 DROP EYE-LEFT ×2 (10:26→21:42)
[2023-07-25] MEDS: predniSONE 20 MG TABLET 60 MG PO (10:26)
[2023-07-25] MEDS: BUDESONIDE 0.5 MG/2ML NEB NEB ×2 (10:28→21:44)
[2023-07-25] MEDS: IPRAT-ALBUT 0.5-2.5 MG/3 ML NEB 1 NEB IH ×3 (10:28→21:44)
[2023-07-25] MEDS: ACETAMINOPHEN 650 MG TABLET ER 1300 MG PO ×2 (10:29→21:40)
[2023-07-25] MEDS: allopurinoL 100 MG TABLET 150 MG PO (10:30)
[2023-07-25] MEDS: ASCORBIC ACID 500 MG TABLET PO ×2 (10:33→21:41)
[2023-07-25] MEDS: LOSARTAN POTASSIUM 50 MG TABLET 100 MG PO (10:34)
[2023-07-25] MEDS: METOPROLOL TARTRATE 50 MG TABLET PO (10:35)
[2023-07-25] MEDS: DOXYCYCLINE HYCLATE 100 MG PO ×2 (10:35→21:44)
[2023-07-25] MEDS: NYSTATIN CREAM 30 GM 1 APPLIC TOPICAL ×2 (10:37→21:43)
[2023-07-25] MEDS: SODIUM CHLORIDE 0.9 % (FLUSH) 10 ML SYRINGE 5 ML IVF ×2 (10:42→21:43)
[2023-07-25] MEDS: FUROSEMIDE 20 MG TABLET 60 MG PO ×2 (10:44→14:24)
[2023-07-25] MEDS: INSULIN PROT/ASP (NOVOLOG 70/30) 100 UNIT/ML 60 UNIT SUBCUT (10:52)
[2023-07-25 11:17] LABS: Gamma Glutamyl Transpeptidase* 91 U/L (8-55)
--- NOTE | 2023-07-25 12:28 | REH.OT ---
OT: Attempted to see pt 3x, with other disciplines for lengthy times. Will reschedule eval.
[2023-07-25] MEDS: MULTIVITAMIN/MINERALS 1 TABLET 1 TAB PO (13:32)
[2023-07-25] MEDS: OCUVITE TABLET 1 TAB PO (13:33)
[2023-07-25] MEDS: INSULIN ASPART 100 UNIT/ML SUBCUT ×3 (13:33→21:47)
[2023-07-25 13:34] LABS: Hemoglobin A1C* 7.7 % (0-5.6)
--- NOTE | 2023-07-25 14:32 | PC.SOCIAL ---
Discharge planning: warehouse production worker met with pt today in her room. Pt stated that she is planning to go home after this hospital stay and will not go anywhere else even if there are recommendations for her. Pt stated that she has plenty of help coming into her apartment, including home management supervisor care from [facility] [place]. Social work to follow-up as needed.
[2023-07-25] MEDS: cefTRIAXone 1 GM in 0.9 % SODIUM CHLORIDE Mini-bag 100 ML IVPB (17:34)
[2023-07-25] MEDS: MAGNESIUM OXIDE 400 MG TABLET PO (17:35)
[2023-07-25] MEDS: CALCIUM CARBONATE 500 MG TABLET PO (17:35)
[2023-07-25] MEDS: INSULIN PROT/ASP (NOVOLOG 70/30) 100 UNIT/ML 47 UNIT SUBCUT (17:38)
[2023-07-25] MEDS: 0.9 % SODIUM CHLORIDE 250 ml IV (17:48)
--- NOTE | 2023-07-25 18:36 | PC.NURSE ---
End of Shift: Patient pleasant and cooperative, A&O. VSS, afebrile. SpO2 maintained above 88% on 2L O2. Expiratory rhonchi auscultated.?Patient reports pain of 7/10 on feet and calves due to wounds, managed with scheduled Tylenol. Dressing change per wound center orders, done on bilateral leg and feet wounds at 1700, dressings had scant yellow drainage.? ?
[2023-07-25] MEDS: AMLODIPINE 10 MG TABLET PO (21:41)
[2023-07-25] MEDS: LATANOPROST 0.005% OPHTH 1 DROP EYE-BOTH (21:42)
[2023-07-25] MEDS: ROSUVASTATIN CALCIUM 10 MG TABLET PO (21:43)
[2023-07-25] MEDS: LORATADINE 10 MG TABLET PO (21:44)
[2023-07-25] MEDS: MONTELUKAST 10 MG TABLET PO (21:44)
[2023-07-25] MEDS: ENOXAPARIN 30 MG/0.3ML INJ SUBCUT (21:45)
[2023-07-25] MEDS: METOPROLOL TARTRATE 50 MG TABLET 25 MG PO (21:45)
[2023-07-26] MEDS: guaiFENesin 100 MG/ML CUP PO (02:09)
[2023-07-26 02:42] VITALS: BP 138/51; PULSE 61; RESP 18; TEMP 36.1; O2SAT 91
[2023-07-26 06:26] LABS: HCO3 VBG 29 mmol/L (21-28); PCO2 VBG 51 mmHG (40-50); PO2 VBG 44.1 mmHG (25-47); pH VBG 7.354 (7.32-7.43)
[2023-07-26] MEDS: LEVOTHYROXINE 125 MCG TABLET PO (06:26)
[2023-07-26 06:34] LABS: Basophils Absolute Auto 0.03 K/uL (0.00-0.30); Basophils Percent Auto 0.3 % (0.0-3.0); Eosinophils Absolute Auto 0.01 K/uL (0.00-0.50); Eosinophils Percent Auto 0.1 % (0.0-7.0); Hematocrit 37.4 % (33.0-51.0); Hemoglobin* 10.8 gm/dL (12.0-16.0); Immature Granulocytes Abs Auto 0.09 K/uL (0.00-0.30); Immature Granulocytes Pct Auto 0.8 %; Mean Corpuscular HGB Conc 29 gm/dL (32-36); Mean Corpuscular Hemoglobin 25 pg (26-34); Mean Corpuscular Volume 85 fL (80-100); Monocytes Percent Auto 7.2 % (0.0-11.0); Neutrophils Percent Auto 83.6 % (42.0-72.0); Platelet Count* 265 K/uL (140-440); RDW Coefficient of Variation % 19.3 % (11.5-15.5)
[2023-07-26 06:36] LABS: Slide Review Reflex No
[2023-07-26 06:49] LABS: Albumin* 3.7 g/dL (3.3-5.0); Chloride* 103 mmol/L (96-114); Potassium* 4.9 mmol/L (3.6-5.1); Sodium* 135 mmol/L (135-149)
[2023-07-26 06:52] LABS: Anion Gap 2 mEq/L (7-15); Blood Urea Nitrogen* 67 mg/dL (7-30); Calcium* 8.8 mg/dL (8.4-10.6); Carbon Dioxide* 30 mmol/L (20-32); Creatinine* 1.8 mg/dL (0.5-1.5); Est. Creatinine Clearance* 26.54; Estimated Glomerular Filt Rate 30 ml/min; Glucose* 234 mg/dL (60-115); Phosphorus* 4.5 mg/dL (2.5-4.5)
--- NOTE | 2023-07-26 06:52 | PC.NURSE ---
End of shift note [id number]: Pt transfers/ambulates with SBA/independently in room. She is alert & oriented x 4 and able to make needs known. Pt remains on telemetry with NSR noted. VSS. O2 sat 91-94% on oxygen 2 LPM per NC this shift. Pt slept in recliner for part of the shift as she reported nonproductive dry cough when lying down in bed. PRN Guaifenesin was given which was effective upon followup per pt report. Pain to BLEs managed with rest, repositioning and scheduled Tylenol. Wound care to BLEs currently ordered to be performed daily. Pt has been continent of bladder. Pt is having repeat chest xray completed this morning.
[2023-07-26 06:55] LABS: Albumin* 3.8 g/dL (3.3-5.0); Chloride* 105 mmol/L (96-114); Potassium* 4.9 mmol/L (3.6-5.1); Sodium* 136 mmol/L (135-149)
[2023-07-26 06:58] LABS: Anion Gap 3 mEq/L (7-15); Bilirubin Direct* 0.3 mg/dL (0.0-0.5); Bilirubin Total* 0.5 mg/dL (0.1-1.5); Carbon Dioxide* 28 mmol/L (20-32); Creatinine* 1.8 mg/dL (0.5-1.5); Est. Creatinine Clearance* 26.54; Estimated Glomerular Filt Rate 30 ml/min; Total Protein* 7.3 g/dL (6.0-8.3)
[2023-07-26 06:59] LABS: Alanine Aminotransferase* 25 U/L (4-35); Alkaline Phosphatase* 238 U/L (40-150); Aspartate Amino Transferase* 27 U/L (12-35); Blood Urea Nitrogen* 68 mg/dL (7-30); Calcium* 8.8 mg/dL (8.4-10.6); Gamma Glutamyl Transpeptidase* 89 U/L (8-55); Glucose* 231 mg/dL (60-115)
[2023-07-26 07:00] VITALS: BP 148/76; PULSE 63; RESP 18; O2SAT 90
--- NOTE | 2023-07-26 07:00 | XR_ITS ---
Patient: MEENA SHARMA Facility:?[facility] Patient ID:?[id number] Site Patient ID:?[id number]. Site :?[id number] Study:?XRay-Chest 2 view-07/26/2023 6:57:19 AM Ordering Physician:Evangelina Latham Final Report: Indication: COPD. CHF. Technique: Chest 1 view. Comparison: July 24, 2023. Findings/Impression: Cardiovascular and mediastinum: Stable moderate cardiomegaly. Normal mediastinum. Lungs and pleural space: Unchanged pulmonary vascular congestion consistent with CHF. Generalized interstitial edema. No focal consolidation. No effusion and no pneumothorax. Bones and soft tissues: No acute findings. Dictated by Geronimo Hahn MD @ 07/26/2023 7:05:21 AM Signed by:?Geronimo Hahn MD @07/26/2023 7:05:21 AM (Electronic Signature)
[2023-07-26 07:01] LABS: C Reactive Protein* 3.9 mg/dL (0.5-1.0)
[2023-07-26 07:11] LABS: NT Pro B Type NatriureticPept* 5170 pg/mL
[2023-07-26 08:15] VITALS: PULSE 59
[2023-07-26] MEDS: INSULIN ASPART 100 UNIT/ML SUBCUT (09:06)
[2023-07-26] MEDS: FUROSEMIDE 10 MG/ML inj 80 MG IVP (09:07)
[2023-07-26] MEDS: INSULIN PROT/ASP (NOVOLOG 70/30) 100 UNIT/ML 60 UNIT SUBCUT (09:07)
[2023-07-26] MEDS: predniSONE 20 MG TABLET 40 MG PO (09:08)
[2023-07-26] MEDS: DORZOLAMIDE HCL 2 % OPHTH DROP 1 DROP EYE-LEFT (09:09)
[2023-07-26] MEDS: LOSARTAN POTASSIUM 50 MG TABLET 100 MG PO (09:09)
[2023-07-26] MEDS: METOPROLOL TARTRATE 50 MG TABLET PO (09:09)
[2023-07-26] MEDS: ASCORBIC ACID 500 MG TABLET PO (09:09)
[2023-07-26] MEDS: allopurinoL 100 MG TABLET 150 MG PO (09:09)
[2023-07-26] MEDS: IPRAT-ALBUT 0.5-2.5 MG/3 ML NEB 1 NEB IH (09:09)
[2023-07-26] MEDS: NYSTATIN CREAM 30 GM 1 APPLIC TOPICAL (09:10)
[2023-07-26] MEDS: timoloL maleate 0.5 % 1 DROP EYE-RIGHT (09:10)
[2023-07-26] MEDS: prednisoLONE acetate 1 % DROPS 1 DROP EYE-LEFT (09:10)
[2023-07-26] MEDS: SODIUM CHLORIDE 0.9 % (FLUSH) 10 ML SYRINGE 5 ML IVF (09:10)
[2023-07-26] MEDS: DOXYCYCLINE HYCLATE 100 MG PO (09:11)
[2023-07-26] MEDS: BRIMONIDINE TARTRATE 0.2% OPHTH 1 DROP EYE-LEFT (09:11)
[2023-07-26] MEDS: BUDESONIDE 0.5 MG/2ML NEB NEB (09:11)
[2023-07-26] MEDS: ACETAMINOPHEN 650 MG TABLET ER 1300 MG PO (09:25)
--- NOTE | 2023-07-26 10:01 | PM.DS1 ---
DS: Providers Provider Date Seen: 07/26/23 Date of admission: 07/24/23 17:25 Primary care physician: Shirley Fleming DO Admitting Clinician: Jose Rebolledo MD Consults: 07/24/23 17:29 Consult to Occupational Therapy [CONS] Routine Comment: Reason(s) for OT Consult:: Evaluate and Treat Any Restrictions?:: No Restrictions Consult to Physical Therapy [CONS] Routine Comment: Reason(s) for PT Consult:: Evaluate and Treat Any Restrictions?:: No Restrictions Consult to Director Zone [CONS] Routine Comment: Reason for Consult:: Discharge Planning Needs 07/24/23 17:56 Consult to Director Zone [CONS] Routine Comment: Reason for Consult:: Social Service Consult Attending Physician on discharge: Lin Latham MD [facility] Date of Discharge: 07/26/23 DS: Diagnosis Discharge Diagnosis (1) Diastolic congestive heart failure with preserved left ventricular function, NYHA class 2: Status: Acute Problem details: Mild acute exacerbation. ECHO last done in 05/01. EF 61%, increased wall thickness, pulmonary hypertension from COPD, restrictive lung disease, untreated FIOR. -Converted her Lasix to torsemide. She is going home on 60 mg of torsemide p.o. daily. Daily weights. BMP next week. -Adding spironolactone [address] of her amlodipine -increasing metolazone from 2.5-5 mg weekly -recommend Cardiology evaluation, outpatient (2) Acute on chronic hypoxic respiratory failure: Status: Acute Problem details: Possibly multifactorial with chest x-ray suggesting heart failure primarily. Clinically I would favor pneumonia and possibly COPD exacerbation. -received IV ceftriaxone and oral doxycycline. Discharging on cefpodoxime 200 mg b.i.d. to cover her UTI and acute bronchitis -total of 5 days of p.o. prednisone burst, at discharge 3 more days of prednisone 40 mg p.o. -DuoNebs q.i.d. (3) Venous stasis ulcer with edema of lower leg: Status: Acute Problem details: Chronic venous stasis ulcers in both legs. Currently do not appear to be causing cellulitis or other infection requiring antibiotics and debridement. -07/24 asked RN to follow wound clinic care guidelines. (4) Insulin dependent type 2 diabetes mellitus: Status: Acute Problem details: A1c 7.7 Resume home insulin dosing (5) Bradycardia: Status: Acute Problem details: At patient's request will continue to monitor heart rate and reduce metoprolol with a target heart rate in the 60s. (6) Diabetic nephropathy associated with type 2 diabetes mellitus: Status: Chronic Problem details: Proteinuria, nearly nephrotic 06/28/2022 when last saw sculpture instructor, Dr. Alfonzo Wheatley. Avoid nonsteroidal anti-inflammatory medications. Attempt to optimize diabetes mellitus. Would benefit from SGLT2i, cannot afford. Would benefit from GLP1 agonist, cannot afford. Would benefit from weight loss, but seemingly unable to achieve. Patient encouraged to continue with glucose checks with meals and at bedtime. She will need to work with PCP to adjust insulin dosing. - in-hospital monitor kidney function and electrolytes daily (7) Lymphedema: Status: Acute (8) Intertrigo: Status: Acute Problem details: Continue skin cares in abdominal folds and nystatin t.i.d.. Follow-up with PCP for ongoing management. DS: Summary Hospital Course Hospital Course: FINAL DIAGNOSIS/FOLLOW UP ISSUES: 1. For COPD Bronchitis: Take three more days of Prednisone (40mg daily), and your antibiotic. 2. For your diuretic regimen: Stop all Lasix. I'm starting you on Torsemide 60 mg each morning. I'm also adding spironolactone 25mg daily. WEIGH yourself each morning, naked. write it down. 3. I have refilled your insulin. A1C 7.7. 4. For high blood pressure: I have stopped your amlodipine. It can make swelling the legs worse. I've started you on spironolactone. This will help with water retention and blood pressure. TAKE YOUR BLOOD PRESSURE EVERYDAY. 5. I've sent BobMarylin to the [facility] 6. I kept you on the reduced doses of metoprolol. BRIEF HOSPITAL COURSE: Patient was admitted for 2 days. Synopsis of acute inpatient issues are outlined above. Chronic medical conditions with notable findings outlined above. Patient had a harsh productive cough and weakness. There was no organized pneumonia on chest x-ray in fact she actually looked more wet with a CHF picture on her chest x-ray. We treated her for COPD exacerbation/bronchitis and a mild acute exacerbation of diastolic heart failure. To that end she discharged on oral antibiotic, cefpodoxime and a prednisone burst without taper. She was doing well on her standard 2 L and getting scheduled nebs. We also sent her home with her aerobika to continue moving her secretions. From a CHF standpoint, her weight was not far off from baseline. We did not repeat her echo but reviewed the echo from April of 2023. We transitioned her from oral Lasix b.i.d. to daily torsemide with spironolactone and increased metolazone. I have asked her to use a scale and report and record daily weights. She would benefit from a cardiology referral. She was noting bradycardia at home and we reduced her doses of metoprolol. This was continued at discharge. I also stopped her amlodipine secondary to her chronic lymphedema. I am hoping that stopping the amlodipine and starting spironolactone will aid in this chronic management. She is to resume her wound care as previous to admission. DISCHARGE MEDICATIONS: See Reconciled list - SIGNIFICANT CHANGES: As above Specific instructions to the patient and follow-up are outlined below. REVIEW OF SYSTEMS No new chest pain or dyspnea Pain controlled No voiding difficulties Tolerating diet challenge PHYSICAL EXAM: CONSTITUTIONAL: Alert, back to baseline. No obvious dyspnea at rest or exertion. Coughing productively. VITAL SIGNS: see record. HEENT: Normocephalic, atraumatic. PERRL, EOMI, conjunctivae pink, no scleral icterus. Ears and nose externally normal. Pharynx normal. NECK: No JVD. No carotid bruit, no thyromegaly, no adenopathy. CHEST: Continued rhonchi without wheeze. HEART: S1 and S2 normal. Edema significant, lymphedema. ABDOMEN: Soft, nontender. Normal bowel sounds. MUSCULOSKELETAL: No gross joint deformity or swelling. NEURO: Cranial nerves intact. Grossly intact. No asymmetric findings. SKIN: No rashes, petechiae, concerning changes PSYCHIATRIC: Mood euthymic. DISPOSITION: Home with close follow-up Time spent on discharge 37 minutes. Status at Discharge Functional status at discharge: uses cane/walker Overall status at discharge: patient is progressing back to baseline Time Spent with Patient Time attestation: Total time spent providing and/or coordinating discharge services: Time spent: Greater than 30 minutes Exam Const: Vital Signs, click to edit/add: Vital Signs - 24 hr 07/25/23 11:00 07/25/23 15:00 07/25/23 15:00 Temperature 98.2 F 98.1 F Pulse Rate Pulse Rate [Left P ulse Oximeter] 85 75 75 Pulse Rate [Right Radial] Respiratory Rate 20 18 18 Blood Pressure [Ri ght Arm] 170/83 H 152/69 H Pulse Oximetry 88 92 Oxygen Delivery Me thod Nasal Cannula Nasal Cannula Oxygen Flow Rate 2 2 07/25/23 15:00 07/25/23 15:00 07/25/23 19:00 Temperature 97.8 F Pulse Rate 75 Pulse Rate [Left P ulse Oximeter] 74 Pulse Rate [Right Radial] 74 Respiratory Rate 18 Blood Pressure [Ri ght Arm] 149/61 H Pulse Oximetry 92 94 Oxygen Delivery Me thod Nasal Cannula Nasal Cannula Oxygen Flow Rate 2 2 07/25/23 23:00 07/25/23 23:00 07/25/23 23:00 Temperature 97.6 F Pulse Rate Pulse Rate [Left P ulse Oximeter] 73 74 Pulse Rate [Right Radial] Respiratory Rate 18 18 18 Blood Pressure [Ri ght Arm] 142/35 H Pulse Oximetry 94 94 Oxygen Delivery Me thod Nasal Cannula Nasal Cannula Oxygen Flow Rate 2 2 07/25/23 23:15 07/26/23 02:42 07/26/23 07:00 Temperature 96.9 F L Pulse Rate 71 Pulse Rate [Left P ulse Oximeter] 63 Pulse Rate [Right Radial] 61 Respiratory Rate 18 18 Blood Pressure [Ri ght Arm] 138/51 L 148/76 H Pulse Oximetry 91 90 Oxygen Delivery Me thod Nasal Cannula Room Air Oxygen Flow Rate 2 07/26/23 07:00 Temperature Pulse Rate Pulse Rate [Left P ulse Oximeter] Pulse Rate [Right Radial] Respiratory Rate 18 Blood Pressure [Ri ght Arm] Pulse Oximetry 90 Oxygen Delivery Me thod Room Air Oxygen Flow Rate DS: Data Data Completed and Pending Completed studies during hospitalization: Procedures Excision of Left Foot Subcutaneous Tissue and Fascia, Open Approach (02/02/23) Introduction of Other Gas into Respiratory Tract, Via Natural or Artificial Opening (05/08/23) Irrigation of Skin and Mucous Membranes using Irrigating Substance, Diagnostic (05/08/23) Labs on day of discharge: Labs from last 24 hours 07/26/23 07/26/23 07/26/23 06:10 06:10 06:10 WBC RBC Hgb Hct MCV MCH MCHC RDW Coeff of Tad Plt Count Neut % (Auto) Lymph % (Auto) [facility] % (Auto) Eos % (Auto) Baso % (Auto) Neut # (Auto) Lymph # (Auto) [facility] [place] [facility] # (Auto) Eos # (Auto) Baso # (Auto) Abs Immat Gran (auto) Imm/Tot Granulo (auto) VBG pH VBG pCO2 VBG pO2 VBG HCO3 Sodium Potassium Chloride Carbon Dioxide Anion Gap BUN Creatinine Estimated Creat Clear Estimated GFR Glucose 234 H Hemoglobin A1c Calcium 8.8 8.8 Phosphorus 4.5 Total Bilirubin 0.5 Direct Bilirubin 0.3 GGT 89 H AST 27 ALT 25 Alkaline Phosphatase 238 H C-Reactive Protein 3.9 H NT-Pro-B Natriuret Pep 5170 Total Protein 7.3 Albumin 3.7 3.8 TSH Lab Acknowledgement 07/26/23 07/26/23 07/26/23 06:10 06:10 06:10 WBC RBC Hgb Hct MCV MCH MCHC RDW Coeff of Tad Plt Count Neut % (Auto) Lymph % (Auto) [facility] [place] [facility] % (Auto) Eos % (Auto) Baso % (Auto) Neut # (Auto) Lymph # (Auto) [facility] [place] [facility] # (Auto) Eos # (Auto) Baso # (Auto) Abs Immat Gran (auto) Imm/Tot Granulo (auto) VBG pH VBG pCO2 VBG pO2 VBG HCO3 Sodium Potassium Chloride Carbon Dioxide Anion Gap BUN Creatinine 1.8 H Estimated Creat Clear 26.54 26.54 Estimated GFR 30 30 Glucose 231 H Hemoglobin A1c Calcium Phosphorus Total Bilirubin Direct Bilirubin GGT AST ALT Alkaline Phosphatase C-Reactive Protein NT-Pro-B Natriuret Pep Total Protein Albumin TSH Lab Acknowledgement 07/26/23 07/26/23 07/26/23 06:10 06:10 06:10 WBC RBC Hgb Hct MCV MCH MCHC RDW Coeff of Tad Plt Count Neut % (Auto) Lymph % (Auto) [facility] [place] [facility] % (Auto) Eos % (Auto) Baso % (Auto) Neut # (Auto) Lymph # (Auto) [facility] [place] [facility] # (Auto) Eos # (Auto) Baso # (Auto) Abs Immat Gran (auto) Imm/Tot Granulo (auto) VBG pH VBG pCO2 VBG pO2 VBG HCO3 Sodium Potassium Chloride Carbon Dioxide 30 Anion Gap 2 L 3 L BUN 67 H 68 H Creatinine 1.8 H Estimated Creat Clear Estimated GFR Glucose Hemoglobin A1c Calcium Phosphorus Total Bilirubin Direct Bilirubin GGT AST ALT Alkaline Phosphatase C-Reactive Protein NT-Pro-B Natriuret Pep Total Protein Albumin TSH Lab Acknowledgement 07/26/23 07/26/23 07/26/23 06:10 06:10 06:10 WBC RBC Hgb Hct MCV MCH MCHC RDW Coeff of Tad Plt Count Neut % (Auto) Lymph % (Auto) [facility] % (Auto) Eos % (Auto) Baso % (Auto) Neut # (Auto) Lymph # (Auto) [facility] # (Auto) Eos # (Auto) Baso # (Auto) Abs Immat Gran (auto) Imm/Tot Granulo (auto) VBG pH VBG pCO2 VBG pO2 VBG HCO3 Sodium 135 Potassium 4.9 4.9 Chloride 103 105 Carbon Dioxide 28 Anion Gap BUN Creatinine Estimated Creat Clear Estimated GFR Glucose Hemoglobin A1c Calcium Phosphorus Total Bilirubin Direct Bilirubin GGT AST ALT Alkaline Phosphatase C-Reactive Protein NT-Pro-B Natriuret Pep Total Protein Albumin TSH Lab Acknowledgement 07/26/23 07/25/23 07/25/23 06:10 10:34 05:56 WBC 11.00 RBC 4.40 Hgb 10.8 L Hct 37.4 MCV 85 MCH 25 L MCHC 29 L RDW Coeff of Tad 19.3 H Plt Count 265 Neut % (Auto) 83.6 H Lymph % (Auto) 8.[address] [facility] [place] [facility] % (Auto) 7.2 Eos % (Auto) 0.1 Baso % (Auto) 0.3 Neut # (Auto) 9.20 H Lymph # (Auto) 0.90 [facility] # (Auto) 0.80 Eos # (Auto) 0.01 Baso # (Auto) 0.03 Abs Immat Gran (auto) 0.09 Imm/Tot Granulo (auto) 0.8 VBG pH 7.354 VBG pCO2 51 H VBG pO2 44.1 VBG HCO3 29 H Sodium 136 Potassium Chloride Carbon Dioxide Anion Gap BUN Creatinine Estimated Creat Clear Estimated GFR Glucose Hemoglobin A1c 7.7 H Calcium Phosphorus Total Bilirubin Direct Bilirubin GGT 91 H AST ALT Alkaline Phosphatase C-Reactive Protein NT-Pro-B Natriuret Pep Total Protein Albumin TSH 1.560 Lab Acknowledgement Test Added Preliminary micro results at discharge 07/24/23 Unknown Urine Culture - Preliminary Urine,Clean Catch Gram negative carmenza Discharge Plan Discharge Disposition: Home, Self-Care Date of Admission: 07/24/23 17:25 Attending Provider on Discharge: Lin Latham Primary Care Provider: Shirley Fleming Condition: Improved Anticipated Discharge Date/Time: 07/26/23 16:00 Discharge Medications: New prednisone 20 mg Tablet 40 mg PO DAILYWM Qty: 3 0RF metoprolol tartrate 50 mg Tablet 25 mg PO HS Qty: 30 0RF metoprolol tartrate 50 mg Tablet 50 mg PO QAM Qty: 30 0RF ipratropium-albuterol 0.5 mg-3 mg(2.5 mg base)/3 mL solution for nebulization 3 ml inhalation QID Qty: 180 0RF cefpodoxime 200 mg tablet 200 mg PO BID Qty: 10 0RF Rx Instructions: must administer with a meal/food torsemide 60 mg tablet 60 mg PO DAILY Qty: 30 0RF spironolactone 25 mg tablet 25 mg PO DAILY Qty: 30 0RF Continued latanoprost 0.005 % drops 1 drp ophthalmic (eye) QPM Rx Instructions: BOTH EYES prednisolone acetate 1 % drops,suspension 1 drp ophthalmic (eye-left) BID levothyroxine 125 mcg tablet 125 mcg PO DAILY@07 brimonidine 0.2 % drops 1 drp ophthalmic (eye-left) BID nitroglycerin 0.4 mg tablet, sublingual 0.4 mg sublingual Q5M PRN montelukast 10 mg tablet 10 mg PO HS timolol maleate 0.5 % drops 1 drp ophthalmic (eye-right) QAM losartan 100 mg tablet 100 mg PO DAILY dorzolamide 2 % drops 1 drp ophthalmic (eye-left) BID ascorbic acid (vitamin C) 500 mg tablet 500 mg PO BID vitamin B complex [B Complex-Vitamin B12] Tablet 1 tab PO DAILY loratadine [Allerclear] 10 mg tablet 10 mg PO HS multivitamin [Daily Multi-Vitamin] Tablet 1 tab PO DAILY [place] Saline Gel 1 applic intranasal Q2H PRN nystatin 100,000 unit/gram Cream 1 applic topical BID albuterol sulfate 90 mcg/actuation HFA aerosol inhaler 2 puff INHALATION 6XD PRN (Reason: shortness of breath or wheezing) Rx Instructions: AT LEAST THREE AND UP TO SIX TIMES PER DAY Humulin 70/30 U-100 Insulin 100 unit/mL (70-30) suspension 47 unit subcut QPM Qty: 3 0RF Novolin 70/30 U-100 Insulin 100 unit/mL (70-30) suspension 60 unit subcut QAM Qty: 10 0RF cholecalciferol (vitamin D3) [Vitamin D3] 125 mcg (5,000 unit) tablet 5,000 unit PO HS rosuvastatin 10 mg tablet 10 mg PO HS PreserVision Lutein 226-90-0.8-5 mg capsule 1 cap PO DAILY vitamin E 268 mg (400 unit) capsule 268 mg PO DAILY Zinc-15 66 mg tablet 66 mg PO HS acetaminophen [8 Hour Pain Reliever] 650 mg tablet extended release 1,300 mg PO BID Rx Instructions: AND SOMETIMES A THIRD DOSE IN THE MIDDLE OF THE DAY allopurinol 100 mg tablet 150 mg PO DAILY calcium carbonate [Calcium 600] 600 mg calcium (1,500 mg) tablet 600 mg PO QPM cholecalciferol (vitamin D3) 25 mcg (1,000 unit) capsule 25 mcg PO QAM fluticasone propionate 100 mcg/actuation blister with device 1 inh inhalation BID hydrocortisone [Cortizone-10] 1 % ointment 1 applic topical TID PRN Rx Instructions: USES IN FOLDS PRN loperamide 2 mg tablet 2 mg PO Q6H PRN magnesium oxide 400 mg (241.3 mg magnesium) tablet 400 mg PO HS Biofreeze (menthol) 4 % gel 1 applic topical QID PRN neomycin-polymyxin B-dexameth [Maxitrol] 3.5 mg/g-10,000 unit/g-0.1 % ointment 1 applic ophthalmic (eye-right) BID PRN Rx Instructions: USES TWICE A DAY FOR 3 DAYS AFTER EYE INJECTION potassium gluconate 595 mg (99 mg) tablet 595 mg PO DAILY triamcinolone acetonide 0.1 % cream 1 applic topical 3XD PRN Rx Instructions: USES ON ARMS PRN [place] Nasal 0.65 % aerosol,spray 1 spray intranasal Q1H PRN tramadol 50 mg tablet 50 mg PO Q6H PRN (Reason: pain) Qty: 10 0RF Changed metolazone 2.5 mg tablet 5 mg PO FR@09 Qty: 30 0RF Rx Instructions: ONCE A WEEK ON SATURDAY Discontinued furosemide 20 mg tablet 60 mg PO BID@08,14 amlodipine 10 mg tablet 10 mg PO HS metoprolol tartrate 50 mg tablet 100 mg PO QAM metoprolol tartrate 50 mg tablet 50 mg PO HS Discharge Orders: Discharge Order (Routine); Ordered 07/26/23 Ordered By: Lin Latham Additional Instructions: 1. For COPD Bronchitis: Take three more days of Prednisone (40mg daily), and your antibiotic. 2. For your diuretic regimen: Stop all Lasix. I'm starting you on Torsemide 60 mg each morning. WEIGH yourself each morning, naked. write it down. 3. I have refilled your insulin. 4. For high blood pressure: I have stopped your amlodipine. It can make swelling the legs worse. I've started you on spironolactone. This will help with water retention and blood pressure. TAKE YOUR BLOOD PRESSURE EVERYDAY. 5. I've sent Du[facility] to the [facility] 6. I kept you on the reduced doses of metoprolol. All meds went to [facility] with a note to deliver. Activity Level: Activity as Tolerated Discharge Diet: Diabetic Follow Up Appointments: Shirley Fleming DO [Primary Care Provider] - 07/29/23 ([facility] F/U) Forms: [employer] Info Instructions
[2023-07-26] MEDS: FLUCONAZOLE 100 MG TABLET 200 MG PO (10:44)
[2023-07-26 11:00] VITALS: O2SAT 90
--- NOTE | 2023-07-26 15:03 | PC.SOCIAL ---
Discharge planning: final assembly worker assisted with finding transportation home for the pt from the hospital. Pt's daughter will pick her up later this afternoon. Social work to follow-up as needed.
--- NOTE | 2023-07-26 15:37 | PC.NURSE ---
The patient was thoroughly educated on her discharge instructions as far as medications, s/s, and follow up go. WOC care was completed on BLE this afternoon. The patient tolerated this well. Mild reports of pain throughout the day, the patients notes this is chronic for her. The patient states that she is watching her salt intake as well as PO fluids. I educated her on the importance of staying hydrated with starting on multiple diuretics. The patients IV was removed. All of the patients belongings were accounted for prior to discharge. The patient's cane is with her. The patients daughter Betzy is picking her up. Medications from [facility] were delivered here and given to the patient. I also reported to the patient that her insulin is ready for pick up operator a@ [facility] in [place] and that she will have to have someone pick it up for her. Discharge information was sent with the patient. Noelle GONZALEZ BSN
== END 2023-07-26 16:45 | disposition home or self-care (01) | DRG 194 ==
LOC: ED 16:02 → MEDSURG 16:54
PROVIDERS: Family Medicine; Admitting Provider Family Medicine; Emergency Provider Family Medicine; PCP Family Medicine; Visit Provider Family Medicine
DX: I13.0 Hypertensive heart and chronic kidney disease with heart failure and stage 1 through stage 4 chronic kidney disease, or unspecified chronic kidney disease (principal); I50.33 Acute on chronic diastolic (congestive) heart failure; J96.21 Acute and chronic respiratory failure with hypoxia; J44.0 Chronic obstructive pulmonary disease with (acute) lower respiratory infection; J44.1 Chronic obstructive pulmonary disease with (acute) exacerbation; J20.9 Acute bronchitis, unspecified; I27.20 Pulmonary hypertension, unspecified; E11.22 Type 2 diabetes mellitus with diabetic chronic kidney disease; N18.4 Chronic kidney disease, stage 4 (severe); I87.2 Venous insufficiency (chronic) (peripheral); L97.829 Non-pressure chronic ulcer of other part of left lower leg with unspecified severity; L97.819 Non-pressure chronic ulcer of other part of right lower leg with unspecified severity; E11.621 Type 2 diabetes mellitus with foot ulcer; L97.522 Non-pressure chronic ulcer of other part of left foot with fat layer exposed; Z79.4 Long term (current) use of insulin; R00.1 Bradycardia, unspecified; E11.21 Type 2 diabetes mellitus with diabetic nephropathy; E11.65 Type 2 diabetes mellitus with hyperglycemia; L30.4 Erythema intertrigo; I89.0 Lymphedema, not elsewhere classified; Z68.43 Body mass index [BMI] 50.0-59.9, adult; E66.01 Morbid (severe) obesity due to excess calories
CPT/HCPCS: 11042; 36415; 71045; 71046; 80048; 80053; 80069; 80076; 81001; 81003; 82803; 82962; 82977; 83036; 83605; 83735; 83880; 84443; 84484; 85025; 85027; 85379; 86140; 87086; 87186; 87493; 87631; 93005; 94640; 94664; 94761; 97116; 97161; 97165; 97535; 99284; 99285; G0463; A9153; A9270; J0696; J1650; J1940; J7050; J7512; J7626

== ENCOUNTER 2023-08-07 12:42 | Outpatient (CLI) | payer BC, SELFPAY | END 2023-08-07 12:43 | disposition home or self-care (01) | LOC: WOUND 12:42 | PROVIDERS: PCP Family Medicine; Visit Provider Surgery | DX: E11.621 Type 2 diabetes mellitus with foot ulcer (principal); E11.40 Type 2 diabetes mellitus with diabetic neuropathy, unspecified; L97.422 Non-pressure chronic ulcer of left heel and midfoot with fat layer exposed; L97.528 Non-pressure chronic ulcer of other part of left foot with other specified severity; I89.0 Lymphedema, not elsewhere classified; L97.828 Non-pressure chronic ulcer of other part of left lower leg with other specified severity; Z79.4 Long term (current) use of insulin; Z79.84 Long term (current) use of oral hypoglycemic drugs | CPT/HCPCS: 11042; 97597; 97598 ==

== ENCOUNTER 2023-08-14 13:14 | Outpatient (CLI) | payer BC, SELFPAY | END 2023-08-14 13:15 | disposition home or self-care (01) | LOC: WOUND 13:14 | PROVIDERS: PCP Family Medicine; Visit Provider Surgery | DX: E11.621 Type 2 diabetes mellitus with foot ulcer (principal); L97.422 Non-pressure chronic ulcer of left heel and midfoot with fat layer exposed; L97.528 Non-pressure chronic ulcer of other part of left foot with other specified severity; I89.0 Lymphedema, not elsewhere classified; L97.828 Non-pressure chronic ulcer of other part of left lower leg with other specified severity; Z79.4 Long term (current) use of insulin | CPT/HCPCS: 11042; 97597; 97598 ==

== ENCOUNTER 2023-08-21 12:48 | Outpatient (CLI) | payer BC, SELFPAY | END 2023-08-21 12:49 | disposition home or self-care (01) | LOC: WOUND 12:48 | PROVIDERS: PCP Family Medicine; Visit Provider Surgery | DX: E11.621 Type 2 diabetes mellitus with foot ulcer (principal); E11.40 Type 2 diabetes mellitus with diabetic neuropathy, unspecified; L97.422 Non-pressure chronic ulcer of left heel and midfoot with fat layer exposed; L97.522 Non-pressure chronic ulcer of other part of left foot with fat layer exposed; L97.518 Non-pressure chronic ulcer of other part of right foot with other specified severity; Z79.4 Long term (current) use of insulin | CPT/HCPCS: 11042; G0463 ==

== ENCOUNTER 2023-08-28 12:37 | Outpatient (CLI) | payer BC, SELFPAY | END 2023-08-28 12:38 | disposition home or self-care (01) | LOC: WOUND 12:38 | PROVIDERS: PCP Family Medicine; Visit Provider Surgery | DX: E11.621 Type 2 diabetes mellitus with foot ulcer (principal); E11.40 Type 2 diabetes mellitus with diabetic neuropathy, unspecified; L97.422 Non-pressure chronic ulcer of left heel and midfoot with fat layer exposed; L97.528 Non-pressure chronic ulcer of other part of left foot with other specified severity; I50.32 Chronic diastolic (congestive) heart failure; Z79.4 Long term (current) use of insulin; Z79.84 Long term (current) use of oral hypoglycemic drugs | CPT/HCPCS: 11042 ==

== ENCOUNTER 2023-09-04 12:25 | Outpatient (CLI) | payer BC, SELFPAY | END 2023-09-04 12:26 | disposition home or self-care (01) | LOC: WOUND 12:26 | PROVIDERS: PCP Family Medicine; Visit Provider Surgery | DX: E11.621 Type 2 diabetes mellitus with foot ulcer (principal); L97.528 Non-pressure chronic ulcer of other part of left foot with other specified severity; L97.422 Non-pressure chronic ulcer of left heel and midfoot with fat layer exposed; Z79.4 Long term (current) use of insulin; Z79.84 Long term (current) use of oral hypoglycemic drugs | CPT/HCPCS: 11042; 97597 ==

== ENCOUNTER 2023-09-10 14:13 | Outpatient (CLI) | payer BC, SELFPAY | END 2023-09-10 14:14 | disposition home or self-care (01) | LOC: WOUND 14:13 | PROVIDERS: PCP Family Medicine; Visit Provider Nurse Practitioner Family | DX: E11.621 Type 2 diabetes mellitus with foot ulcer (principal); L97.428 Non-pressure chronic ulcer of left heel and midfoot with other specified severity; L97.528 Non-pressure chronic ulcer of other part of left foot with other specified severity; I87.312 Chronic venous hypertension (idiopathic) with ulcer of left lower extremity; L97.828 Non-pressure chronic ulcer of other part of left lower leg with other specified severity; Z79.4 Long term (current) use of insulin; Z79.84 Long term (current) use of oral hypoglycemic drugs | CPT/HCPCS: 11042; 97602 ==

== ENCOUNTER 2023-09-18 12:32 | Outpatient (CLI) | payer BC, SELFPAY | END 2023-09-18 12:33 | disposition home or self-care (01) | LOC: WOUND 12:32 | PROVIDERS: PCP Family Medicine; Visit Provider Surgery | DX: E11.621 Type 2 diabetes mellitus with foot ulcer (principal); E11.40 Type 2 diabetes mellitus with diabetic neuropathy, unspecified; L97.528 Non-pressure chronic ulcer of other part of left foot with other specified severity; L97.422 Non-pressure chronic ulcer of left heel and midfoot with fat layer exposed; Z79.4 Long term (current) use of insulin; Z79.84 Long term (current) use of oral hypoglycemic drugs | CPT/HCPCS: 11042; 97597 ==

== ENCOUNTER 2023-09-25 12:27 | Outpatient (CLI) | payer BC, SELFPAY | END 2023-09-25 12:28 | disposition home or self-care (01) | LOC: WOUND 12:27 | PROVIDERS: PCP Family Medicine; Visit Provider Surgery | DX: E11.621 Type 2 diabetes mellitus with foot ulcer (principal); E11.40 Type 2 diabetes mellitus with diabetic neuropathy, unspecified; L97.422 Non-pressure chronic ulcer of left heel and midfoot with fat layer exposed; L97.528 Non-pressure chronic ulcer of other part of left foot with other specified severity; Z79.4 Long term (current) use of insulin; Z79.84 Long term (current) use of oral hypoglycemic drugs | CPT/HCPCS: 97597 ==

== ENCOUNTER 2023-10-02 12:45 | Outpatient (CLI) | payer BC, SELFPAY | END 2023-10-02 12:46 | disposition home or self-care (01) | LOC: WOUND 12:45 | PROVIDERS: PCP Family Medicine; Visit Provider Surgery | DX: E11.621 Type 2 diabetes mellitus with foot ulcer (principal); E11.40 Type 2 diabetes mellitus with diabetic neuropathy, unspecified; I87.312 Chronic venous hypertension (idiopathic) with ulcer of left lower extremity; L97.528 Non-pressure chronic ulcer of other part of left foot with other specified severity; Z79.4 Long term (current) use of insulin | CPT/HCPCS: 11042 ==

== ENCOUNTER 2023-10-09 12:49 | Outpatient (CLI) | payer BC, SELFPAY | END 2023-10-09 12:50 | disposition home or self-care (01) | LOC: WOUND 12:49 | PROVIDERS: PCP Family Medicine; Visit Provider Surgery | DX: E11.621 Type 2 diabetes mellitus with foot ulcer (principal); E11.40 Type 2 diabetes mellitus with diabetic neuropathy, unspecified; L97.422 Non-pressure chronic ulcer of left heel and midfoot with fat layer exposed; Z79.4 Long term (current) use of insulin | CPT/HCPCS: 97597 ==

== ENCOUNTER 2023-10-16 12:35 | Outpatient (CLI) | payer BC, SELFPAY | END 2023-10-16 12:36 | disposition home or self-care (01) | LOC: WOUND 12:36 | PROVIDERS: PCP Family Medicine; Visit Provider Surgery | DX: E11.621 Type 2 diabetes mellitus with foot ulcer (principal); E11.40 Type 2 diabetes mellitus with diabetic neuropathy, unspecified; L97.422 Non-pressure chronic ulcer of left heel and midfoot with fat layer exposed; Z79.4 Long term (current) use of insulin | CPT/HCPCS: 97597 ==

== ENCOUNTER 2023-10-23 12:30 | Outpatient (CLI) | payer BC, SELFPAY | END 2023-10-23 12:31 | disposition home or self-care (01) | LOC: WOUND 12:30 | PROVIDERS: PCP Family Medicine; Visit Provider Surgery | DX: E11.621 Type 2 diabetes mellitus with foot ulcer (principal); E11.40 Type 2 diabetes mellitus with diabetic neuropathy, unspecified; I87.312 Chronic venous hypertension (idiopathic) with ulcer of left lower extremity; L97.528 Non-pressure chronic ulcer of other part of left foot with other specified severity; Z79.4 Long term (current) use of insulin | CPT/HCPCS: 97597; G0463 ==

== ENCOUNTER 2023-11-13 12:36 | Outpatient (CLI) | payer BC, SELFPAY | END 2023-11-13 12:37 | disposition home or self-care (01) | LOC: WOUND 12:36 | PROVIDERS: PCP Family Medicine; Visit Provider Surgery | DX: E11.621 Type 2 diabetes mellitus with foot ulcer (principal); E11.40 Type 2 diabetes mellitus with diabetic neuropathy, unspecified; L97.422 Non-pressure chronic ulcer of left heel and midfoot with fat layer exposed; Z79.4 Long term (current) use of insulin | CPT/HCPCS: 15275; Q4151 ==

== ENCOUNTER 2023-11-20 12:36 | Outpatient (CLI) | payer BC, SELFPAY | END 2023-11-20 12:37 | disposition home or self-care (01) | PROVIDERS: PCP Family Medicine; Visit Provider Surgery | DX: E11.621 Type 2 diabetes mellitus with foot ulcer (principal); E11.40 Type 2 diabetes mellitus with diabetic neuropathy, unspecified; I87.312 Chronic venous hypertension (idiopathic) with ulcer of left lower extremity; L97.522 Non-pressure chronic ulcer of other part of left foot with fat layer exposed; Z79.4 Long term (current) use of insulin | CPT/HCPCS: 15275; Q4151 ==

== ENCOUNTER 2023-11-27 11:53 | Outpatient (CLI) | payer BC, SELFPAY | END 2023-11-27 11:54 | disposition home or self-care (01) | LOC: WOUND 11:53 | PROVIDERS: PCP Family Medicine; Visit Provider Surgery | DX: E11.621 Type 2 diabetes mellitus with foot ulcer (principal); E11.40 Type 2 diabetes mellitus with diabetic neuropathy, unspecified; L97.528 Non-pressure chronic ulcer of other part of left foot with other specified severity; Z99.81 Dependence on supplemental oxygen; Z79.4 Long term (current) use of insulin | CPT/HCPCS: 15275; Q4151 ==

== ENCOUNTER 2023-12-11 12:40 | Outpatient (CLI) | payer BC, SELFPAY | END 2023-12-11 12:41 | disposition home or self-care (01) | LOC: WOUND 12:40 | PROVIDERS: PCP Family Medicine; Visit Provider Surgery | DX: E11.621 Type 2 diabetes mellitus with foot ulcer (principal); E11.40 Type 2 diabetes mellitus with diabetic neuropathy, unspecified; L97.528 Non-pressure chronic ulcer of other part of left foot with other specified severity; Z99.81 Dependence on supplemental oxygen; Z79.4 Long term (current) use of insulin; Z79.84 Long term (current) use of oral hypoglycemic drugs | CPT/HCPCS: 15275; Q4151 ==

== ENCOUNTER 2023-12-18 12:27 | Outpatient (CLI) | payer BC, SELFPAY | END 2023-12-18 12:28 | disposition home or self-care (01) | LOC: WOUND 12:27 | PROVIDERS: PCP Family Medicine; Visit Provider Surgery | DX: E11.621 Type 2 diabetes mellitus with foot ulcer (principal); L97.522 Non-pressure chronic ulcer of other part of left foot with fat layer exposed; Z79.4 Long term (current) use of insulin; Z79.84 Long term (current) use of oral hypoglycemic drugs | CPT/HCPCS: 97597 ==

== ENCOUNTER 2023-12-25 12:42 | Outpatient (CLI) | payer BC, SELFPAY ==
--- NOTE | 2023-12-25 13:45 | CRLHL7_ITS ---
For Patients: As a result of the Cures Act, medical imaging exams and procedure reports are released immediately into your electronic medical record. You may view this report before your referring provider. If you have questions, please contact your health care provider. Indication: Soft tissue ulcer Technique: Left foot 3 views Comparison: CT 04/04/2023 Findings: Chronic 12 millimeter linear metallic foreign body in the forefoot. Calcaneal spurs. No fracture. Vascular calcifications. No acute periostitis or cortical destruction. Impression: No evidence of osteomyelitis. Chronic foreign body. Persistent soft tissue swelling about the 1st MTP joint with associated soft tissue ulcer. Dictated by Cornlel Ratliff MD @ 12/26/2023 8:58:10 AM (Electronically Signed)
== END 2023-12-25 12:43 | disposition home or self-care (01) ==
PROVIDERS: PCP Family Medicine; Visit Provider Surgery
DX: E11.621 Type 2 diabetes mellitus with foot ulcer (principal); E11.40 Type 2 diabetes mellitus with diabetic neuropathy, unspecified; L97.528 Non-pressure chronic ulcer of other part of left foot with other specified severity; Z79.4 Long term (current) use of insulin; Z79.84 Long term (current) use of oral hypoglycemic drugs
CPT/HCPCS: 15275; 73630; Q4151

== ENCOUNTER 2024-01-01 12:30 | Outpatient (CLI) | payer BC, SELFPAY | END 2024-01-01 12:31 | disposition home or self-care (01) | LOC: WOUND 12:30 | PROVIDERS: PCP Family Medicine; Visit Provider Surgery | DX: E11.621 Type 2 diabetes mellitus with foot ulcer (principal); L97.522 Non-pressure chronic ulcer of other part of left foot with fat layer exposed; Z79.4 Long term (current) use of insulin; Z79.84 Long term (current) use of oral hypoglycemic drugs | CPT/HCPCS: 15275; Q4151 ==

== ENCOUNTER 2024-01-22 13:18 | Outpatient (CLI) | payer BC, SELFPAY | END 2024-01-22 13:19 | disposition home or self-care (01) | LOC: WOUND 13:18 | PROVIDERS: PCP Family Medicine; Visit Provider Family Medicine | DX: E11.621 Type 2 diabetes mellitus with foot ulcer (principal); E11.40 Type 2 diabetes mellitus with diabetic neuropathy, unspecified; L97.522 Non-pressure chronic ulcer of other part of left foot with fat layer exposed; Z79.4 Long term (current) use of insulin; Z79.84 Long term (current) use of oral hypoglycemic drugs | CPT/HCPCS: 11042 ==

== ENCOUNTER 2024-01-29 12:47 | Outpatient (CLI) | payer BC, SELFPAY | END 2024-01-29 12:48 | disposition home or self-care (01) | LOC: WOUND 12:47 | PROVIDERS: PCP Family Medicine; Visit Provider Physician Assistant | DX: E11.621 Type 2 diabetes mellitus with foot ulcer (principal); E11.40 Type 2 diabetes mellitus with diabetic neuropathy, unspecified; L97.522 Non-pressure chronic ulcer of other part of left foot with fat layer exposed; Z79.4 Long term (current) use of insulin; Z79.84 Long term (current) use of oral hypoglycemic drugs | CPT/HCPCS: 97597 ==

== ENCOUNTER 2024-02-05 12:45 | Outpatient (CLI) | payer BC, SELFPAY | END 2024-02-05 12:46 | disposition home or self-care (01) | LOC: WOUND 12:45 | PROVIDERS: PCP Family Medicine; Visit Provider Surgery | DX: E11.621 Type 2 diabetes mellitus with foot ulcer (principal); E11.40 Type 2 diabetes mellitus with diabetic neuropathy, unspecified; L97.522 Non-pressure chronic ulcer of other part of left foot with fat layer exposed; Z79.4 Long term (current) use of insulin; Z79.84 Long term (current) use of oral hypoglycemic drugs | CPT/HCPCS: 15275; Q4151 ==

== ENCOUNTER 2024-02-19 12:34 | Outpatient (CLI) | payer BC, MEDICARE, SELFPAY | END 2024-02-19 12:35 | disposition home or self-care (01) | PROVIDERS: PCP Family Medicine; Visit Provider Surgery | DX: E11.621 Type 2 diabetes mellitus with foot ulcer (principal); E11.40 Type 2 diabetes mellitus with diabetic neuropathy, unspecified; L97.522 Non-pressure chronic ulcer of other part of left foot with fat layer exposed; Z79.4 Long term (current) use of insulin; Z79.84 Long term (current) use of oral hypoglycemic drugs | CPT/HCPCS: 87070; 87186; 97597 ==

== ENCOUNTER 2024-08-01 16:37 | Outpatient (CLI) | payer BC, SELFPAY | END 2024-08-01 16:38 | disposition home or self-care (01) | LOC: AMB 08-03 11:37 | PROVIDERS: PCP Family Medicine; Visit Provider Emergency Medicine Emergency Medical Services | DX: R53.1 Weakness (principal); R05.9 Cough, unspecified | CPT/HCPCS: A0425; A0429 ==

== ENCOUNTER 2024-08-01 17:21 | Emergency (ER) | payer BC, SELFPAY ==
--- OUTSIDE RECORDS SUMMARY | 2024-08-01 17:23 | XMS_ITS ---
Author Organization [employer] Name Relationship Address Phone Caity Ojeda Guarantor [address] [place] [address] Caity Ojeda Agent [address] [place] [address] Caity Ojeda Personal Relationship [address] [place] [address] Nathan Ojeda Emergency Contact , -1 Rusty Alanna Emergency Contact , -1 [phone] Allergies and adverse reactions Code CodeSystem Substance Reaction Severity StartDate Concern Status 2582 RXNORM Clindamycin Severe 05/17/2023 active Immunizations Immunization Status Vaccine Details Vaccine Code CodeSystem Date Notes TB 2 Step Mantoux Skin Test completed tuberculin skin test; unspecified formulation lotNumber: [id number] expiry: 07/07/2023 Mfg: PAR Axpdcadefnbp65/01 /2017 Given 0.1 ml Left Forearm intradermally Step 1 of Multi-step with next step required 98 CVX created date: 05/18/2023 consent date: 05/17/2023 administer ed date: 05/18/2023 Educated by Juvencio Parnell LPN on 05/17/2023 Mental Status Section Date Assessment Total Score Description 05/22/2023 BIMS 15 cognitively int act CAM 0 No delirium ind icated PHQ-9 00 05/22/2023 CAM 0 No delirium ind icated Problems Problem # Description Date of onset Resolved Date Code CodeSystem Concern Status 1 CELLULITIS OF LEFT LOWER LIMB 05/17/[address] active 2 CHRONIC DIASTOLIC (CONGESTIVE) HEART FAILURE 04/26/[address] active 3 CHRONIC OBSTRUCTIVE PULMONARY DISEASE, UNSPECIFIED 04/26/[address] active 4 MAJOR DEPRESSIVE DISORDER, RECURRENT, UNSPECIFIED 04/26/[address] active 5 TYPE 2 DIABETES MELLITUS 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, LEFT EYE 04/26/[address] active 6 TYPE 2 DIABETES MELLITUS WITH SEVERE NONPROLIFERATIVE DIABETIC RETINOPATHY WITH MACULAR EDEMA, RIGHT EYE 04/26/[address] active 7 NON-PRESSURE CHRONIC ULCER OF UNSPECIFIED PART OF LEFT LOWER LEG LIMITED TO BREAKDOWN OF SKIN 09/29/[address] active 8 TYPE 2 DIABETES MELLITUS WITH DIABETIC POLYNEUROPATHY 04/23/[address] active 9 VENOUS INSUFFICIENCY (CHRONIC) (PERIPHERAL) 04/23/[address] active 10 MORBID (SEVERE) OBESITY DUE TO EXCESS CALORIES 06/28/[address] active 11 ESSENTIAL (PRIMARY) HYPERTENSION 04/09/[address] active 12 VITAMIN D DEFICIENCY, UNSPECIFIED 02/22/[address] active 13 UNSPECIFIED ASTHMA, UNCOMPLICATED 06/16/[address] active 14 TYPE 2 DIABETES MELLITUS WITHOUT COMPLICATIONS 02/28/[address] active Reason for Referral No Reasons for Referral Entered Social History Social History Observation Description Start Date End Date Code Code System Current Smoking Status Tobacco smoking consumption unknown 015541260 SNOMED CT Sex Assigned At Female 1955 42533-3 [facility] Vital Signs Code Code System Vitals Name Values and Units Timing Information 2339-0 [facility] Blood Sugar Odnwj=786.0 Units=mg/dL 05/22/2023 34224-4 [facility] Pain Level Value=1.0 05/22/2023 9279-1 [facility] Respiratory Rate Value=18.0 Units=/m in 05/22/2023 8462-4 [facility] Blood Pressure-Diastolic Value=74 Un its=mmHg 05/22/2023 8480-6 [facility] Blood Pressure-Systolic Nzrae=140 Un its=mmHg 05/22/2023 8310-5 [facility] Body Temperature Value=97.5 Units= F 05/22/2023 8867-4 [facility] Heart rate Value=68.0 Units=/min 69858-3 [facility] O2 % BldC Oximetry Value=96.0 Units= % 05/20/2023 07823-3 [facility] Weight Vntfl=979.8 Units=Lbs 01/2024 8302-2 [facility] Height Value=5.6 Units=Inches 05/18/2023
--- OUTSIDE RECORDS SUMMARY | 2024-08-01 17:24 | XMS_ITS | Clinical Summary ---
Author Organization [facility] Address [address] [place] [id number] Care Team Providers Care Hired Worker Name Role Phone Shirley Fleming DO Primary Care Provider [phone] Allergies Active Allergy Reactions Criticality Noted Date Comments Naproxen Shortness Of Breath,Vomiting 12/14/2017 Aspirin Vomiting,Nausea And Vomiting Medium 06/19/2005 Clindamycin Diarrhea High 03/21/2020 Hydromorphone 11/08/2008 Hard time waking up from it. Latex Rash 08/15/2015 Lisinopril Morphine Respiratory Distress 06/27/2016 Ibuprofen Edema Nsaids (Non-Steroidal Anti-Inflammatory Drug) Shortness Of Breath,Anaphylaxis High 11/02/2020 Pt states heart problems Penicillins *Unknown Has received cephalosporins in the past Penicillin V Hypertension High 11/30/2022 Senna Diarrhea,Vomiting 08/31/2008 Titanium Rash 01/08/2022 Medications lancetsIndications :Uncontrolled type 2 diabetes mellitus without complication, with long-term current use of insulin Dispense item covered by pt ins. E11.9 IDDM type II - Test 3 times/day. 300 Each 3 019 Active brimonidine (ALPHAGAN) 0.2 % ophthalmic solution Place 1 Drop into left eye two times daily. Place 1 drop into left eye twice daily 020 Active durable medical equipment (DME)Indications:H eart failure with reduced ejection fraction and diastolic dysfunction (HC) Scale. Needs to go beyond 300 lbs. 1 Each 020 Active sodium chloride (SALINE NASAL) 0.65 % nasal solutionIndication s:Nasal congestion Inhale 1 [place] in the nostril(s) every hour if needed. 45 mL Active menthol 4% (Biofreeze, menthol,) topical gelIndications:Melonie betic nephropathy associated with type 2 diabetes mellitus (HC) Apply topically to affected area(s) 4 times daily if needed (pain). 1 Tube Active Incontinence Pad, Liner, Disp pads Use the pads 3 times a day as needed. 1 Package 11 Active nebulizer accessories kitIndications:Mil d intermittent asthma, unspecified whether complicated (HC) For home use. Length of need: indefinite 1 Kit Active durable medical equipment (DME)Indications:A cute pain of left knee,Difficulty walking Shower chair 1 Each 022 Active ascorbic acid SR (VITAMIN C) 500 mg capsule Take 1 Capsule (500 mg) by mouth once daily. 0 Active b complex vitamins (VITAMIN B COMPLEX) capsule Take 1 Capsule by mouth once daily. 0 022 Active albuterol HFA (PRO-AIR; VENTOLIN; PROVENTIL) 90 mcg/actuation inhalerIndications :Mild intermittent asthma, unspecified whether complicated (HC) Inhale 1-2 Puffs by mouth every 4 hours while awake. 18 Each 3 022 Active hydrocortisone 1 % ointmentIndication s:Chronic vaginitis APPLY TOPICALLY TO AFFECTED AREA(S) THREE TIMES DAILY. APPLY TOPICALLY TO AFFECTED AREA(S) 3 TIMES DAILY. 28.35 g 3 023 Active durable medical equipment (DME)Indications:L umbar back pain with radiculopathy affecting left lower extremity,Sciatica of left side,Obstructive sleep apnea syndrome,Stage 3b chronic kidney disease (HC) Trapeze attachment for the headboard of hospital bed 1 Each 023 Active insulin syringe-needle U-100 0.3 mL 30 gauge x 1/2Indications:Ty pe 2 diabetes mellitus with hyperglycemia, with long-term current use of insulin (HC) For administering insulin at home. 300 Each 023 Active latanoprost (XALATAN) 0.005 % ophthalmic solution INSTILL 1 DROP INTO BOTH EYES EVERY DAY IN THE EVENING 023 Active dorzolamide (TRUSOPT) 2 % ophthalmic solution INSTILL 1 DROP INTO LEFT EYE TWICE A DAY 023 Active durable medical equipment (DME)Indications:U lcer of left foot, unspecified ulcer stage (HC) Squared toe post op shoe, M left foot # [phone] 0 023 Active hospital bedIndications:Sev ere persistent asthma with acute exacerbation (HC),Hypoxia,Morbi d obesity with BMI of 50.0-59.9, adult (HC),Congestive heart failure, unspecified HF chronicity, unspecified heart failure type (HC) Hospital bed with mattress and full rails and trapeze. Semi-electric bed. Length of need 99 months. Bed attendance secretary:no 1 Each 023 Active oxygen-air delivery systems (HOME OXYGEN)Indications :Hypoxia,Severe persistent asthma with acute exacerbation (HC) Portable Oxygen Concentrator - PULSE DOSE - Liters per minute: 3 per nasal cannula. Frequency of use: With activity;. Length of need: LIFETIME 1 Each 023 Active Walker - 4 wheelsIndications: Morbid obesity with BMI of 50.0-59.9, adult (HC),Sciatica of left side,Lumbar back pain with radiculopathy affecting left lower extremity For home use. Length of need: 99 months Bariatric 4WW 1 Each 023 Active sodium chloride-aloe vera ([place] Saline Nasal) nasal gelIndications:Chr onic respiratory failure with hypoxia (HC) Apply to affected nostril(s) every 2 hours if needed for Nasal Dryness. 14.1 g 024 Active traMADoL (ULTRAM) 50 mg tabletIndications: Primary osteoarthritis of right knee Take 1 Tablet (50 mg) by mouth every 6 hours if needed for Pain. 5 Tablet 024 Active footcare,miscellan eous (Orthotic)Indicati ons:Type 2 diabetes mellitus with hyperglycemia, with long-term current use of insulin (HC) For home use. 2 Each 04/08/2 024 Active metoprolol tartrate (LOPRESSOR) 50 mg tablet Take 50 mg by mouth every morning. Hold if pulse is below 60 Active metoprolol tartrate (LOPRESSOR) as half tablet Take 25 mg by mouth once daily in the evening. Hold if pulse less than 60 Active vitamin D3-vitamin K2, MK4, (K2 + D3) 1,000-100 unit-mcg tab tablet Take 1 Tablet by mouth once daily. Active magnesium oxide (MAG-OX 400) 400 mg tablet Take 400 mg by mouth at bedtime. Active triamcinolone (ARISTOCORT; KENALOG) 0.1 % cream Apply 1 Application topically to affected area(s) 3 times daily if needed. Active calcium carbonate (CALTRATE) 600 mg calcium (1,500 mg) tablet Take 1,500 mg by mouth once daily in the evening. Active cholecalciferol, Vitamin D3, 5,000 unit tab tablet Take 5,000 units by mouth at bedtime. Active vitamin e 400 unit capsule Take 268 mg by mouth once daily. Active Zinc Sulfate 66 mg tab Take 66 mg by mouth at bedtime. Active eye vitamin-mineral vit C 226mg-vit E 90mg-copper 0.8mg-zinc 34.8 mg-lutein 5mg (PreserVision Lutein) capsule Take 1 Capsule by mouth once daily. Active vitamin B complex with vitamin C (SURBEX) tablet Take 1 Tablet by mouth once daily. Active nitroglycerin (NITROSTAT) 0.4 mg sublingual tabletIndications: Chest pain, unspecified type PLACE 1 TAB UNDER THE TONGUE EVERY 5 MINUTES IF NEEDED FOR CHEST PAIN If patient requesting greater than 25 doses in 30 days, to provider to authorize 25 Tablet Active durable medical equipment (DME)Indications:U rinary incontinence, unspecified type Incontinence Wipes 100 Each Active acetaminophen (TYLENOL) 325 mg tablet Take 1-2 Tablets (325-650 mg) by mouth every 6 hours if needed for Pain. Do not exceed 4000 mg in 24 hours. Active loperamide (IMODIUM) 2 mg tablet Take 1 Tablet (2 mg) by mouth 4 times daily if needed for Diarrhea. Active rosuvastatin (CRESTOR) 10 mg tabletIndications: Type 2 diabetes mellitus with hyperglycemia, with long-term current use of insulin (HC) Take 1 Tablet (10 mg) by mouth at bedtime. 90 Tablet 3 024 Active torsemide (DEMADEX) 20 mg tabletIndications: Chronic diastolic congestive heart failure (HC) Take 1 Tablet (20 mg) by mouth once daily. 024 Active blood sugar diagnostic (Accu-Chek Guide test strips) stripIndications:T ype 2 diabetes mellitus with hyperglycemia, with long-term current use of insulin (HC) TEST 3 TIMES/DAY 300 Each 3 024 Active allopurinoL (ZYLOPRIM) 100 mg tabletIndications: Idiopathic chronic gout without tophus, unspecified site Take 1.5 Tablets (150 mg) by mouth once daily. 135 Tablet 3 024 Active levothyroxine (SYNTHROID) 125 mcg tabletIndications: Hypothyroidism, unspecified type Take 1 Tablet (125 mcg) by mouth once daily. 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 3.5 g Active blood-glucose meterIndications:T ype 2 diabetes mellitus with hyperglycemia, with long-term current use of insulin (HC) As directed. Dispense meter, test strips, lancets covered by pt ins. E11.65 NIDDM type II, uncontrolled - Test 3 times/day, Reason: Unstable diabetes 1 Each Active insulin nph-regular (NovoLIN 70/30 U-100 Insulin) 100 unit/mL (70-30) injIndications:Typ e 2 diabetes mellitus with hyperglycemia, with long-term current use of insulin (HC) Inject 67 units under the skin in the AM and 52 units under the skin in the early evening. 150 mL 3 024 Active metOLazone (ZAROXOLYN) 5 mg tabletIndications: Chronic diastolic congestive heart failure (HC) Take 1 Tablet (5 mg) by mouth once daily. Take 5mg once weekly 90 Tablet 3 024 Active loratadine (CLARITIN) 10 mg tabletIndications: Seasonal allergies Take 1 Tablet (10 mg) by mouth once daily. 90 Tablet 3 024 Active montelukast (SINGULAIR) 10 mg tabletIndications: Severe persistent asthma with acute exacerbation (HC) TAKE ONE TABLET BY MOUTH AT BEDTIME 30 Tablet 025 Active nystatin 100,000 unit/gram creamIndications:I ntertrigo APPLY TOPICALLY TO AFFECTED AREA(S) TWO TIMES DAILY. 30 g 4 025 Active nystatin 100,000 unit/gram creamIndications:I ntertrigo APPLY TOPICALLY TO AFFECTED AREA(S) TWO TIMES DAILY. 30 g 3 024 2024 Discontinued Active Problems Patient Care Coordination No te Formatting of this note migh t be different from the original. Problem: Unable to afford medical care or medications Goal: Able to afford medical care or medications Plan: Re-explore options with [facility] navigation social workers, Albertina Travis [phone]. Responsibility: Dyan Randhawa will contact initially and mail Care Navigation information to Caity . Target Date: Caity contact social media analyst at [employer] Desk [phone] by 05/05/2010. Achieved Date: 04/12/2010- Dyan Tate Contacted care navigation initially - information mailed to Caity. Date and Name of Cafe Helper: DYAN LARA RN .................... 04/12/2010 11:59 AM Problem: Does not have Advance Care Plan in place Goal: Advance Care Plan on file Plan: Will complete Advance Care Plan in May - to be scheduled. Mail advance care planning information to Caity. Responsibility: Dyan will call Caity and schedule ACP by 05/03/2010 Target Date: Information mailed 04/12/2010, Complete Health Care Directive by 06/02/2010 Achieved Date: Information mailed 04/12/2010. Date and Name of Cafe Helper: DYAN LARA RN .................... 04/12/2010 11:59 AM Problem Noted Date Diagnosed Date Chronic respiratory failure with hypoxia Chronic diastolic heart failure 04/26/2023 Chronic obstructive pulmonar y disease, unspecified COPD type 04/26/2023 Depression, recurrent 04/26/2023 Proliferative diabetic retin opathy of left eye associated with type 2 diabetes mellitus 04/26/2023 Severe nonproliferative diab etic retinopathy of right eye with macular edema associated with type 2 diabetes mellitus 04/26/2023 Skin ulcer of left lower leg, limited to breakdo wn of skin 09/28/2021 Stage 3b chronic kidney disease 06/13/2021 Diabetic nephropathy associa leona with type 2 diabetes mellitus 07/21/2020 Overview (07/21/2020): 07/19/2020: Macroalbuminuria Venous insufficiency of both lower extremities 0 04/23/2020 Diabetic peripheral neuropat hy associated with type 2 diabetes mellitus 04/23/2020 Cellulitis of right lower leg 04/23/2020 Primary osteoarthritis of right knee 04/02/2019 Hypertriglyceridemia 09/23/2018 Lumbar back pain with radicu lopathy affecting left lower extremity 05/20/2017 Controlled substance agreement signed 02/25/2017 Acute kidney injury 09/06/2016 Hematuria 09/06/2016 Nephrolithiasis 09/04/2016 UTI (urinary tract infection) 09/04/2016 Lactic acidosis 09/04/2016 Morbid obesity with BMI of 50.0-59.9, adult 06/07 Chronic diastolic congestive heart failure 06/21 Obstructive sleep apnea syndrome 06/22/2015 HTN (hypertension) 04/09/2014 Rectocele 01/12/2014 Adenomatous colon polyp 11/04/2013 Overview (12/30/2019): Colonoscopy 10/2013 polyp repeat in 5 years Colonoscopy 12/2019 three polyps, repeat in 3 years ACP (advance care planning) 04/10/2010 Overview (04/10/2010): Patient has identified Health Care Agent(s): Yes Add Health Care Agents: Yes Health Care Agent(s): Primary Health Care Agent: Betzy Nain Relationship: daughter Secondary Health Care Agent: Alanna Garcia Relationship: daughter (h) [phone](c) Conservator: Relationship: Phone: Guardian: Relationship: Phone: Patient has Advanced Care Plan Documents (Health Care Directive, POLST): No, Health Care Packet given to patient. Patient will complete HCD with Dyan Lara RN in May - to be scheduled. Patient has identified Specific Treatment Preferences: No Specific limits to treatment preferences NOT identified: ASSUME FULL TREATMENT. Vitamin D deficiency 02/21/2009 Unspecified asthma(493.90) 06/15/2006 Unspecified hypothyroidism 06/15/2006 Sciatica 06/15/2006 Uncontrolled type 2 diabetes mellitus without complication, with long-term current use of insulin 02/27/2002 Resolved Problems Problem Noted Date Diagnosed Date Resolved Date Chest pain 06/27/2016 09/04/2016 Medical Home 04/10/2010 09/11/2010 Acute on chronic diastolic c ongestive heart failure 09/04/2016 Acute diastolic congestive heart failure 09/04/2016 Encounters Date Type Department Care Team Description 07/10/2024 Refill [facility] [address] [place] [address] Sebastianqra Shirley Shantel, DO Refill Request (Nystatin) 07/07/2024 Telephone [facility] [address] [place] [address] Williamra Shirley Shantel, DO Outside Order (home nurse ) 07/02/2024 Telephone [facility] [address] [place] [address] Sir Flemingi Shantel, DO Lab (Lab for Kidney Provider - issues ) 06/29/2024 Telephone [facility] [address] [place] [address] Sir Flemingi Shantel, DO Referral (HOME HEALTH AIDE) 06/27/2024 Home Care Visit [facility] [address] [place] [phone] Kasandra Johnson, RN CARE COORDINATION 06/27/2024 Orders Only [facility] [address] [place] [address] Kasandra Johnson, RN <No scans attached> 06/26/2024 2:00 PM CDT Home Care Visit [facility] [address] [place] [phone] Kasandra Johnson, RN SN - OASIS DISCHARGE 06/25/2024 Nurse Triage [facility] [address] [place] [address] Bernadette Shirleybernie Funes, DO Abdominal Pain 06/24/2024 Home Care Visit [facility] [address] [place] [phone] Kasandra Johnson, LISA CARE COORDINATION 06/15/2024 Orders Only [facility] Scanner 1 scan: (1-Ord) RCM, 06/15/2024 06/12/2024 1:00 PM COUNTER SALES PERSON Home Care Visit [facility] [address] [place] [address], [place] [phone] Nicole Don LPN [employer]ORE AREA SUPERVISOR - HOME VISIT 06/03/2024 11:00 AM COUNTER SALES PERSON Home Care Visit [facility] [address] [place] [address], [place] [phone] Yasmine Jessica, RN SN - HOME VISIT 05/29/2024 12:00 PM COUNTER SALES PERSON Home Care Visit [facility] [address] [place] [phone] Yasmine Jessica, RN SN - HOME VISIT 05/22/2024 12:00 PM COUNTER SALES PERSON Home Care Visit [facility] [address] [place] [phone] Yasmine Jessica, RN SN - HOME VISIT 05/19/2024 12:00 PM COUNTER SALES PERSON Home Care Visit [facility] [address] [place] [phone] Yasmine Jessica, RN SN - HOME VISIT 05/15/2024 12:15 PM COUNTER SALES PERSON Home Care Visit [facility] [address] [place] [phone] Yasmine Jessica, RN SN - HOME VISIT 05/12/2024 1:00 PM COUNTER SALES PERSON Home Care Visit [facility] [address] [place] [phone] Nicole Don LPN [employer] STORE AREA SUPERVISOR - HOME VISIT 05/11/2024 8:30 AM COUNTER SALES PERSON Home Care Visit [facility] [address] [place] [phone] Cornell Chapman, RN SN - WOUND/OSTOMY CHART CONSULT 05/08/2024 11:00 AM COUNTER SALES PERSON Home Care Visit [facility] [address] [place] [phone] Nicole Don LPN RETAIL CH[employer] STORE AREA SUPERVISOR - HOME VISIT 05/06/2024 Refill [facility] [address] [place] [address] Shirley Fleming, DO Refill Request (Montelukast) 05/05/2024 4:00 AM COUNTER SALES PERSON Home Care Visit [facility] [address] [place] [phone] Yasmine Jessica RN SN - HOME VISIT 05/03/2024 Plan of Care Documentation [facility] [address] [place] [address], [place] [phone] from Last 3 Months Immunizations Immunization Administration Dates Next Due COVID-19 vaccine (Blackboard-Bio NTech 30mcg/0.3mL) 12YO+ BIVALENT PF, MDV 03/05/2022 COVID-19 vaccine (Pfizer-Bio NTech 30mcg/0.3mL) PF, MDV 03/10/2021,08/08/2020,07/18/2020 Influenza Virus, Unspecified 01/26/2017 Influenza, CCIIV3 (Age >=6 M O) (Egg Free) 04/08/2016 Influenza, High-dose Inactivated 02/22/2019 Influenza, High-dose Quadriv alent Inactivated 03/05/2020 Influenza, IIV3 (Age 6-35 mos) 02/26/2012 Influenza, IIV3 (Age >=3 years) 12/24/19 13,02/01/2011,03/08/2010,2008,01/10/2007,02/19/2005,02/17/2004,1 ,02/17/2002 Influenza, IIV4 03/11/2018,03/26/2016,02/15/2015 Influenza, IIV4 (=>6mos) MDV 03/08/2018, 017,02/09/2014 Influenza, Inactivated AIIV4 (Age 65+ Years) Preserv Free 03/05/2022,03/10/2021 Pneumococcal Conj 20-valent (Prevnar 20) 12/31/2022 Pneumococcal Poly,23-Valent (Pneumovax) 02/05/1997 Td (Age >=7 Years) 02/17/2004,01/22/1997 Tdap 12/23/2012,09/26/2010 Tuberculin Skin Test, Unspecified 05/17/2023 Zoster (Zostavax-ZVL, live) 02/09/2014, 4 Family History Medical History Relation Name Comments Other Father Hx Myeloma Other Mother Hx Migraines Diabetes Other 1 grandparents Diabetes Other 2 type 2 Hyperlipidemia Other 3 family hx Hypertension Other 4 family hx Cancer-breast No Family History Cancer-ovarian No Family History Relation Name Status Comments Father Mother Other 1 Other 2 Other 3 Other 4 Social History Tobacco Use Types Packs/Day Years Used Date Smoking Tobacco: Never Smokeless Tobacco: Never Tobacco Cessation:Counseling Given: Yes Alcohol Use Standard Drinks/Week Comments No 0 (1 standard drink = 0.6 oz pur e alcohol) PHQ-2 Answer Date Recorded PHQ-2 TOTAL SCORE 5 04/26/2023 Social Connections Answer Date Recorded Frequency of Communication with Friends and Fami ly 0 11/15/2022 Financial Resource Strain Answer Date R ecorded Difficulty of Paying Living Expenses Not on file 11/15/2022 Difficulty of Paying Living Expenses 3 11/15/2022 Food Insecurity Answer Date Recorded Worried About Running Out of Food in the Last Ye ar 2 11/15/2022 Transportation Needs Answer Date Record ed Lack of Transportation (Medical) 2 11/15/2022 Housing Stability Answer Date Recorded Unable to Pay for Housing in the Last Year 1 11/15/2022 Comments No Sex and Gender Information Value Date Recorded Sex Assigned at Not on file Legal Sex Female 5:25 AM COUNTER SALES PERSON Gender Identity Not on file Sexual Orientation Not on file Obstetrics History Last Filed Vital Signs Vital Sign Reading Time Taken Comments Blood Pressure 113/78 06/27/2024 3:15 AM CDT Pulse 70 06/27/2024 3:15 AM CDT Temperature 36.7 C (98.1 F) 06/27/2024 3:15 AM CDT Respiratory Rate 1 06/27/2024 3:15 AM CDT Oxygen Saturation 95% 06/27/2024 3:15 AM CDT Inhaled Oxygen Concentration - - Weight 146.8 kg (323 lb 11.2 oz) 2024 12:34 PM COUNTER SALES PERSON Height 165.1 cm (5' 5) 05/01/2024 1:29 PM COUNTER SALES PERSON Body Mass Index 53.87 05/01/2024 1:29 PM COUNTER SALES PERSON Plan of Treatment Health Maintenance Due Date Last Done Comments RSV vaccine for adults or (1 - Risk 60-74 years 1-dose series) 2014 Zoster (shingles) series for age 50+ (2 of 3) 04/06/2014 02/09/2014, 01/17/2014 DEXA/DXA scan for age 65+ 2019 Tetanus booster 12/23/2022 12/23/2012, 09/07, 02/17/2004, Additional history exists BMI (ht and wt on same day) for age 18+ 03/05/2023 03/05/2022, 01/08/2022, 10/24/2020, Additional history exists COVID-19 vaccine series ( season) 2023 03/05/2022, 03/10/2021, 08/08/2020, Additional history exists Medicare Wellness for age 65+ 04/26/2024, 03/05/2022, 02/15/2015, Additional history exists Depression screening for age 12+ 04/29/2024 04/29/2023, 04/26/2023, 04/26/2023, Additional history exists Influenza Vaccine (Season Ended) 2024 03/05/2022, 03/10/2021, 02/22/2019, Additional history exists Colonoscopy through age 75 12/27/202412/27, 12/28/2019, 12/28/2019, Additional history exists Mammogram for age 45-75 01/12/2025 01/13/20 24, 11/11/2020, 10/24/2020, Additional history exists Lipids for age 45-75 10/07/2028 10/08/2023, 07/18/2020, 05/25/2019, Additional history exists Tdap Completed 12/23/2012, 09/26/2010 Hepatitis C screening for ag e 18-79 Completed 03/05/2022 Pneumococcal series for age 50+ Completed 3, 02/05/1997 Goals Goal Patient Goal Type Associated Problems Recent Progress Patient-Stated? Author BLOOD PRESSURE - MAINTAINS BP less than 140/90 Blood Pressure No Michelle Gold BLOOD PRESSURE-MAINTA INS BP LESS THAN 130/80 Blood Pressure No Kaila Valdez MD Medical Devices Implanted Type Area Latex Thread Machine Operator Device Identifier Shelf Expiration Date Model / Serial / Lot Iol [place] 21.0 Envista [id number] - [id number] Implanted:Qty: 1 on 11/02/2020 by Jamarcus Velez MD at [facility] Opthalmology Implants Left: Eye [employer] 03/07/2023 [id number] / [id number] / Stent Uret [id number] Contour - [id number] Implanted:Qty: 1 on 09/04/2016 by Alton Suarez MD at [facility] Left: Ureter [facility] 02/13/2019 [id number] / / [id number] Plate Glaucoma Valve Flex Ahmed Silcn - [id number] Implanted:Qty: 1 on 01/10/2022 by Lanre Tee MD at [facility] Left: Eye [employer] 07/16/2023 [id number] / [id number] / [id number] Cornea 9.0mm+ Visiongraft W/O Scleral Rim Half - [id number] Implanted:Qty: 1 on 01/10/2022 by Lanre Tee MD at [facility] Left: Eye [employer] 06/14/2023 [id number] / [id number] E / Description:DIN: [id number] FIN(P) [id number] Procedures Procedure Name Priority Date/Time Associated Diagnosis Comments SCAN-EYE EXAM 06/15/2024 12:00 AM CDT XR MAMMO BILAT SCREENING Routine 01/13/2024 1:11 PM CDT Visit for screening mammogram LIPID PANEL W REFLEX MEASURED LDL Routine 10/08/2023 2:20 PM CDT Type 2 diabetes mellitus with hyperglycemia, with long-term current use of insulin (HC) Hypertriglyceridemi a ANTI HCV Routine 03/05/2022 12:11 PM COUNTER SALES PERSON Need for hepatitis C screening test COLONOSCOPY SCREENING Routine 12/28/2019 12:00 AM CDT History of colon polyps from Last 3 Months or Most Recently Relevant to Health Maintenance Results * SCAN-EYE EXAM (06/15/2024 12:00 AM CDT) us Scanner OTHER Final Result * XR MAMMO BILAT SCREENING (01/13/2024 1:11 PM CDT) Anatomical Region Laterality Modality BREASTS, Breast Left, Breast Right Bilateral Mammography Impressions 01/13/2024 2:34 PM CDT There is no radiographic evidence for malignancy. Recommend annual mammograms. MAMMOGRAM ASSESSMENT: ACR 1 Negative PATIENTS: You will also receive a letter with your examination results in an easy to read format. If you have questions about your results, please contact your referring provider. Narrative 01/13/2024 2:34 PM CDT For Patients: As a result of the Century Cures Act, medical imaging exams and procedure reports are released immediately into your electronic medical record. You may view this report before your referring provider. If you have questions, please contact your health care provider. XR MAMMO BILAT SCREENING [[id number]] CLINICAL HISTORY: This is an asymptomatic 68 y.o. patient. INDICATION FOR EXAM: Mammogram Screening. TECHNIQUE: CC & MLO views were obtained. This study was evaluated with the assistance of Computer-Aided Detection. COMPARISON FILM: Yes 10/24/20 [facility] 02/03/18 [facility] FINDINGS: There are scattered areas of fibroglandular density. There are no dominant masses, suspicious micro calcifications or areas of architectural distortion. us Shirley Shantel Fleming DO MAMMO Final Result * (ABNORMAL) LIPID PANEL W REFLEX MEASURED LDL (10/08/2023 2:20 PM CDT) CHOLESTEROL,TOTAL 110 100 - 199 mg/dL 10/09/2023 5:35 AM CDT [facility] Comment: Cholesterol, Total Reference Ranges Desirable <200 mg/dL Borderline 200-239 mg/dL High >=240 mg/dL TRIGLYCERIDES 120 <150 mg/dL 10/09/2023 5:35 AM CDT [facility] HDL CHOLESTEROL 37(L) >40 mg/dL 5:35 AM CDT [facility] NON-HDL CHOLESTEROL 73 <145 mg/dl 10/09/2023 5:35 AM CDT [facility] CHOL/HDL RATIO 2.97 <4.50 10/09/2023 5:35 AM CDT [facility] LDL CHOLESTEROL 49 <=130 mg/dL 10/09/2023 5:35 AM CDT [facility] VLDL CHOLESTEROL 24 <=30 mg/dL 10/09/2023 5:35 AM CDT [facility] PROVIDER ORDERED STATUS RANDOM 10/09/2023 5:35 AM CDT [facility] Blood BLOOD SPECIMEN / Unknown Venipuncture / Unknown 10/08/2023 2:20 PM CDT 10/08/2023 2:21 PM CDT Shirley Fleming DO CHEMISTRY Final Result [facility] [address] [place] [address], * ANTI HCV (03/05/2022 12:11 PM COUNTER SALES PERSON) HEPATITIS C ANTIBODY Non-React narendra Non-React narendra 03/06/2022 8:05 PM COUNTER SALES PERSON [facility] Comment:Antibodies to HCV no t detected; does not exclude the possibility of exposure to HCV. Blood BLOOD SPECIMEN / Unknown Venipuncture / Unknown 03/05/2022 12:11 PM COUNTER SALES PERSON 03/05/2022 12:11 PM COUNTER SALES PERSON us Shirley Fleming DO SEND OUTS Final Result [facility] [address] [place] [address], [place] * COLONOSCOPY SCREENING (12/28/2019 12:00 AM CDT) us Hai Mcadams MD GI PROCEDURE ORD Final Re sult from Last 3 Months or Most Recently Relevant to Health Maintenance Additional Health Concerns Infection Onset Date Last Indicated MRSA Comment:Order Contact Precautions. Nares surveillance cultures needed to clear patient if <12 months since positive culture. If >12 months since positive culture, precautions can be discontinued if patient has no MRSA risk factors. 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 L foot exclusions for contact precaution discontinuation (if > 12 months since positive culture): resides in acute/care home care, receiving hemodialysis, has chronic open wounds/skin damage, has long-term percutaneous indwelling medical devices Exclusions for nares collection (if <12 months since positive culture) include all of the previous exclusions plus patients on antibiotics 7 days prior to collection 12/21/2022 12/21/2022 [id number] [id number] [facility] Member Subscriber Plan / Payer (Ef fective 2023-Present) Name:Caity Ojeda Relation to Subscriber:Self Name:Caity Ojeda Payer ID:[id number] (NA) Group ID:[id number] Type:Not on file Address: [address]: [id number] [place] [address] [employer] PPS * Guarantor: [employer] Account Type Relation to Patient Date of Phone Billing Address [facility] [address] ATTN ALYSSA LOPEZ [address] [place] [id number] Advance Directives Documents on File Type Date Recorded Patient Set Rider Hannah IQBAL 09/05/2022 * Full Code (Latest Code Status on File) Date Activated Date Inactivated Comments 09/05/2023 7:47 AM * Full Code Date Activated Date Inactivated Comments 01/10/2022 8:24 AM 01/10/2022 2:31 PM Question Answer Comments Code Status Discussion: Reviewed Preferences * Full Code Date Activated Date Inactivated Comments 11/02/2020 7:04 AM 11/02/2020 12:53 PM Question Answer Comments Code Status Discussion: Not Discussed * Full Code Date Activated Date Inactivated Comments 09/04/2016 3:10 AM 09/07/2016 4:12 PM * Full Code Date Activated Date Inactivated Comments 06/27/2016 5:56 PM 07/02/2016 4:31 PM Care Teams Hired Worker Relationship Specialty Start Date End Date Shirely Fleming DO [address] [place] [address] PCP - General Family Practice 12/19/20 Nancy Gonsalez 02/06/23
[2024-08-01 17:28] VITALS: BP 144/101; PULSE 74; RESP 20; TEMP 37; O2SAT 93
--- NOTE | 2024-08-01 17:39 | CRLHL7_ITS ---
For Patients: As a result of the Century Cures Act, medical imaging exams and procedure reports are released immediately into your electronic medical record. You may view this report before your referring provider. If you have questions, please contact your health care provider. INDICATION: Cough. TECHNIQUE: Chest AP and lateral. COMPARISON: None. FINDINGS: When allowing for AP technique, the heart is enlarged. There may be mild interstitial edema although this may be accentuated due to the patient`s size. There are no consolidative changes. There are no pleural fluid collections. There is ossification of the anterior longitudinal ligament of the mid and lower thoracic spine. IMPRESSION: Cardiomegaly. Possible mild interstitial edema. There no consolidative changes. Dictated by Kyler Johns MD @ 08/01/2024 6:24:55 PM (Electronically Signed)
--- NOTE | 2024-08-01 17:40 | ED.GENADULT ---
HPI - General Adult General Chief complaint: Cough Stated complaint: Weakness and fluid Time Seen by Provider: 08/01/24 17:35 History of Present Illness HPI narrative: Patient is a 69-year-old woman with history of COPD who comes in today with several days of nonproductive cough. She takes her nebulizer treatments of albuterol regularly. She has had no chest pain no orthopnea no PND. She is on oxygen at 2 L but is turned up a bit to 3-4 L at times in the last week. She has had no nausea no vomiting no change in her bowel or bladder. Patient is been eating and drinking normally. Related Data Home Medications ?Medication ?Instructions ?Recorded ?Confirmed brimonidine 0.2 % eye drops 1 drp ophthalmic (eye-left) BID 11/06/22 08/01/24 dorzolamide 2 % eye drops 1 drp ophthalmic (eye-left) BID 11/06/22 08/01/24 latanoprost 0.005 % eye drops 1 drp ophthalmic (eye) QPM 11/06/22 08/01/24 levothyroxine 125 mcg tablet 125 mcg PO DAILY@07 11/06/22 08/01/24 losartan 100 mg tablet 100 mg PO DAILY 11/06/22 08/01/24 montelukast 10 mg tablet 10 mg PO HS 11/06/22 08/01/24 nitroglycerin 0.4 mg sublingual 0.4 mg sublingual Q5M PRN 11/06/22 08/01/24 tablet prednisolone acetate 1 % eye 1 drp ophthalmic (eye-left) BID 11/06/22 08/01/24 drops,suspension timolol maleate 0.5 % eye drops 1 drp ophthalmic (eye-right) QAM 11/06/22 08/01/24 ascorbic acid (vitamin C) 500 mg 500 mg PO BID 11/07/22 08/01/24 tablet loratadine 10 mg tablet 10 mg PO HS 11/07/22 08/01/24 (Allerlocar) multivitamin (Daily Multi-Vitamin 1 tab PO DAILY 11/07/22 08/01/24 tablet) vitamin B complex (B 1 tab PO DAILY 11/07/22 08/01/24 Complex-Vitamin B12 tablet) cholecalciferol (vitamin D3) 125 5,000 unit PO HS 11/29/22 08/01/24 mcg (5,000 unit) tablet (Vitamin D3) rosuvastatin 10 mg tablet 10 mg PO HS 11/29/22 08/01/24 vit C 226 mg-vit E 90 mg-copper 1 cap PO DAILY 12/21/22 08/01/24 0.8 mg-zinc oxide-lutein 5 mg capsule (PreserVision Lutein) vitamin E 268 mg (400 unit) capsule 268 mg PO DAILY 12/21/22 08/01/24 zinc sulfate 66 mg tablet (Zinc-15) 66 mg PO HS 12/21/22 08/01/24 acetaminophen 650 mg 1,300 mg PO BID 05/08/23 08/01/24 tablet,extended release (8 Hour Pain Reliever) allopurinol 100 mg tablet 150 mg PO DAILY 05/08/23 08/01/24 calcium carbonate (Calcium 600) 600 mg PO QPM 05/08/23 08/01/24 cholecalciferol (vitamin D3) 25 25 mcg PO QAM 05/08/23 08/01/24 mcg (1,000 unit) capsule hydrocortisone 1 % topical 1 applic topical TID PRN 05/08/23 08/01/24 ointment (Cortizone-10) loperamide 2 mg tablet 2 mg PO Q6H PRN 05/08/23 08/01/24 magnesium oxide 400 mg (241.3 mg 400 mg PO HS 05/08/23 08/01/24 magnesium) tablet menthol 4 % topical gel (Biofreeze 1 applic topical QID PRN 05/08/23 08/01/24 (menthol)) neomycin 3.5 mg/g-polymyxin B 1 applic ophthalmic (eye-right) 05/08/23 08/01/24 10,000 unit/g-dexameth 0.1 % eye BID PRN oint (Maxitrol) sodium chloride 0.65 % nasal spray 1 spray intranasal Q1H PRN 05/08/23 08/01/24 aerosol (Deep Sea Nasal) triamcinolone acetonide 0.1 % 1 applic topical 3XD PRN 05/08/23 08/01/24 topical cream albuterol sulfate 90 mcg/actuation 2 puff inhalation 6XD PRN 07/24/23 08/01/24 aerosol inhaler shortness of breath or wheezing sodium chloride-aloe vera nasal 1 applic intranasal Q2H PRN 07/24/23 08/01/24 gel (Curtis Saline nasal gel) Previous Rx's ?Medication ?Instructions ?Recorded tramadol 50 mg tablet 50 mg PO Q6H PRN pain #10 tabs 05/17/23 insulin human U-100 NPH-regulr 47 unit (0.47 mL) subcut QPM #3 mL 07/26/23 70-30 mix 100 unit/mL subcutaneous susp (Humulin 70/30 U-100 Insulin) insulin human U-100 NPH-regulr 60 unit (0.6 mL) subcut QAM #10 mL 07/26/23 70-30 mix 100 unit/mL subcutaneous susp (Novolin 70/30 U-100 Insulin) ipratropium 0.5 mg-albuterol 3 mg 3 ml inhalation QID #180 mL 07/26/23 (2.5 mg base)/3 mL nebulization soln metolazone 2.5 mg tablet 5 mg (2 x 2.5 mg) PO FR@09 #30 tabs 07/26/23 metoprolol tartrate 50 mg tablet 25 mg (1/2 x 50 mg) PO HS #30 tabs 07/26/23 metoprolol tartrate 50 mg tablet 50 mg PO QAM #30 tabs 07/26/23 spironolactone 25 mg tablet 25 mg PO DAILY #30 tabs 07/26/23 torsemide 60 mg tablet 60 mg PO DAILY #30 tabs 07/26/23 nystatin 100,000 unit/gram topical 1 applic topical BID #30 grams 03/15/24 cream nirmatrelvir 300 mg (150 mg See Rx Instructions PO .COMPLEX 08/01/24 x2)-ritonavir 100 mg tablet,dose #30 ea pack (Paxlovid) Allergies Allergy/AdvReac Type Severity Reaction Status Date / Time clindamycin Allergy Severe Verified 08/01/24 17:32 hydromorphone Allergy Severe Stopped Verified 08/01/24 17:32 Breathing morphine Allergy Severe Stopped Verified 08/01/24 17:32 Breathing NSAIDS (Non-Steroidal Allergy Severe Anaphylaxis Verified 08/01/24 17:32 Anti-Inflamma penicillin V Allergy Severe Hypertensio Verified 08/01/24 17:32 n aspirin AdvReac nausea and Verified 08/01/24 17:32 vomiting Review of Systems Status of ROS: Reports: 10 or more systems reviewed and unremarkable except as noted in History and below [facility] Medical History Diastolic congestive heart failure with preserved left ventricular function, NYHA class 2 ?I50.30 - Unspecified diastolic (congestive) heart failure (ICD-10) Sciatica of right side ?M54.31 - Sciatica, right side (ICD-10) Unable to care for self ?Z78.9 - Other specified health status (ICD-10) Physical debility ?R53.81 - Other malaise (ICD-10) Obstructive sleep apnea ?G47.33 - Obstructive sleep apnea (adult) (pediatric) (ICD-10) Morbid obesity with BMI of 50.0-59.9, adult ?E66.01 - Morbid (severe) obesity due to excess calories (ICD-10) ?Z68.43 - Body mass index [BMI] 50.0-59.9, adult (ICD-10) Acute on chronic diastolic heart failure ?I50.33 - Acute on chronic diastolic (congestive) heart failure (ICD-10) Pulmonary edema with congestive heart failure ?I50.1 - Left ventricular failure, unspecified (ICD-10) Cellulitis of left lower leg ?L03.116 - Cellulitis of left lower limb (ICD-10) Acute kidney injury superimposed on chronic kidney disease ?N17.9 - Acute kidney failure, unspecified (ICD-10) ?N18.9 - Chronic kidney disease, unspecified (ICD-10) Diabetic foot ulcer ?E11.621 - Type 2 diabetes mellitus with foot ulcer (ICD-10) ?L97.509 - Non-pressure chronic ulcer of other part of unspecified foot with unspecified severity (ICD-10) History of fracture of left ankle ?Z87.81 - Personal history of (healed) traumatic fracture (ICD-10) correction current use of insulin ?Z79.4 - correction (current) use of insulin (ICD-10) History of sciatica ?Z86.69 - Personal history of other diseases of the nervous system and sense organs (ICD-10) Primary hypothyroidism ?E03.9 - Hypothyroidism, unspecified (ICD-10) Asthma ?J45.909 - Unspecified asthma, uncomplicated (ICD-10) Vitamin D deficiency ?E55.9 - Vitamin D deficiency, unspecified (ICD-10) Rectocele ?N81.6 - Rectocele (ICD-10) Essential hypertension ?I10 - Essential (primary) hypertension (ICD-10) Chronic diastolic heart failure ?I50.32 - Chronic diastolic (congestive) heart failure (ICD-10) History of nephrolithiasis ?Z87.442 - Personal history of urinary calculi (ICD-10) Lumbar back pain with radiculopathy affecting left lower extremity ?M54.16 - Radiculopathy, lumbar region (ICD-10) Hypertriglyceridemia ?E78.1 - Pure hyperglyceridemia (ICD-10) Osteoarthritis of knees, bilateral ?M17.0 - Bilateral primary osteoarthritis of knee (ICD-10) Chronic kidney disease ?N18.9 - Chronic kidney disease, unspecified (ICD-10) Diabetic nephropathy associated with type 2 diabetes mellitus ?E11.21 - Type 2 diabetes mellitus with diabetic nephropathy (ICD-10) Surgical History Status post total abdominal hysterectomy ?Z90.710 - Acquired absence of both cervix and uterus (ICD-10) Status post thyroidectomy ?E89.0 - Postprocedural hypothyroidism (ICD-10) History of esophagogastroduodenoscopy ?Z98.890 - Other specified postprocedural states (ICD-10) Status post cholecystectomy ?Z90.49 - Acquired absence of other specified parts of digestive tract (ICD-10) History of intraocular lens implant ?Z96.1 - Presence of intraocular lens (ICD-10) Cataract extraction status ?Z98.49 - Cataract extraction status, unspecified eye (ICD-10) Status post appendectomy ?Z90.49 - Acquired absence of other specified parts of digestive tract (ICD-10) Status post colonoscopy with polypectomy ?Z98.890 - Other specified postprocedural states (ICD-10) Family History Other Diabetes High blood pressure High cholesterol Social History Narrative: . Lives alone. Three supportive children. Designates daughterAlanna, , primary contact for power of production mechanic for health should that be required. Designates son, Nathan, [phone]/14/2004, secondary contact for power of production mechanic for health should that be required. Requests that we attempt resuscitation in the event of cardiopulmonary demise, stressing that she does not want to be kept alive as a vegetable should that come to pass. She reports worsening mobility problems. It is difficult due to her back pain and radicular symptoms going down her right leg for her to get up and walk around. To a lesser extent her left foot also bothers her with weight-bearing. She does walk with a walker. She has a home health nurse doing dressing changes as well as wound care from [facility]. What is your current living situation?: I presently have a place to live Problems where you live: mold Problems where you live details: mold In the past 12 months, utilities in danger of being shut off: no In past 12 months, lack of transportation kept you from medical appts, meetings, work, or getting things needed for daily living: yes In the past 12 mos, have been you worried that your food would run out before you had money to buy more?: sometimes true In the past 12 mos, the food you bought just didn't last and you didn't have money to buy more?: sometimes true How often does anyone, including family, friends and others, physically hurt you: never How often does anyone, including family, friends and others, insult or talk down to you: rarely How often does anyone, including family, friends and others, threaten you with harm: never How often does anyone, including family, friends and others, scream or curse at you: never Health Related Social Needs: Inadequate housing (Z59.1), food insecurity (Z59.41), transportation insecurity (Z59.82) and Other personal risk factors, not elsewhere classified (Z91.89) Exam Narrative: Exam Narrative: EXAM GENERAL: Patient appears comfortable and well. EYES: No scleral icterus. LYMPH: No supraclavicular or cervical lymphadenopathy. SKIN: Visible skin seen during exam normal or with benign process only. EXT: No dependent lower extremity pedal edema. HEART: Regular rate and rhythm with no murmurs, rubs, or gallops. LUNGS: Expiratory wheezes with decreased breath sounds and scattered rhonchi bilaterally. ABD: Soft, non tender, non distended. PSYCH: Good eye contact, speech is not pressured. Const: Vital Signs, click to edit/add: Vital Signs - 24 hr 08/01/24 17:28 Temperature 98.6 F Pulse Rate [Pulse Oximeter] 74 Respiratory Rate 20 Blood Pressure [Ri ght Upper Arm] 144/101 H Pulse Oximetry 93 Oxygen Delivery Me thod Nasal Cannula Oxygen Flow Rate 4 Course Course ED Course: Chest x-ray COVID influenza RSV pending. Vital Signs Vital signs: Initial Vital Signs Temperature 98.6 F 08/01/24 17:28 Temperature Source Oral 08/01/24 17:28 Pulse Rate 74 08/01/24 17:28 Respiratory Rate 20 08/01/24 17:28 Blood Pressure 144/101 H 08/01/24 17:28 Blood Pressure Mean 115 H 08/01/24 17:28 Pulse Oximetry 93 08/01/24 17:28 Oxygen Delivery Method Nasal Cannula 08/01/24 17:28 Oxygen Flow Rate 4 08/01/24 17:28 Vital Signs Temperature 98.6 F 08/01/24 17:28 Pulse Rate 74 08/01/24 17:28 Respiratory Rate 20 08/01/24 17:28 Blood Pressure 144/101 H 08/01/24 17:28 Pulse Oximetry 93 08/01/24 17:28 Oxygen Delivery Method Nasal Cannula 08/01/24 17:28 Oxygen Flow Rate 4 08/01/24 17:28 Temperature 98.6 F 08/01/24 17:28 Pulse Rate 74 08/01/24 17:28 Respiratory Rate 20 08/01/24 17:28 Blood Pressure 144/101 H 08/01/24 17:28 Pulse Oximetry 93 08/01/24 17:28 Oxygen Delivery Method Nasal Cannula 08/01/24 17:28 Oxygen Flow Rate 4 08/01/24 17:28 Medical Decision Making MDM Narrative Medical decision making narrative: Patient is a 69-year-old woman with history of lung disease who presents with cough. Her workup shows a normal chest x-ray. Her vital signs are reasonably stable. She is on oxygen at home. She does test positive for COVID-19. This time I would recommend quarantine Ng at home for 5 days wearing a mask for additional 5 days. I did treated with Thomas of id will discharge home with close outpatient follow-up. Lab Data Labs: Lab Results 08/01/24 Range/Units 17:43 SARS-CoV-2 (PCR) POSITIVE SARS-CoV-2 A (Negative) Influenza Type A (PCR) Negative PCR FLU A (Negative) Influenza Type B (PCR) Negative PCR FLU B (Negative) RSV (PCR) Negative PCR RSV (Negative) Discharge Plan Discharge Clinical Impression: COVID-19 Patient Disposition: Home, Self-Care Condition: Stable Instructions: COVID-19 (Coronavirus Disease 2019) (ED) Additional Instructions: Paxlovid as directed okay to start tomorrow. Tylenol Motrin Rest Continue oxygen supplementation. Continue current medications. Hold rosuvastatin while on Paxlovid Activity Level: No Restrictions Discharge Diet: Regular Prescriptions: New Paxlovid 300 mg (150 mg x 2)-100 mg tablets,dose pack See Rx Instructions .ROUTE .COMPLEX Qty: 30 0RF Rx Instructions: take TWO 150 mg tablets of nirmatrelvir with ONE 100 mg tablet of ritonavir twice daily for 5 days No Action nystatin 100,000 unit/gram cream 1 applic topical BID Qty: 30 0RF latanoprost 0.005 % drops 1 drp ophthalmic (eye) QPM Rx Instructions: BOTH EYES prednisolone acetate 1 % drops,suspension 1 drp ophthalmic (eye-left) BID levothyroxine 125 mcg tablet 125 mcg PO DAILY@07 brimonidine 0.2 % drops 1 drp ophthalmic (eye-left) BID nitroglycerin 0.4 mg tablet, sublingual 0.4 mg sublingual Q5M PRN montelukast 10 mg tablet 10 mg PO HS timolol maleate 0.5 % drops 1 drp ophthalmic (eye-right) QAM losartan 100 mg tablet 100 mg PO DAILY dorzolamide 2 % drops 1 drp ophthalmic (eye-left) BID ascorbic acid (vitamin C) 500 mg tablet 500 mg PO BID vitamin B complex [B Complex-Vitamin B12] Tablet 1 tab PO DAILY loratadine [Allerclear] 10 mg tablet 10 mg PO HS multivitamin [Daily Multi-Vitamin] Tablet 1 tab PO DAILY Curtis Saline Gel 1 applic intranasal Q2H PRN albuterol sulfate 90 mcg/actuation HFA aerosol inhaler 2 puff INHALATION 6XD PRN (Reason: shortness of breath or wheezing) Rx Instructions: AT LEAST THREE AND UP TO SIX TIMES PER DAY metoprolol tartrate 50 mg Tablet 25 mg PO HS Qty: 30 0RF metoprolol tartrate 50 mg Tablet 50 mg PO QAM Qty: 30 0RF ipratropium-albuterol 0.5 mg-3 mg(2.5 mg base)/3 mL solution for nebulization 3 ml inhalation QID Qty: 180 0RF torsemide 60 mg tablet 60 mg PO DAILY Qty: 30 0RF metolazone 2.5 mg tablet 5 mg PO FR@09 Qty: 30 0RF Rx Instructions: ONCE A WEEK ON SATURDAY Humulin 70/30 U-100 Insulin 100 unit/mL (70-30) suspension 47 unit subcut QPM Qty: 3 0RF Novolin 70/30 U-100 Insulin 100 unit/mL (70-30) suspension 60 unit subcut QAM Qty: 10 0RF spironolactone 25 mg tablet 25 mg PO DAILY Qty: 30 0RF cholecalciferol (vitamin D3) [Vitamin D3] 125 mcg (5,000 unit) tablet 5,000 unit PO HS rosuvastatin 10 mg tablet 10 mg PO HS PreserVision Lutein 226-90-0.8-5 mg capsule 1 cap PO DAILY vitamin E 268 mg (400 unit) capsule 268 mg PO DAILY Zinc-15 66 mg tablet 66 mg PO HS acetaminophen [8 Hour Pain Reliever] 650 mg tablet extended release 1,300 mg PO BID Rx Instructions: AND SOMETIMES A THIRD DOSE IN THE MIDDLE OF THE DAY allopurinol 100 mg tablet 150 mg PO DAILY calcium carbonate [Calcium 600] 600 mg calcium (1,500 mg) tablet 600 mg PO QPM cholecalciferol (vitamin D3) 25 mcg (1,000 unit) capsule 25 mcg PO QAM hydrocortisone [Cortizone-10] 1 % ointment 1 applic topical TID PRN Rx Instructions: USES IN FOLDS PRN loperamide 2 mg tablet 2 mg PO Q6H PRN magnesium oxide 400 mg (241.3 mg magnesium) tablet 400 mg PO HS Biofreeze (menthol) 4 % gel 1 applic topical QID PRN neomycin-polymyxin B-dexameth [Maxitrol] 3.5 mg/g-10,000 unit/g-0.1 % ointment 1 applic ophthalmic (eye-right) BID PRN Rx Instructions: USES TWICE A DAY FOR 3 DAYS AFTER EYE INJECTION triamcinolone acetonide 0.1 % cream 1 applic topical 3XD PRN Rx Instructions: USES ON ARMS PRN Deep Sea Nasal 0.65 % aerosol,spray 1 spray intranasal Q1H PRN tramadol 50 mg tablet 50 mg PO Q6H PRN (Reason: pain) Qty: 10 0RF Follow Up/Referrals: Shirley Fleming DO [Primary Care Provider] - Stand Alone Forms: [facility] Info Instructions
--- OUTSIDE RECORDS SUMMARY | 2024-08-01 18:14 | XMS_ITS ---
Author Organization [employer] Support Name Relationship Address Phone Caity Ojeda Guarantor [address] [place] [address] Caity Ojeda Agent [address] [place] [address] Caity Ojeda Personal Relationship [address] [place] [address] Nathan Ojeda Emergency Contact , [phone] Rusty Alanna Emergency Contact , -1 Allergies and adverse reactions Code CodeSystem Substance Reaction Severity StartDate Concern Status 2582 RXNORM Clindamycin Severe 05/17/2023 active Immunizations Immunization Status Vaccine Details Vaccine Code CodeSystem Date Notes TB 2 Step Mantoux Skin Test completed tuberculin skin test; unspecified formulation lotNumber: [id number] expiry: 07/07/2023 Mfg: PAR [id number]/01 /2017 Given 0.1 ml Left Forearm intradermally [...] CELLULITIS OF LEFT LOWER LIMB 05/17/[id number] active 2 CHRONIC DIASTOLIC (CONGESTIVE) HEART FAILURE 04/26/[address] active 3 CHRONIC OBSTRUCTIVE PULMONARY DISEASE, UNSPECIFIED 04/26/[address] active 4 MAJOR DEPRESSIVE DISORDER, RECURRENT, UNSPECIFIED 04/26/[address] active 5 TYPE 2 DIABETES MELLITUS 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, LEFT EYE 04/26/[address] active 6 TYPE 2 DIABETES MELLITUS WITH SEVERE NONPROLIFERATIVE DIABETIC RETINOPATHY WITH MACULAR EDEMA, RIGHT EYE 04/26/[address] active 7 NON-PRESSURE CHRONIC ULCER OF UNSPECIFIED PART OF LEFT LOWER LEG LIMITED TO BREAKDOWN OF SKIN 09/29/[address] active 8 TYPE 2 DIABETES MELLITUS WITH DIABETIC POLYNEUROPATHY 04/23/[address] active 9 VENOUS INSUFFICIENCY (CHRONIC) (PERIPHERAL) 04/23/[address] active 10 MORBID (SEVERE) OBESITY DUE TO EXCESS CALORIES 06/28/[address] active 11 ESSENTIAL (PRIMARY) HYPERTENSION 04/09/[address] active 12 VITAMIN D DEFICIENCY, UNSPECIFIED 02/22/[address] active 13 UNSPECIFIED ASTHMA, UNCOMPLICATED 06/16/[address] active 14 TYPE 2 DIABETES MELLITUS WITHOUT COMPLICATIONS 02/28/[address] active Reason for Referral No Reasons for Referral Entered Social History Social History Observation Description Start Date End Date Code Code System Current Smoking Status Tobacco smoking consumption unknown 263252026 SNOMED CT Sex Assigned At Female 1955 95082-6 [facility] Vital Signs Code Code System Vitals Name Values and Units Timing Information 2339-0 [facility] Blood Sugar Wpper=841.0 Units=mg/dL 05/22/2023 05880-1 [facility] Pain Level Value=1.0 05/22/2023 9279-1 [facility] Respiratory Rate Value=18.0 Units=/m in 05/22/2023 8462-4 [facility] Blood Pressure-Diastolic Value=74 Un its=mmHg 05/22/2023 8480-6 [facility] Blood Pressure-Systolic Zlscf=788 Un its=mmHg 05/22/2023 8310-5 [facility] Body Temperature Value=97.5 Units= F 05/22/2023 8867-4 [facility] Heart rate Value=68.0 Units=/min 38836-4 [facility] O2 % BldC Oximetry Value=96.0 Units= % 05/20/2023 66384-2 [facility] Weight Obgdw=490.8 Units=Lbs 01/2024 8302-2 [facility] Height Value=5.6 Units=Inches 05/18/2023
--- OUTSIDE RECORDS SUMMARY | 2024-08-01 18:14 | XMS_ITS | Clinical Summary ---
Author Organization [employer] [facility] Address [address] [place] [address] Care Team Providers Care Quality Assurance Manager Name Role Phone Shirley Fleming DO Primary Care Provider [phone] Allergies Active Allergy Reactions Criticality Noted Date [...] % nasal solutionIndication s:Nasal congestion Inhale 1 [place] in the nostril(s) every hour if needed. [...] post op shoe, M left foot # [phone] Active hospital bedIndications:Sev ere persistent asthma with acute exacerbation (HC),Hypoxia,Morbi d obesity with BMI of 50.0-59.9, adult (HC),Congestive heart failure, unspecified HF chronicity, unspecified heart failure type (HC) Hospital bed with mattress and full rails and trapeze. Semi-electric bed. Length of need 99 months. Bed pricing intern:no 1 Each 023 Active oxygen-air delivery systems [...] 1 Each 023 Active sodium chloride-aloe vera ([place] Saline Nasal) nasal gelIndications:Chr onic respiratory failure [...] care or medications Plan: Re-explore options with [facility] navigation social workers, Albertina Travis [phone]. Responsibility: Dyan Randhawa will contact initially and mail Care Navigation information to Caity . Target Date: Caity contact school social worker at [employer] [phone] by 05/05/2010. Achieved Date: 04/12/2010- Dyan Tate Contacted care navigation initially - information mailed to Caity. Date and Name of Care Asst: DYAN LARA RN .................... 04/12/2010 11:59 AM [...] Information mailed 04/12/2010. Date and Name of Care Asst: DYAN LARA RN .................... 04/12/2010 11:59 AM [...] Care Agent: Alanna Garcia Relationship: daughter (h) [phone](c) Conservator: Relationship: Phone: Guardian: Relationship: Phone: Patient [...] Type Department Care Team Description 07/10/2024 Refill [facility] [address] [place] [address] Sebastianqra Shirley Shantel, DO Refill Request (Nystatin) 07/07/2024 Telephone [facility] [address] [place] [address] Williamra Shirley Shantel, DO Outside Order (home nurse ) 07/02/2024 Telephone [facility] [address] [place] [address] Sir Flemingi Shantel, DO Lab (Lab for Kidney Provider - issues ) 06/29/2024 Telephone [facility] [address] [place] [address] Sir Flemingi Shantel, DO Referral (HOME HEALTH AIDE) 06/27/2024 Home Care Visit [facility] [address] [place] [phone] Kasandra Johnson, RN CARE COORDINATION 06/27/2024 Orders Only [facility] [address] [place] [address] Kasandra Johnson, RN <No scans attached> 06/26/2024 2:00 PM CDT Home Care Visit [facility] [address] [place] [phone] Kasandra Johnson, RN SN - OASIS DISCHARGE 06/25/2024 Nurse Triage [facility] [address] [place] [address] Bernadette Shirleybernie Funes, DO Abdominal Pain 06/24/2024 Home Care Visit [facility] [address] [place] [phone] Kasandra Johnson, LISA CARE COORDINATION 06/15/2024 Orders Only [facility] Scanner 1 scan: (1-Ord) RCM, 06/15/2024 06/12/2024 1:00 PM RN PICU Home Care Visit [facility] [address] [place] [address], [place] [phone] Nicole Don LPN FLOOR PLAN ADJUSTER - HOME VISIT 06/03/2024 11:00 AM RN PICU Home Care Visit [facility] [address] [place] [address], [place] [address] Yasmine Jessica, RN SN - HOME VISIT 05/29/2024 12:00 PM RN PICU Home Care Visit [facility] [address] [place] [phone] Yasmine Jessica, RN SN - HOME VISIT 05/22/2024 12:00 PM RN PICU Home Care Visit [facility] [address] [place] [phone] Yasmine Jessica, RN SN - HOME VISIT 05/19/2024 12:00 PM RN PICU Home Care Visit [facility] [address] [place] [phone] Yasmine Jessica, RN SN - HOME VISIT 05/15/2024 12:15 PM RN PICU Home Care Visit [facility] [address] [place] [phone] Yasmine Jessica, RN SN - HOME VISIT 05/12/2024 1:00 PM RN PICU Home Care Visit [facility] [address] [place] [phone] Nicole Don LPN FLOOR PLAN ADJUSTER - HOME VISIT 05/11/2024 8:30 AM RN PICU Home Care Visit [facility] [address] [place] [place] [address] Cornell Chapman, RN SN - WOUND/OSTOMY CHART CONSULT 05/08/2024 11:00 AM RN PICU Home Care Visit [facility] [address] [place] [address] Nicole Don LPN FLOOR PLAN ADJUSTER - HOME VISIT 05/06/2024 Refill [facility] [address] [facility] [place] [address] Shirley Fleming, DO Refill Request (Montelukast) 05/05/2024 4:00 AM RN PICU Home Care Visit [facility] [address] [place] [phone] Yasmine Jessica RN SN - HOME VISIT 05/03/2024 Plan of Care Documentation [facility] [address] [place] [address], [place] [phone] from Last 3 Months Immunizations Immunization Administration Dates Next Due COVID-19 vaccine ([employer] NT[employer] 30mcg/0.3mL) 12YO+ BIVALENT PF, MDV 03/05/2022 [...] on file Legal Sex Female 5:25 AM RN PICU Gender Identity Not on file Sexual Orientation [...] (323 lb 11.2 oz) 2024 12:34 PM RN PICU Height 165.1 cm (5' 5) 05/01/2024 1:29 PM RN PICU Body Mass Index 53.87 05/01/2024 1:29 PM RN PICU Plan of Treatment Health Maintenance Due Date [...] Valdez MD Medical Devices Implanted Type Area Weights And Measures Inspector Device Identifier Shelf Expiration Date Model / Serial / Lot Iol Hawkins 21.0 [employer]ista [id number] - [id number] Implanted:Qty: 1 on 11/02/2020 by Jamarcus Velez MD at [facility] Opthalmology Implants Left: Eye [employer] 03/07/2023 [id number] / [id number] / Stent Uret [id number] Contour - [id number] Implanted:Qty: 1 on 09/04/2016 by Alton Suarez MD at [facility] Left: Ureter [facility] 02/13/2019 180-223# / / [id number] Plate Glaucoma Valve Flex Ahmed Silcn - [id number] Implanted:Qty: 1 on 01/10/2022 by Lanre Tee MD at [facility] Left: Eye [employer] 07/16/2023 FP7 / [id number] / [id number] Cornea 9.0mm+ [employer] W/O Scleral Rim Half - [id number] Implanted:Qty: 1 on 01/10/2022 by Lanre Tee MD at [facility] Left: Eye [employer] 06/14/2023 [id number] / [id number] / Description:DIN: [id number] FIN(P) [id number] Procedures Procedure Name Priority Date/Time Associated Diagnosis Comments SCAN-EYE EXAM 06/15/2024 12:00 AM CDT XR MAMMO BILAT SCREENING Routine 01/13/2024 1:11 PM CDT Visit for screening mammogram LIPID PANEL W REFLEX MEASURED LDL Routine 10/08/2023 2:20 PM CDT Type 2 diabetes mellitus with hyperglycemia, with long-term current use of insulin (HC) Hypertriglyceridemi a ANTI HCV Routine 03/05/2022 12:11 PM RN PICU Need for hepatitis C screening test COLONOSCOPY [...] health care provider. XR MAMMO BILAT SCREENING [[id number]] CLINICAL HISTORY: This is an asymptomatic 68 y.o. patient. INDICATION FOR EXAM: Mammogram Screening. TECHNIQUE: CC & MLO views were obtained. This study was evaluated with the assistance of Computer-Aided Detection. COMPARISON FILM: Yes 10/24/20 [facility] 02/03/18 [employer] FINDINGS: There are scattered areas of fibroglandular density. There are no dominant masses, suspicious micro calcifications or areas of architectural distortion. us Shirley Shantel Fleming DO MAMMO Final Result * (ABNORMAL) LIPID PANEL W REFLEX MEASURED LDL (10/08/2023 2:20 PM CDT) CHOLESTEROL,TOTAL 110 100 - 199 mg/dL 10/09/2023 5:35 AM CDT [facility] Comment: Cholesterol, Total Reference Ranges Desirable <200 mg/dL Borderline 200-239 mg/dL High >=240 mg/dL TRIGLYCERIDES 120 <150 mg/dL 10/09/2023 5:35 AM CDT [facility] HDL CHOLESTEROL 37(L) >40 mg/dL 5:35 AM CDT [facility] NON-HDL CHOLESTEROL 73 <145 mg/dl 10/09/2023 5:35 AM CDT [facility] CHOL/HDL RATIO 2.97 <4.50 10/09/2023 5:35 AM CDT [facility] LDL CHOLESTEROL 49 <=130 mg/dL 10/09/2023 5:35 AM CDT [facility] VLDL CHOLESTEROL 24 <=30 mg/dL 10/09/2023 5:35 AM CDT [facility] PROVIDER ORDERED STATUS RANDOM 10/09/2023 5:35 AM CDT [facility] Blood BLOOD SPECIMEN / Unknown Venipuncture / Unknown 10/08/2023 2:20 PM CDT 10/08/2023 2:21 PM CDT Shirley Fleming DO CHEMISTRY Final Result [facility] [address] [place] [address], * ANTI HCV (03/05/2022 12:11 PM RN PICU) HEPATITIS C ANTIBODY Non-React narendra Non-React narendra 03/06/2022 8:05 PM RN PICU [facility] Comment:Antibodies to HCV no t detected; does not exclude the possibility of exposure to HCV. Blood BLOOD SPECIMEN / Unknown Venipuncture / Unknown 03/05/2022 12:11 PM RN PICU 03/05/2022 12:11 PM RN PICU us Shirley Fleming DO SEND OUTS Final Result [facility] [address] [place] [address], [place] * COLONOSCOPY SCREENING (12/28/2019 12:00 AM [...] collection 12/21/2022 12/21/2022 Insurance [address] [place] [id number] [facility] Member Subscriber Plan / Payer (Ef fective 2023-Present) Name:Caity Ojeda Relation to Subscriber:Self Name:Caity Ojeda Payer ID:[id number] (NA) Group ID:[id number] Type:Not on file Address: MAILSTOP: [id number] [place] [address] [employer] * Guarantor: [employer] Account Type Relation to Patient Date of Phone Billing Address [facility] 2001 ATTN ALYSSA LOPEZ [address] [place] [id number] Advance Directives Documents on File Type Date Recorded Patient Wastewater Manager Hannah IQBAL 09/05/2022 * Full Code (Latest [...] 5:56 PM 07/02/2016 4:31 PM Care Teams Quality Assurance Manager Relationship Specialty Start Date End Date Shirley Fleming DO [address] [facility] [place] [address] PCP - General Family Practice 12/19/20 Nancy Gonsalez 02/06/23
[2024-08-01 18:24] LABS: PCR FLU A Negative PCR FLU A (Negative); PCR FLU B Negative PCR FLU B (Negative); PCR RSV Negative PCR RSV (Negative); SARS PCR* POSITIVE SARS-CoV-2 (Negative)
== END 2024-08-01 19:38 | disposition home or self-care (01) ==
PROVIDERS: Emergency Provider Internal Medicine; PCP Family Medicine
DX: U07.1 COVID-19 (principal); R05.9 Cough, unspecified; J44.9 Chronic obstructive pulmonary disease, unspecified
CPT/HCPCS: 71046; 87631; 99283; 99284

== ENCOUNTER 2024-08-24 15:26 | Outpatient (CLI) | payer BC, SELFPAY | END 2024-08-24 15:27 | disposition home or self-care (01) | LOC: AMB 08-27 09:27 | PROVIDERS: PCP Family Medicine; Visit Provider Family Medicine | DX: M79.605 Pain in left leg (principal) | CPT/HCPCS: A0425; A0429 ==

== ENCOUNTER 2024-12-01 10:42 | Outpatient (CLI) | payer BC, SELFPAY | END 2024-12-01 10:43 | disposition home or self-care (01) | LOC: INJ CL 10:44 | PROVIDERS: PCP Family Medicine; Visit Provider Family Medicine | DX: M54.16 Radiculopathy, lumbar region (principal); M51.369 Other intervertebral disc degeneration, lumbar region without mention of lumbar back pain or lower extremity pain | CPT/HCPCS: 62323; Q9966 ==

== ENCOUNTER 2025-01-07 12:34 | Outpatient (CLI) | payer BC, SELFPAY | END 2025-01-07 12:35 | disposition home or self-care (01) | LOC: AMB 01-22 11:14 | PROVIDERS: PCP Family Medicine; Visit Provider Student in an Organized Health Care Education/Training Program | DX: M79.605 Pain in left leg (principal); R22.42 Localized swelling, mass and lump, left lower limb | CPT/HCPCS: A0425; A0427 ==